=== PATIENT | female | born 1980 | race Caucasian/White ===

== ENCOUNTER 2019-03-19 14:37 | Inpatient (IN) | payer MEDICAID ==
[~2019-03-19] VITALS: Ht 157.5 cm; Wt 40.8 kg
--- NOTE | 2019-03-19 12:42 | NUR ---
NURSE NOTES: Dr. Quintero made aware regarding Pt.'s pupil size difference, left 4 right 2. Addendum: 03/20/19 at 0754 by Jackeline Card RN WRONG PATIENT!!
[2019-03-19 14:40] VITALS: BP 127/82
[2019-03-19] MEDS ORDERED: Dicyclomine HCl 10mg/5ml oral soln ORAL ONE (14:45)
[2019-03-19] MEDS ORDERED: Mylanta II UD 30ml ORAL ONE (14:45)
[2019-03-19] MEDS ORDERED: Lidocaine 2% Visc 15ml soln ORAL ONE (14:45)
--- NOTE | 2019-03-19 14:48 | Emergency Room Report ---
History of Present Illness General Chief Complaint: Alcohol Intoxication Present Illness HPI Disclaimer: Please note that this report is being documented using [employer] technology. This can lead to erroneous entry secondary to incorrect interpretation by the dictating instrument. HPI: 38-year-old female with history of alcohol abuse presents requesting detox services and complaining of abdominal pain. She states that she has a long history of alcohol abuse and has been drinking approximately 10 mini-bottles of liquor daily for approximately 1 year. Has completed outpatient detox programs in the past however repeat last this past October after 1 month of sobriety. She notes intermittent left upper quadrant and lower pelvic pain. She denies dysuria, hematuria, flank pain, vaginal discharge, vaginal bleeding. Cannot recall last menstrual period. Denies vomiting but does report nausea. Denies chest pain, shortness of breath. She has had an alcohol withdrawal seizure in the past but does not take anti-elliptic medication otherwise. Otherwise denies any recent fevers, chills, sore throat, nasal congestion. Denies other drug abuse. Does smoke cigarettes. PMH: Alcohol abuse with withdrawal seizure PSH: Denies Allergies: Denies Social Hx: Alcohol abuse, denies drug abuse. Active smoker Allergies: Coded Allergies: No Known Allergies (Unverified , 03/19/19) Patient History Now: No Review of Systems All Other Systems: negative except mentioned in HPI Physical Exam Vital Signs Date Time Temp Pulse Resp B/P (MAP) Pulse Ox O2 Delivery O2 Flow Rate FiO2 03/19/19 14:32 98.2 90 18 127/82 (97) 98 Room Air General: Awake and alert, no acute distress, tearful and emotional HEENT: NC/AT. EOMI. Cardiovascular: RRR. S1 and S2 normal. No murmur appreciated Resp: Normal work of breathing. No cough, wheezing or crackles appreciated Abdomen: Abdomen is soft, nondistended. Nontender, no masses, no guarding Skin: Intact. No abrasions, laceration or rash over the exposed skin MSK: Normal tone and bulk. Moving all extremities. No obvious deformity. Neuro: Awake and alert. Mentating appropriately. Procedures Critical Care Time Critical Care Time Total critical care time: Approximately 31 minutes Due to a high probability of clinically significant, life threatening deterioration, the patient required the highest level of preparedness to intervene emergently and I personally spent this critical care time directly and personally managing the patient. This critical care time included obtaining a history, examining the patient, pulse oximetry, ordering and reviewing studies , ordering treatments, evaluating response to treatment and updating management plan as needed, frequent reassessment and discussion with other providers as well as arranging for ultimate disposition. This critical to care time was performed to assess and manage the high probability of life-threatening deterioration that could result in multiorgan failure. This critical care time is separate from the separately billable procedures and treating other patients. Medical Decision Making Diagnostic Impression: Primary Impression: Acute alcoholic intoxication Qualified Codes: F10.929 - Alcohol use, unspecified with intoxication, unspecified Additional Impressions: Hypokalemia Pancreatitis UTI (urinary tract infection) ER Course This a 38-year-old female presenting for evaluation of abdominal pain and requesting detox services from alcohol. Differential includes but is not limited to gastritis, pancreatitis, cholecystitis, biliary colic, ovarian cyst, , ectopic , fibroid, gastroenteritis. We will start a broad metabolic and infectious work-up, give IV fluids, antiemetics and GI cocktail. Patient will be allowed to metabolize in the emergency department. Can discuss with discharge planning regarding outpatient services. No evidence of acute withdrawal. Last drink was earlier this morning. Laboratory Tests Test 03/19/19 15:10 White Blood Count 4.7 K/UL (4.8-10.8) L Red Blood Count 3.45 M/UL (4.20-5.40) L Hemoglobin 13.4 G/DL (12.0-16.0) Hematocrit 34.3 % (37.0-47.0) L Mean Corpuscular Volume 100 FL (80-99) H Mean Corpuscular Hemoglobin 38.8 PG (27.0-31.0) H Mean Corpuscular Hemoglobin Concent 38.9 G/DL (32.0-36.0) H Red Cell Distribution Width 12.9 % (11.6-14.8) Platelet Count 84 K/UL (150-450) L Mean Platelet Volume 7.2 FL (6.5-10.1) Neutrophils (%) (Auto) % (45.0-75.0) Lymphocytes (%) (Auto) % (20.0-45.0) Monocytes (%) (Auto) % (1.0-10.0) Eosinophils (%) (Auto) % (0.0-3.0) Basophils (%) (Auto) % (0.0-2.0) Differential Total Cells Counted 100 Neutrophils % (Manual) 52 % (45-75) Lymphocytes % (Manual) 40 % (20-45) Monocytes % (Manual) 7 % (1-10) Eosinophils % (Manual) 0 % (0-3) Basophils % (Manual) 0 % (0-2) Band Neutrophils 1 % (0-8) Nucleated Red Blood Cells 1 /100 WBC Platelet Estimate Decreased L Platelet Morphology Normal Polychromasia 1+ Macrocytosis 2+ Urine Color Yellow Urine Appearance Very cloudy Urine pH 7 (4.5-8.0) Urine Specific [place] 1.005 (1.005-1.035) Urine Protein 2+ (NEGATIVE) H Urine Glucose (UA) Negative (NEGATIVE) Urine Ketones 3+ (NEGATIVE) H Urine Blood 2+ (NEGATIVE) H Urine Nitrite Negative (NEGATIVE) Urine Bilirubin 2+ (NEGATIVE) H Urine Ictotest Positive (NEGATIVE) Urine Urobilinogen 8 MG/DL (0.0-1.0) H Urine Leukocyte Esterase 2+ (NEGATIVE) H Urine RBC 0-2 /HPF (0 - 2) Urine WBC 5-10 /HPF (0 - 2) H Urine Squamous Epithelial Cells Many /LPF (NONE/OCC) H Urine Bacteria Moderate /HPF (NONE) H Urine HCG, Qualitative Negative (NEGATIVE) Sodium Level 146 MMOL/L (136-145) H Potassium Level 2.4 MMOL/L (3.5-5.1) *L Chloride Level 100 MMOL/L (98-107) Carbon Dioxide Level 27 MMOL/L (21-32) Anion Gap 20 mmol/L (5-15) H Blood Urea Nitrogen 4 mg/dL (7-18) L Creatinine 0.6 MG/DL (0.55-1.30) Estimate Glomerular Filtration Rate > 60 mL/min (>60) Glucose Level 92 MG/DL (74-106) Calcium Level 9.5 MG/DL (8.5-10.1) Phosphorus Level 2.2 MG/DL (2.5-4.9) L Magnesium Level 1.7 MG/DL (1.8-2.4) L Total Bilirubin 2.0 MG/DL (0.2-1.0) H Direct Bilirubin 1.0 MG/DL (0.0-0.3) H Aspartate Amino Transferase (AST) 332 U/L (15-37) H Alanine Aminotransferase (ALT) 54 U/L (12-78) Alkaline Phosphatase 185 U/L (46-116) H Total Protein 7.5 G/DL (6.4-8.2) Albumin 3.7 G/DL (3.4-5.0) Globulin 3.8 g/dL Albumin/Globulin Ratio 1.0 (1.0-2.7) Lipase 1468 U/L (73-393) H Urine Opiates Screen Negative (NEGATIVE) Urine Barbiturates Screen Negative (NEGATIVE) Phencyclidine (PCP) Screen Negative (NEGATIVE) Urine Amphetamines Screen Negative (NEGATIVE) Urine Benzodiazepines Screen Negative (NEGATIVE) Urine Cocaine Screen Negative (NEGATIVE) Urine Marijuana (THC) Screen Negative (NEGATIVE) EKG Diagnostic Results EKG Time: 18:57 Rate: normal Rhythm: NSR ST Segments: no acute changes Other Impression Sinus rhythm, normal axis. First-degree AV block with [place] interval 376 ms. Narrow complex. Flattened T waves. Slight U wave present. No acute ST segment changes. Rhythm Strip Diag. Results Rhythm Strip Time: 18:57 EP Interpretation: yes Rate: 80s Rhythm: NSR, no PVC's, no ectopy Reevaluation Time: 18:00 Last Vital Signs Date Time Temp Pulse Resp B/P (MAP) Pulse Ox O2 Delivery O2 Flow Rate FiO2 03/19/19 14:32 98.2 90 18 127/82 (97) 98 Room Air Status: improved Reevaluation Impression Labs show a critically low potassium at 2.9 and patient is receiving IV and oral repletion. Magnesium also found low and will be repleted orally. Labs show urinary tract infection for which the patient is receiving ceftriaxone in addition to an elevated lipase level consistent with alcoholic pancreatitis. EKG did show flattened T waves and U waves in certain leads consistent with the patient's hypomagnesemia and hypokalemia. She will be admitted to telemetry for careful monitoring and further correction of her electro light abnormalities as well as treatment of her pancreatitis and urinary tract infection. Disposition: ADMITTED INPATIENT Condition: Serious Scripts No Active Prescriptions or Reported Meds Rohith Mccloud MD Mar 19, 2019 14:48
--- NOTE | 2019-03-19 14:55 | NUR ---
ED Nurse Note: Patient kian RA from home c/o ETOH intoxication, patient admits to drining about 5 shots of vodka prior to arrival, states that shes had 3 episodes of vomit prior to arrival, complains of 3/10 upper abdominal pain. patient is alert and oriented x4
[2019-03-19 15:27] LABS: HEMATOCRIT 34.3 % (37.0-47.0); HEMOGLOBIN 13.4 G/DL (12.0-16.0); MEAN CORPUSCULAR VOLUME 100 FL (80-99); PLATELET COUNT 84 K/UL (150-450); RED BLOOD COUNT 3.45 M/UL (4.20-5.40); RED CELL DISTRIBUTION WIDTH 12.9 % (11.6-14.8); WHITE BLOOD COUNT 4.7 K/UL (4.8-10.8)
[2019-03-19 15:30] LABS: APPEARANCE,URINE VERY CLOUDY; BILIRUBIN, URINE 2+ (NEGATIVE); GLUCOSE, URINE (UA) NEGATIVE (NEGATIVE); KETONES,URINE 3+ (NEGATIVE); LEUKOCYTE ESTERASE ,URINE 2+ (NEGATIVE); NITRITE,URINE NEGATIVE (NEGATIVE); PH,URINE 7 (4.5-8.0); PROTEIN,URINE 2+ (NEGATIVE); UROBILINOGEN,URINE 8 MG/DL (0.0-1.0)
[2019-03-19 15:34] LABS: COLOR,URINE YELLOW
--- NOTE | 2019-03-19 15:43 | NUR ---
ED Nurse Note: Patient sleeping in bed in no distress
[2019-03-19 15:50] LABS: ALANINE AMINOTRANSFERASE 54 U/L (12-78); ALBUMIN 3.7 G/DL (3.4-5.0); ALKALINE PHOSPHATASE 185 U/L (46-116); ANION GAP 20 mmol/L (5-15); ASPARTATE AMINO TRANSFERASE 332 U/L (15-37); BLOOD UREA NITROGEN 4 mg/dL (7-18); CALCIUM 9.5 MG/DL (8.5-10.1); CARBON DIOXIDE 27 MMOL/L (21-32); CHLORIDE 100 MMOL/L (98-107); CREATININE 0.6 MG/DL (0.55-1.30); PHOSPHORUS 2.2 MG/DL (2.5-4.9); SODIUM 146 MMOL/L (136-145)
[2019-03-19 15:51] LABS: POTASSIUM 2.4 MMOL/L (3.5-5.1)
[2019-03-19] MEDS ORDERED: cefTRIAXone 1 GM in NS 55 ML IVPB ONE (17:15)
--- NOTE | 2019-03-19 17:45 | NUR ---
ED Nurse Note: Patient sleeping calmly in bed, patient was given a sandwich
[2019-03-19 17:48] VITALS: BP 118/79
--- NOTE | 2019-03-19 18:30 | NUR ---
Behzad cortés in ED - 03/19/19 at 1919 by KATHYA TRANSFER TO FLOOR: Patient transferred to Telemetry as ordered, per . Report given to KD Huffman
--- NOTE | 2019-03-19 18:30 | NUR ---
TRANSFER TO FLOOR: Patient transferred to Telemetry as ordered, per . Report given to KD Huffman
--- NOTE | 2019-03-19 18:36 | NUR ---
NURSE NOTES: Report received from KD Sterling. Pt. came on the floor from ER. via gurney. AOx4. bullet slugs inspector applied. Pt. refused floor gown, in bed with street clothing. Belongings checked with Pt. signed and filed. Floor ID band applied. VS stable. Walked to the restroom, stable. Denies any pain or SOB. In RA. L and R FA 20g IV patent, flushed, running Mg and NS in different sites. Bed on lowest position, side rails upx2, brakes engaged. Call light within easy reach.
[2019-03-19 18:45] VITALS: BP 111/78
--- NOTE | 2019-03-19 19:13 | NUR ---
NURSE NOTES: Left a message to Dr. Gill, Pt. on the floor, need admission orders. Informed to call the floor.
--- NOTE | 2019-03-19 19:20 | NUR ---
HAND-OFF: Report given to KD Smith. Pt. AOx4. No complaint of pain.
--- NOTE | 2019-03-19 19:58 | NUR ---
NURSE NOTES: Received pt from KD Viveros. Pt awakened to voice but lethargic. Bed in lowest position. Call light within reach. Dr. Gill called with the following orders: - D/C home meds - NPO - SCD - Banana bag @75 ml/hr X1 - Dominique consult for ativan orders - Erin consult for GI problems Will input orders and will continue to monitor. Will continue to monitor.
[2019-03-19 20:00] VITALS: BP 114/79
[2019-03-19] MEDS ORDERED: Folic Acid 1 MG, Magnesium Sulfate 2,000 MG, Multivitamin - 12 Injection 10 ML in Sodiu... IV ONE (21:30)
[2019-03-19] MEDS: LORazepam 1mg tab ORAL PRN (21:30)
[2019-03-19] MEDS ORDERED: Thiamine 100mg in D5W 55ml IVPB ONE (21:30)
[2019-03-20] VITALS: BP 129/91
[2019-03-20 04:00] VITALS: BP 137/99
--- NOTE | 2019-03-20 07:21 | NUR ---
HAND-OFF: Report given to KD Viveros. Pt stable.
--- NOTE | 2019-03-20 07:21 | NUR ---
NURSE NOTES: Report received from KD Smith. Pt. sleeping comfortably, no distress noted. White board updated. Room cleared from clatter. Banana bag running at 75mL/hr. site intact. Bed on lowest position, side rails upx2, brakes engaged. Call light placed within reach.
[2019-03-20 08:00] VITALS: BP 130/91
[2019-03-20 08:55] LABS: HEMOGLOBIN 10.6 G/DL (12.0-16.0); MEAN CORPUSCULAR VOLUME 108 FL (80-99); PLATELET COUNT 60 K/UL (150-450); RED BLOOD COUNT 2.77 M/UL (4.20-5.40); RED CELL DISTRIBUTION WIDTH 13.9 % (11.6-14.8); WHITE BLOOD COUNT 4.9 K/UL (4.8-10.8)
[2019-03-20 09:30] LABS: ALANINE AMINOTRANSFERASE 47 U/L (12-78); ALBUMIN 2.8 G/DL (3.4-5.0); ALBUMIN/GLOBULIN RATIO 0.9 (1.0-2.7); ALKALINE PHOSPHATASE 160 U/L (46-116); ASPARTATE AMINO TRANSFERASE 302 U/L (15-37); BILIRUBIN,TOTAL 2.3 MG/DL (0.2-1.0); BLOOD UREA NITROGEN 3 mg/dL (7-18); CALCIUM 8.1 MG/DL (8.5-10.1); CARBON DIOXIDE 29 MMOL/L (21-32); CHOLESTEROL 229 MG/DL (< 200); CREATININE 0.7 MG/DL (0.55-1.30); HDL CHOLESTEROL 102 MG/DL (40-60); PHOSPHORUS 2.9 MG/DL (2.5-4.9); TRIGLYCERIDES 38 MG/DL (30-150)
[2019-03-20 09:31] LABS: BILIRUBIN,DIRECT 1.2 MG/DL (0.0-0.3)
[2019-03-20 09:36] LABS: CHLORIDE 102 MMOL/L (98-107); POTASSIUM 2.2 MMOL/L (3.5-5.1); SODIUM 144 MMOL/L (136-145)
--- NOTE | 2019-03-20 10:18 | GI Initial Consult Note ---
History of Present Illness General Date patient seen: Mar 20, 2019 Time patient seen: 10:14 Reason for Hospitalization: Alcohol Intoxication Referring physician: DANIELLA SIMON Reason for Consultation: Alcoholic pancreatitis Present Illness HPI 38-year-old female with history of alcohol abuse presents requesting detox services and complaining of abdominal pain. She states that she has a long history of alcohol abuse and has been drinking approximately 10 mini-bottles of liquor daily for approximately 1 year. Has completed outpatient detox programs in the past however repeat last this past October after 1 month of sobriety. She notes intermittent left upper quadrant and lower pelvic pain. She denies dysuria, hematuria, flank pain, vaginal discharge, vaginal bleeding. Cannot recall last menstrual period. Denies vomiting but does report nausea. Denies chest pain, shortness of breath. She has had an alcohol withdrawal seizure in the past but does not take anti-elliptic medication otherwise. Otherwise denies any recent fevers, chills, sore throat, nasal congestion. Denies other drug abuse. Does smoke cigarettes. GI consulted for alcoholic pancreatitis. Patient seen, awake alert oriented x4 no apparent distress with no active signs or symptoms of nausea vomiting. At this time the patient's still states her abdominal pain is present, but however has improved. The patient admits to EtOH abuse as noted above. Patient has no history of endoscopic or colonoscopy. The patient denies any diarrhea or constipation. Pertinent labs hemoglobin 10.6, lipase 1418, total bilirubin 2.0 , AST of 332. Home Meds No Active Prescriptions or Reported Meds Allergies: Coded Allergies: No Known Allergies (Unverified , 03/19/19) Patient History History Provided By: Patient, Medical Record PMH Narrative PMH: Alcohol abuse with withdrawal seizure PSH: Denies Allergies: Denies Social Hx: Alcohol abuse, denies drug abuse. Active smoker Patient History Now: No Social History: Reports: alcohol use Review of Systems All Other Systems: negative except mentioned in HPI Physical Exam Vital Signs Date Time Temp Pulse Resp B/P (MAP) Pulse Ox O2 Delivery O2 Flow Rate FiO2 03/19/19 14:32 98.2 90 18 127/82 (97) 98 Room Air Sp02 EP Interpretation: reviewed, normal Labs Laboratory Tests Test 03/19/19 15:10 03/20/19 08:15 White Blood Count 4.7 K/UL (4.8-10.8) L 4.9 K/UL (4.8-10.8) Red Blood Count 3.45 M/UL (4.20-5.40) L 2.77 M/UL (4.20-5.40) L Hemoglobin 13.4 G/DL (12.0-16.0) 10.6 G/DL (12.0-16.0) L Hematocrit 34.3 % (37.0-47.0) L 30.0 % (37.0-47.0) L Mean Corpuscular Volume 100 FL (80-99) H 108 FL (80-99) H Mean Corpuscular Hemoglobin 38.8 PG (27.0-31.0) H 38.5 PG (27.0-31.0) H Mean Corpuscular Hemoglobin Concent 38.9 G/DL (32.0-36.0) H 35.5 G/DL (32.0-36.0) Red Cell Distribution Width 12.9 % (11.6-14.8) 13.9 % (11.6-14.8) Platelet Count 84 K/UL (150-450) L 60 K/UL (150-450) L Mean Platelet Volume 7.2 FL (6.5-10.1) 9.0 FL (6.5-10.1) Neutrophils (%) (Auto) % (45.0-75.0) % (45.0-75.0) Lymphocytes (%) (Auto) % (20.0-45.0) % (20.0-45.0) Monocytes (%) (Auto) % (1.0-10.0) % (1.0-10.0) Eosinophils (%) (Auto) % (0.0-3.0) % (0.0-3.0) Basophils (%) (Auto) % (0.0-2.0) % (0.0-2.0) Differential Total Cells Counted 100 Neutrophils % (Manual) 52 % (45-75) Pending Lymphocytes % (Manual) 40 % (20-45) Pending Monocytes % (Manual) 7 % (1-10) Eosinophils % (Manual) 0 % (0-3) Basophils % (Manual) 0 % (0-2) Band Neutrophils 1 % (0-8) Nucleated Red Blood Cells 1 /100 WBC Platelet Estimate Decreased L Pending Platelet Morphology Normal Pending Polychromasia 1+ Macrocytosis 2+ Urine Color Yellow Urine Appearance Very cloudy Urine pH 7 (4.5-8.0) Urine Specific [place] 1.005 (1.005-1.035) Urine Protein 2+ (NEGATIVE) H Urine Glucose (UA) Negative (NEGATIVE) Urine Ketones 3+ (NEGATIVE) H Urine Blood 2+ (NEGATIVE) H Urine Nitrite Negative (NEGATIVE) Urine Bilirubin 2+ (NEGATIVE) H Urine Ictotest Positive (NEGATIVE) Urine Urobilinogen 8 MG/DL (0.0-1.0) H Urine Leukocyte Esterase 2+ (NEGATIVE) H Urine RBC 0-2 /HPF (0 - 2) Urine WBC 5-10 /HPF (0 - 2) H Urine Squamous Epithelial Cells Many /LPF (NONE/OCC) H Urine Bacteria Moderate /HPF (NONE) H Urine HCG, Qualitative Negative (NEGATIVE) Sodium Level 146 MMOL/L (136-145) H 144 MMOL/L (136-145) Potassium Level 2.4 MMOL/L (3.5-5.1) *L 2.2 MMOL/L (3.5-5.1) *L Chloride Level 100 MMOL/L (98-107) 102 MMOL/L (98-107) Carbon Dioxide Level 27 MMOL/L (21-32) 29 MMOL/L (21-32) Anion Gap 20 mmol/L (5-15) H Blood Urea Nitrogen 4 mg/dL (7-18) L 3 mg/dL (7-18) L Creatinine 0.6 MG/DL (0.55-1.30) 0.7 MG/DL (0.55-1.30) Estimat Glomerular Filtration Rate > 60 mL/min (>60) > 60 mL/min (>60) Glucose Level 92 MG/DL (74-106) 70 MG/DL (74-106) L Calcium Level 9.5 MG/DL (8.5-10.1) 8.1 MG/DL (8.5-10.1) L Phosphorus Level 2.2 MG/DL (2.5-4.9) L 2.9 MG/DL (2.5-4.9) Magnesium Level 1.7 MG/DL (1.8-2.4) L 2.1 MG/DL (1.8-2.4) Total Bilirubin 2.0 MG/DL (0.2-1.0) H 2.3 MG/DL (0.2-1.0) H Direct Bilirubin 1.0 MG/DL (0.0-0.3) H 1.2 MG/DL (0.0-0.3) H Aspartate Amino Transf (AST/SGOT) 332 U/L (15-37) H 302 U/L (15-37) H Alanine Aminotransferase (ALT/SGPT) 54 U/L (12-78) 47 U/L (12-78) Alkaline Phosphatase 185 U/L (46-116) H 160 U/L (46-116) H Total Protein 7.5 G/DL (6.4-8.2) 5.8 G/DL (6.4-8.2) L Albumin 3.7 G/DL (3.4-5.0) 2.8 G/DL (3.4-5.0) L Globulin 3.8 g/dL 3.0 g/dL Albumin/Globulin Ratio 1.0 (1.0-2.7) 0.9 (1.0-2.7) L Lipase 1468 U/L (73-393) H 1244 U/L (73-393) H Urine Opiates Screen Negative (NEGATIVE) Urine Barbiturates Screen Negative (NEGATIVE) Phencyclidine (PCP) Screen Negative (NEGATIVE) Urine Amphetamines Screen Negative (NEGATIVE) Urine Benzodiazepines Screen Negative (NEGATIVE) Urine Cocaine Screen Negative (NEGATIVE) Urine Marijuana (THC) Screen Negative (NEGATIVE) Uric Acid 2.8 MG/DL (2.6-7.2) C-Reactive Protein, Quantitative < 0.4 mg/dL (0.00-0.90) Triglycerides Level 38 MG/DL (30-150) Cholesterol Level 229 MG/DL (< 200) H LDL Cholesterol 85 mg/dL (<100) HDL Cholesterol 102 MG/DL (40-60) H Cholesterol/HDL Ratio 2.2 (3.3-4.4) L General Appearance: well appearing, no apparent distress, alert Head: normocephalic EENT: PERRL/EOMI, normal ENT inspection Neck: supple Respiratory: normal breath sounds, no respiratory distress Cardiovascular: normal rate Gastrointestinal: normal inspection, non tender, soft, normal bowel sounds, non -distended Rectal: deferred Genitourinary: no CVA tenderness Musculoskeletal: normal inspection, back normal Neurologic: normal inspection, alert, oriented x3, responsive Psychiatric: normal inspection, judgement/insight normal, memory normal Skin: normal inspection, normal color, no rash, warm/dry, palpation normal, well hydrated Lymphatic: normal inspection, no adenopathy Current Medications Current Medications Medications (Trade) Dose Ordered Sig/Ismael Route PRN Reason Start Time Stop Time Status Last Admin Dose Admin Ceftriaxone Sodium 1 gm/ Dextrose 55 ml @ 110 mls/hr Q24H IVPB 03/20/19 15:00 03/27/19 14:59 Folic Acid 1 mg/ Magnesium Sulfate 2000 mg/ Multivitamins 10 ml/Sodium Chloride 1,014.2 ml @ 75 mls/hr Q24H ONCE IV 03/19/19 21:30 03/20/19 11:01 03/19/19 21:31 Lorazepam (Ativan) 2 mg Q2H PRN ORAL anxiety 03/19/19 20:30 03/26/19 20:29 03/19/19 21:30 Ondansetron HCl (Zofran) 4 mg Q6H PRN IVP Nausea & Vomiting 03/19/19 20:15 04/18/19 20:14 03/19/19 21:30 Potassium Chloride 100 ml @ 100 mls/hr Q1H IVPB 03/20/19 10:00 03/20/19 19:59 GI: Plan Problems: (1) Acute alcoholic pancreatitis (2) Anemia (3) ETOH abuse Plan Maintain the patient n.p.o. plus IV fluids We will obtain abdominal ultrasound to evaluate liver Banana bag pain mgmt zofran prn PPI anemia work up OB stool r/o GI bleed monitor H&H, prn transfusions bowel regimen ppi fu labs, lipase trend LFTs Discussed with Dr. Khan. Thank you for this patient referral, we will follow. The patient was seen and examined at bedside and all new and available data was reviewed in the patients chart. I agree with the above findings, impression and plan. (Patient seen earlier today. Signature stamp does not reflect patient encounter time.). - MD Haley Almazan,[facility] [employer] Mar 20, 2019 10:18
[2019-03-20 12:00] VITALS: BP 128/86
[2019-03-20] MEDS: LORazepam 1mg tab ORAL PRN ×2 (12:00→21:32)
--- NOTE | 2019-03-20 12:29 | Diagnostic Imaging Report ---
Indication: Abnormal liver function tests and abdominal pain Technique: Mathis-scale and duplex images of the upper abdomen were obtained Comparison: none Findings: Gallbladder demonstrates sludge. No stones. No pericholecystic fluid or wall thickening. Sonographic Jiang's sign is negative. Common bile duct measures 6 mm in diameter. No intrahepatic biliary ductal dilatation. Liver demonstrates diffusely increased echogenicity, consistent with diffuse hepatocellular disease, most likely fatty change. Is enlarged. Portal vein and hepatic veins are patent. Pancreas is unremarkable. Spleen is unremarkable. Left kidney measures 10.1 cm in length. Right kidney measures 11.4 cm length. Both kidneys demonstrate normal echogenicity. There is no hydronephrosis. No focal abnormality . Non-aneurysmal abdominal aorta . Impression: Gallbladder sludge. Negative for gallstones or dilated bile ducts Hepatomegaly Liver demonstrates diffusely increased echogenicity, consistent with diffuse hepatocellular disease, most likely fatty change.
[2019-03-20] MEDS ORDERED: cefTRIAXone 1 GM in D5W 55 ML IVPB SCH (15:00)
[2019-03-20 16:00] VITALS: BP 130/79
--- NOTE | 2019-03-20 16:02 | NUR ---
Social Service Note MORA met with patient to address ETOH abuse. Patient states she has been drinking for as long as she can remember. Patient is non-funded with limited income. Patient recently received detox services for 4 days at [facility]. [facility] will screen patient. MORA provided community resources for [facility] substance abuse services. Patient with poor coping skills and noted depression. Mental Health resources also provided. Patient states the longest period of sobriety is when she returned home to [place] with her mother and received rehab there. Patient doesn't want to return home but understands resources a limited due to no insurance and ability to pay privately. MORA provided support. Patient will return home upon discharge.
--- NOTE | 2019-03-20 16:09 | NUR ---
CASE MANAGEMENT:REVIEW 38 YR OLD FEMALE BIBA FROM HOME CC: ABDOMINAL PAIN D/T ALCOHOL INTAKE. VOMITI NG SI: HYPOKALEMIA. UTI. PANCREATITIS ACUTE ETOH INTOXICATION 98.2 90 18 127/82 98% ON RA K-2.4 LIPASE+1468 IS: IV KCL X3 PO KCL 1L NS BOLUS IV ZOFRAN GI COCKTAIL : TO TELEMETRY INTERQUAL CRITERIA MET
--- NOTE | 2019-03-20 18:00 | History and Physical Report ---
DATE OF ADMISSION: 03/19/2019 HISTORY OF PRESENT ILLNESS: The patient comes in alcohol abuse, alcohol intoxication, rule out DT, found to be hypokalemic, potassium 2.4, also for pancreatitis with elevated lipase as well as UTI, admitted for those reasons. The patient's only complaint right now is mild epigastric tenderness as well as weakness. Otherwise, denies nausea, vomiting, or diarrhea. Denies shortness of breath . Denies cough. Denies chills. PAST MEDICAL HISTORY: Alcohol abuse, history of breast abscess. PAST SURGICAL HISTORY: Removal of the abscess of the breast. SOCIAL HISTORY: History of smoking. History of alcohol abuse. No history of drug abuse. MEDICATIONS: The patient does not take anything routine. ALLERGIES: No known allergies. FAMILY HISTORY: Noncontributory. REVIEW OF SYSTEMS: HEENT: Denies headaches. RESPIRATORY: Denies shortness of breath. Denies cough. CARDIOVASCULAR: Denies chest pain. GASTROINTESTINAL: Denies nausea, vomiting, diarrhea. EXTREMITIES: Weakness and pain. Does have mild epigastric tenderness. Has generalized weakness. CENTRAL NERVOUS SYSTEM: Denies change in vision or speech pattern. Has generalized weakness. PHYSICAL EXAMINATION: VITAL SIGNS: Temperature 98.5, pulse is 87, blood pressure 139/91. HEENT: PERRLA. NECK: Supple. No lymphadenopathy. CHEST: Clear to auscultation. CARDIOVASCULAR: Regular rate and rhythm. No murmur or extra sounds. GASTROINTESTINAL: Mild epigastric tenderness. Abdomen is soft. No rebound. No organomegaly. EXTREMITIES: No edema. Reflexes equal on both sides. Move all four extremities. LABORATORY STUDIES: WBC is 4.7, hemoglobin 13.4, platelets 84. Sodium 46, potassium 2.4, BUN of 4, creatinine 0.6, glucose of 92. AST , ALT of 54. Total bilirubin of 2. ASSESSMENT AND PLAN: Alcohol abuse, hypokalemia, pancreatitis, elevated lipase, UTI. I have asked Dr. Beckman, Dr. Dang, Dr. Fox, Dr. Khan, and Dr. Caleb Dallas to see the patient and help with the management of the above-mentioned diagnoses. Most of her problems are most likely due to current alcohol consumption. We will monitor the patient closely. Ti Gill M.D. DR: JACOBO JOB#: [id number] CC:
--- NOTE | 2019-03-20 18:54 | Consultation ---
Consult Note Consult Note Late keysha Patient seen , interviewed examined 9 am today- Lab reviewed preliminary orders given ER HPI: 38-year-old female with history of alcohol abuse presents requesting detox services and complaining of abdominal pain. She states that she has a long history of alcohol abuse and has been drinking approximately 10 mini-bottles of liquor daily for approximately 1 year. Has completed outpatient detox programs in the past however repeat last this past October after 1 month of sobriety. She notes intermittent left upper quadrant and lower pelvic pain. She denies dysuria, hematuria, flank pain, vaginal discharge, vaginal bleeding. Cannot recall last menstrual period. Denies vomiting but does report nausea. Denies chest pain, shortness of breath. She has had an alcohol withdrawal seizure in the past but does not take anti-elliptic medication otherwise. Otherwise denies any recent fevers, chills, sore throat, nasal congestion. Denies other drug abuse. Does smoke cigarettes. PMH: Alcohol abuse with withdrawal seizure Allergies: Denies Social Hx: Alcohol abuse, denies drug abuse. Active smoker No Known Allergies (Unverified , 03/19/19) . Assessment/Plan Severe HypoKalemia Pancreatitis , high Lipase Acute alcoholic intoxication Anemia sugg: K IV IV Fluid Monitor electrolytes anemia valenzuela Thiamin Gastric support per orders Mehdi Beckman MD Mar 20, 2019 18:54
--- NOTE | 2019-03-20 19:30 | NUR ---
HAND-OFF: Report given to KD Najera. Patient in stable condition. Family at bedside.
--- NOTE | 2019-03-20 19:30 | NUR ---
NURSE NOTES: Received report from KD Viveros. Pt is awake and resting in bed. In no acute distress. IV line intact and patent. Bed in lowest position, call light within reach. Will continue plan of care.
[2019-03-20 20:00] VITALS: BP 108/85
--- NOTE | 2019-03-20 20:00 | Consultation ---
DATE OF CONSULTATION: 03/20/2019 HISTORY OF PRESENT ILLNESS: The patient is a 38-year-old female with a history of alcohol dependence, alcohol withdrawal, seizure who has been admitted to the hospital for agitation and alcohol intoxication. The patient has been having anxiety, agitation. Her vital signs have been slightly high however manageable. She has some tachycardic; however, is manageable. PAST PSYCHIATRIC HISTORY: Significant for depression and anxiety. PAST MEDICAL HISTORY: As above. ALLERGIES: No known drug allergies. SUBSTANCE ABUSE HISTORY: Significant for alcohol. Urine toxicology was negative. MENTAL STATUS EXAMINATION: The patient is alert and oriented to self, has waxing and waning of consciousness. She has been slightly lethargic. She knows she is in the hospital and she knows the year. Her mood is anxious. Affect is constricted. Congruent with mood. Thought process is concrete. Thought content, no suicidal or homicidal ideations. Cognition is slightly impaired. ASSESSMENT: [place] I Alcohol intoxication. Alcohol withdrawal. [place] II Deferred. [place] III As above. [place] IV Low [place] V 20 PLAN: 1. The patient will be continued on Ativan as needed. 2. Thiamine. 3. Folate. 4. We will continue to follow and readjust the medications. Ted Fox M.D. DR: Nicol JOB#: [id number] CC:
--- NOTE | 2019-03-20 21:15 | Consultation ---
DATE OF CONSULTATION: 03/20/2019 INFECTIOUS DISEASE CONSULTATION CONSULTING PHYSICIAN: Caleb Dallas M.D. PRIMARY ATTENDING PHYSICIAN: Ti Gill M.D. REASON FOR CONSULT: UTI, pancreatitis. HISTORY OF PRESENT ILLNESS: The patient is a 38-year-old white female admitted yesterday from home complaining of lower abdominal pain, has diarrhea. She is alcoholic and wanted also to go to alcohol detox program. Pain was more in the lower abdomen. The patient was found to have hypokalemia, has had pyuria. PAST MEDICAL HISTORY: Significant for alcohol dependence, alcohol withdrawal seizure, and nicotine dependence. ALLERGIES: No known drug allergies. MEDICATIONS: Getting ceftriaxone, potassium chloride, banana bag, lorazepam, and Zofran. Got a dose of ceftriaxone in the ER. SOCIAL HISTORY: Single. Originally is from [place]. She has no children. Lives with boyfriend. Drinks 10 mini bottles of liquor daily for one year. Smokes one pack of cigarettes daily since age of 16. REVIEW OF SYSTEMS: No fever. No chills. No nausea. No vomiting. No abdominal pain now. No coughing. No problem passing urine. PHYSICAL EXAMINATION: VITAL SIGNS: Temperature 98.4, pulse 80, and blood pressure 137/99. HEAD AND NECK: [place] conjunctivae. No oral lesion. HEART: Normal rate. LUNGS: Clear. ABDOMEN: Soft and nontender. EXTREMITIES: No edema. LABORATORY AND DIAGNOSTIC DATA: WBC 4.9, hemoglobin 10.6, hematocrit 30, and platelets 60,000. Sodium 144, potassium 2.2, chloride 102, bicarbonate 29, BUN 3, and creatinine 0.7. Glucose 70. Bilirubin 2.0, AST 202, ALT 47. Albumin is 2.8. Urine toxicology was negative. UA showed wbc's of 5 to 10, leukocyte esterase 2+, nitrite negative. Urine culture so far is negative. Lipase is 1468. IMPRESSION: 1. Pancreatitis, likely alcoholic. 2. Pyuria, so far urine culture is negative. Doubt urinary tract infection. 3. Alcohol abuse and intoxication. 4. Nicotine dependence. 5. Anemia and thrombocytopenia. RECOMMENDATIONS: Continue ceftriaxone. We will follow up the abdominal ultrasound ordered by platform loader. We will follow up the cultures. If the patient remained stable, we will stop antibiotics. At the end of my exam, I thank Dr. Gill for involving me in the care of this patient. Caleb Dallas M.D. DR: CASSIE JOB#: [id number] CC:
[2019-03-21] VITALS (84 sets, daily range): BP systolic 72–142; BP diastolic 40–106
--- NOTE | 2019-03-21 01:29 | NUR ---
NURSE NOTES: Pt was noted "V-Fib" on the manager cardiac cath. Checked on pt, found pt unresponsive, no pulse, not breathing and cyanotic. Called Code Blue.
--- NOTE | 2019-03-21 01:30 | NUR ---
CODE BLUE: See Code sheet which remains on paper.
[2019-03-21] MEDS ORDERED: Amiodarone 150mg/3ml Amp ONE ×2 (01:35→01:39)
--- NOTE | 2019-03-21 01:43 | NUR ---
NURSE NOTES: RN instated pyxis override to pull Magnesium 2gm for pt during Code Blue, per Dr. De Leon's orders.
--- NOTE | 2019-03-21 02:00 | NUR ---
RESPIRATORY NOTE: code blue called and pt intubated at bed side per DR De Leon, ETT tube 7.0 21@lip line, placed on AC 15 Vt 500 100% +5, transfered to ICU bed D, will continue to monitor the pt.
--- NOTE | 2019-03-21 02:00 | NUR ---
TRANSFER TO FLOOR: Patient transferred to ICU 246-D after Code Blue. Report given to KD Araujo. Belongings and medications given to RN. Tried calling siginificant other but no answer.
--- NOTE | 2019-03-21 02:01 | NUR ---
NURSE NOTES: Patient transferred from Telemetry S/P code blue. Patient currently is ventilated with ETT size 7.0m, 23cm at the bottom lip line. Patient was transferred with R femoral TLC with 1 G magnesium being unfused. Patient is cardiac on the monitor at [address] ST and with blood pressure at 109/88, SpO2 at 100% with FiO2 at 100%. Amiodarone gtt currently being running ordered by ER MD. Patient has had bolus dose Amiodarone in telemetry during code. Patient also has R and L FA 20G. Patient skin is dusky and mottled throughout the extremities but patient is awake and agitated and restless.
[2019-03-21] MEDS ORDERED: Amiodarone 900 MG in D5W 500ml 482 ML IV SCH ×2 (02:15→07:04)
--- NOTE | 2019-03-21 02:18 | NUR ---
NURSE NOTES: Called Dr. Gill and left him update about patients condition. Waiting for MD to call me back.
--- NOTE | 2019-03-21 02:30 | NUR ---
NURSE NOTES: Radiology here to do CXR for placement conformation
--- NOTE | 2019-03-21 03:00 | NUR ---
NURSE NOTES: Second bag of Magnesium 1 G hung. Patient remains agitated and restless.
--- NOTE | 2019-03-21 03:06 | NUR ---
NURSE NOTES: Called Dr. Gill again and left message regarding patients status. Left message to call me back as soon as possible for any further possible orders. Patient remains agitated and restless at this time. She is waking up and seems to be more aware restless.
--- NOTE | 2019-03-21 03:11 | NUR ---
NURSE NOTES: Dr. Haley JAUREGUI MD called to advance the ETT by 2 cm. Also gave me verbal orderers to give Zosyn 3.35G one time order dose and Levaquin 500mg one time order dose. Also gave me verbal order to give 2mg Versed IV one time order and start Diprivan gtt.
[2019-03-21] MEDS ORDERED: Midazolam 2mg/2ml Inj IVP SCH (03:15)
--- NOTE | 2019-03-21 03:15 | NUR ---
NURSE NOTES: Advanced ETT by 2cm and ordered for CXR
--- NOTE | 2019-03-21 03:20 | NUR ---
NURSE NOTES: Lab here to draw blood, CBC, BMP, Mg, Lipid panel.
--- NOTE | 2019-03-21 03:22 | Emergency Room Report ---
History of Present Illness General Chief Complaint: Alcohol Intoxication Source: Medical Record Present Illness HPI This is a 38-year-old female admitted to the hospital for hypokalemia and alcohol abuse and withdrawal. She was walking the hallway fine tonight without any issue. When she went back to her room and was hooked up on the monitor. She went to sleep. On the monitor office and it showed ventricular tachycardia and ventricular fibrillation. Nursing staff checked on her. She was unresponsive and a CODE BLUE was called. When I responded to code, CPR was in progress. On the monitor she was in V. fib so I elected to defibrillate her. This put her on to a sinus bradycardic rate but patient has no pulse. CPR continued when I gave her 1 dose of epinephrine. She did retain a spontaneous pulse. I elected to intubate the patient. The process of intubation, she went into V. fib again and I shocked her one more time. She went to a sinus tachycardic rhythm. Patient was intubated. I put her on amiodarone drip. I also ordered 2 g of magnesium sulfate. Assist to cover for torsade from hypomagnesium she was not responding to potassium. I also placed a central line in this patient. Chest x-ray show pneumonia in the left upper lobe. This may be from aspiration. Antibiotics also ordered. Patient is on the ventilator. Allergies: Coded Allergies: No Known Allergies (Unverified , 03/19/19) Patient History Now: No Nursing Documentation-[facility] Past Medical History: No Stated History Hx Epilepsy: Yes - pt stated had one episode in october Review of Systems Respiratory: Reports: shortness of breath All Other Systems: limited - secondary to condition Physical Exam Vital Signs Date Time Temp Pulse Resp B/P (MAP) Pulse Ox O2 Delivery O2 Flow Rate FiO2 03/19/19 14:32 98.2 90 18 127/82 (97) 98 Room Air 03/21/19 02:17 100 Sp02 EP Interpretation: reviewed, normal General Appearance: well appearing, severe distress, other - Unresponsive Head: normocephalic, atraumatic Eyes: bilateral eye PERRL, bilateral eye EOMI ENT: normal pharynx Neck: full range of motion, supple, no meningismus Respiratory: rhonchi - Agonal respiration Cardiovascular #1: regular rate, rhythm, no murmur, tachycardia Gastrointestinal: normal bowel sounds, non tender, no mass, no organomegaly, no bruit, non-distended Musculoskeletal: back normal, normal range of motion Procedures Critical Care Time Critical Care Time Critical care is mandated in this patient who presented with cold blue from ventricular fibrillation.. Patient require my urgent intervention to attenuate the risks of metabolic collapse which may lead to cardiovascular collapse and . Critical care time is 35 minutes excluding any reportable procedure. Critical care time included evaluation, multiple reevaluation, looking at old charts, interpreting laboratory and diagnostic data, discussing case with patient and family and consultants, and charting. Central Line Central Line : Consent: Emergent Central Line Lumen: triple Maximal Sterile Barrier Tech: yes cap, yes mask, yes sterile gown, yes sterile gloves, yes large sterile sheet, yes hand hygiene, yes chlorhexidine prep Central Line Postion: femoral (L) Complications: none Central Line Post Position: sutured, good blood return Attempts: One Patient Tolerated: Well Complications: None CPR/Code Blue CPR/Code Blue Narrative Please see nursing note for full list of medication. Had CPR done. 1 mg of epinephrine given. Patient was defibrillated twice at 200 J. Had good spontaneous pulse. Intubation Intubation : Consent: Emergent Intubation Method: orotracheal Tube Size (cm): 7.0 Medications: Etomidate, Succinylcholine Breath Sounds after Intubation: equal Intubation Complications: no complications Post Intubation Xray: Yes Progress/Xray Impression: Left upper lobe infiltrate. Endotracheal tube in good position. No pneumo Attempts: One Patient Tolerated: Well Complications: None Medical Decision Making Diagnostic Impression: Primary Impression: Ventricular fibrillation Additional Impressions: Cardiac arrest Aspiration pneumonia Qualified Codes: J69.0 - Pneumonitis due to inhalation of food and vomit Respiratory failure requiring intubation ER Course Patient status post cardiac arrest probably secondary to the A. fib. Patient now intubated, on amiodarone drip, status post magnesium infusion. Patient is in ICU. I contacted Dr. Driver. Chest X-Ray Diagnostic Results Chest X-Ray Diagnostic Results : Chest X-Ray Ordered: Yes # of Views/Limited/Complete: 1 View Indication: Shortness of Breath EP Interpretation: Yes Interpretation: no effusion, no pneumothorax, other - 3. Endotracheal tube at sternal notch. No pneumothorax. Impression: Other - s/p intubation. BRANDYN infiltrate. Electronically Signed by: Tarun DeL eon MD Last Vital Signs Date Time Temp Pulse Resp B/P (MAP) Pulse Ox O2 Delivery O2 Flow Rate FiO2 03/21/19 02:17 108 21 100 03/21/19 00:00 98.3 121/91 (101) 96 03/20/19 21:00 Room Air Status: improved Disposition: ADMITTED INPATIENT Condition: Critical Scripts No Active Prescriptions or Reported Meds Referrals: NOT CHOSEN IPA/,REFERRING (PCP) Tarun De Leon MD Mar 21, 2019 03:22
--- NOTE | 2019-03-21 03:26 | NUR ---
NURSE NOTES: 2mg Versed Given IVP
--- NOTE | 2019-03-21 03:30 | NUR ---
NURSE NOTES: calm at this time after the versed 2 mg iv given
[2019-03-21 03:32] LABS: HEMATOCRIT 34.9 % (37.0-47.0); HEMOGLOBIN 12.1 G/DL (12.0-16.0); MEAN CORPUSCULAR VOLUME 112 FL (80-99); PLATELET COUNT 57 K/UL (150-450); RED BLOOD COUNT 3.13 M/UL (4.20-5.40); RED CELL DISTRIBUTION WIDTH 14.1 % (11.6-14.8); WHITE BLOOD COUNT 10.2 K/UL (4.8-10.8)
--- NOTE | 2019-03-21 03:33 | Diagnostic Imaging Report ---
Indication: Post intubation Technique: One view of the chest Comparison: none Findings: There is an endotracheal tube in place, tip projected in good position approximately 5 cm above the rosalba. Hazy infiltrate is seen throughout the left mid and upper lung. The right lung and bilateral pleural spaces are clear. Impression: Satisfactory endotracheal intubation Before meals left lung airspace opacity could represent pneumonia or pulmonary edema, favor the former This agrees with the preliminary interpretation provided overnight by [facility] service.
--- NOTE | 2019-03-21 03:42 | NUR ---
NURSE NOTES: awake and alert at this time, follows simple commands with intermittent agitation,diprivan drip started by shea yee rn at 5mcg/kg/min
--- NOTE | 2019-03-21 03:43 | NUR ---
NURSE NOTES: Diprivan started at 5mcg/kg/min. Patient weight is 43kg.
[2019-03-21 03:49] LABS: INR 1.1 (0.9-1.1)
[2019-03-21 03:50] LABS: PHOSPHORUS 3.8 MG/DL (2.5-4.9)
--- NOTE | 2019-03-21 03:56 | NUR ---
NURSE NOTES: CXR tech to do repeat view for ETT placement. Patient cleaned and new Central line dressing changed.
--- NOTE | 2019-03-21 04:00 | NUR ---
NURSE NOTES: significant other listed(xander sykes) called but no answer,phone just keep on ringing
[2019-03-21 04:12] LABS: ALANINE AMINOTRANSFERASE 51 U/L (12-78); ALBUMIN 2.9 G/DL (3.4-5.0); ALBUMIN/GLOBULIN RATIO 0.9 (1.0-2.7); ALKALINE PHOSPHATASE 163 U/L (46-116); ANION GAP 18 mmol/L (5-15); ASPARTATE AMINO TRANSFERASE 367 U/L (15-37); BILIRUBIN,TOTAL 3.4 MG/DL (0.2-1.0); BLOOD UREA NITROGEN 2 mg/dL (7-18); CALCIUM 8.7 MG/DL (8.5-10.1); CARBON DIOXIDE 19 MMOL/L (21-32); CHLORIDE 101 MMOL/L (98-107); CREATININE 0.7 MG/DL (0.55-1.30); FERRITIN 1471 NG/ML (8-388); POTASSIUM 3.5 MMOL/L (3.5-5.1); SODIUM 138 MMOL/L (136-145)
[2019-03-21 04:23] LABS: % IRON SATURATION 102 % (15-50); BILIRUBIN,DIRECT 1.2 MG/DL (0.0-0.3); IRON 122 ug/dL (50-175); TOTAL IRON BINDING CAPACITY 120 ug/dL (250-450)
--- NOTE | 2019-03-21 04:34 | NUR ---
NURSE NOTES: 2nd cxr post intubation confirmation shows ETT 5 cm above rosalba. Patient getting full volumes. Remains on the Diprivan gtt. RASS score of -2 obtained. Remains at 100% FiO2. HR continues to be Sinus tachycardia ranging from 135-150. BP however has remained stable.
[2019-03-21] MEDS ORDERED: Piperacillin/Tazobactam 3.375 GM in NS 110 ML IVPB ONE (05:00)
--- NOTE | 2019-03-21 05:00 | NUR ---
NURSE NOTES: I called the significant other listed on the facesheet (xander sykes) I called but no answer,phone just keep on ringing. Will try again later.
--- NOTE | 2019-03-21 05:15 | NUR ---
NURSE NOTES: Trina kuhn. Patient remains tachy in the 140s.m Amio gtt remains ongoing. BP has been stable.
--- NOTE | 2019-03-21 05:18 | Diagnostic Imaging Report ---
Indication: Post intubation Technique: One view of the chest Comparison: 1 1/2 hours earlier Findings: Endotracheal tube tip may be slightly more proximal, currently projecting across the 6 cm above the rosalba. Hazy left upper lung infiltrate appears slightly less extensive. However, hazy opacities are now seen in the right perihilar and infrahilar region. The pleural spaces remain clear. The heart size is normal Impression: Equivocally slightly more proximal position of endotracheal tube, since earlier study Less extensive left lung infiltrates. New/increased right lung infiltrates. This agrees with the preliminary interpretation provided overnight by [facility].
--- NOTE | 2019-03-21 06:00 | NUR ---
NURSE NOTES: I called the significant other again that is listed on the facesheet (xander Miller) I called but no answer,phone just keep on ringing. Will try again later.
[2019-03-21] MEDS ORDERED: LORazepam 1mg tab ORAL PRN (07:05)
--- NOTE | 2019-03-21 07:20 | NUR ---
RESPIRATORY NOTE: Received pt on current vent setting: AC 57-000af-190%FiO2- peep 5. Pt newly oral intubated with ETT size 7.0 @ 23cm lip lines, secured by anchor fast. Tachycardia HR 131bpm, tachypneic RR 25-28bpm, saturates at 100% on 100% FiO2. Pt is resting comfortably in bed, no SOB or resp distress noted. Titrated FiO2 down to 80%, still saturates at 100%. RN Leandro made aware. Steve. clear breath sounds heard upon auscultation, suctioned minimal amounts of thick/thin clear august secretions without incidents. Alarms are set and audible, vent is plugged into the red outlet, ambu bag is at bedside. The vent circuits and sxn tube are secured and out of the way. Will continue to monitor pt and suction q2h and as needed.
[2019-03-21] MEDS ORDERED: LORazepam Inj 2mg/ml 1ml IM PRN (07:45)
--- NOTE | 2019-03-21 08:41 | Pulmonolgy Critical Care Note ---
Critical Care - Asmt/Plan Assessment/Plan: Pulmonary Critical Care Consultation HPI Patient is a 38-year-old woman initially admitted to the hospital for Hypokalemia and Alcohol abuse/withdrawal, Pancreatitis. S/p VT VF arrest earlier this morning, succesfully shocked and given CPR for subsequest PEA, currently intubated and sedated on the Ventilator, on Amiodarone gtt. Patient is awake and interactive post code, although sedated. Received IV Magnesium during the CPR. Prior to the code was walking around. Noted to have evidence of pneumonia with bilateral infiltrates, L>R, post intubation, possibly from aspiration. Antibiotics started. Patient sedated on Propofol gtt. Allergies: No Known Allergies Past Medical History: Alcohol abuse, fatty liver, previous seizure, previous drainage of breast abscess. All Other Systems: limited - secondary to condition Physical Exam Vital Signs Noted, not currently on pressors General Appearance: Sedated although interactive, jaundice Head: normocephalic, atraumatic Eyes: bilateral eye PERRL, bilateral eye EOMI ENT: moist mm, ETT Neck: no masses, no LN Respiratory: Bilateral occasional rhonchi Cardiovascular: regular rate, rhythm, normal HS1, HS2, no murmur Gastrointestinal: normal bowel sounds, non tender, no mass, no organomegaly, no bruit, non-distended Musculoskeletal: no rashes, no edema SEGMENT PRODUCER: Interactive, no seizures, no focal signs Impression: S/p Ventricular fibrillation arrest and subsequest PEA, currently stable on Amiodarone gtt Aspiration pneumonia Respiratory failure requiring intubation Alcohol abuse, withdrawal Pancreatitis Fatty Liver Previous Seizures Previous breast abscess requirng drainage Plan Continue current AC settings, wean as tolerated Wean FIO2 - sats 90-96% NGT/KUB Fields catheter IVF Transition of Propofol Supplement K Fentanyl gtt, PRN Ativan Monitor labs PPX LE Dupplex IV Antibiotics Thiamine Chest X-Ray: no effusion, no pneumothorax. Endotracheal tube 5cm. No pneumothorax, BRANDYN infiltrate Labs/ABG noted Critical Care - Objective Last 24 Hour Vital Signs Date Time Temp Pulse Resp B/P (MAP) Pulse Ox O2 Delivery O2 Flow Rate FiO2 03/21/19 07:38 24 85/64 Mechanical Ventilator 80 03/21/19 07:20 131 25 80 03/21/19 07:00 143 28 101/71 (81) 100 03/21/19 07:00 25 101/71 Mechanical Ventilator 100 03/21/19 07:00 25 101/71 Mechanical Ventilator 100 03/21/19 07:00 25 101/71 Mechanical Ventilator 100 03/21/19 06:45 145 29 93/79 (84) 100 03/21/19 06:30 143 31 90/66 (74) 100 03/21/19 06:15 141 20 92/69 (77) 100 03/21/19 06:00 144 26 90/71 (77) 100 03/21/19 06:00 26 92/74 Mechanical Ventilator 100 03/21/19 05:45 146 25 92/74 (80) 100 03/21/19 05:30 129 25 72/52 (59) 100 03/21/19 05:15 144 30 98/73 (81) 100 03/21/19 05:00 32 94/74 Mechanical Ventilator 100 03/21/19 05:00 140 30 94/74 (81) 100 03/21/19 04:47 109 21 100 03/21/19 04:45 130 23 87/68 (74) 100 03/21/19 04:30 145 03/21/19 04:30 118 23 78/56 (63) 100 03/21/19 04:15 130 18 104/82 (89) 100 03/21/19 04:07 134 22 104/81 (89) 100 03/21/19 04:00 Mechanical Ventilator 03/21/19 04:00 20 100/69 Mechanical Ventilator 100 03/21/19 04:00 100 03/21/19 04:00 97.6 132 24 100/69 (79) 100 03/21/19 03:45 131 25 105/85 (92) 100 03/21/19 03:42 24 108/83 Mechanical Ventilator 03/21/19 03:30 131 25 108/83 (91) 100 03/21/19 03:15 118 24 100 03/21/19 03:15 139 26 117/95 (102) 100 03/21/19 03:00 144 34 120/99 (106) 100 03/21/19 02:45 149 25 119/103 (108) 100 03/21/19 02:30 143 26 109/88 (95) 100 03/21/19 02:23 142 27 111/81 (91) 100 03/21/19 02:17 108 21 100 03/21/19 02:15 114 17 109/75 (86) 99 03/21/19 02:00 97.2 125 25 115/89 (98) 03/21/19 02:00 Mechanical Ventilator 03/21/19 02:00 100 03/21/19 00:00 101 03/21/19 00:00 98.3 101 18 121/91 (101) 96 03/20/19 21:00 Room Air 03/20/19 20:00 97.3 115 18 108/85 (93) 97 03/20/19 20:00 115 03/20/19 16:00 97 03/20/19 16:00 98.9 71 18 130/79 (96) 100 03/20/19 12:00 99.1 90 20 128/86 (100) 100 03/20/19 12:00 86 03/20/19 09:00 Room Air Micro: Microbiology Date/Time Source Procedure Growth Status 03/19/19 15:10 Urine,Clean Catch Urine Culture - Preliminary NO GROWTH Resulted Critical Care - Subjective ROS Limited/Unobtainable: No Condition: improving IV Access: central EKG Rhythm: Sinus Rhythm FI02: 80 Vent Support Breath Rate: 15 Vent Support Mode: AC Vent Tidal Volume: 500 Sputum Amount: Scant PEEP: 5.0 PIP: 26 I&O: Intake and Output 03/20/19 03/21/19 18:59 06:59 Intake Total 276.30 ml Balance 276.30 ml Intake IV Total 276.30 ml # Voids 4 # Bowel Movements 1 ET-Tube: 7.0 ET Position: 23 Leandro Montesinos MD Mar 21, 2019 08:41
--- NOTE | 2019-03-21 08:45 | NUR ---
NURSE NOTES: Dr. Maher called to place orders for antibiotics, fluids, urine and sputum sample, daily labs, placement of bhardwaj and NG-tube, will place orders, patient is on restraints with bilateral wrist restrained for attempting to pull at anchor holding Et-tube, patient remains on propofol drip,
--- NOTE | 2019-03-21 08:57 | NUR ---
RESPIRATORY NOTE: Titrated FiP2 down to 60%, saturates at 100%. KD Reeves made aware.
[2019-03-21] MEDS ORDERED: Docusate 100mg tablet ORAL SCH (09:00)
[2019-03-21] MEDS: Docusate 100mg tablet ORAL SCH ×3 (09:00→17:14)
--- NOTE | 2019-03-21 09:21 | Nephrology Progress Note ---
Assessment/Plan Problem List: (1) Pancreatitis (2) Hypokalemia (3) Cardiac arrest (4) Anemia Assessment had malignant arrythmia early am- now in ICU Severe HypoKalemia on admit Pancreatitis , high Lipase Acute alcoholic intoxication Anemia Plan stat Labs- discussed with KD Reeves Pulcaitlyn support / Cardiac support K IV as needed IV Fluid Monitor electrolytes anemia valenzuela Thiamin Gastric support per orders Subjective ROS Limited/Unobtainable: Yes Interval Events/Complaints seen in ICU Objective Objective Last 24 Hour Vital Signs Date Time Temp Pulse Resp B/P (MAP) Pulse Ox O2 Delivery O2 Flow Rate FiO2 03/21/19 08:57 125 22 60 03/21/19 07:38 24 85/64 Mechanical Ventilator 80 03/21/19 07:20 131 25 80 03/21/19 07:00 143 28 101/71 (81) 100 03/21/19 07:00 25 101/71 Mechanical Ventilator 100 03/21/19 07:00 25 101/71 Mechanical Ventilator 100 03/21/19 07:00 25 101/71 Mechanical Ventilator 100 03/21/19 06:45 145 29 93/79 (84) 100 03/21/19 06:30 143 31 90/66 (74) 100 03/21/19 06:15 141 20 92/69 (77) 100 03/21/19 06:00 144 26 90/71 (77) 100 03/21/19 06:00 26 92/74 Mechanical Ventilator 100 03/21/19 05:45 146 25 92/74 (80) 100 03/21/19 05:30 129 25 72/52 (59) 100 03/21/19 05:15 144 30 98/73 (81) 100 03/21/19 05:00 32 94/74 Mechanical Ventilator 100 03/21/19 05:00 140 30 94/74 (81) 100 03/21/19 04:47 109 21 100 03/21/19 04:45 130 23 87/68 (74) 100 03/21/19 04:30 145 03/21/19 04:30 118 23 78/56 (63) 100 03/21/19 04:15 130 18 104/82 (89) 100 03/21/19 04:07 134 22 104/81 (89) 100 03/21/19 04:00 Mechanical Ventilator 03/21/19 04:00 20 100/69 Mechanical Ventilator 100 03/21/19 04:00 100 03/21/19 04:00 97.6 132 24 100/69 (79) 100 03/21/19 03:45 131 25 105/85 (92) 100 03/21/19 03:42 24 108/83 Mechanical Ventilator 100 03/21/19 03:30 131 25 108/83 (91) 100 03/21/19 03:15 118 24 100 03/21/19 03:15 139 26 117/95 (102) 100 03/21/19 03:00 144 34 120/99 (106) 100 03/21/19 02:45 149 25 119/103 (108) 100 03/21/19 02:30 143 26 109/88 (95) 100 03/21/19 02:23 142 27 111/81 (91) 100 03/21/19 02:17 108 21 100 03/21/19 02:15 114 17 109/75 (86) 99 03/21/19 02:00 97.2 125 25 115/89 (98) 03/21/19 02:00 Mechanical Ventilator 03/21/19 02:00 100 03/21/19 00:00 101 03/21/19 00:00 98.3 101 18 121/91 (101) 96 03/20/19 21:00 Room Air 03/20/19 20:00 97.3 115 18 108/85 (93) 97 03/20/19 20:00 115 03/20/19 16:00 97 03/20/19 16:00 98.9 71 18 130/79 (96) 100 03/20/19 12:00 99.1 90 20 128/86 (100) 100 03/20/19 12:00 86 Intake and Output 03/20/19 03/21/19 18:59 06:59 Intake Total 276.30 ml Balance 276.30 ml Intake IV Total 276.30 ml # Voids 4 # Bowel Movements 1 Laboratory Tests 03/20/19 19:10: Stool Occult Blood [Pending] 03/21/19 02:55: White Blood Count 10.2#, Red Blood Count 3.13L, Hemoglobin 12.1, Hematocrit 34.9L, Mean Corpuscular Volume 112H, Mean Corpuscular Hemoglobin 38.5H, Mean Corpuscular Hemoglobin Concent 34.5, Red Cell Distribution Width 14.1, Platelet Count 57L, Mean Platelet Volume 9.1, Neutrophils (%) (Auto) , Lymphocytes (%) ( Auto) , Monocytes (%) (Auto) , Eosinophils (%) (Auto) , Basophils (%) (Auto) , Reticulocyte Count 1.7, Prothrombin Time 12.0H, Prothromb Time International Ratio 1.1, Activated Partial Thromboplast Time 27, Sodium Level 138, Potassium Level 3.5#, Chloride Level 101, Carbon Dioxide Level 19L, Anion Gap 18H, Blood Urea Nitrogen 2L, Creatinine 0.7, Estimat Glomerular Filtration Rate > 60, Glucose Level 308#H, Uric Acid 2.4L, Calcium Level 8.7, Phosphorus Level 3.8, Magnesium Level 2.4, Iron Level 122, Total Iron Binding Capacity 120L, Percent Iron Saturation 102H, Unsaturated Iron Binding -2L, Ferritin 1471H, Total Bilirubin 3.4H, Direct Bilirubin 1.2H, Aspartate Amino Transf (AST/SGOT) 367H, Alanine Aminotransferase (ALT/SGPT) 51, Alkaline Phosphatase 163H, Total Protein 6.1L, Albumin 2.9L, Globulin 3.2, Albumin/Globulin Ratio 0.9L, Triglycerides Level 99, Lipase 579H, Vitamin B12 Level 548, Folate 5.9L, Thyroid Stimulating Hormone (TSH) 3.270, Free Thyroxine 1.33 03/21/19 03:16: Arterial Blood pH 7.340L, Arterial Blood Partial Pressure CO2 36.1, Arterial Blood Partial Pressure O2 79.3, Arterial Blood HCO3 19.0L, Arterial Blood Oxygen Saturation 93.6L, Arterial Blood Base Excess -6.0L, Reagan Test Positive Height (Feet): 5 Height (Inches): 2.00 Weight (Pounds): 85 General Appearance: alert, other - eyes open awake EENT: other - vented Cardiovascular: tachycardia Respiratory/Chest: decreased breath sounds Abdomen: soft, distended Mehdi Beckman MD Mar 21, 2019 09:21
--- NOTE | 2019-03-21 09:45 | Hematology/Onc Progress Note ---
Assessment/Plan Assessment/Plan Assessment and Recs: # Pancytopenia - potential causes multifactorial, evaluate liver and viral etiologies to begin, in this case very likely due to myelosuppresion from chronic alcohol abuse --> Hep panel and HIV ordered --> US abd to evaluate for cirrhosis and hsm ordered --> Peripheral smear ordered to evaluate for blasts /schistocytes --> abx and other meds have been reviewed --> ok for ppx if plt >50k w/ either heparin or lovenox --> Transfuse if Plt < 20k and fever, or if Plt < 10k without fever --> Anemia workup has been ordered, rule out gi bleed --> No evidence of hemolysis is noted, peripheral smear has been reviewed. --> Hgb goal >7. Transfuse prn basis --> Epogen or iron at this time is not particularly indicated --> Medications have been reviewed --> low threshold for gi evaluation in case has occult + --> bone marrow biopsy is not indicated given the other more likely causes # Coagulation defect, multifactorial usually related to poor PO intake versus medications, versus hepatitis v cirrhosis (from chronic etoh use) --> administer Vitamin K if patient is bleeding or FFP if the INR is >10 --> hold off on ffp unless active procedure/bleeding, first begin with vit K 10 # S/p Ventricular fibrillation arrest and subsequest PEA, currently stable on Amiodarone gtt --> per cards recs --> meds reviewed # Aspiration pneumonia --> abx per pulm/id # Respiratory failure requiring intubation --> on vent # Alcohol abuse, withdrawal --> monitor for withdrawal # Pancreatitis --> per gi recs, adat # Fatty Liver # Previous Seizures # Previous breast abscess requiring drainage # Dvt ppx once plt is >75k The timing of this note does not necessarily reflect the time of the patient was seen. Greatly appreciate consultation. Subjective Constitutional: Denies: no symptoms, chills, fever, malaise, weakness, other HEENT: Denies: no symptoms, eye pain, blurred vision, tearing, double vision, ear pain, ear discharge, nose pain, nose congestion, throat pain, throat swelling, mouth pain, mouth swelling, other Cardiovascular: Denies: no symptoms, chest pain, edema, irregular heart rate, lightheadedness, palpitations, syncope, other Genitourinary: Denies: no symptoms, burning, discharge, frequency, flank pain, hematuria, incontinence, pain, urgency, other Neurologic/Psychiatric: Denies: no symptoms, anxiety, depressed, emotional problems, headache, numbness, paresthesia, pre-existing deficit, seizure, tingling, tremors, weakness, other Endocrine: Denies: no symptoms, excessive sweating, flushing, intolerance to cold, intolerance to heat, increased hunger, increased thirst, increased urine, unexplained weight gain, unexplained weight loss, other Allergies: Coded Allergies: No Known Allergies (Unverified , 03/19/19) Subjective 03/21: is responsive in the icu, james rn, labs reviewed, plt remains low, us abd reviewed Objective Objective Current Medications Medications (Trade) Dose Ordered Sig/Ismael Route PRN Reason Start Time Stop Time Status Last Admin Dose Admin Amiodarone HCl 900 mg/Dextrose 500 ml @ 0 mls/hr Q24H IV 03/21/19 07:04 03/22/19 02:15 Docusate Sodium (Colace) 100 mg TID ORAL 03/21/19 09:00 04/20/19 08:59 Famotidine (Pepcid I.v.) 20 mg Q12HR IVP 03/21/19 21:00 04/20/19 20:59 Fentanyl Citrate 2500 mcg/Sodium Chloride 250 ml @ 0 mls/hr Q24H IV 03/21/19 08:30 03/28/19 08:29 Lorazepam (Ativan 2mg/ml 1ml) 2 mg Q4H PRN IM For Anxiety 03/21/19 07:45 03/28/19 07:44 Ondansetron HCl (Zofran) 4 mg Q6H PRN IVP Nausea & Vomiting 03/21/19 07:05 04/20/19 07:04 Piperacillin Sod/ Tazobactam Sod 3.375 gm/Sodium Chloride 110 ml @ 27.5 mls/hr Q8HR IVPB 03/21/19 14:00 03/28/19 13:59 Potassium Chloride 100 ml @ 50 mls/hr ONCE ONCE IVPB 03/21/19 08:45 03/21/19 10:44 03/21/19 09:03 Propofol 100 ml @ 0 mls/hr Q24H IV 03/21/19 07:05 03/23/19 07:04 03/21/19 07:38 Sodium Chloride 1,000 ml @ 75 mls/hr [id number] IV 03/21/19 08:45 04/20/19 08:44 03/21/19 09:07 Thiamine HCl 100 mg/Dextrose 56 ml @ 112 mls/hr Q24H IVPB 03/21/19 12:00 04/20/19 11:59 Last 24 Hour Vital Signs Date Time Temp Pulse Resp B/P (MAP) Pulse Ox O2 Delivery O2 Flow Rate FiO2 03/21/19 08:57 125 22 60 03/21/19 07:38 24 85/64 Mechanical Ventilator 80 03/21/19 07:20 131 25 80 03/21/19 07:00 143 28 101/71 (81) 100 03/21/19 07:00 25 101/71 Mechanical Ventilator 100 03/21/19 07:00 25 101/71 Mechanical Ventilator 100 03/21/19 07:00 25 101/71 Mechanical Ventilator 100 03/21/19 06:45 145 29 93/79 (84) 100 03/21/19 06:30 143 31 90/66 (74) 100 03/21/19 06:15 141 20 92/69 (77) 100 03/21/19 06:00 144 26 90/71 (77) 100 03/21/19 06:00 26 92/74 Mechanical Ventilator 100 03/21/19 05:45 146 25 92/74 (80) 100 03/21/19 05:30 129 25 72/52 (59) 100 03/21/19 05:15 144 30 98/73 (81) 100 03/21/19 05:00 32 94/74 Mechanical Ventilator 100 03/21/19 05:00 140 30 94/74 (81) 100 03/21/19 04:47 109 21 100 03/21/19 04:45 130 23 87/68 (74) 100 03/21/19 04:30 145 03/21/19 04:30 118 23 78/56 (63) 100 03/21/19 04:15 130 18 104/82 (89) 100 03/21/19 04:07 134 22 104/81 (89) 100 03/21/19 04:00 Mechanical Ventilator 03/21/19 04:00 20 100/69 Mechanical Ventilator 100 03/21/19 04:00 100 03/21/19 04:00 97.6 132 24 100/69 (79) 100 03/21/19 03:45 131 25 105/85 (92) 100 03/21/19 03:42 24 108/83 Mechanical Ventilator 100 03/21/19 03:30 131 25 108/83 (91) 100 03/21/19 03:15 118 24 100 03/21/19 03:15 139 26 117/95 (102) 100 03/21/19 03:00 144 34 120/99 (106) 100 03/21/19 02:45 149 25 119/103 (108) 100 03/21/19 02:30 143 26 109/88 (95) 100 03/21/19 02:23 142 27 111/81 (91) 100 03/21/19 02:17 108 21 100 03/21/19 02:15 114 17 109/75 (86) 99 03/21/19 02:00 97.2 125 25 115/89 (98) 03/21/19 02:00 Mechanical Ventilator 03/21/19 02:00 100 03/21/19 00:00 101 03/21/19 00:00 98.3 101 18 121/91 (101) 96 03/20/19 21:00 Room Air 03/20/19 20:00 97.3 115 18 108/85 (93) 97 03/20/19 20:00 115 03/20/19 16:00 97 03/20/19 16:00 98.9 71 18 130/79 (96) 100 03/20/19 12:00 99.1 90 20 128/86 (100) 100 03/20/19 12:00 86 03/20/19 09:00 Room Air 03/20/19 08:00 97.7 84 20 130/91 (104) 98 03/20/19 08:00 73 03/20/19 04:00 78 03/20/19 04:00 98.4 80 18 137/99 (112) 98 03/20/19 00:00 82 03/20/19 00:00 98.5 87 18 129/91 (104) 97 03/19/19 22:47 Room Air 03/19/19 21:00 Room Air 03/19/19 20:00 97.9 76 18 114/79 (91) 100 03/19/19 20:00 86 03/19/19 18:45 98.2 83 19 109/76 100 Room Air 03/19/19 18:45 98.2 86 18 111/78 (89) 98 03/19/19 17:48 98.2 83 18 118/79 98 Room Air 03/19/19 14:40 98.2 83 18 127/82 98 Room Air 03/19/19 14:40 90 18 Room Air 03/19/19 14:32 98.2 90 18 127/82 (97) 98 Room Air Intake and Output 03/20/19 03/21/19 18:59 06:59 Intake Total 276.30 ml Balance 276.30 ml Intake IV Total 276.30 ml # Voids 4 # Bowel Movements 1 Labs Test 03/19/19 15:10 03/20/19 08:15 03/20/19 19:10 03/21/19 02:55 White Blood Count 4.7 K/UL (4.8-10.8) 4.9 K/UL (4.8-10.8) 10.2 K/UL (4.8-10.8) Red Blood Count 3.45 M/UL (4.20-5.40) 2.77 M/UL (4.20-5.40) 3.13 M/UL (4.20-5.40) Hemoglobin 13.4 G/DL (12.0-16.0) 10.6 G/DL (12.0-16.0) 12.1 G/DL (12.0-16.0) Hematocrit 34.3 % (37.0-47.0) 30.0 % (37.0-47.0) 34.9 % (37.0-47.0) Mean Corpuscular Volume 100 FL (80-99) 108 FL (80-99) 112 FL (80-99) Mean Corpuscular Hemoglobin 38.8 PG (27.0-31.0) 38.5 PG (27.0-31.0) 38.5 PG (27.0-31.0) Mean Corpuscular Hemoglobin Concent 38.9 G/DL (32.0-36.0) 35.5 G/DL (32.0-36.0) 34.5 G/DL (32.0-36.0) Red Cell Distribution Width 12.9 % (11.6-14.8) 13.9 % (11.6-14.8) 14.1 % (11.6-14.8) Platelet Count 84 K/UL (150-450) 60 K/UL (150-450) 57 K/UL (150-450) Mean Platelet Volume 7.2 FL (6.5-10.1) 9.0 FL (6.5-10.1) 9.1 FL (6.5-10.1) Neutrophils (%) (Auto) % (45.0-75.0) % (45.0-75.0) % (45.0-75.0) Lymphocytes (%) (Auto) % (20.0-45.0) % (20.0-45.0) % (20.0-45.0) Monocytes (%) (Auto) % (1.0-10.0) % (1.0-10.0) % (1.0-10.0) Eosinophils (%) (Auto) % (0.0-3.0) % (0.0-3.0) % (0.0-3.0) Basophils (%) (Auto) % (0.0-2.0) % (0.0-2.0) % (0.0-2.0) Differential Total Cells Counted 100 100 Neutrophils % (Manual) 52 % (45-75) 75 % (45-75) Lymphocytes % (Manual) 40 % (20-45) 18 % (20-45) Monocytes % (Manual) 7 % (1-10) 5 % (1-10) Eosinophils % (Manual) 0 % (0-3) 1 % (0-3) Basophils % (Manual) 0 % (0-2) 1 % (0-2) Band Neutrophils 1 % (0-8) 0 % (0-8) Nucleated Red Blood Cells 1 /100 WBC Platelet Estimate Decreased Decreased Platelet Morphology Normal Normal Polychromasia 1+ Macrocytosis 2+ 1+ Urine Color Yellow Urine Appearance Very cloudy Urine pH 7 (4.5-8.0) Urine Specific [place] 1.005 (1.005-1.035) Urine Protein 2+ (NEGATIVE) Urine Glucose (UA) Negative (NEGATIVE) Urine Ketones 3+ (NEGATIVE) Urine Blood 2+ (NEGATIVE) Urine Nitrite Negative (NEGATIVE) Urine Bilirubin 2+ (NEGATIVE) Urine Ictotest Positive (NEGATIVE) Urine Urobilinogen 8 MG/DL (0.0-1.0) Urine Leukocyte Esterase 2+ (NEGATIVE) Urine RBC 0-2 /HPF (0 - 2) Urine WBC 5-10 /HPF (0 - 2) Urine Squamous Epithelial Cells Many /LPF (NONE/OCC) Urine Bacteria Moderate /HPF (NONE) Urine HCG, Qualitative Negative (NEGATIVE) Sodium Level 146 MMOL/L (136-145) 144 MMOL/L (136-145) 138 MMOL/L (136-145) Potassium Level 2.4 MMOL/L (3.5-5.1) 2.2 MMOL/L (3.5-5.1) 3.5 MMOL/L (3.5-5.1) Chloride Level 100 MMOL/L (98-107) 102 MMOL/L (98-107) 101 MMOL/L (98-107) Carbon Dioxide Level 27 MMOL/L (21-32) 29 MMOL/L (21-32) 19 MMOL/L (21-32) Anion Gap 20 mmol/L (5-15) 18 mmol/L (5-15) Blood Urea Nitrogen 4 mg/dL (7-18) 3 mg/dL (7-18) 2 mg/dL (7-18) Creatinine 0.6 MG/DL (0.55-1.30) 0.7 MG/DL (0.55-1.30) 0.7 MG/DL (0.55-1.30) Estimat Glomerular Filtration Rate > 60 mL/min (>60) > 60 mL/min (>60) > 60 mL/min (>60) Glucose Level 92 MG/DL (74-106) 70 MG/DL (74-106) 308 MG/DL (74-106) Calcium Level 9.5 MG/DL (8.5-10.1) 8.1 MG/DL (8.5-10.1) 8.7 MG/DL (8.5-10.1) Phosphorus Level 2.2 MG/DL (2.5-4.9) 2.9 MG/DL (2.5-4.9) 3.8 MG/DL (2.5-4.9) Magnesium Level 1.7 MG/DL (1.8-2.4) 2.1 MG/DL (1.8-2.4) 2.4 MG/DL (1.8-2.4) Total Bilirubin 2.0 MG/DL (0.2-1.0) 2.3 MG/DL (0.2-1.0) 3.4 MG/DL (0.2-1.0) Direct Bilirubin 1.0 MG/DL (0.0-0.3) 1.2 MG/DL (0.0-0.3) 1.2 MG/DL (0.0-0.3) Aspartate Amino Transf (AST/SGOT) 332 U/L (15-37) 302 U/L (15-37) 367 U/L (15-37) Alanine Aminotransferase (ALT/SGPT) 54 U/L (12-78) 47 U/L (12-78) 51 U/L (12-78) Alkaline Phosphatase 185 U/L (46-116) 160 U/L (46-116) 163 U/L (46-116) Total Protein 7.5 G/DL (6.4-8.2) 5.8 G/DL (6.4-8.2) 6.1 G/DL (6.4-8.2) Albumin 3.7 G/DL (3.4-5.0) 2.8 G/DL (3.4-5.0) 2.9 G/DL (3.4-5.0) Globulin 3.8 g/dL 3.0 g/dL 3.2 g/dL Albumin/Globulin Ratio 1.0 (1.0-2.7) 0.9 (1.0-2.7) 0.9 (1.0-2.7) Lipase 1468 U/L (73-393) 1244 U/L (73-393) 579 U/L (73-393) Urine Opiates Screen Negative (NEGATIVE) Urine Barbiturates Screen Negative (NEGATIVE) Phencyclidine (PCP) Screen Negative (NEGATIVE) Urine Amphetamines Screen Negative (NEGATIVE) Urine Benzodiazepines Screen Negative (NEGATIVE) Urine Cocaine Screen Negative (NEGATIVE) Urine Marijuana (THC) Screen Negative (NEGATIVE) Hypochromasia 1+ Uric Acid 2.8 MG/DL (2.6-7.2) 2.4 MG/DL (2.6-7.2) C-Reactive Protein, Quantitative < 0.4 mg/dL (0.00-0.90) Triglycerides Level 38 MG/DL (30-150) 99 MG/DL (30-150) Cholesterol Level 229 MG/DL (< 200) LDL Cholesterol 85 mg/dL (<100) HDL Cholesterol 102 MG/DL (40-60) Cholesterol/HDL Ratio 2.2 (3.3-4.4) Reticulocyte Count 1.7 % (0.5-2.0) Prothrombin Time 12.0 SEC (9.30-11.50) Prothromb Time International Ratio 1.1 (0.9-1.1) Activated Partial Thromboplast Time 27 SEC (23-33) Iron Level 122 ug/dL (50-175) Total Iron Binding Capacity 120 ug/dL (250-450) Percent Iron Saturation 102 % (15-50) Unsaturated Iron Binding -2 ug/dL (112-346) Ferritin 1471 NG/ML (8-388) Vitamin B12 Level 548 PG/ML (193-986) Folate 5.9 NG/ML (8.6-58.9) Thyroid Stimulating Hormone (TSH) 3.270 uiU/mL (0.358-3.740) Free Thyroxine 1.33 NG/DL (0.76-1.46) Test 03/21/19 03:16 Arterial Blood pH 7.340 (7.350-7.450) Arterial Blood Partial Pressure CO2 36.1 mmHg (35.0-45.0) Arterial Blood Partial Pressure O2 79.3 mmHg (75.0-100.0) Arterial Blood HCO3 19.0 mmol/L (22.0-26.0) Arterial Blood Oxygen Saturation 93.6 % (95-100) Arterial Blood Base Excess -6.0 (-2-2) Reagan Test Positive Height (Feet): 5 Height (Inches): 2.00 Weight (Pounds): 85 Objective Gen: Sedated although interactive, jaundice Head: normocephalic, atraumatic Eyes: bilateral eye PERRL, bilateral eye EOMI ENT: moist mm, ETT Neck: no masses, no LN Respiratory: Bilateral occasional rhonchi Cardiovascular: regular rate, rhythm, normal HS1, HS2, no murmur Gastrointestinal: normal bowel sounds, nt, nd Musculoskeletal: no rashes, no edema [employer]: Interactive, no seizures, no focal signs Tanner Mckeon MD Mar 21, 2019 09:45
[2019-03-21 09:59] LABS: HEMATOCRIT 30.2 % (37.0-47.0); HEMOGLOBIN 10.7 G/DL (12.0-16.0); MEAN CORPUSCULAR VOLUME 109 FL (80-99); PLATELET COUNT 47 K/UL (150-450); RED BLOOD COUNT 2.76 M/UL (4.20-5.40); RED CELL DISTRIBUTION WIDTH 13.9 % (11.6-14.8); WHITE BLOOD COUNT 12.5 K/UL (4.8-10.8)
--- NOTE | 2019-03-21 10:03 | Cardiac Electrophysiology PN ---
Subjective Subjective [id number] Objective Last 24 Hour Vital Signs Date Time Temp Pulse Resp B/P (MAP) Pulse Ox O2 Delivery O2 Flow Rate FiO2 03/21/19 08:57 125 22 60 03/21/19 07:38 24 85/64 Mechanical Ventilator 80 03/21/19 07:20 131 25 80 03/21/19 07:00 143 28 101/71 (81) 100 03/21/19 07:00 25 101/71 Mechanical Ventilator 100 03/21/19 07:00 25 101/71 Mechanical Ventilator 100 03/21/19 07:00 25 101/71 Mechanical Ventilator 100 03/21/19 06:45 145 29 93/79 (84) 100 03/21/19 06:30 143 31 90/66 (74) 100 03/21/19 06:15 141 20 92/69 (77) 100 03/21/19 06:00 144 26 90/71 (77) 100 03/21/19 06:00 26 92/74 Mechanical Ventilator 100 03/21/19 05:45 146 25 92/74 (80) 100 03/21/19 05:30 129 25 72/52 (59) 100 03/21/19 05:15 144 30 98/73 (81) 100 03/21/19 05:00 32 94/74 Mechanical Ventilator 100 03/21/19 05:00 140 30 94/74 (81) 100 03/21/19 04:47 109 21 100 03/21/19 04:45 130 23 87/68 (74) 100 03/21/19 04:30 145 03/21/19 04:30 118 23 78/56 (63) 100 03/21/19 04:15 130 18 104/82 (89) 100 03/21/19 04:07 134 22 104/81 (89) 100 03/21/19 04:00 Mechanical Ventilator 03/21/19 04:00 20 100/69 Mechanical Ventilator 100 03/21/19 04:00 100 03/21/19 04:00 97.6 132 24 100/69 (79) 100 03/21/19 03:45 131 25 105/85 (92) 100 03/21/19 03:42 24 108/83 Mechanical Ventilator 100 03/21/19 03:30 131 25 108/83 (91) 100 03/21/19 03:15 118 24 100 03/21/19 03:15 139 26 117/95 (102) 100 03/21/19 03:00 144 34 120/99 (106) 100 03/21/19 02:45 149 25 119/103 (108) 100 03/21/19 02:30 143 26 109/88 (95) 100 03/21/19 02:23 142 27 111/81 (91) 100 03/21/19 02:17 108 21 100 03/21/19 02:15 114 17 109/75 (86) 99 03/21/19 02:00 97.2 125 25 115/89 (98) 03/21/19 02:00 Mechanical Ventilator 03/21/19 02:00 100 03/21/19 00:00 101 03/21/19 00:00 98.3 101 18 121/91 (101) 96 03/20/19 21:00 Room Air 03/20/19 20:00 97.3 115 18 108/85 (93) 97 03/20/19 20:00 115 03/20/19 16:00 97 03/20/19 16:00 98.9 71 18 130/79 (96) 100 03/20/19 12:00 99.1 90 20 128/86 (100) 100 03/20/19 12:00 86 Intake and Output 03/20/19 03/21/19 18:59 06:59 Intake Total 276.30 ml Balance 276.30 ml Intake IV Total 276.30 ml # Voids 4 # Bowel Movements 1 Laboratory Tests Test 03/20/19 19:10 03/21/19 02:55 03/21/19 03:16 03/21/19 09:40 Stool Occult Blood Pending White Blood Count 10.2 K/UL (4.8-10.8) # 12.5 K/UL (4.8-10.8) H Red Blood Count 3.13 M/UL (4.20-5.40) L 2.76 M/UL (4.20-5.40) L Hemoglobin 12.1 G/DL (12.0-16.0) 10.7 G/DL (12.0-16.0) L Hematocrit 34.9 % (37.0-47.0) L 30.2 % (37.0-47.0) L Mean Corpuscular Volume 112 FL (80-99) H 109 FL (80-99) H Mean Corpuscular Hemoglobin 38.5 PG (27.0-31.0) H 38.7 PG (27.0-31.0) H Mean Corpuscular Hemoglobin Concent 34.5 G/DL (32.0-36.0) 35.4 G/DL (32.0-36.0) Red Cell Distribution Width 14.1 % (11.6-14.8) 13.9 % (11.6-14.8) Platelet Count 57 K/UL (150-450) L 47 K/UL (150-450) L Mean Platelet Volume 9.1 FL (6.5-10.1) 13.6 FL (6.5-10.1) H Neutrophils (%) (Auto) % (45.0-75.0) % (45.0-75.0) Lymphocytes (%) (Auto) % (20.0-45.0) % (20.0-45.0) Monocytes (%) (Auto) % (1.0-10.0) % (1.0-10.0) Eosinophils (%) (Auto) % (0.0-3.0) % (0.0-3.0) Basophils (%) (Auto) % (0.0-2.0) % (0.0-2.0) Reticulocyte Count 1.7 % (0.5-2.0) Prothrombin Time 12.0 SEC (9.30-11.50) H Prothromb Time International Ratio 1.1 (0.9-1.1) Activated Partial Thromboplast Time 27 SEC (23-33) Sodium Level 138 MMOL/L (136-145) Pending Potassium Level 3.5 MMOL/L (3.5-5.1) # Pending Chloride Level 101 MMOL/L (98-107) Pending Carbon Dioxide Level 19 MMOL/L (21-32) L Pending Anion Gap 18 mmol/L (5-15) H Blood Urea Nitrogen 2 mg/dL (7-18) L Pending Creatinine 0.7 MG/DL (0.55-1.30) Pending Estimat Glomerular Filtration Rate > 60 mL/min (>60) Pending Glucose Level 308 MG/DL (74-106) #H Pending Uric Acid 2.4 MG/DL (2.6-7.2) L Calcium Level 8.7 MG/DL (8.5-10.1) Pending Phosphorus Level 3.8 MG/DL (2.5-4.9) Pending Magnesium Level 2.4 MG/DL (1.8-2.4) Pending Iron Level 122 ug/dL (50-175) Total Iron Binding Capacity 120 ug/dL (250-450) L Percent Iron Saturation 102 % (15-50) H Unsaturated Iron Binding -2 ug/dL (112-346) L Ferritin 1471 NG/ML (8-388) H Total Bilirubin 3.4 MG/DL (0.2-1.0) H Pending Direct Bilirubin 1.2 MG/DL (0.0-0.3) H Aspartate Amino Transf (AST/SGOT) 367 U/L (15-37) H Pending Alanine Aminotransferase (ALT/SGPT) 51 U/L (12-78) Pending Alkaline Phosphatase 163 U/L (46-116) H Pending Total Protein 6.1 G/DL (6.4-8.2) L Pending Albumin 2.9 G/DL (3.4-5.0) L Pending Globulin 3.2 g/dL Pending Albumin/Globulin Ratio 0.9 (1.0-2.7) L Triglycerides Level 99 MG/DL (30-150) Lipase 579 U/L (73-393) H Pending Vitamin B12 Level 548 PG/ML (193-986) Folate 5.9 NG/ML (8.6-58.9) L Thyroid Stimulating Hormone (TSH) 3.270 uiU/mL (0.358-3.740) Free Thyroxine 1.33 NG/DL (0.76-1.46) Arterial Blood pH 7.340 (7.350-7.450) Arterial Blood Partial Pressure CO2 36.1 mmHg (35.0-45.0) Arterial Blood Partial Pressure O2 79.3 mmHg (75.0-100.0) Arterial Blood HCO3 19.0 mmol/L (22.0-26.0) L Arterial Blood Oxygen Saturation 93.6 % (95-100) L Arterial Blood Base Excess -6.0 (-2-2) L Reagan Test Positive Neutrophils % (Manual) Pending Lymphocytes % (Manual) Pending Platelet Estimate Pending Platelet Morphology Pending Troponin I Pending C-Reactive Protein, Quantitative Pending HIV (1&2) Antibody Rapid Pending Microbiology Date/Time Source Procedure Growth Status 03/19/19 15:10 Urine,Clean Catch Urine Culture - Preliminary Gram Negative Bacillus 1 Resulted Efrem Harrison MD Mar 21, 2019 10:03
--- NOTE | 2019-03-21 10:05 | NUR ---
NURSE NOTES: Dr. Harrison at the bedside assessing patient, will review orders and develop treatment plan, ordered bolus 500ml for bp in the 80's systolic, ordered a 2d-echo stat to assess ejection fraction.
--- NOTE | 2019-03-21 10:07 | NUR ---
RADIOLOGY DEPT., ABDOMEN X-RAY DONE. Candace CHANG
--- NOTE | 2019-03-21 10:20 | General Progress Note ---
Assessment/Plan Problem List: (1) Pancreatitis ICD Codes: K85.90 - Acute pancreatitis without necrosis or infection, unspecified SNOMED: 68974679 Qualifiers: (2) Hypokalemia ICD Codes: E87.6 - Hypokalemia SNOMED: 31380552 (3) Respiratory failure requiring intubation ICD Codes: J96.90 - Respiratory failure, unspecified, unspecified whether with hypoxia or hypercapnia SNOMED: 949178385 (4) Ventricular fibrillation ICD Codes: I49.01 - Ventricular fibrillation SNOMED: 41291684 (5) Cardiac arrest ICD Codes: I46.9 - Cardiac arrest, cause unspecified SNOMED: 325926377 (6) Anemia ICD Codes: D64.9 - Anemia, unspecified SNOMED: 662352407 Assessment/Plan: intubated in the icu npo fu cardiology recs fu labs supportive care Subjective ROS Limited/Unobtainable: No Allergies: Coded Allergies: No Known Allergies (Unverified , 03/19/19) Objective Last 24 Hour Vital Signs Date Time Temp Pulse Resp B/P (MAP) Pulse Ox O2 Delivery O2 Flow Rate FiO2 03/21/19 08:57 125 22 60 03/21/19 07:38 24 85/64 Mechanical Ventilator 80 03/21/19 07:20 131 25 80 03/21/19 07:00 143 28 101/71 (81) 100 03/21/19 07:00 25 101/71 Mechanical Ventilator 100 03/21/19 07:00 25 101/71 Mechanical Ventilator 100 03/21/19 07:00 25 101/71 Mechanical Ventilator 100 03/21/19 06:45 145 29 93/79 (84) 100 03/21/19 06:30 143 31 90/66 (74) 100 03/21/19 06:15 141 20 92/69 (77) 100 03/21/19 06:00 144 26 90/71 (77) 100 03/21/19 06:00 26 92/74 Mechanical Ventilator 100 03/21/19 05:45 146 25 92/74 (80) 100 03/21/19 05:30 129 25 72/52 (59) 100 03/21/19 05:15 144 30 98/73 (81) 100 03/21/19 05:00 32 94/74 Mechanical Ventilator 100 03/21/19 05:00 140 30 94/74 (81) 100 03/21/19 04:47 109 21 100 03/21/19 04:45 130 23 87/68 (74) 100 03/21/19 04:30 145 03/21/19 04:30 118 23 78/56 (63) 100 03/21/19 04:15 130 18 104/82 (89) 100 03/21/19 04:07 134 22 104/81 (89) 100 03/21/19 04:00 Mechanical Ventilator 03/21/19 04:00 20 100/69 Mechanical Ventilator 100 03/21/19 04:00 100 03/21/19 04:00 97.6 132 24 100/69 (79) 100 03/21/19 03:45 131 25 105/85 (92) 100 03/21/19 03:42 24 108/83 Mechanical Ventilator 100 03/21/19 03:30 131 25 108/83 (91) 100 03/21/19 03:15 118 24 100 03/21/19 03:15 139 26 117/95 (102) 100 03/21/19 03:00 144 34 120/99 (106) 100 03/21/19 02:45 149 25 119/103 (108) 100 03/21/19 02:30 143 26 109/88 (95) 100 03/21/19 02:23 142 27 111/81 (91) 100 03/21/19 02:17 108 21 100 03/21/19 02:15 114 17 109/75 (86) 99 03/21/19 02:00 97.2 125 25 115/89 (98) 03/21/19 02:00 Mechanical Ventilator 03/21/19 02:00 100 03/21/19 00:00 101 03/21/19 00:00 98.3 101 18 121/91 (101) 96 03/20/19 21:00 Room Air 03/20/19 20:00 97.3 115 18 108/85 (93) 97 03/20/19 20:00 115 03/20/19 16:00 97 03/20/19 16:00 98.9 71 18 130/79 (96) 100 03/20/19 12:00 99.1 90 20 128/86 (100) 100 03/20/19 12:00 86 Intake and Output 03/20/19 03/21/19 18:59 06:59 Intake Total 276.30 ml Balance 276.30 ml Intake IV Total 276.30 ml # Voids 4 # Bowel Movements 1 Laboratory Tests 03/20/19 19:10: Stool Occult Blood [Pending] 03/21/19 02:55: White Blood Count 10.2#, Red Blood Count 3.13L, Hemoglobin 12.1, Hematocrit 34.9L, Mean Corpuscular Volume 112H, Mean Corpuscular Hemoglobin 38.5H, Mean Corpuscular Hemoglobin Concent 34.5, Red Cell Distribution Width 14.1, Platelet Count 57L, Mean Platelet Volume 9.1, Neutrophils (%) (Auto) , Lymphocytes (%) ( Auto) , Monocytes (%) (Auto) , Eosinophils (%) (Auto) , Basophils (%) (Auto) , Reticulocyte Count 1.7, Prothrombin Time 12.0H, Prothromb Time International Ratio 1.1, Activated Partial Thromboplast Time 27, Sodium Level 138, Potassium Level 3.5#, Chloride Level 101, Carbon Dioxide Level 19L, Anion Gap 18H, Blood Urea Nitrogen 2L, Creatinine 0.7, Estimat Glomerular Filtration Rate > 60, Glucose Level 308#H, Uric Acid 2.4L, Calcium Level 8.7, Phosphorus Level 3.8, Magnesium Level 2.4, Iron Level 122, Total Iron Binding Capacity 120L, Percent Iron Saturation 102H, Unsaturated Iron Binding -2L, Ferritin 1471H, Total Bilirubin 3.4H, Direct Bilirubin 1.2H, Aspartate Amino Transf (AST/SGOT) 367H, Alanine Aminotransferase (ALT/SGPT) 51, Alkaline Phosphatase 163H, Total Protein 6.1L, Albumin 2.9L, Globulin 3.2, Albumin/Globulin Ratio 0.9L, Triglycerides Level 99, Lipase 579H, Vitamin B12 Level 548, Folate 5.9L, Thyroid Stimulating Hormone (TSH) 3.270, Free Thyroxine 1.33 03/21/19 03:16: Arterial Blood pH 7.340L, Arterial Blood Partial Pressure CO2 36.1, Arterial Blood Partial Pressure O2 79.3, Arterial Blood HCO3 19.0L, Arterial Blood Oxygen Saturation 93.6L, Arterial Blood Base Excess -6.0L, Reagan Test Positive 03/21/19 09:40: White Blood Count 12.5H, Red Blood Count 2.76L, Hemoglobin 10.7L, Hematocrit 30.2L, Mean Corpuscular Volume 109H, Mean Corpuscular Hemoglobin 38.7H, Mean Corpuscular Hemoglobin Concent 35.4, Red Cell Distribution Width 13.9, Platelet Count 47L, Mean Platelet Volume 13.6H, Neutrophils (%) (Auto) , Lymphocytes (%) (Auto) , Monocytes (%) (Auto) , Eosinophils (%) (Auto) , Basophils (%) (Auto) , Sodium Level [Pending], Potassium Level [Pending], Chloride Level [Pending], Carbon Dioxide Level [Pending], Blood Urea Nitrogen [Pending], Creatinine [ Pending], Estimat Glomerular Filtration Rate [Pending], Glucose Level [Pending] , Calcium Level [Pending], Phosphorus Level [Pending], Magnesium Level [Pending] , Total Bilirubin [Pending], Aspartate Amino Transf (AST/SGOT) [Pending], Alanine Aminotransferase (ALT/SGPT) [Pending], Alkaline Phosphatase [Pending], Total Protein [Pending], Albumin [Pending], Globulin [Pending], Lipase [Pending] , Neutrophils % (Manual) [Pending], Lymphocytes % (Manual) [Pending], Platelet Estimate [Pending], Platelet Morphology [Pending], Troponin I [Pending], C- Reactive Protein, Quantitative [Pending], Alpha Fetoprotein [Pending], Hepatitis A IgM Antibody [Pending], Hepatitis B Surface Antigen [Pending], Hepatitis B Core IgM Antibody [Pending], Hepatitis C Antibody [Pending], HIV (1& 2) Antibody Rapid [Pending] Height (Feet): 5 Height (Inches): 2.00 Weight (Pounds): 85 General Appearance: lethargic EENT: normal ENT inspection Neck: supple Cardiovascular: normal rate Respiratory/Chest: decreased breath sounds Abdomen: normal bowel sounds, non tender, soft Extremities: non-tender Neel Khan MD Mar 21, 2019 10:20
[2019-03-21 10:26] LABS: ALANINE AMINOTRANSFERASE 47 U/L (12-78); ALBUMIN 2.4 G/DL (3.4-5.0); ALBUMIN/GLOBULIN RATIO 0.9 (1.0-2.7); ALKALINE PHOSPHATASE 133 U/L (46-116); ANION GAP 9 mmol/L (5-15); ASPARTATE AMINO TRANSFERASE 269 U/L (15-37); BILIRUBIN,TOTAL 3.2 MG/DL (0.2-1.0); BLOOD UREA NITROGEN 1 mg/dL (7-18); CALCIUM 8.1 MG/DL (8.5-10.1); CARBON DIOXIDE 28 MMOL/L (21-32); CHLORIDE 101 MMOL/L (98-107); CREATININE 0.7 MG/DL (0.55-1.30); PHOSPHORUS 1.8 MG/DL (2.5-4.9); SODIUM 138 MMOL/L (136-145)
--- NOTE | 2019-03-21 10:30 | NUR ---
NURSE NOTES: Dr. Khan updated on patient status and transfer to the icu, will review chart for orders. ordered to maintain patient NPO, no ordered at this time.
[2019-03-21 10:31] LABS: POTASSIUM 2.6 MMOL/L (3.5-5.1)
[2019-03-21 10:34] LABS: BILIRUBIN,DIRECT 2.1 MG/DL (0.0-0.3)
[2019-03-21 10:45] LABS: APPEARANCE,URINE CLEAR; BILIRUBIN, URINE NEGATIVE (NEGATIVE); GLUCOSE, URINE (UA) 3+ (NEGATIVE); KETONES,URINE 2+ (NEGATIVE); LEUKOCYTE ESTERASE ,URINE 1+ (NEGATIVE); NITRITE,URINE NEGATIVE (NEGATIVE); PH,URINE 7 (4.5-8.0); PROTEIN,URINE 3+ (NEGATIVE); UROBILINOGEN,URINE 4 MG/DL (0.0-1.0)
[2019-03-21 10:55] LABS: COLOR,URINE YELLOW
--- NOTE | 2019-03-21 11:05 | NUR ---
RESPIRATORY NOTE: Titrated FiP2 down to 50%, saturates at 100%. KD Reeves made aware.
--- NOTE | 2019-03-21 11:28 | NUR ---
RD ASSESSMENT & RECOMMENDATIONS SEE CARE ACTIVITY FOR COMPLETE ASSESSMENT DAILY ESTIMATED NEEDS: Needs based on Critical Care, Liver dysfunction, Pancreatitis/ 50.7kg 22-28 kcals/kg 3112-1033 total kcals 1.2-2 g protein/kg 60-101 g total protein 25-30 mL/kg 2055-2129 total fluid mLs NUTRITION DIAGNOSIS: * Altered GI function R/T h/o ETOH abuse, dx of alcoholic pancreatitis as evidenced by pt admitted w/ c/o N/V, abdominal pain, currently orally intubated, s/p code blue, NPO. * Altered nutrition related lab values R/T liver dysfunction, clinical condition, h/o ETOH abuse as evidenced by critically low K (2.6*), low phos (1.8), low folate (5.9), elev AST, elev T bili (3.2), elev BGs (159 308), elev lipase upon adm (1468-> now wnl). CURRENT DIET:NPO PO DIET RECOMMENDATIONS: post extubation -> initiate and advance diet per MD (Low Na, Low Fat) ADDITIONAL RECOMMENDATIONS: * Calibrated bedscale wt for accurate CBW * Monitor for extubation, NPO status -> consult RD for TF if unable to extubate + TF indicated * Add folic acid supplement: ETOH abuse, folate low (5.9) * Monitor lytes, replete as needed (low K+phos) * Monitor BGs, need for hypoglycemics
[2019-03-21] MEDS ORDERED: Potassium Phosphate 30 MM in NS 275 ML IV ONE (12:30)
[2019-03-21] MEDS: LORazepam Inj 2mg/ml 1ml IM PRN (12:36)
--- NOTE | 2019-03-21 12:55 | NUR ---
RESPIRATORY NOTE: Titrated FiP2 down to 40%, saturates at 100%. KD Reeves made aware.
--- NOTE | 2019-03-21 13:00 | NUR ---
NURSE NOTES: Dr. Fox at the bedside with patient assessing history, ordered to have patient plced on CIWA protocol.
--- NOTE | 2019-03-21 13:10 | NUR ---
NURSE NOTES: Sputum sample taken to Laboratory for analysis along with troponin blood draw, awaiting for results,
[2019-03-21] MEDS: fentaNYL Citrate 2,500 MCG in NS 200 ML IV SCH (13:14)
[2019-03-21] MEDS: Thiamine HCl 100 MG in D5W 55 ML IVPB SCH (13:15)
[2019-03-21] MEDS ORDERED: Etomidate 40mg/20ml Inj IV ONE (13:17)
[2019-03-21] MEDS ORDERED: Succinylcholine 20mg/ml 10ml vial ONE (13:17)
--- NOTE | 2019-03-21 13:39 | Infectious Diseases Prog Note ---
Assessment/Plan Assessment/Plan IMPRESSION: 1. Pancreatitis, likely alcoholic. 2. Pyuria, so far urine culture GNR in low nubers 3. Alcohol abuse and intoxication. 4. Nicotine dependence. 5. Anemia and thrombocytopenia. 6. Cardiac arrest 7. Ventricular tachycardia 8. Respiratory failure 9. Lungs infiltrates pneumonia or edema RECOMMENDATIONS: Continue ceftriaxone. Subjective ROS Limited/Unobtainable: Yes Respiratory: Reports: other - intubated Cardiovascular: Reports: other - developed V tach, coded Neurologic: Reports: other - on restraint Allergies: Coded Allergies: No Known Allergies (Unverified , 03/19/19) Objective Vital Signs Last 24 Hour Vital Signs Date Time Temp Pulse Resp B/P (MAP) Pulse Ox O2 Delivery O2 Flow Rate FiO2 03/21/19 13:15 126 22 109/71 (84) 98 03/21/19 13:14 21 Mechanical Ventilator 40 03/21/19 13:00 133 22 98/53 (68) 98 03/21/19 12:55 130 26 40 03/21/19 12:45 130 21 121/75 (90) 100 03/21/19 12:30 141 35 141/106 (118) 100 03/21/19 12:30 137 22 142/87 (105) 100 03/21/19 12:00 98.1 115 18 77/45 (56) 100 03/21/19 12:00 Mechanical Ventilator 03/21/19 11:45 118 24 81/44 (56) 100 03/21/19 11:30 121 24 86/66 (73) 100 03/21/19 11:15 119 22 93/59 (70) 100 03/21/19 11:05 123 26 50 03/21/19 11:00 124 22 100/58 (72) 100 03/21/19 11:00 50 03/21/19 10:45 124 22 96/59 (71) 100 03/21/19 10:30 124 21 86/56 (66) 100 03/21/19 10:15 120 21 82/55 (64) 100 03/21/19 10:00 123 21 83/56 (65) 100 03/21/19 09:45 122 23 96/54 (68) 100 03/21/19 09:30 122 23 101/71 (81) 100 03/21/19 09:15 122 23 81/54 (63) 100 03/21/19 09:00 60 03/21/19 09:00 119 20 75/45 (55) 100 03/21/19 08:57 125 22 60 03/21/19 08:45 121 21 82/48 (59) 100 03/21/19 08:30 129 23 87/60 (69) 100 03/21/19 08:00 80 03/21/19 08:00 Mechanical Ventilator 03/21/19 08:00 98.5 143 26 110/78 (89) 100 03/21/19 08:00 128 03/21/19 07:45 128 23 100 03/21/19 07:38 24 85/64 Mechanical Ventilator 80 03/21/19 07:30 133 23 85/64 (71) 100 03/21/19 07:20 131 25 80 03/21/19 07:15 135 24 84/68 (73) 100 03/21/19 07:00 143 28 101/71 (81) 100 03/21/19 07:00 25 101/71 Mechanical Ventilator 100 03/21/19 07:00 25 101/71 Mechanical Ventilator 100 03/21/19 07:00 25 101/71 Mechanical Ventilator 100 03/21/19 06:45 145 29 93/79 (84) 100 03/21/19 06:30 143 31 90/66 (74) 100 03/21/19 06:15 141 20 92/69 (77) 100 03/21/19 06:00 144 26 90/71 (77) 100 03/21/19 06:00 26 92/74 Mechanical Ventilator 100 03/21/19 05:45 146 25 92/74 (80) 100 03/21/19 05:30 129 25 72/52 (59) 100 03/21/19 05:15 144 30 98/73 (81) 100 03/21/19 05:00 32 94/74 Mechanical Ventilator 100 03/21/19 05:00 140 30 94/74 (81) 100 03/21/19 04:47 109 21 100 03/21/19 04:45 130 23 87/68 (74) 100 03/21/19 04:30 145 03/21/19 04:30 118 23 78/56 (63) 100 03/21/19 04:15 130 18 104/82 (89) 100 03/21/19 04:07 134 22 104/81 (89) 100 03/21/19 04:00 Mechanical Ventilator 03/21/19 04:00 20 100/69 Mechanical Ventilator 100 03/21/19 04:00 100 03/21/19 04:00 97.6 132 24 100/69 (79) 100 03/21/19 03:45 131 25 105/85 (92) 100 03/21/19 03:42 24 108/83 Mechanical Ventilator 100 03/21/19 03:30 131 25 108/83 (91) 100 03/21/19 03:15 118 24 100 03/21/19 03:15 139 26 117/95 (102) 100 03/21/19 03:00 144 34 120/99 (106) 100 03/21/19 02:45 149 25 119/103 (108) 100 03/21/19 02:30 143 26 109/88 (95) 100 03/21/19 02:23 142 27 111/81 (91) 100 03/21/19 02:17 108 21 100 03/21/19 02:15 114 17 109/75 (86) 99 03/21/19 02:00 97.2 125 25 115/89 (98) 03/21/19 02:00 Mechanical Ventilator 03/21/19 02:00 100 03/21/19 00:00 101 03/21/19 00:00 98.3 101 18 121/91 (101) 96 03/20/19 21:00 Room Air 03/20/19 20:00 97.3 115 18 108/85 (93) 97 03/20/19 20:00 115 03/20/19 16:00 97 03/20/19 16:00 98.9 71 18 130/79 (96) 100 Height (Feet): 5 Height (Inches): 2.00 Weight (Pounds): 85 General Appearance: no acute distress HEENT: mucous membranes moist, other - orally intubated Respiratory/Chest: lungs clear, other - on ventilator Cardiovascular: tachycardia Abdomen: soft, non tender Extremities: no edema Neurologic/Psychiatric: alert, responsive Microbiology Date/Time Source Procedure Growth Status 03/19/19 15:10 Urine,Clean Catch Urine Culture - Preliminary Gram Negative Bacillus 1 Resulted Laboratory Tests Test 03/20/19 19:10 03/21/19 02:55 03/21/19 03:16 03/21/19 09:39 Stool Occult Blood Positive (NEGATIVE) White Blood Count 10.2 K/UL (4.8-10.8) # Red Blood Count 3.13 M/UL (4.20-5.40) L Hemoglobin 12.1 G/DL (12.0-16.0) Hematocrit 34.9 % (37.0-47.0) L Mean Corpuscular Volume 112 FL (80-99) H Mean Corpuscular Hemoglobin 38.5 PG (27.0-31.0) H Mean Corpuscular Hemoglobin Concent 34.5 G/DL (32.0-36.0) Red Cell Distribution Width 14.1 % (11.6-14.8) Platelet Count 57 K/UL (150-450) L Mean Platelet Volume 9.1 FL (6.5-10.1) Neutrophils (%) (Auto) % (45.0-75.0) Lymphocytes (%) (Auto) % (20.0-45.0) Monocytes (%) (Auto) % (1.0-10.0) Eosinophils (%) (Auto) % (0.0-3.0) Basophils (%) (Auto) % (0.0-2.0) Reticulocyte Count 1.7 % (0.5-2.0) Prothrombin Time 12.0 SEC (9.30-11.50) H Prothromb Time International Ratio 1.1 (0.9-1.1) Activated Partial Thromboplast Time 27 SEC (23-33) Sodium Level 138 MMOL/L (136-145) Potassium Level 3.5 MMOL/L (3.5-5.1) # Chloride Level 101 MMOL/L (98-107) Carbon Dioxide Level 19 MMOL/L (21-32) L Anion Gap 18 mmol/L (5-15) H Blood Urea Nitrogen 2 mg/dL (7-18) L Creatinine 0.7 MG/DL (0.55-1.30) Estimat Glomerular Filtration Rate > 60 mL/min (>60) Glucose Level 308 MG/DL (74-106) #H Uric Acid 2.4 MG/DL (2.6-7.2) L Calcium Level 8.7 MG/DL (8.5-10.1) Phosphorus Level 3.8 MG/DL (2.5-4.9) Magnesium Level 2.4 MG/DL (1.8-2.4) Iron Level 122 ug/dL (50-175) Total Iron Binding Capacity 120 ug/dL (250-450) L Percent Iron Saturation 102 % (15-50) H Unsaturated Iron Binding -2 ug/dL (112-346) L Ferritin 1471 NG/ML (8-388) H Total Bilirubin 3.4 MG/DL (0.2-1.0) H Direct Bilirubin 1.2 MG/DL (0.0-0.3) H Aspartate Amino Transf (AST/SGOT) 367 U/L (15-37) H Alanine Aminotransferase (ALT/SGPT) 51 U/L (12-78) Alkaline Phosphatase 163 U/L (46-116) H Total Protein 6.1 G/DL (6.4-8.2) L Albumin 2.9 G/DL (3.4-5.0) L Globulin 3.2 g/dL Albumin/Globulin Ratio 0.9 (1.0-2.7) L Triglycerides Level 99 MG/DL (30-150) Lipase 579 U/L (73-393) H Vitamin B12 Level 548 PG/ML (193-986) Folate 5.9 NG/ML (8.6-58.9) L Thyroid Stimulating Hormone (TSH) 3.270 uiU/mL (0.358-3.740) Free Thyroxine 1.33 NG/DL (0.76-1.46) Arterial Blood pH 7.340 (7.350-7.450) Arterial Blood Partial Pressure CO2 36.1 mmHg (35.0-45.0) Arterial Blood Partial Pressure O2 79.3 mmHg (75.0-100.0) Arterial Blood HCO3 19.0 mmol/L (22.0-26.0) L Arterial Blood Oxygen Saturation 93.6 % (95-100) L Arterial Blood Base Excess -6.0 (-2-2) L Reagan Test Positive Urine Color Yellow Urine Appearance Clear Urine pH 7 (4.5-8.0) Urine Specific [place] 1.010 (1.005-1.035) Urine Protein 3+ (NEGATIVE) H Urine Glucose (UA) 3+ (NEGATIVE) H Urine Ketones 2+ (NEGATIVE) H Urine Blood 5+ (NEGATIVE) H Urine Nitrite Negative (NEGATIVE) Urine Bilirubin Negative (NEGATIVE) Urine Urobilinogen 4 MG/DL (0.0-1.0) H Urine Leukocyte Esterase 1+ (NEGATIVE) H Urine RBC 2-4 /HPF (0 - 2) H Urine WBC 2-4 /HPF (0 - 2) Urine Squamous Epithelial Cells Few /LPF (NONE/OCC) Urine Bacteria Few /HPF (NONE) Urine Mucus Few /LPF (NONE/OCC) H Test 03/21/19 09:40 03/21/19 11:35 White Blood Count 12.5 K/UL (4.8-10.8) H Red Blood Count 2.76 M/UL (4.20-5.40) L Hemoglobin 10.7 G/DL (12.0-16.0) L Hematocrit 30.2 % (37.0-47.0) L Mean Corpuscular Volume 109 FL (80-99) H Mean Corpuscular Hemoglobin 38.7 PG (27.0-31.0) H Mean Corpuscular Hemoglobin Concent 35.4 G/DL (32.0-36.0) Red Cell Distribution Width 13.9 % (11.6-14.8) Platelet Count 47 K/UL (150-450) L Mean Platelet Volume 13.6 FL (6.5-10.1) H Neutrophils (%) (Auto) % (45.0-75.0) Lymphocytes (%) (Auto) % (20.0-45.0) Monocytes (%) (Auto) % (1.0-10.0) Eosinophils (%) (Auto) % (0.0-3.0) Basophils (%) (Auto) % (0.0-2.0) Differential Total Cells Counted 100 Neutrophils % (Manual) 90 % (45-75) H Lymphocytes % (Manual) 5 % (20-45) L Monocytes % (Manual) 1 % (1-10) Eosinophils % (Manual) 1 % (0-3) Basophils % (Manual) 0 % (0-2) Band Neutrophils 3 % (0-8) Platelet Estimate Decreased L Platelet Morphology Normal Hypochromasia 1+ Macrocytosis 1+ Sodium Level 138 MMOL/L (136-145) Potassium Level 2.6 MMOL/L (3.5-5.1) *L Chloride Level 101 MMOL/L (98-107) Carbon Dioxide Level 28 MMOL/L (21-32) Anion Gap 9 mmol/L (5-15) Blood Urea Nitrogen 1 mg/dL (7-18) L Creatinine 0.7 MG/DL (0.55-1.30) Estimat Glomerular Filtration Rate > 60 mL/min (>60) Glucose Level 159 MG/DL (74-106) #H Calcium Level 8.1 MG/DL (8.5-10.1) L Phosphorus Level 1.8 MG/DL (2.5-4.9) L Magnesium Level 1.9 MG/DL (1.8-2.4) Total Bilirubin 3.2 MG/DL (0.2-1.0) H Direct Bilirubin 2.1 MG/DL (0.0-0.3) H Aspartate Amino Transf (AST/SGOT) 269 U/L (15-37) H Alanine Aminotransferase (ALT/SGPT) 47 U/L (12-78) Alkaline Phosphatase 133 U/L (46-116) H Troponin I 0.372 ng/mL (0.000-0.056) 0.304 ng/mL (0.000-0.056) C-Reactive Protein, Quantitative < 0.4 mg/dL (0.00-0.90) Total Protein 5.1 G/DL (6.4-8.2) L Albumin 2.4 G/DL (3.4-5.0) L Globulin 2.7 g/dL Albumin/Globulin Ratio 0.9 (1.0-2.7) L Lipase 329 U/L (73-393) Alpha Fetoprotein Pending Hepatitis A IgM Antibody Pending Hepatitis B Surface Antigen Pending Hepatitis B Core IgM Antibody Pending Hepatitis C Antibody Pending HIV (1&2) Antibody Rapid Negative (NEGATIVE) Current Medications Medications (Trade) Dose Ordered Sig/Ismael Route PRN Reason Start Time Stop Time Status Last Admin Dose Admin Amiodarone HCl 900 mg/Dextrose 500 ml @ 0 mls/hr Q24H IV 03/21/19 07:04 03/22/19 02:15 03/21/19 09:51 Docusate Sodium (Colace) 100 mg TID ORAL 03/21/19 09:00 04/20/19 08:59 Famotidine (Pepcid I.v.) 20 mg Q12HR IVP 03/21/19 21:00 04/20/19 20:59 Fentanyl Citrate 2500 mcg/Sodium Chloride 250 ml @ 0 mls/hr Q24H IV 03/21/19 08:30 03/28/19 08:29 03/21/19 13:14 Lorazepam (Ativan 2mg/ml 1ml) 2 mg Q4H PRN IM For Anxiety 03/21/19 07:45 03/28/19 07:44 03/21/19 12:36 Ondansetron HCl (Zofran) 4 mg Q6H PRN IVP Nausea & Vomiting 03/21/19 07:05 04/20/19 07:04 Phenylephrine HCl 50 mg/Dextrose 250 ml @ 0 mls/hr Q24H IV 03/21/19 12:15 04/20/19 12:14 Piperacillin Sod/ Tazobactam Sod 3.375 gm/Sodium Chloride 110 ml @ 27.5 mls/hr Q8HR IVPB 03/21/19 14:00 03/28/19 13:59 Potassium Phosphate 30 mm/ Sodium Chloride 285 ml @ 47.5 mls/hr ONCE ONCE IV 03/21/19 12:30 03/21/19 18:29 Potassium Chloride 100 ml @ 50 mls/hr ONCE ONCE IVPB 03/21/19 12:00 03/21/19 13:59 03/21/19 12:30 Propofol 100 ml @ 0 mls/hr Q24H IV 03/21/19 07:05 03/23/19 07:04 03/21/19 07:38 Sodium Chloride 1,000 ml @ 75 mls/hr [id number] IV 03/21/19 08:45 04/20/19 08:44 03/21/19 09:07 Thiamine HCl 100 mg/Dextrose 56 ml @ 112 mls/hr Q24H IVPB 03/21/19 12:00 04/20/19 11:59 03/21/19 13:15 Caleb Dallas MD Mar 21, 2019 13:39
[2019-03-21] MEDS: Piperacillin/Tazobactam 3.375 GM in NS 110 ML IVPB SCH ×2 (14:36→21:39)
[2019-03-21] MEDS ORDERED: cefTRIAXone 1 GM in D5W 55 ML IVPB SCH (15:00)
--- NOTE | 2019-03-21 15:14 | Cardiology Report ---
APPROVED REPORT EKG Measurement Heart [id number] Sinus rhythm with 1st degree AV block Septal infarct, age undetermined Prolonged QT Abnormal ECG
--- NOTE | 2019-03-21 15:17 | Diagnostic Imaging Report ---
Indication: Status post orogastric tube placement Technique: Supine view of the abdomen Comparison: none Findings: There is an orogastric tube in place, tip projected at the level of the gastric body. There is a left groin central venous catheter in place. Bowel gas pattern is unremarkable. There is a Fields catheter in place. No unusual calcifications. Impression: Satisfactory position of orogastric tube, suitable for use Satisfactory position of left femoral central venous catheter
--- NOTE | 2019-03-21 15:19 | NUR ---
CASE MANAGEMENT:REVIEW 03/21/19 SI: PANCREATITIS S/P CODE BLUE...INTUBATED 98.1 115 18 77/45 100% ON VENT SUPPORT WBC+12.5 H/H-12.5 PLT-47 K-2.6 TROPONIN(+) 0.304 IS: IV PEPCID Q12 IV KCL Q2 HRS X2 IV ZOSYN Q8HRS IV K-PHOS X1 IV THIAMINE Q24 IVF@75/HR FENTANYL GTT PROPOFOL GTT IV AMIODARONE GTT : ICU STATUS
--- NOTE | 2019-03-21 15:54 | NUR ---
NURSE NOTES: Dr. Harrison informed of patient Troponin level trending down to 0.304, no orders given at this time, will continue to monitor. at this time no arrhythmias noted with HR at 105-115 in sinus tachycardia, patient remains on FIO2 of 40% with no respiratory distress noted, fentanyl drip remains at 100mcg/hr at rate of 10ml/hr,
--- NOTE | 2019-03-21 16:15 | Consultation ---
DATE OF CONSULTATION: 03/21/2019 CARDIOLOGY CONSULTATION CONSULTING PHYSICIAN: Efrem Harrison M.D. REFERRING PHYSICIAN: Ti Gill M.D. REASON FOR CONSULTATION: Status post ventricular fibrillation arrest. HISTORY OF PRESENT ILLNESS: The patient is a 38-year-old lady with history of heavy alcohol use, who was admitted to the hospital for alcohol abuse withdrawal as well as severe hypokalemia with potassium in the 2 range. The patient was walking in the hallway without any issue on telemetry. Then she went back to her room and was hooked up on the monitor. On the monitor, the patient developed ventricular tachycardia and ventricular fibrillation. The patient was found unresponsive and a Code Blue was called. CPR was already in progress. The patient was found to be in ventricular fibrillation, so she was defibrillated and then the patient developed sinus bradycardia, but still was pulseless. The CPR was continued. The patient received epinephrine and retained a pulse. The patient was intubated and in the process of intubation again had another ventricular fibrillation. The patient was shocked 1 more time. The patient was started on amiodarone drip and received 2 g of magnesium sulfate for possible torsade from severe hypomagnesemia and she was responding to potassium. Central line was also placed. The chest x-ray also showed left upper lobe pneumonia that could be secondary to aspiration. At the time of my evaluation, the patient is in intensive care unit on amiodarone drip and is on the ventilator. REVIEW OF SYSTEMS: Cannot be obtained. PAST MEDICAL HISTORY: As mentioned above. FAMILY HISTORY: Noncontributory. SOCIAL HISTORY: The patient has a heavy drinking history. Her urine toxicology screen is negative for any drugs. PHYSICAL EXAMINATION: VITAL SIGNS: Show blood pressure of 85/64, pulse is 125, respirations 24. HEAD AND NECK: Showed no JVD. LUNGS: Clear. She is orally intubated. CARDIOVASCULAR: Tachycardic. S1 and S2 with no gallop or murmur. ABDOMEN: Soft. EXTREMITIES: No pitting edema. LABORATORY DATA: Labs show white count of 10.2, hemoglobin 12.1, hematocrit 34.9, and platelet count is only 57. Sodium is 138, potassium currently is 3.5, but was as low as 2.2 at 8:15 yesterday, BUN 2, creatinine 0.7, and glucose of 308. Total bilirubin is 3.4, AST and ALT elevated as well as alkaline phosphatase. Troponins are pending. Lipase is 1468. ASSESSMENT AND PLAN: 1. Status post 2 ventricular fibrillation arrests. The EKG does not show any active ischemic changes. However, her initial EKG on 03/19/[address]-T wave abnormalities. We will repeat the EKG and we will get an echocardiogram for further evaluation. We will completely rule out [place] protocol. The VFib arrest could be due to the patient's profound hypokalemia with a potassium of only 2.2. Her magnesium was also critically low and was also 1.7. At this time, I will decrease amiodarone to 0.5. If the blood pressure allows, I will put on some beta-shayne at this time and decrease dose of amiodarone. 2. Profound hypokalemia. Potassium and magnesium were replaced. 3. Pancytopenia. Etiology is not clear. Hep panel and HIV ordered. Abdominal ultrasound for cirrhosis has been ordered. 4. Aspiration pneumonia, on antibiotic. 5. Alcohol abuse and withdrawal. 6. Acute pancreatitis. Further evaluation by GI. Thank you very much Dr. Gill for allowing me to participate in the care of this critically ill lady. Please do not hesitate to contact me for any questions regarding my evaluation. Efrem Harrison M.D. DR: LUIS JOB#: [id number] CC:
--- NOTE | 2019-03-21 16:15 | Progress Note ---
DATE: 03/21/2019 SUBJECTIVE: The patient is in ICU today. She had V-tach and coded. The patient was resuscitated by Dr. De Leon and was transferred to ICU. During the evaluation, the patient was alert, was able to answer the questions. The patient is anxious and currently is intubated. MENTAL STATUS EXAMINATION: The patient is alert and oriented x3. Mood is anxious. Affect is blunted. Congruent with mood. Thought process is concrete. Thought content, no suicidal or homicidal ideations. ASSESSMENT: 1. Alcohol dependence. 2. Alcohol withdrawal. PLAN: 1. We will continue Ativan IM. 2. Follow CIWA protocol. 3. Discussed with the charge nurse in ICU. 4. Notified CNO. Ted Fox M.D. DR: Nicol JOB#: [id number] CC: [email or web address]
--- NOTE | 2019-03-21 16:44 | NUR ---
RESPIRATORY NOTE: Titrated FiP2 down to 35%, saturates at 98%. KD Reeves made aware.
--- NOTE | 2019-03-21 18:57 | NUR ---
RESPIRATORY NOTE: Received pt on C/VC RR 15, VT 500, FIO2 35%, and peep +5. Orally intubated with size 7 ett at 23 at the lip secured by anchor fast. Minimal amount of secretions and will sxn as needed. Bilateral clear breath sounds heard on both lungs. Vent is plugged into red outlet. Will continue to monitor pt's progress.
[2019-03-21] MEDS: Phenylephrine 50 MG in D5W 245 ML IV SCH (19:00)
--- NOTE | 2019-03-21 19:16 | NUR ---
HAND-OFF: Report given to KD Roberson. Patient remains on ventilator with AC 15, TV: 500, FIo2 35% with peep of 5 saturating at 96%, she is on fentanyl drip at 100mcg/hr at rate of 10ml/hr, amiodarone at 16.66ml/hr at dose of 0.5mg/hr and ns at 75ml/hr. .
--- NOTE | 2019-03-21 19:17 | NUR ---
NURSE NOTES: Endorsement received from KD Reeves. Patient sedated, on Fentanyl 100mcg/hr with goal of RASS -1. Orally intubated with ET 7.0, 23 lipline. AC 15, 500, PEEP%, 35%. OGT present, on NPO. Left femoral TLC present. Receiving NS 75 ml/hr, Amiodarone 0.5 mg/min, Fentanyl 100mcg/hr. Fields catheter present, connected to urimeter. Noted with dark tonny urine. Bilateral soft wrists restraints present for attempting to pull out tubes. Seizure precautions implemented. Head of bed elevated. Call light within reach. Bed locked and in low position.
--- NOTE | 2019-03-21 20:00 | NUR ---
NURSE NOTES: Received call from the lab, troponin 0.154, MD not called due to result trending down.
--- NOTE | 2019-03-21 20:30 | NUR ---
NURSE NOTES: Patient's significant other (Trent Miller) at the bedside. Updated him of patient's current status. Confirmed his contact details: [phone], face sheet updated.
--- NOTE | 2019-03-21 21:00 | NUR ---
NURSE NOTES: Patient periodically wakes up. Fentanyl increased to 120mcg/hr to achieve RASS goal of -1 per order. Will continue to monitor. Venous duplex negative, SCDs applied at bilateral lower extremities
--- NOTE | 2019-03-21 21:37 | General Progress Note ---
Assessment/Plan Problem List: (1) Cardiac arrest ICD Codes: I46.9 - Cardiac arrest, cause unspecified SNOMED: 389631226 (2) Ventricular fibrillation ICD Codes: I49.01 - Ventricular fibrillation SNOMED: 51645203 (3) Aspiration pneumonia ICD Codes: J69.0 - Pneumonitis due to inhalation of food and vomit SNOMED: 940749212 Qualifiers: Qualified Codes: J69.0 - Pneumonitis due to inhalation of food and vomit (4) Respiratory failure requiring intubation ICD Codes: J96.90 - Respiratory failure, unspecified, unspecified whether with hypoxia or hypercapnia SNOMED: 452414604 (5) Hypokalemia ICD Codes: E87.6 - Hypokalemia SNOMED: 05255056 (6) Pancreatitis ICD Codes: K85.90 - Acute pancreatitis without necrosis or infection, unspecified SNOMED: 01582770 Qualifiers: (7) Acute alcoholic intoxication ICD Codes: F10.929 - Alcohol use, unspecified with intoxication, unspecified SNOMED: 05068654, 8691575 Qualifiers: Qualified Codes: F10.929 - Alcohol use, unspecified with intoxication, unspecified (8) UTI (urinary tract infection) ICD Codes: N39.0 - Urinary tract infection, site not specified SNOMED: 28466828 Qualifiers: (9) Acute alcoholic pancreatitis ICD Codes: K85.20 - Alcohol induced acute pancreatitis without necrosis or infection SNOMED: 201429766 (10) Anemia ICD Codes: D64.9 - Anemia, unspecified SNOMED: 966832182 Status: deteriorating Assessment/Plan: s/p cardiopulmonary arrest intubated svt etoh abuse pancreatits r/o pna r/o sepsis getting worse uti abx per id Subjective ROS Limited/Unobtainable: Yes Allergies: Coded Allergies: No Known Allergies (Unverified , 03/19/19) Objective Last 24 Hour Vital Signs Date Time Temp Pulse Resp B/P (MAP) Pulse Ox O2 Delivery O2 Flow Rate FiO2 03/21/19 21:00 114 18 103/68 (80) 97 03/21/19 20:45 109 17 94/47 (63) 96 03/21/19 20:35 108 15 35 03/21/19 20:30 106 16 109/73 (85) 95 03/21/19 20:15 109 16 105/68 (80) 96 03/21/19 20:00 115 18 92/74 (80) 98 03/21/19 20:00 35 03/21/19 20:00 Mechanical Ventilator 03/21/19 19:45 105 15 87/63 (71) 96 03/21/19 19:30 105 17 100/60 (73) 97 03/21/19 19:15 105 16 99/70 (80) 96 03/21/19 19:00 97.9 105 15 103/63 (76) 96 03/21/19 19:00 109 105/68 03/21/19 18:46 105 17 35 03/21/19 18:45 105 16 109/40 (63) 96 03/21/19 18:30 104 15 102/64 (77) 97 03/21/19 18:15 104 15 114/65 (81) 96 03/21/19 18:00 119 23 110/70 (83) 96 03/21/19 18:00 23 Mechanical Ventilator 35 03/21/19 17:45 106 15 93/58 (70) 95 03/21/19 17:30 105 15 105/53 (70) 95 03/21/19 17:15 106 16 100/60 (73) 97 03/21/19 17:00 109 16 111/68 (82) 96 03/21/19 17:00 15 Mechanical Ventilator 35 03/21/19 16:45 106 16 117/62 (80) 97 03/21/19 16:44 107 15 35 03/21/19 16:30 109 16 98/59 (72) 97 03/21/19 16:15 113 16 89/71 (77) 97 03/21/19 16:00 112 03/21/19 16:00 16 Mechanical Ventilator 40 03/21/19 16:00 40 03/21/19 16:00 98.3 109 16 105/55 (72) 96 03/21/19 16:00 Mechanical Ventilator 03/21/19 15:45 107 16 93/63 (73) 97 03/21/19 15:30 108 15 87/59 (68) 97 03/21/19 15:20 112 18 40 03/21/19 15:15 108 15 87/55 (66) 97 03/21/19 15:00 16 Mechanical Ventilator 40 03/21/19 15:00 111 15 115/64 (81) 96 03/21/19 14:45 111 17 100/67 (78) 96 03/21/19 14:30 116 18 98/67 (77) 97 03/21/19 14:15 115 19 105/61 (76) 97 03/21/19 14:00 121 17 105/76 (86) 97 03/21/19 13:59 16 Mechanical Ventilator 40 03/21/19 13:54 16 Mechanical Ventilator 40 03/21/19 13:49 17 Mechanical Ventilator 40 03/21/19 13:45 130 22 121/72 (88) 99 03/21/19 13:44 17 Mechanical Ventilator 40 03/21/19 13:39 18 Mechanical Ventilator 40 03/21/19 13:34 20 Mechanical Ventilator 40 03/21/19 13:30 134 21 106/61 (76) 98 03/21/19 13:29 22 Mechanical Ventilator 40 03/21/19 13:24 22 Mechanical Ventilator 40 03/21/19 13:19 24 Mechanical Ventilator 40 03/21/19 13:15 126 22 109/71 (84) 98 03/21/19 13:14 21 Mechanical Ventilator 40 03/21/19 13:00 133 22 98/53 (68) 98 03/21/19 12:55 130 26 40 03/21/19 12:45 130 21 121/75 (90) 100 03/21/19 12:30 141 35 141/106 (118) 100 03/21/19 12:30 137 22 142/87 (105) 100 03/21/19 12:00 98.1 115 18 77/45 (56) 100 03/21/19 12:00 115 03/21/19 12:00 Mechanical Ventilator 03/21/19 11:45 118 24 81/44 (56) 100 03/21/19 11:30 121 24 86/66 (73) 100 03/21/19 11:15 119 22 93/59 (70) 100 03/21/19 11:05 123 26 50 03/21/19 11:00 124 22 100/58 (72) 100 03/21/19 11:00 50 03/21/19 10:45 124 22 96/59 (71) 100 03/21/19 10:30 124 21 86/56 (66) 100 03/21/19 10:15 120 21 82/55 (64) 100 03/21/19 10:00 123 21 83/56 (65) 100 03/21/19 09:45 122 23 96/54 (68) 100 03/21/19 09:30 122 23 101/71 (81) 100 03/21/19 09:15 122 23 81/54 (63) 100 03/21/19 09:00 60 03/21/19 09:00 119 20 75/45 (55) 100 03/21/19 08:57 125 22 60 03/21/19 08:45 121 21 82/48 (59) 100 03/21/19 08:30 129 23 87/60 (69) 100 03/21/19 08:00 80 03/21/19 08:00 Mechanical Ventilator 03/21/19 08:00 98.5 143 26 110/78 (89) 100 03/21/19 08:00 128 03/21/19 07:45 128 23 100 03/21/19 07:38 24 85/64 Mechanical Ventilator 80 03/21/19 07:30 133 23 85/64 (71) 100 03/21/19 07:20 131 25 80 03/21/19 07:15 135 24 84/68 (73) 100 03/21/19 07:00 143 28 101/71 (81) 100 03/21/19 07:00 25 101/71 Mechanical Ventilator 100 03/21/19 07:00 25 101/71 Mechanical Ventilator 100 03/21/19 07:00 25 101/71 Mechanical Ventilator 100 03/21/19 06:45 145 29 93/79 (84) 100 03/21/19 06:30 143 31 90/66 (74) 100 03/21/19 06:15 141 20 92/69 (77) 100 03/21/19 06:00 144 26 90/71 (77) 100 03/21/19 06:00 26 92/74 Mechanical Ventilator 100 03/21/19 05:45 146 25 92/74 (80) 100 03/21/19 05:30 129 25 72/52 (59) 100 03/21/19 05:15 144 30 98/73 (81) 100 03/21/19 05:00 32 94/74 Mechanical Ventilator 100 03/21/19 05:00 140 30 94/74 (81) 100 03/21/19 04:47 109 21 100 03/21/19 04:45 130 23 87/68 (74) 100 03/21/19 04:30 145 03/21/19 04:30 118 23 78/56 (63) 100 03/21/19 04:15 130 18 104/82 (89) 100 03/21/19 04:07 134 22 104/81 (89) 100 03/21/19 04:00 Mechanical Ventilator 03/21/19 04:00 20 100/69 Mechanical Ventilator 100 03/21/19 04:00 100 03/21/19 04:00 97.6 132 24 100/69 (79) 100 03/21/19 03:45 131 25 105/85 (92) 100 03/21/19 03:42 24 108/83 Mechanical Ventilator 100 03/21/19 03:30 131 25 108/83 (91) 100 03/21/19 03:15 118 24 100 03/21/19 03:15 139 26 117/95 (102) 100 03/21/19 03:00 144 34 120/99 (106) 100 03/21/19 02:45 149 25 119/103 (108) 100 03/21/19 02:30 143 26 109/88 (95) 100 03/21/19 02:23 142 27 111/81 (91) 100 03/21/19 02:17 108 21 100 03/21/19 02:15 114 17 109/75 (86) 99 03/21/19 02:00 97.2 125 25 115/89 (98) 03/21/19 02:00 Mechanical Ventilator 03/21/19 02:00 100 03/21/19 00:00 101 03/21/19 00:00 98.3 101 18 121/91 (101) 96 Intake and Output 03/20/19 03/21/19 19:00 07:00 Intake Total 276.30 ml Balance 276.30 ml IV Total 276.30 ml # Voids 4 # Bowel Movements 1 Laboratory Tests 03/21/19 02:55: White Blood Count 10.2#, Red Blood Count 3.13L, Hemoglobin 12.1, Hematocrit 34.9L, Mean Corpuscular Volume 112H, Mean Corpuscular Hemoglobin 38.5H, Mean Corpuscular Hemoglobin Concent 34.5, Red Cell Distribution Width 14.1, Platelet Count 57L, Mean Platelet Volume 9.1, Neutrophils (%) (Auto) , Lymphocytes (%) ( Auto) , Monocytes (%) (Auto) , Eosinophils (%) (Auto) , Basophils (%) (Auto) , Reticulocyte Count 1.7, Prothrombin Time 12.0H, Prothromb Time International Ratio 1.1, Activated Partial Thromboplast Time 27, Sodium Level 138, Potassium Level 3.5#, Chloride Level 101, Carbon Dioxide Level 19L, Anion Gap 18H, Blood Urea Nitrogen 2L, Creatinine 0.7, Estimat Glomerular Filtration Rate > 60, Glucose Level 308#H, Uric Acid 2.4L, Calcium Level 8.7, Phosphorus Level 3.8, Magnesium Level 2.4, Iron Level 122, Total Iron Binding Capacity 120L, Percent Iron Saturation 102H, Unsaturated Iron Binding -2L, Ferritin 1471H, Total Bilirubin 3.4H, Direct Bilirubin 1.2H, Aspartate Amino Transf (AST/SGOT) 367H, Alanine Aminotransferase (ALT/SGPT) 51, Alkaline Phosphatase 163H, Total Protein 6.1L, Albumin 2.9L, Globulin 3.2, Albumin/Globulin Ratio 0.9L, Triglycerides Level 99, Lipase 579H, Vitamin B12 Level 548, Folate 5.9L, Thyroid Stimulating Hormone (TSH) 3.270, Free Thyroxine 1.33 03/21/19 03:16: Arterial Blood pH 7.340L, Arterial Blood Partial Pressure CO2 36.1, Arterial Blood Partial Pressure O2 79.3, Arterial Blood HCO3 19.0L, Arterial Blood Oxygen Saturation 93.6L, Arterial Blood Base Excess -6.0L, Reagan Test Positive 03/21/19 09:39: Urine Color Yellow, Urine Appearance Clear, Urine pH 7, Urine Specific [place] 1.010, Urine Protein 3+H, Urine Glucose (UA) 3+H, Urine Ketones 2+H, Urine Blood 5+H, Urine Nitrite Negative, Urine Bilirubin Negative, Urine Urobilinogen 4H, Urine Leukocyte Esterase 1+H, Urine RBC 2-4H, Urine WBC 2-4, Urine Squamous Epithelial Cells Few, Urine Bacteria Few, Urine Mucus FewH 03/21/19 09:40: White Blood Count 12.5H, Red Blood Count 2.76L, Hemoglobin 10.7L, Hematocrit 30.2L, Mean Corpuscular Volume 109H, Mean Corpuscular Hemoglobin 38.7H, Mean Corpuscular Hemoglobin Concent 35.4, Red Cell Distribution Width 13.9, Platelet Count 47L, Mean Platelet Volume 13.6H, Neutrophils (%) (Auto) , Lymphocytes (%) (Auto) , Monocytes (%) (Auto) , Eosinophils (%) (Auto) , Basophils (%) (Auto) , Sodium Level 138, Potassium Level 2.6*L, Chloride Level 101, Carbon Dioxide Level 28, Anion Gap 9, Blood Urea Nitrogen 1L, Creatinine 0.7, Estimat Glomerular Filtration Rate > 60, Glucose Level 159#H, Calcium Level 8.1L, Phosphorus Level 1.8L, Magnesium Level 1.9, Total Bilirubin 3.2H, Direct Bilirubin 2.1H, Aspartate Amino Transf (AST/SGOT) 269H, Alanine Aminotransferase (ALT/SGPT) 47, Alkaline Phosphatase 133H, Total Protein 5.1L, Albumin 2.4L, Globulin 2.7, Albumin/Globulin Ratio 0.9L, Lipase 329, Differential Total Cells Counted 100, Neutrophils % (Manual) 90H, Lymphocytes % (Manual) 5L, Monocytes % (Manual) 1, Eosinophils % (Manual) 1, Basophils % ( Manual) 0, Band Neutrophils 3, Platelet Estimate DecreasedL, Platelet Morphology Normal, Hypochromasia 1+, Macrocytosis 1+, Troponin I 0.372H, C- Reactive Protein, Quantitative < 0.4, Alpha Fetoprotein [Pending], Hepatitis A IgM Antibody [Pending], Hepatitis B Surface Antigen [Pending], Hepatitis B Core IgM Antibody [Pending], Hepatitis C Antibody [Pending], HIV (1&2) Antibody Rapid Negative 03/21/19 11:35: Troponin I 0.304H 03/21/19 18:55: Troponin I 0.154H Height (Feet): 5 Height (Inches): 2.00 Weight (Pounds): 85 General Appearance: lethargic, confused Ti Gill MD Mar 21, 2019 21:37
[2019-03-21] MEDS: Dyna-Hex 2% Top Sol 2oz TOPIC SCH (21:39)
--- NOTE | 2019-03-21 23:00 | NUR ---
NURSE NOTES: Patient currently maintaining RASS goal of -1 at this time with Fentanyl 120mcg/hr. Patient repositioned.
[2019-03-22] VITALS (41 sets, daily range): BP systolic 93–133; BP diastolic 47–90
--- NOTE | 2019-03-22 | NUR ---
NURSE NOTES: Patient asleep. CIWA score of 2, RASS -1. No seizure activity. Sinus tachy on the monitor. Continues on Amiodarone drip 0.5mg/min, Fentanyl 120mcg/Hr, NS 75 ml/hr
--- NOTE | 2019-03-22 02:00 | NUR ---
NURSE NOTES: Patient's condition remains the same. Urine noted at 20-25ml/hr
--- NOTE | 2019-03-22 04:00 | NUR ---
NURSE NOTES: Bed bath, oral care, change of linens done.
[2019-03-22 04:34] LABS: HEMATOCRIT 30.3 % (37.0-47.0); HEMOGLOBIN 10.4 G/DL (12.0-16.0); MEAN CORPUSCULAR VOLUME 112 FL (80-99); PLATELET COUNT 62 K/UL (150-450); RED BLOOD COUNT 2.71 M/UL (4.20-5.40); RED CELL DISTRIBUTION WIDTH 14.1 % (11.6-14.8); WHITE BLOOD COUNT 11.8 K/UL (4.8-10.8)
[2019-03-22 04:45] LABS: INR 1.1 (0.9-1.1)
[2019-03-22 05:13] LABS: AMYLASE 21 U/L (25-115)
[2019-03-22 05:24] LABS: ALANINE AMINOTRANSFERASE 41 U/L (12-78); ALBUMIN 2.5 G/DL (3.4-5.0); ALBUMIN/GLOBULIN RATIO 0.9 (1.0-2.7); ALKALINE PHOSPHATASE 119 U/L (46-116); ANION GAP 14 mmol/L (5-15); ASPARTATE AMINO TRANSFERASE 117 U/L (15-37); BILIRUBIN,TOTAL 2.2 MG/DL (0.2-1.0); BLOOD UREA NITROGEN 4 mg/dL (7-18); CALCIUM 8.1 MG/DL (8.5-10.1); CARBON DIOXIDE 22 MMOL/L (21-32); CHLORIDE 111 MMOL/L (98-107); CHOLESTEROL 181 MG/DL (< 200); CREATININE 0.5 MG/DL (0.55-1.30); HDL CHOLESTEROL 75 MG/DL (40-60); POTASSIUM 3.7 MMOL/L (3.5-5.1); SODIUM 147 MMOL/L (136-145); TRIGLYCERIDES 97 MG/DL (30-150)
[2019-03-22 05:29] LABS: BILIRUBIN,DIRECT 1.5 MG/DL (0.0-0.3)
[2019-03-22] MEDS: Piperacillin/Tazobactam 3.375 GM in NS 110 ML IVPB SCH ×3 (05:44→21:44)
--- NOTE | 2019-03-22 06:00 | NUR ---
NURSE NOTES: Patient maintaining goal RASS -1. Repositioned patient. Will continue to monitor.
--- NOTE | 2019-03-22 07:00 | NUR ---
NURSE NOTES: Patient was seen and examined by Dr. Beckman with new orders.
--- NOTE | 2019-03-22 07:20 | NUR ---
RESPIRATORY NOTE: Received pt on current vent setting: AC 15-500ml-35%FiO2- peep 5. Pt newly oral intubated with ETT size 7.0 @ 23cm lip lines, secured by anchor fast. Pt is resting comfortably in bed, on Fentanyl 80mcg/h no SOB or resp distress noted, pt is awake, alert, able to follow simple commands, understand weaning plan. Titrated FiO2 down to 30%,saturates at 96%. Placed pt on CPAP PS 8- peep 5- 30%FiO2, pt is tolerating well, RSBI 21, NIF 21, HR 119bpm, RR 15bpm, saturates 94-96%. ABG in 1 hour. RN Leandro made aware. Steve. clear breath sounds heard upon auscultation, suctioned minimal amounts of thin clear august secretions without incidents. Alarms are set and audible, vent is plugged into the red outlet, ambu bag is at bedside. The vent circuits and sxn tube are secured and out of the way. Will continue to monitor pt and suction as needed.
--- NOTE | 2019-03-22 07:28 | NUR ---
HAND-OFF: Patient is currently on Fentanyl 80mcg/hr. Ongoing weaning. Report given to Leandro YI. UOP also endorsed.
--- NOTE | 2019-03-22 08:03 | Nephrology Progress Note ---
Assessment/Plan Problem List: (1) Pancreatitis (2) Hypokalemia Assessment: improved (3) Cardiac arrest (4) Anemia Assessment had malignant arrythmia early am- now in ICU Severe HypoKalemia on admit Pancreatitis , high Lipase Acute alcoholic intoxication Anemia Plan stat Labs- discussed with KD Reeves Pulcaitlyn support / Cardiac support K IV as needed IV Fluid Monitor electrolytes anemia valenzuela Thiamin Gastric support per orders Subjective ROS Limited/Unobtainable: Yes Objective Objective Last 24 Hour Vital Signs Date Time Temp Pulse Resp B/P (MAP) Pulse Ox O2 Delivery O2 Flow Rate FiO2 03/22/19 07:20 119 15 30 30 03/22/19 07:20 96 03/22/19 07:15 118 14 127/86 (100) 97 03/22/19 07:00 110 15 110/87 (95) 95 03/22/19 07:00 15 Mechanical Ventilator 30 03/22/19 06:45 108 16 105/70 (82) 97 03/22/19 06:30 109 15 116/67 (83) 96 03/22/19 06:15 118 17 133/81 (98) 96 03/22/19 06:00 116 17 127/80 (96) 95 03/22/19 06:00 15 Mechanical Ventilator 35 03/22/19 05:30 110 15 126/83 (97) 96 03/22/19 05:00 15 Mechanical Ventilator 35 03/22/19 05:00 106 15 108/73 (85) 97 03/22/19 04:46 105 15 35 03/22/19 04:30 110 17 115/78 (90) 97 03/22/19 04:00 108 03/22/19 04:00 Mechanical Ventilator 03/22/19 04:00 98.3 108 17 110/72 (85) 96 03/22/19 04:00 35 03/22/19 04:00 15 Mechanical Ventilator 35 03/22/19 03:30 104 15 103/65 (78) 98 03/22/19 03:00 113 17 115/65 (82) 98 03/22/19 03:00 15 Mechanical Ventilator 35 03/22/19 02:41 102 15 35 03/22/19 02:30 104 15 97/62 (74) 98 03/22/19 02:00 104 15 93/63 (73) 97 9/6/19 02:00 15 Mechanical Ventilator 35 03/22/19 01:30 104 16 101/55 (70) 98 03/22/19 01:10 104 15 35 03/22/19 01:00 105 15 100/63 (75) 97 03/22/19 01:00 15 Mechanical Ventilator 35 03/22/19 00:30 104 15 105/47 (66) 98 03/22/19 00:00 98.0 105 15 108/64 (79) 98 03/22/19 00:00 Mechanical Ventilator 03/22/19 00:00 15 Mechanical Ventilator 35 03/22/19 00:00 35 03/22/19 00:00 106 03/21/19 23:30 112 17 112/69 (83) 98 03/21/19 23:00 107 18 116/72 (87) 96 03/21/19 23:00 15 Mechanical Ventilator 35 03/21/19 22:33 112 18 35 03/21/19 22:30 102 15 93/73 (80) 96 03/21/19 22:00 15 Mechanical Ventilator 35 03/21/19 22:00 106 15 116/104 (108) 97 03/21/19 21:45 106 15 101/63 (76) 97 03/21/19 21:30 106 15 100/63 (75) 96 03/21/19 21:15 106 16 107/91 (96) 96 03/21/19 21:00 114 18 103/68 (80) 97 03/21/19 21:00 15 Mechanical Ventilator 35 03/21/19 20:45 109 17 94/47 (63) 96 03/21/19 20:35 108 15 35 03/21/19 20:30 106 16 109/73 (85) 95 03/21/19 20:15 109 16 105/68 (80) 96 03/21/19 20:00 115 18 92/74 (80) 98 03/21/19 20:00 15 Mechanical Ventilator 35 03/21/19 20:00 102 03/21/19 20:00 35 03/21/19 20:00 Mechanical Ventilator 03/21/19 19:45 105 15 87/63 (71) 96 03/21/19 19:30 105 17 100/60 (73) 97 03/21/19 19:15 105 16 99/70 (80) 96 03/21/19 19:00 97.9 105 15 103/63 (76) 96 03/21/19 19:00 109 105/68 03/21/19 19:00 15 Mechanical Ventilator 35 03/21/19 18:46 105 17 35 03/21/19 18:45 105 16 109/40 (63) 96 03/21/19 18:30 104 15 102/64 (77) 97 03/21/19 18:15 104 15 114/65 (81) 96 03/21/19 18:00 119 23 110/70 (83) 96 03/21/19 18:00 23 Mechanical Ventilator 35 03/21/19 17:45 106 15 93/58 (70) 95 03/21/19 17:30 105 15 105/53 (70) 95 03/21/19 17:15 106 16 100/60 (73) 97 03/21/19 17:00 109 16 111/68 (82) 96 03/21/19 17:00 15 Mechanical Ventilator 35 03/21/19 16:45 106 16 117/62 (80) 97 03/21/19 16:44 107 15 35 03/21/19 16:30 109 16 98/59 (72) 97 03/21/19 16:15 113 16 89/71 (77) 97 03/21/19 16:00 112 03/21/19 16:00 16 Mechanical Ventilator 40 03/21/19 16:00 40 03/21/19 16:00 98.3 109 16 105/55 (72) 96 03/21/19 16:00 Mechanical Ventilator 03/21/19 15:45 107 16 93/63 (73) 97 03/21/19 15:30 108 15 87/59 (68) 97 03/21/19 15:20 112 18 40 03/21/19 15:15 108 15 87/55 (66) 97 03/21/19 15:00 16 Mechanical Ventilator 40 03/21/19 15:00 111 15 115/64 (81) 96 03/21/19 14:45 111 17 100/67 (78) 96 03/21/19 14:30 116 18 98/67 (77) 97 03/21/19 14:15 115 19 105/61 (76) 97 03/21/19 14:00 121 17 105/76 (86) 97 03/21/19 13:59 16 Mechanical Ventilator 40 03/21/19 13:54 16 Mechanical Ventilator 40 03/21/19 13:49 17 Mechanical Ventilator 40 03/21/19 13:45 130 22 121/72 (88) 99 03/21/19 13:44 17 Mechanical Ventilator 40 03/21/19 13:39 18 Mechanical Ventilator 40 03/21/19 13:34 20 Mechanical Ventilator 40 03/21/19 13:30 134 21 106/61 (76) 98 03/21/19 13:29 22 Mechanical Ventilator 40 03/21/19 13:24 22 Mechanical Ventilator 40 03/21/19 13:19 24 Mechanical Ventilator 40 03/21/19 13:15 126 22 109/71 (84) 98 03/21/19 13:14 21 Mechanical Ventilator 40 03/21/19 13:00 133 22 98/53 (68) 98 03/21/19 12:55 130 26 40 03/21/19 12:45 130 21 121/75 (90) 100 03/21/19 12:30 141 35 141/106 (118) 100 03/21/19 12:30 137 22 142/87 (105) 100 03/21/19 12:00 98.1 115 18 77/45 (56) 100 03/21/19 12:00 115 03/21/19 12:00 Mechanical Ventilator 03/21/19 11:45 118 24 81/44 (56) 100 03/21/19 11:30 121 24 86/66 (73) 100 03/21/19 11:15 119 22 93/59 (70) 100 03/21/19 11:05 123 26 50 03/21/19 11:00 124 22 100/58 (72) 100 03/21/19 11:00 50 03/21/19 10:45 124 22 96/59 (71) 100 03/21/19 10:30 124 21 86/56 (66) 100 03/21/19 10:15 120 21 82/55 (64) 100 03/21/19 10:00 123 21 83/56 (65) 100 03/21/19 09:45 122 23 96/54 (68) 100 03/21/19 09:30 122 23 101/71 (81) 100 03/21/19 09:15 122 23 81/54 (63) 100 03/21/19 09:00 60 03/21/19 09:00 119 20 75/45 (55) 100 03/21/19 08:57 125 22 60 03/21/19 08:45 121 21 82/48 (59) 100 03/21/19 08:30 129 23 87/60 (69) 100 Intake and Output 03/21/19 03/22/19 19:00 07:00 Intake Total 1589.05784 ml 1172.96 ml Output Total 830 ml 240 ml Balance 759.42711 ml 932.96 ml Intake Free Water 100 ml IV Total 1439.63849 ml 1172.96 ml Other 50 ml Output Urine Total 830 ml 240 ml # Bowel Movements 1 Laboratory Tests 03/21/19 09:39: Urine Color Yellow, Urine Appearance Clear, Urine pH 7, Urine Specific [place] 1.010, Urine Protein 3+H, Urine Glucose (UA) 3+H, Urine Ketones 2+H, Urine Blood 5+H, Urine Nitrite Negative, Urine Bilirubin Negative, Urine Urobilinogen 4H, Urine Leukocyte Esterase 1+H, Urine RBC 2-4H, Urine WBC 2-4, Urine Squamous Epithelial Cells Few, Urine Bacteria Few, Urine Mucus FewH 03/21/19 09:40: White Blood Count 12.5H, Red Blood Count 2.76L, Hemoglobin 10.7L, Hematocrit 30.2L, Mean Corpuscular Volume 109H, Mean Corpuscular Hemoglobin 38.7H, Mean Corpuscular Hemoglobin Concent 35.4, Red Cell Distribution Width 13.9, Platelet Count 47L, Mean Platelet Volume 13.6H, Neutrophils (%) (Auto) , Lymphocytes (%) (Auto) , Monocytes (%) (Auto) , Eosinophils (%) (Auto) , Basophils (%) (Auto) , Differential Total Cells Counted 100, Neutrophils % (Manual) 90H, Lymphocytes % (Manual) 5L, Monocytes % (Manual) 1, Eosinophils % (Manual) 1, Basophils % ( Manual) 0, Band Neutrophils 3, Platelet Estimate DecreasedL, Platelet Morphology Normal, Hypochromasia 1+, Macrocytosis 1+, Sodium Level 138, Potassium Level 2.6*L, Chloride Level 101, Carbon Dioxide Level 28, Anion Gap 9 , Blood Urea Nitrogen 1L, Creatinine 0.7, Estimat Glomerular Filtration Rate > 60, Glucose Level 159#H, Calcium Level 8.1L, Phosphorus Level 1.8L, Magnesium Level 1.9, Total Bilirubin 3.2H, Direct Bilirubin 2.1H, Aspartate Amino Transf ( AST/SGOT) 269H, Alanine Aminotransferase (ALT/SGPT) 47, Alkaline Phosphatase 133H, Troponin I 0.372H, C-Reactive Protein, Quantitative < 0.4, Total Protein 5.1L, Albumin 2.4L, Globulin 2.7, Albumin/Globulin Ratio 0.9L, Lipase 329, Alpha Fetoprotein 5.1, Hepatitis A IgM Antibody Negative, Hepatitis B Surface Antigen Negative, Hepatitis B Core IgM Antibody Negative, Hepatitis C Antibody < 0.1, HIV (1&2) Antibody Rapid Negative 03/21/19 11:35: Troponin I 0.304H 03/21/19 18:55: Troponin I 0.154H 03/22/19 03:00: White Blood Count 11.8H, Red Blood Count 2.71L, Hemoglobin 10.4L, Hematocrit 30.3L, Mean Corpuscular Volume 112H, Mean Corpuscular Hemoglobin 38.4H, Mean Corpuscular Hemoglobin Concent 34.3, Red Cell Distribution Width 14.1, Platelet Count 62L, Mean Platelet Volume 11.5H, Neutrophils (%) (Auto) , Lymphocytes (%) (Auto) , Monocytes (%) (Auto) , Eosinophils (%) (Auto) , Basophils (%) (Auto) , Neutrophils % (Manual) [Pending], Lymphocytes % (Manual) [Pending], Platelet Estimate [Pending], Platelet Morphology [Pending], Prothrombin Time 11.9H, Prothromb Time International Ratio 1.1, Sodium Level 147H, Potassium Level 3.7, Chloride Level 111H, Carbon Dioxide Level 22, Anion Gap 14, Blood Urea Nitrogen 4L, Creatinine 0.5L, Estimat Glomerular Filtration Rate > 60, Glucose Level 103 , Calcium Level 8.1L, Phosphorus Level 4.0, Magnesium Level 1.7L, Total Bilirubin 2.2H, Direct Bilirubin 1.5H, Gamma Glutamyl Transpeptidase 1543H, Aspartate Amino Transf (AST/SGOT) 117H, Alanine Aminotransferase (ALT/SGPT) 41, Alkaline Phosphatase 119H, Troponin I 0.116H, Total Protein 5.2L, Albumin 2.5L, Globulin 2.7, Albumin/Globulin Ratio 0.9L, Triglycerides Level 97, Cholesterol Level 181, LDL Cholesterol 55, HDL Cholesterol 75H, Cholesterol/HDL Ratio 2.4L, Amylase Level 21L, Lipase 86, Thyroid Stimulating Hormone (TSH) 4.528H, Free Thyroxine 1.40 Height (Feet): 5 Height (Inches): 2.00 Weight (Pounds): 84 General Appearance: no apparent distress EENT: other - vented Cardiovascular: tachycardia Respiratory/Chest: decreased breath sounds Abdomen: distended Mehdi Beckman MD Mar 22, 2019 08:03
[2019-03-22] MEDS: Docusate 100mg tablet ORAL SCH ×3 (08:13→18:16)
[2019-03-22] MEDS: fentaNYL Citrate 2,500 MCG in NS 200 ML IV SCH (08:30)
--- NOTE | 2019-03-22 08:43 | NUR ---
CASE MANAGEMENT:REVIEW 03/22/19 SI: PANCREATITIS S/P CODE BLUE...INTUBATED 98.3 119 15 127/86 97% ON VENT SUPPORT @ 30% FIO2 WBC+11.8 PLT-62 TROPONIN(+) 0.116 IS: IV MAG SULFATE Q1HRS X4 IV PEPCID Q12 IV ZOSYN Q8HRS IV THIAMINE Q24 IVF@75/HR FENTANYL GTT PROPOFOL GTT : ICU STATUS
--- NOTE | 2019-03-22 08:52 | NUR ---
NURSE NOTES: patient has been weaning to CPAP, pressure support 8, PEEP 5. ABG result are read to dr. montesinos, patient is awake and following command, she is able to make eye contact and use hand to make needs known, remains on wrist restraints for reaching towards et-tube and og-tube, Dr. Montesnios ordered to have patient extubated to cool air aerosol, Hr is 103-109 in sinus tachycardia with BP at 121/77, and is currently saturating at 96-97% on FIo2 of 30%.
--- NOTE | 2019-03-22 09:10 | NUR ---
RESPIRATORY NOTE: Extubated per MD's order. No stridor heard upon extubation. Steve clear breath sounds. Placed pt on cool aerosol 8L 30%FiO2, saturates at 93%. Pt is tolerating well, no SOB or resp distress noted. RN Leandro made aware. Will continue to monitor pt.
--- NOTE | 2019-03-22 09:13 | NUR ---
NURSE NOTES: Patient extubated to cool aerosol mist a 30% on 8L/min, Patient is calm and resting in bed, she is saturating at 93% with HR at 107 in sinus tachycardia, he BP is 126/75, she is taking full deep breaths with no distress.
--- NOTE | 2019-03-22 09:49 | General Progress Note ---
Assessment/Plan Problem List: (1) Pancreatitis ICD Codes: K85.90 - Acute pancreatitis without necrosis or infection, unspecified SNOMED: 62213908 Qualifiers: (2) Hypokalemia ICD Codes: E87.6 - Hypokalemia SNOMED: 29614756 (3) Respiratory failure requiring intubation ICD Codes: J96.90 - Respiratory failure, unspecified, unspecified whether with hypoxia or hypercapnia SNOMED: 444101421 (4) Ventricular fibrillation ICD Codes: I49.01 - Ventricular fibrillation SNOMED: 04411052 (5) Cardiac arrest ICD Codes: I46.9 - Cardiac arrest, cause unspecified SNOMED: 150419883 (6) Anemia ICD Codes: D64.9 - Anemia, unspecified SNOMED: 437892576 Status: deteriorating Assessment/Plan: extubated pending swallow eval fu cardiology recs fu labs supportive care Subjective ROS Limited/Unobtainable: Yes Allergies: Coded Allergies: No Known Allergies (Unverified , 03/19/19) Objective Last 24 Hour Vital Signs Date Time Temp Pulse Resp B/P (MAP) Pulse Ox O2 Delivery O2 Flow Rate FiO2 03/22/19 09:10 Venturi Mask 8.0 30 03/22/19 09:10 107 14 03/22/19 08:00 30 03/22/19 08:00 Mechanical Ventilator 03/22/19 07:20 119 15 30 30 03/22/19 07:20 96 03/22/19 07:15 118 14 127/86 (100) 97 03/22/19 07:00 110 15 110/87 (95) 95 03/22/19 07:00 15 Mechanical Ventilator 30 03/22/19 06:45 108 16 105/70 (82) 97 03/22/19 06:30 109 15 116/67 (83) 96 03/22/19 06:15 118 17 133/81 (98) 96 03/22/19 06:00 116 17 127/80 (96) 95 03/22/19 06:00 15 Mechanical Ventilator 35 03/22/19 05:30 110 15 126/83 (97) 96 03/22/19 05:00 15 Mechanical Ventilator 35 03/22/19 05:00 106 15 108/73 (85) 97 03/22/19 04:46 105 15 35 03/22/19 04:30 110 17 115/78 (90) 97 03/22/19 04:00 108 03/22/19 04:00 Mechanical Ventilator 03/22/19 04:00 98.3 108 17 110/72 (85) 96 03/22/19 04:00 35 03/22/19 04:00 15 Mechanical Ventilator 35 03/22/19 03:30 104 15 103/65 (78) 98 03/22/19 03:00 113 17 115/65 (82) 98 03/22/19 03:00 15 Mechanical Ventilator 35 03/22/19 02:41 102 15 35 03/22/19 02:30 104 15 97/62 (74) 98 03/22/19 02:00 104 15 93/63 (73) 97 03/22/19 02:00 15 Mechanical Ventilator 35 03/22/19 01:30 104 16 101/55 (70) 98 03/22/19 01:10 104 15 35 03/22/19 01:00 105 15 100/63 (75) 97 03/22/19 01:00 15 Mechanical Ventilator 35 03/22/19 00:30 104 15 105/47 (66) 98 03/22/19 00:00 98.0 105 15 108/64 (79) 98 03/22/19 00:00 Mechanical Ventilator 03/22/19 00:00 15 Mechanical Ventilator 35 03/22/19 00:00 35 03/22/19 00:00 106 03/21/19 23:30 112 17 112/69 (83) 98 03/21/19 23:00 107 18 116/72 (87) 96 03/21/19 23:00 15 Mechanical Ventilator 35 03/21/19 22:33 112 18 35 03/21/19 22:30 102 15 93/73 (80) 96 03/21/19 22:00 15 Mechanical Ventilator 35 03/21/19 22:00 106 15 116/104 (108) 97 03/21/19 21:45 106 15 101/63 (76) 97 03/21/19 21:30 106 15 100/63 (75) 96 03/21/19 21:15 106 16 107/91 (96) 96 03/21/19 21:00 114 18 103/68 (80) 97 03/21/19 21:00 15 Mechanical Ventilator 35 03/21/19 20:45 109 17 94/47 (63) 96 03/21/19 20:35 108 15 35 03/21/19 20:30 106 16 109/73 (85) 95 03/21/19 20:15 109 16 105/68 (80) 96 03/21/19 20:00 115 18 92/74 (80) 98 03/21/19 20:00 15 Mechanical Ventilator 35 03/21/19 20:00 102 03/21/19 20:00 35 03/21/19 20:00 Mechanical Ventilator 03/21/19 19:45 105 15 87/63 (71) 96 03/21/19 19:30 105 17 100/60 (73) 97 03/21/19 19:15 105 16 99/70 (80) 96 03/21/19 19:00 97.9 105 15 103/63 (76) 96 03/21/19 19:00 109 105/68 03/21/19 19:00 15 Mechanical Ventilator 35 03/21/19 18:46 105 17 35 03/21/19 18:45 105 16 109/40 (63) 96 03/21/19 18:30 104 15 102/64 (77) 97 03/21/19 18:15 104 15 114/65 (81) 96 03/21/19 18:00 119 23 110/70 (83) 96 03/21/19 18:00 23 Mechanical Ventilator 35 03/21/19 17:45 106 15 93/58 (70) 95 03/21/19 17:30 105 15 105/53 (70) 95 03/21/19 17:15 106 16 100/60 (73) 97 03/21/19 17:00 109 16 111/68 (82) 96 03/21/19 17:00 15 Mechanical Ventilator 35 03/21/19 16:45 106 16 117/62 (80) 97 03/21/19 16:44 107 15 35 03/21/19 16:30 109 16 98/59 (72) 97 03/21/19 16:15 113 16 89/71 (77) 97 03/21/19 16:00 112 03/21/19 16:00 16 Mechanical Ventilator 40 03/21/19 16:00 40 03/21/19 16:00 98.3 109 16 105/55 (72) 96 03/21/19 16:00 Mechanical Ventilator 03/21/19 15:45 107 16 93/63 (73) 97 03/21/19 15:30 108 15 87/59 (68) 97 03/21/19 15:20 112 18 40 03/21/19 15:15 108 15 87/55 (66) 97 03/21/19 15:00 16 Mechanical Ventilator 40 03/21/19 15:00 111 15 115/64 (81) 96 03/21/19 14:45 111 17 100/67 (78) 96 03/21/19 14:30 116 18 98/67 (77) 97 03/21/19 14:15 115 19 105/61 (76) 97 03/21/19 14:00 121 17 105/76 (86) 97 03/21/19 13:59 16 Mechanical Ventilator 40 03/21/19 13:54 16 Mechanical Ventilator 40 03/21/19 13:49 17 Mechanical Ventilator 40 03/21/19 13:45 130 22 121/72 (88) 99 03/21/19 13:44 17 Mechanical Ventilator 40 03/21/19 13:39 18 Mechanical Ventilator 40 03/21/19 13:34 20 Mechanical Ventilator 40 03/21/19 13:30 134 21 106/61 (76) 98 03/21/19 13:29 22 Mechanical Ventilator 40 03/21/19 13:24 22 Mechanical Ventilator 40 03/21/19 13:19 24 Mechanical Ventilator 40 03/21/19 13:15 126 22 109/71 (84) 98 03/21/19 13:14 21 Mechanical Ventilator 40 03/21/19 13:00 133 22 98/53 (68) 98 03/21/19 12:55 130 26 40 03/21/19 12:45 130 21 121/75 (90) 100 03/21/19 12:30 141 35 141/106 (118) 100 03/21/19 12:30 137 22 142/87 (105) 100 03/21/19 12:00 98.1 115 18 77/45 (56) 100 03/21/19 12:00 115 03/21/19 12:00 Mechanical Ventilator 03/21/19 11:45 118 24 81/44 (56) 100 03/21/19 11:30 121 24 86/66 (73) 100 03/21/19 11:15 119 22 93/59 (70) 100 03/21/19 11:05 123 26 50 9/5/19 11:00 124 22 100/58 (72) 100 03/21/19 11:00 50 03/21/19 10:45 124 22 96/59 (71) 100 03/21/19 10:30 124 21 86/56 (66) 100 03/21/19 10:15 120 21 82/55 (64) 100 03/21/19 10:00 123 21 83/56 (65) 100 Intake and Output 03/21/19 03/22/19 19:00 07:00 Intake Total 1589.23583 ml 1172.96 ml Output Total 830 ml 270 ml Balance 759.24045 ml 902.96 ml Intake Free Water 100 ml IV Total 1439.79588 ml 1172.96 ml Other 50 ml Output Urine Total 830 ml 270 ml # Bowel Movements 1 Laboratory Tests 03/21/19 11:35: Troponin I 0.304H 03/21/19 18:55: Troponin I 0.154H 03/22/19 03:00: Troponin I 0.116H, White Blood Count 11.8H, Red Blood Count 2.71L, Hemoglobin 10.4L, Hematocrit 30.3L, Mean Corpuscular Volume 112H, Mean Corpuscular Hemoglobin 38.4H, Mean Corpuscular Hemoglobin Concent 34.3, Red Cell Distribution Width 14.1, Platelet Count 62L, Mean Platelet Volume 11.5H, Neutrophils (%) (Auto) , Lymphocytes (%) (Auto) , Monocytes (%) (Auto) , Eosinophils (%) (Auto) , Basophils (%) (Auto) , Differential Total Cells Counted 100, Neutrophils % (Manual) 87H, Lymphocytes % (Manual) 8L, Monocytes % (Manual) 4, Eosinophils % (Manual) 1, Basophils % (Manual) 0, Band Neutrophils 0 , Platelet Estimate DecreasedL, Platelet Morphology Normal, Anisocytosis 1+, Macrocytosis 1+, Prothrombin Time 11.9H, Prothromb Time International Ratio 1.1 , Sodium Level 147H, Potassium Level 3.7, Chloride Level 111H, Carbon Dioxide Level 22, Anion Gap 14, Blood Urea Nitrogen 4L, Creatinine 0.5L, Estimat Glomerular Filtration Rate > 60, Glucose Level 103, Calcium Level 8.1L, Phosphorus Level 4.0, Magnesium Level 1.7L, Total Bilirubin 2.2H, Direct Bilirubin 1.5H, Gamma Glutamyl Transpeptidase 1543H, Aspartate Amino Transf (AST /SGOT) 117H, Alanine Aminotransferase (ALT/SGPT) 41, Alkaline Phosphatase 119H, Total Protein 5.2L, Albumin 2.5L, Globulin 2.7, Albumin/Globulin Ratio 0.9L, Triglycerides Level 97, Cholesterol Level 181, LDL Cholesterol 55, HDL Cholesterol 75H, Cholesterol/HDL Ratio 2.4L, Amylase Level 21L, Lipase 86, Thyroid Stimulating Hormone (TSH) 4.528H, Free Thyroxine 1.40 03/22/19 08:18: Arterial Blood pH 7.364, Arterial Blood Partial Pressure CO2 41.7, Arterial Blood Partial Pressure O2 78.3, Arterial Blood HCO3 23.2, Arterial Blood Oxygen Saturation 93.7L, Arterial Blood Base Excess -2.0, Reagan Test Positive Height (Feet): 5 Height (Inches): 2.00 Weight (Pounds): 84 General Appearance: alert EENT: normal ENT inspection Neck: supple Cardiovascular: normal rate Respiratory/Chest: decreased breath sounds Abdomen: normal bowel sounds, non tender, soft Extremities: non-tender Neel Khan MD Mar 22, 2019 09:49
--- NOTE | 2019-03-22 10:02 | Hematology/Onc Progress Note ---
Assessment/Plan Assessment/Plan Assessment and Recs: # Pancytopenia - potential causes multifactorial, evaluate liver and viral etiologies to begin, in this case very likely due to myelosuppresion from chronic alcohol abuse (hepatocellular disease) and ETOH --> Hep panel and HIV NEG --> US abd to evaluate for cirrhosis and hsm ordered and shows hepatocellular disease, likely fatty changes --> Peripheral smear ordered to evaluate for blasts /schistocytes doesn't show any --> abx and other meds have been reviewed --> ok for ppx if plt >50k w/ either heparin or lovenox --> Transfuse if Plt < 20k and fever, or if Plt < 10k without fever --> Anemia workup is c/w acd --> No evidence of hemolysis is noted, peripheral smear has been reviewed. --> Hgb goal >7. Transfuse prn basis --> Epogen or iron at this time is not particularly indicated --> Medications have been reviewed --> occult + --> per gi --> bone marrow biopsy not needed given etoh culprit # Coagulation defect, multifactorial usually related to poor PO intake versus medications, versus hepatitis v cirrhosis (from chronic etoh use) --> administer Vitamin K if patient is bleeding or FFP if the INR is >10 --> hold off on ffp unless active procedure/bleeding, first begin with vit K 10 # S/p Ventricular fibrillation arrest and subsequest PEA, currently stable on Amiodarone gtt --> per cards recs --> meds reviewed # Aspiration pneumonia --> abx per pulm/id # Respiratory failure requiring intubation --> was on vent --> now extubated # Alcohol abuse, withdrawal --> monitor for withdrawal # Pancreatitis --> per gi recs, adat # Fatty Liver # Previous Seizures # Previous breast abscess requiring drainage # Dvt ppx once plt is >75k The timing of this note does not necessarily reflect the time of the patient was seen. Greatly appreciate consultation. Subjective Allergies: Coded Allergies: No Known Allergies (Unverified , 03/19/19) Subjective 03/21: is responsive in the icu, james rn, labs reviewed, plt remains low, us abd reviewed 03/22: vs stable, no f/c, in icu, labs reviewed, imaging reviewed, extubated Objective Objective Current Medications Medications (Trade) Dose Ordered Sig/Ismael Route PRN Reason Start Time Stop Time Status Last Admin Dose Admin Chlorhexidine Gluconate (Kasia-Hex 2%) 1 applic DAILY@2000 TOPIC 03/21/19 22:00 04/20/19 21:59 03/21/19 21:39 Docusate Sodium (Colace) 100 mg TID ORAL 03/21/19 09:00 04/20/19 08:59 03/22/19 08:13 Famotidine (Pepcid I.v.) 20 mg Q12HR IVP 03/21/19 21:00 04/20/19 20:59 03/22/19 08:14 Fentanyl Citrate 2500 mcg/Sodium Chloride 250 ml @ 0 mls/hr Q24H IV 03/21/19 08:30 03/28/19 08:29 03/21/19 13:14 Lorazepam (Ativan 2mg/ml 1ml) 2 mg Q4H PRN IM For Anxiety 03/21/19 07:45 03/28/19 07:44 03/21/19 12:36 Magnesium Sulfate 100 ml @ 100 mls/hr Q1H IVPB 03/22/19 06:45 03/22/19 10:44 03/22/19 09:34 Ondansetron HCl (Zofran) 4 mg Q6H PRN IVP Nausea & Vomiting 03/21/19 07:05 04/20/19 07:04 Phenylephrine HCl 50 mg/Dextrose 250 ml @ 0 mls/hr Q24H IV 03/21/19 12:15 04/20/19 12:14 Piperacillin Sod/ Tazobactam Sod 3.375 gm/Sodium Chloride 110 ml @ 27.5 mls/hr Q8HR IVPB 03/21/19 14:00 03/28/19 13:59 03/22/19 05:44 Propofol 100 ml @ 0 mls/hr Q24H IV 03/21/19 07:05 03/23/19 07:04 03/21/19 07:38 Sodium Chloride 1,000 ml @ 75 mls/hr [id number] IV 03/21/19 08:45 04/20/19 08:44 03/21/19 21:40 Thiamine HCl 100 mg/Dextrose 56 ml @ 112 mls/hr Q24H IVPB 03/21/19 12:00 04/20/19 11:59 03/21/19 13:15 Last 24 Hour Vital Signs Date Time Temp Pulse Resp B/P (MAP) Pulse Ox O2 Delivery O2 Flow Rate FiO2 03/22/19 09:10 Venturi Mask 8.0 30 03/22/19 09:10 107 14 03/22/19 08:00 30 03/22/19 08:00 Mechanical Ventilator 03/22/19 07:20 119 15 30 30 03/22/19 07:20 96 03/22/19 07:15 118 14 127/86 (100) 97 03/22/19 07:00 110 15 110/87 (95) 95 03/22/19 07:00 15 Mechanical Ventilator 30 03/22/19 06:45 108 16 105/70 (82) 97 03/22/19 06:30 109 15 116/67 (83) 96 03/22/19 06:15 118 17 133/81 (98) 96 03/22/19 06:00 116 17 127/80 (96) 95 03/22/19 06:00 15 Mechanical Ventilator 35 03/22/19 05:30 110 15 126/83 (97) 96 03/22/19 05:00 15 Mechanical Ventilator 35 03/22/19 05:00 106 15 108/73 (85) 97 03/22/19 04:46 105 15 35 03/22/19 04:30 110 17 115/78 (90) 97 03/22/19 04:00 108 03/22/19 04:00 Mechanical Ventilator 03/22/19 04:00 98.3 108 17 110/72 (85) 96 03/22/19 04:00 35 03/22/19 04:00 15 Mechanical Ventilator 35 03/22/19 03:30 104 15 103/65 (78) 98 03/22/19 03:00 113 17 115/65 (82) 98 03/22/19 03:00 15 Mechanical Ventilator 35 03/22/19 02:41 102 15 35 03/22/19 02:30 104 15 97/62 (74) 98 03/22/19 02:00 104 15 93/63 (73) 97 03/22/19 02:00 15 Mechanical Ventilator 35 03/22/19 01:30 104 16 101/55 (70) 98 03/22/19 01:10 104 15 35 03/22/19 01:00 105 15 100/63 (75) 97 03/22/19 01:00 15 Mechanical Ventilator 35 03/22/19 00:30 104 15 105/47 (66) 98 03/22/19 00:00 98.0 105 15 108/64 (79) 98 03/22/19 00:00 Mechanical Ventilator 03/22/19 00:00 15 Mechanical Ventilator 35 03/22/19 00:00 35 03/22/19 00:00 106 03/21/19 23:30 112 17 112/69 (83) 98 03/21/19 23:00 107 18 116/72 (87) 96 03/21/19 23:00 15 Mechanical Ventilator 35 03/21/19 22:33 112 18 35 03/21/19 22:30 102 15 93/73 (80) 96 03/21/19 22:00 15 Mechanical Ventilator 35 03/21/19 22:00 106 15 116/104 (108) 97 03/21/19 21:45 106 15 101/63 (76) 97 03/21/19 21:30 106 15 100/63 (75) 96 03/21/19 21:15 106 16 107/91 (96) 96 03/21/19 21:00 114 18 103/68 (80) 97 03/21/19 21:00 15 Mechanical Ventilator 35 03/21/19 20:45 109 17 94/47 (63) 96 03/21/19 20:35 108 15 35 03/21/19 20:30 106 16 109/73 (85) 95 03/21/19 20:15 109 16 105/68 (80) 96 03/21/19 20:00 115 18 92/74 (80) 98 03/21/19 20:00 15 Mechanical Ventilator 35 03/21/19 20:00 102 03/21/19 20:00 35 03/21/19 20:00 Mechanical Ventilator 03/21/19 19:45 105 15 87/63 (71) 96 03/21/19 19:30 105 17 100/60 (73) 97 03/21/19 19:15 105 16 99/70 (80) 96 03/21/19 19:00 97.9 105 15 103/63 (76) 96 03/21/19 19:00 109 105/68 03/21/19 19:00 15 Mechanical Ventilator 35 03/21/19 18:46 105 17 35 03/21/19 18:45 105 16 109/40 (63) 96 03/21/19 18:30 104 15 102/64 (77) 97 03/21/19 18:15 104 15 114/65 (81) 96 03/21/19 18:00 119 23 110/70 (83) 96 03/21/19 18:00 23 Mechanical Ventilator 35 03/21/19 17:45 106 15 93/58 (70) 95 03/21/19 17:30 105 15 105/53 (70) 95 03/21/19 17:15 106 16 100/60 (73) 97 03/21/19 17:00 109 16 111/68 (82) 96 03/21/19 17:00 15 Mechanical Ventilator 35 03/21/19 16:45 106 16 117/62 (80) 97 03/21/19 16:44 107 15 35 03/21/19 16:30 109 16 98/59 (72) 97 03/21/19 16:15 113 16 89/71 (77) 97 03/21/19 16:00 112 03/21/19 16:00 16 Mechanical Ventilator 40 03/21/19 16:00 40 03/21/19 16:00 98.3 109 16 105/55 (72) 96 03/21/19 16:00 Mechanical Ventilator 03/21/19 15:45 107 16 93/63 (73) 97 03/21/19 15:30 108 15 87/59 (68) 97 03/21/19 15:20 112 18 40 03/21/19 15:15 108 15 87/55 (66) 97 03/21/19 15:00 16 Mechanical Ventilator 40 03/21/19 15:00 111 15 115/64 (81) 96 03/21/19 14:45 111 17 100/67 (78) 96 03/21/19 14:30 116 18 98/67 (77) 97 03/21/19 14:15 115 19 105/61 (76) 97 03/21/19 14:00 121 17 105/76 (86) 97 03/21/19 13:59 16 Mechanical Ventilator 40 03/21/19 13:54 16 Mechanical Ventilator 40 03/21/19 13:49 17 Mechanical Ventilator 40 03/21/19 13:45 130 22 121/72 (88) 99 03/21/19 13:44 17 Mechanical Ventilator 40 03/21/19 13:39 18 Mechanical Ventilator 40 03/21/19 13:34 20 Mechanical Ventilator 40 03/21/19 13:30 134 21 106/61 (76) 98 03/21/19 13:29 22 Mechanical Ventilator 40 03/21/19 13:24 22 Mechanical Ventilator 40 03/21/19 13:19 24 Mechanical Ventilator 40 03/21/19 13:15 126 22 109/71 (84) 98 03/21/19 13:14 21 Mechanical Ventilator 40 03/21/19 13:00 133 22 98/53 (68) 98 03/21/19 12:55 130 26 40 03/21/19 12:45 130 21 121/75 (90) 100 03/21/19 12:30 141 35 141/106 (118) 100 03/21/19 12:30 137 22 142/87 (105) 100 03/21/19 12:00 98.1 115 18 77/45 (56) 100 03/21/19 12:00 115 03/21/19 12:00 Mechanical Ventilator 03/21/19 11:45 118 24 81/44 (56) 100 03/21/19 11:30 121 24 86/66 (73) 100 03/21/19 11:15 119 22 93/59 (70) 100 03/21/19 11:05 123 26 50 03/21/19 11:00 124 22 100/58 (72) 100 03/21/19 11:00 50 03/21/19 10:45 124 22 96/59 (71) 100 03/21/19 10:30 124 21 86/56 (66) 100 03/21/19 10:15 120 21 82/55 (64) 100 03/21/19 10:00 123 21 83/56 (65) 100 03/21/19 09:45 122 23 96/54 (68) 100 03/21/19 09:30 122 23 101/71 (81) 100 03/21/19 09:15 122 23 81/54 (63) 100 03/21/19 09:00 60 03/21/19 09:00 119 20 75/45 (55) 100 03/21/19 08:57 125 22 60 03/21/19 08:45 121 21 82/48 (59) 100 03/21/19 08:30 129 23 87/60 (69) 100 03/21/19 08:00 80 03/21/19 08:00 Mechanical Ventilator 03/21/19 08:00 98.5 143 26 110/78 (89) 100 03/21/19 08:00 128 03/21/19 07:45 128 23 100 03/21/19 07:38 24 85/64 Mechanical Ventilator 80 03/21/19 07:30 133 23 85/64 (71) 100 03/21/19 07:20 131 25 80 03/21/19 07:15 135 24 84/68 (73) 100 03/21/19 07:00 143 28 101/71 (81) 100 03/21/19 07:00 25 101/71 Mechanical Ventilator 100 03/21/19 07:00 25 101/71 Mechanical Ventilator 100 03/21/19 07:00 25 101/71 Mechanical Ventilator 100 03/21/19 06:45 145 29 93/79 (84) 100 03/21/19 06:30 143 31 90/66 (74) 100 03/21/19 06:15 141 20 92/69 (77) 100 03/21/19 06:00 144 26 90/71 (77) 100 03/21/19 06:00 26 92/74 Mechanical Ventilator 100 03/21/19 05:45 146 25 92/74 (80) 100 03/21/19 05:30 129 25 72/52 (59) 100 03/21/19 05:15 144 30 98/73 (81) 100 03/21/19 05:00 32 94/74 Mechanical Ventilator 100 03/21/19 05:00 140 30 94/74 (81) 100 03/21/19 04:47 109 21 100 03/21/19 04:45 130 23 87/68 (74) 100 03/21/19 04:30 145 03/21/19 04:30 118 23 78/56 (63) 100 03/21/19 04:15 130 18 104/82 (89) 100 03/21/19 04:07 134 22 104/81 (89) 100 03/21/19 04:00 Mechanical Ventilator 03/21/19 04:00 20 100/69 Mechanical Ventilator 100 03/21/19 04:00 100 03/21/19 04:00 97.6 132 24 100/69 (79) 100 03/21/19 03:45 131 25 105/85 (92) 100 03/21/19 03:42 24 108/83 Mechanical Ventilator 100 03/21/19 03:30 131 25 108/83 (91) 100 03/21/19 03:15 118 24 100 03/21/19 03:15 139 26 117/95 (102) 100 03/21/19 03:00 144 34 120/99 (106) 100 03/21/19 02:45 149 25 119/103 (108) 100 03/21/19 02:30 143 26 109/88 (95) 100 03/21/19 02:23 142 27 111/81 (91) 100 03/21/19 02:17 108 21 100 03/21/19 02:15 114 17 109/75 (86) 99 03/21/19 02:00 97.2 125 25 115/89 (98) 03/21/19 02:00 Mechanical Ventilator 03/21/19 02:00 100 03/21/19 00:00 101 03/21/19 00:00 98.3 101 18 121/91 (101) 96 03/20/19 21:00 Room Air 03/20/19 20:00 97.3 115 18 108/85 (93) 97 03/20/19 20:00 115 03/20/19 16:00 97 03/20/19 16:00 98.9 71 18 130/79 (96) 100 03/20/19 12:00 99.1 90 20 128/86 (100) 100 03/20/19 12:00 86 Intake and Output 03/21/19 03/22/19 18:59 06:59 Intake Total 1487.88313 ml 1266.62 ml Output Total 810 ml 260 ml Balance 677.02006 ml 1006.62 ml Intake Free Water 100 ml IV Total 1337.06526 ml 1266.62 ml Other 50 ml Output Urine Total 810 ml 260 ml # Bowel Movements 1 Labs Test 03/19/19 15:10 03/20/19 08:15 03/20/19 19:10 03/21/19 02:55 White Blood Count 4.7 K/UL (4.8-10.8) 4.9 K/UL (4.8-10.8) 10.2 K/UL (4.8-10.8) Red Blood Count 3.45 M/UL (4.20-5.40) 2.77 M/UL (4.20-5.40) 3.13 M/UL (4.20-5.40) Hemoglobin 13.4 G/DL (12.0-16.0) 10.6 G/DL (12.0-16.0) 12.1 G/DL (12.0-16.0) Hematocrit 34.3 % (37.0-47.0) 30.0 % (37.0-47.0) 34.9 % (37.0-47.0) Mean Corpuscular Volume 100 FL (80-99) 108 FL (80-99) 112 FL (80-99) Mean Corpuscular Hemoglobin 38.8 PG (27.0-31.0) 38.5 PG (27.0-31.0) 38.5 PG (27.0-31.0) Mean Corpuscular Hemoglobin Concent 38.9 G/DL (32.0-36.0) 35.5 G/DL (32.0-36.0) 34.5 G/DL (32.0-36.0) Red Cell Distribution Width 12.9 % (11.6-14.8) 13.9 % (11.6-14.8) 14.1 % (11.6-14.8) Platelet Count 84 K/UL (150-450) 60 K/UL (150-450) 57 K/UL (150-450) Mean Platelet Volume 7.2 FL (6.5-10.1) 9.0 FL (6.5-10.1) 9.1 FL (6.5-10.1) Neutrophils (%) (Auto) % (45.0-75.0) % (45.0-75.0) % (45.0-75.0) Lymphocytes (%) (Auto) % (20.0-45.0) % (20.0-45.0) % (20.0-45.0) Monocytes (%) (Auto) % (1.0-10.0) % (1.0-10.0) % (1.0-10.0) Eosinophils (%) (Auto) % (0.0-3.0) % (0.0-3.0) % (0.0-3.0) Basophils (%) (Auto) % (0.0-2.0) % (0.0-2.0) % (0.0-2.0) Differential Total Cells Counted 100 100 Neutrophils % (Manual) 52 % (45-75) 75 % (45-75) Lymphocytes % (Manual) 40 % (20-45) 18 % (20-45) Monocytes % (Manual) 7 % (1-10) 5 % (1-10) Eosinophils % (Manual) 0 % (0-3) 1 % (0-3) Basophils % (Manual) 0 % (0-2) 1 % (0-2) Band Neutrophils 1 % (0-8) 0 % (0-8) Nucleated Red Blood Cells 1 /100 WBC Platelet Estimate Decreased Decreased Platelet Morphology Normal Normal Polychromasia 1+ Macrocytosis 2+ 1+ Urine Color Yellow Urine Appearance Very cloudy Urine pH 7 (4.5-8.0) Urine Specific [place] 1.005 (1.005-1.035) Urine Protein 2+ (NEGATIVE) Urine Glucose (UA) Negative (NEGATIVE) Urine Ketones 3+ (NEGATIVE) Urine Blood 2+ (NEGATIVE) Urine Nitrite Negative (NEGATIVE) Urine Bilirubin 2+ (NEGATIVE) Urine Ictotest Positive (NEGATIVE) Urine Urobilinogen 8 MG/DL (0.0-1.0) Urine Leukocyte Esterase 2+ (NEGATIVE) Urine RBC 0-2 /HPF (0 - 2) Urine WBC 5-10 /HPF (0 - 2) Urine Squamous Epithelial Cells Many /LPF (NONE/OCC) Urine Bacteria Moderate /HPF (NONE) Urine HCG, Qualitative Negative (NEGATIVE) Sodium Level 146 MMOL/L (136-145) 144 MMOL/L (136-145) 138 MMOL/L (136-145) Potassium Level 2.4 MMOL/L (3.5-5.1) 2.2 MMOL/L (3.5-5.1) 3.5 MMOL/L (3.5-5.1) Chloride Level 100 MMOL/L (98-107) 102 MMOL/L (98-107) 101 MMOL/L (98-107) Carbon Dioxide Level 27 MMOL/L (21-32) 29 MMOL/L (21-32) 19 MMOL/L (21-32) Anion Gap 20 mmol/L (5-15) 18 mmol/L (5-15) Blood Urea Nitrogen 4 mg/dL (7-18) 3 mg/dL (7-18) 2 mg/dL (7-18) Creatinine 0.6 MG/DL (0.55-1.30) 0.7 MG/DL (0.55-1.30) 0.7 MG/DL (0.55-1.30) Estimat Glomerular Filtration Rate > 60 mL/min (>60) > 60 mL/min (>60) > 60 mL/min (>60) Glucose Level 92 MG/DL (74-106) 70 MG/DL (74-106) 308 MG/DL (74-106) Calcium Level 9.5 MG/DL (8.5-10.1) 8.1 MG/DL (8.5-10.1) 8.7 MG/DL (8.5-10.1) Phosphorus Level 2.2 MG/DL (2.5-4.9) 2.9 MG/DL (2.5-4.9) 3.8 MG/DL (2.5-4.9) Magnesium Level 1.7 MG/DL (1.8-2.4) 2.1 MG/DL (1.8-2.4) 2.4 MG/DL (1.8-2.4) Total Bilirubin 2.0 MG/DL (0.2-1.0) 2.3 MG/DL (0.2-1.0) 3.4 MG/DL (0.2-1.0) Direct Bilirubin 1.0 MG/DL (0.0-0.3) 1.2 MG/DL (0.0-0.3) 1.2 MG/DL (0.0-0.3) Aspartate Amino Transf (AST/SGOT) 332 U/L (15-37) 302 U/L (15-37) 367 U/L (15-37) Alanine Aminotransferase (ALT/SGPT) 54 U/L (12-78) 47 U/L (12-78) 51 U/L (12-78) Alkaline Phosphatase 185 U/L (46-116) 160 U/L (46-116) 163 U/L (46-116) Total Protein 7.5 G/DL (6.4-8.2) 5.8 G/DL (6.4-8.2) 6.1 G/DL (6.4-8.2) Albumin 3.7 G/DL (3.4-5.0) 2.8 G/DL (3.4-5.0) 2.9 G/DL (3.4-5.0) Globulin 3.8 g/dL 3.0 g/dL 3.2 g/dL Albumin/Globulin Ratio 1.0 (1.0-2.7) 0.9 (1.0-2.7) 0.9 (1.0-2.7) Lipase 1468 U/L (73-393) 1244 U/L (73-393) 579 U/L (73-393) Urine Opiates Screen Negative (NEGATIVE) Urine Barbiturates Screen Negative (NEGATIVE) Phencyclidine (PCP) Screen Negative (NEGATIVE) Urine Amphetamines Screen Negative (NEGATIVE) Urine Benzodiazepines Screen Negative (NEGATIVE) Urine Cocaine Screen Negative (NEGATIVE) Urine Marijuana (THC) Screen Negative (NEGATIVE) Hypochromasia 1+ Uric Acid 2.8 MG/DL (2.6-7.2) 2.4 MG/DL (2.6-7.2) C-Reactive Protein, Quantitative < 0.4 mg/dL (0.00-0.90) Triglycerides Level 38 MG/DL (30-150) 99 MG/DL (30-150) Cholesterol Level 229 MG/DL (< 200) LDL Cholesterol 85 mg/dL (<100) HDL Cholesterol 102 MG/DL (40-60) Cholesterol/HDL Ratio 2.2 (3.3-4.4) Stool Occult Blood Positive (NEGATIVE) Reticulocyte Count 1.7 % (0.5-2.0) Prothrombin Time 12.0 SEC (9.30-11.50) Prothromb Time International Ratio 1.1 (0.9-1.1) Activated Partial Thromboplast Time 27 SEC (23-33) Iron Level 122 ug/dL (50-175) Total Iron Binding Capacity 120 ug/dL (250-450) Percent Iron Saturation 102 % (15-50) Unsaturated Iron Binding -2 ug/dL (112-346) Ferritin 1471 NG/ML (8-388) Vitamin B12 Level 548 PG/ML (193-986) Folate 5.9 NG/ML (8.6-58.9) Thyroid Stimulating Hormone (TSH) 3.270 uiU/mL (0.358-3.740) Free Thyroxine 1.33 NG/DL (0.76-1.46) Test 03/21/19 03:16 03/21/19 09:39 03/21/19 09:40 03/21/19 11:35 Arterial Blood pH 7.340 (7.350-7.450) Arterial Blood Partial Pressure CO2 36.1 mmHg (35.0-45.0) Arterial Blood Partial Pressure O2 79.3 mmHg (75.0-100.0) Arterial Blood HCO3 19.0 mmol/L (22.0-26.0) Arterial Blood Oxygen Saturation 93.6 % (95-100) Arterial Blood Base Excess -6.0 (-2-2) Reagan Test Positive Urine Color Yellow Urine Appearance Clear Urine pH 7 (4.5-8.0) Urine Specific [place] 1.010 (1.005-1.035) Urine Protein 3+ (NEGATIVE) Urine Glucose (UA) 3+ (NEGATIVE) Urine Ketones 2+ (NEGATIVE) Urine Blood 5+ (NEGATIVE) Urine Nitrite Negative (NEGATIVE) Urine Bilirubin Negative (NEGATIVE) Urine Urobilinogen 4 MG/DL (0.0-1.0) Urine Leukocyte Esterase 1+ (NEGATIVE) Urine RBC 2-4 /HPF (0 - 2) Urine WBC 2-4 /HPF (0 - 2) Urine Squamous Epithelial Cells Few /LPF (NONE/OCC) Urine Bacteria Few /HPF (NONE) Urine Mucus Few /LPF (NONE/OCC) White Blood Count 12.5 K/UL (4.8-10.8) Red Blood Count 2.76 M/UL (4.20-5.40) Hemoglobin 10.7 G/DL (12.0-16.0) Hematocrit 30.2 % (37.0-47.0) Mean Corpuscular Volume 109 FL (80-99) Mean Corpuscular Hemoglobin 38.7 PG (27.0-31.0) Mean Corpuscular Hemoglobin Concent 35.4 G/DL (32.0-36.0) Red Cell Distribution Width 13.9 % (11.6-14.8) Platelet Count 47 K/UL (150-450) Mean Platelet Volume 13.6 FL (6.5-10.1) Neutrophils (%) (Auto) % (45.0-75.0) Lymphocytes (%) (Auto) % (20.0-45.0) Monocytes (%) (Auto) % (1.0-10.0) Eosinophils (%) (Auto) % (0.0-3.0) Basophils (%) (Auto) % (0.0-2.0) Differential Total Cells Counted 100 Neutrophils % (Manual) 90 % (45-75) Lymphocytes % (Manual) 5 % (20-45) Monocytes % (Manual) 1 % (1-10) Eosinophils % (Manual) 1 % (0-3) Basophils % (Manual) 0 % (0-2) Band Neutrophils 3 % (0-8) Platelet Estimate Decreased Platelet Morphology Normal Hypochromasia 1+ Macrocytosis 1+ Sodium Level 138 MMOL/L (136-145) Potassium Level 2.6 MMOL/L (3.5-5.1) Chloride Level 101 MMOL/L (98-107) Carbon Dioxide Level 28 MMOL/L (21-32) Anion Gap 9 mmol/L (5-15) Blood Urea Nitrogen 1 mg/dL (7-18) Creatinine 0.7 MG/DL (0.55-1.30) Estimat Glomerular Filtration Rate > 60 mL/min (>60) Glucose Level 159 MG/DL (74-106) Calcium Level 8.1 MG/DL (8.5-10.1) Phosphorus Level 1.8 MG/DL (2.5-4.9) Magnesium Level 1.9 MG/DL (1.8-2.4) Total Bilirubin 3.2 MG/DL (0.2-1.0) Direct Bilirubin 2.1 MG/DL (0.0-0.3) Aspartate Amino Transf (AST/SGOT) 269 U/L (15-37) Alanine Aminotransferase (ALT/SGPT) 47 U/L (12-78) Alkaline Phosphatase 133 U/L (46-116) Troponin I 0.372 ng/mL (0.000-0.056) 0.304 ng/mL (0.000-0.056) C-Reactive Protein, Quantitative < 0.4 mg/dL (0.00-0.90) Total Protein 5.1 G/DL (6.4-8.2) Albumin 2.4 G/DL (3.4-5.0) Globulin 2.7 g/dL Albumin/Globulin Ratio 0.9 (1.0-2.7) Lipase 329 U/L (73-393) Alpha Fetoprotein 5.1 ng/mL (0.0-8.3) Hepatitis A IgM Antibody Negative (Negative) Hepatitis B Surface Antigen Negative (Negative) Hepatitis B Core IgM Antibody Negative (Negative) Hepatitis C Antibody <0.1 s/co ratio HIV (1&2) Antibody Rapid Negative (NEGATIVE) Test 03/21/19 18:55 03/22/19 03:00 03/22/19 08:18 Troponin I 0.154 ng/mL (0.000-0.056) 0.116 ng/mL (0.000-0.056) White Blood Count 11.8 K/UL (4.8-10.8) Red Blood Count 2.71 M/UL (4.20-5.40) Hemoglobin 10.4 G/DL (12.0-16.0) Hematocrit 30.3 % (37.0-47.0) Mean Corpuscular Volume 112 FL (80-99) Mean Corpuscular Hemoglobin 38.4 PG (27.0-31.0) Mean Corpuscular Hemoglobin Concent 34.3 G/DL (32.0-36.0) Red Cell Distribution Width 14.1 % (11.6-14.8) Platelet Count 62 K/UL (150-450) Mean Platelet Volume 11.5 FL (6.5-10.1) Neutrophils (%) (Auto) % (45.0-75.0) Lymphocytes (%) (Auto) % (20.0-45.0) Monocytes (%) (Auto) % (1.0-10.0) Eosinophils (%) (Auto) % (0.0-3.0) Basophils (%) (Auto) % (0.0-2.0) Differential Total Cells Counted 100 Neutrophils % (Manual) 87 % (45-75) Lymphocytes % (Manual) 8 % (20-45) Monocytes % (Manual) 4 % (1-10) Eosinophils % (Manual) 1 % (0-3) Basophils % (Manual) 0 % (0-2) Band Neutrophils 0 % (0-8) Platelet Estimate Decreased Platelet Morphology Normal Anisocytosis 1+ Macrocytosis 1+ Prothrombin Time 11.9 SEC (9.30-11.50) Prothromb Time International Ratio 1.1 (0.9-1.1) Sodium Level 147 MMOL/L (136-145) Potassium Level 3.7 MMOL/L (3.5-5.1) Chloride Level 111 MMOL/L (98-107) Carbon Dioxide Level 22 MMOL/L (21-32) Anion Gap 14 mmol/L (5-15) Blood Urea Nitrogen 4 mg/dL (7-18) Creatinine 0.5 MG/DL (0.55-1.30) Estimat Glomerular Filtration Rate > 60 mL/min (>60) Glucose Level 103 MG/DL (74-106) Calcium Level 8.1 MG/DL (8.5-10.1) Phosphorus Level 4.0 MG/DL (2.5-4.9) Magnesium Level 1.7 MG/DL (1.8-2.4) Total Bilirubin 2.2 MG/DL (0.2-1.0) Direct Bilirubin 1.5 MG/DL (0.0-0.3) Gamma Glutamyl Transpeptidase 1543 U/L (5-85) Aspartate Amino Transf (AST/SGOT) 117 U/L (15-37) Alanine Aminotransferase (ALT/SGPT) 41 U/L (12-78) Alkaline Phosphatase 119 U/L (46-116) Total Protein 5.2 G/DL (6.4-8.2) Albumin 2.5 G/DL (3.4-5.0) Globulin 2.7 g/dL Albumin/Globulin Ratio 0.9 (1.0-2.7) Triglycerides Level 97 MG/DL (30-150) Cholesterol Level 181 MG/DL (< 200) LDL Cholesterol 55 mg/dL (<100) HDL Cholesterol 75 MG/DL (40-60) Cholesterol/HDL Ratio 2.4 (3.3-4.4) Amylase Level 21 U/L (25-115) Lipase 86 U/L (73-393) Thyroid Stimulating Hormone (TSH) 4.528 uiU/mL (0.358-3.740) Free Thyroxine 1.40 NG/DL (0.76-1.46) Arterial Blood pH 7.364 (7.350-7.450) Arterial Blood Partial Pressure CO2 41.7 mmHg (35.0-45.0) Arterial Blood Partial Pressure O2 78.3 mmHg (75.0-100.0) Arterial Blood HCO3 23.2 mmol/L (22.0-26.0) Arterial Blood Oxygen Saturation 93.7 % (95-100) Arterial Blood Base Excess -2.0 (-2-2) Reagan Test Positive Height (Feet): 5 Height (Inches): 2.00 Weight (Pounds): 84 Objective Gen: Sedated although interactive, jaundice Head: normocephalic, atraumatic Eyes: bilateral eye PERRL, bilateral eye EOMI Neck: no masses, no LN Respiratory: Bilateral occasional rhonchi NC Cardiovascular: regular rate, rhythm, normal HS1, HS2, no murmur Gastrointestinal: normal bowel sounds, nt, nd Musculoskeletal: no rashes, no edema DRY SANDER: Interactive, no seizures, no focal signs Tanner Mckeon MD Mar 22, 2019 10:02
--- NOTE | 2019-03-22 11:04 | Infectious Diseases Prog Note ---
Assessment/Plan Assessment/Plan IMPRESSION: 1. Pancreatitis, likely alcoholic. 2. UTI with E. coli 3. Alcohol abuse and intoxication. 4. Nicotine dependence. 5. Anemia and thrombocytopenia. 6. Cardiac arrest 7. Ventricular tachycardia 8. Respiratory failure 9. Lungs infiltrates pneumonia or edema 10- Systolic CHF, EF=15% RECOMMENDATIONS: Change ceftriaxone to Levaquin Subjective ROS Limited/Unobtainable: Yes Constitutional: Reports: other - doing better Respiratory: Reports: dry cough, other - extubated Cardiovascular: Reports: no symptoms Gastrointestinal/Abdominal: Reports: no symptoms Allergies: Coded Allergies: No Known Allergies (Unverified , 03/19/19) Objective Vital Signs Last 24 Hour Vital Signs Date Time Temp Pulse Resp B/P (MAP) Pulse Ox O2 Delivery O2 Flow Rate FiO2 03/22/19 09:10 Venturi Mask 8.0 30 03/22/19 09:10 107 14 03/22/19 08:00 30 03/22/19 08:00 Mechanical Ventilator 03/22/19 07:20 119 15 30 30 03/22/19 07:20 96 03/22/19 07:15 118 14 127/86 (100) 97 03/22/19 07:00 110 15 110/87 (95) 95 03/22/19 07:00 15 Mechanical Ventilator 30 03/22/19 06:45 108 16 105/70 (82) 97 03/22/19 06:30 109 15 116/67 (83) 96 03/22/19 06:15 118 17 133/81 (98) 96 03/22/19 06:00 116 17 127/80 (96) 95 03/22/19 06:00 15 Mechanical Ventilator 35 03/22/19 05:30 110 15 126/83 (97) 96 03/22/19 05:00 15 Mechanical Ventilator 35 03/22/19 05:00 106 15 108/73 (85) 97 03/22/19 04:46 105 15 35 03/22/19 04:30 110 17 115/78 (90) 97 03/22/19 04:00 108 03/22/19 04:00 Mechanical Ventilator 03/22/19 04:00 98.3 108 17 110/72 (85) 96 03/22/19 04:00 35 03/22/19 04:00 15 Mechanical Ventilator 35 03/22/19 03:30 104 15 103/65 (78) 98 9/6/19 03:00 113 17 115/65 (82) 98 03/22/19 03:00 15 Mechanical Ventilator 35 03/22/19 02:41 102 15 35 03/22/19 02:30 104 15 97/62 (74) 98 03/22/19 02:00 104 15 93/63 (73) 97 03/22/19 02:00 15 Mechanical Ventilator 35 03/22/19 01:30 104 16 101/55 (70) 98 03/22/19 01:10 104 15 35 03/22/19 01:00 105 15 100/63 (75) 97 03/22/19 01:00 15 Mechanical Ventilator 35 03/22/19 00:30 104 15 105/47 (66) 98 03/22/19 00:00 98.0 105 15 108/64 (79) 98 03/22/19 00:00 Mechanical Ventilator 03/22/19 00:00 15 Mechanical Ventilator 35 03/22/19 00:00 35 03/22/19 00:00 106 03/21/19 23:30 112 17 112/69 (83) 98 03/21/19 23:00 107 18 116/72 (87) 96 03/21/19 23:00 15 Mechanical Ventilator 35 03/21/19 22:33 112 18 35 03/21/19 22:30 102 15 93/73 (80) 96 03/21/19 22:00 15 Mechanical Ventilator 35 03/21/19 22:00 106 15 116/104 (108) 97 03/21/19 21:45 106 15 101/63 (76) 97 03/21/19 21:30 106 15 100/63 (75) 96 03/21/19 21:15 106 16 107/91 (96) 96 03/21/19 21:00 114 18 103/68 (80) 97 03/21/19 21:00 15 Mechanical Ventilator 35 03/21/19 20:45 109 17 94/47 (63) 96 03/21/19 20:35 108 15 35 03/21/19 20:30 106 16 109/73 (85) 95 03/21/19 20:15 109 16 105/68 (80) 96 03/21/19 20:00 115 18 92/74 (80) 98 03/21/19 20:00 15 Mechanical Ventilator 35 03/21/19 20:00 102 03/21/19 20:00 35 03/21/19 20:00 Mechanical Ventilator 03/21/19 19:45 105 15 87/63 (71) 96 03/21/19 19:30 105 17 100/60 (73) 97 03/21/19 19:15 105 16 99/70 (80) 96 03/21/19 19:00 97.9 105 15 103/63 (76) 96 03/21/19 19:00 109 105/68 03/21/19 19:00 15 Mechanical Ventilator 35 03/21/19 18:46 105 17 35 03/21/19 18:45 105 16 109/40 (63) 96 03/21/19 18:30 104 15 102/64 (77) 97 03/21/19 18:15 104 15 114/65 (81) 96 03/21/19 18:00 119 23 110/70 (83) 96 03/21/19 18:00 23 Mechanical Ventilator 35 03/21/19 17:45 106 15 93/58 (70) 95 03/21/19 17:30 105 15 105/53 (70) 95 03/21/19 17:15 106 16 100/60 (73) 97 03/21/19 17:00 109 16 111/68 (82) 96 03/21/19 17:00 15 Mechanical Ventilator 35 03/21/19 16:45 106 16 117/62 (80) 97 03/21/19 16:44 107 15 35 03/21/19 16:30 109 16 98/59 (72) 97 03/21/19 16:15 113 16 89/71 (77) 97 03/21/19 16:00 112 03/21/19 16:00 16 Mechanical Ventilator 40 03/21/19 16:00 40 03/21/19 16:00 98.3 109 16 105/55 (72) 96 03/21/19 16:00 Mechanical Ventilator 03/21/19 15:45 107 16 93/63 (73) 97 03/21/19 15:30 108 15 87/59 (68) 97 03/21/19 15:20 112 18 40 03/21/19 15:15 108 15 87/55 (66) 97 03/21/19 15:00 16 Mechanical Ventilator 40 03/21/19 15:00 111 15 115/64 (81) 96 03/21/19 14:45 111 17 100/67 (78) 96 03/21/19 14:30 116 18 98/67 (77) 97 03/21/19 14:15 115 19 105/61 (76) 97 03/21/19 14:00 121 17 105/76 (86) 97 03/21/19 13:59 16 Mechanical Ventilator 40 03/21/19 13:54 16 Mechanical Ventilator 40 03/21/19 13:49 17 Mechanical Ventilator 40 03/21/19 13:45 130 22 121/72 (88) 99 03/21/19 13:44 17 Mechanical Ventilator 40 03/21/19 13:39 18 Mechanical Ventilator 40 03/21/19 13:34 20 Mechanical Ventilator 40 03/21/19 13:30 134 21 106/61 (76) 98 03/21/19 13:29 22 Mechanical Ventilator 40 03/21/19 13:24 22 Mechanical Ventilator 40 03/21/19 13:19 24 Mechanical Ventilator 40 03/21/19 13:15 126 22 109/71 (84) 98 03/21/19 13:14 21 Mechanical Ventilator 40 03/21/19 13:00 133 22 98/53 (68) 98 03/21/19 12:55 130 26 40 03/21/19 12:45 130 21 121/75 (90) 100 03/21/19 12:30 141 35 141/106 (118) 100 03/21/19 12:30 137 22 142/87 (105) 100 03/21/19 12:00 98.1 115 18 77/45 (56) 100 03/21/19 12:00 115 03/21/19 12:00 Mechanical Ventilator 03/21/19 11:45 118 24 81/44 (56) 100 03/21/19 11:30 121 24 86/66 (73) 100 03/21/19 11:15 119 22 93/59 (70) 100 03/21/19 11:05 123 26 50 03/21/19 11:00 124 22 100/58 (72) 100 03/21/19 11:00 50 Height (Feet): 5 Height (Inches): 2.00 Weight (Pounds): 84 General Appearance: no acute distress HEENT: mucous membranes moist Respiratory/Chest: lungs clear, other - oxygen by mask Cardiovascular: tachycardia Abdomen: soft, non tender Extremities: no edema Neurologic/Psychiatric: alert, responsive Microbiology Date/Time Source Procedure Growth Status 03/19/19 15:10 Urine,Clean Catch Urine Culture - Final Escherichia Coli - Esbl Complete Laboratory Tests Test 03/21/19 11:35 03/21/19 18:55 03/22/19 03:00 03/22/19 08:18 Troponin I 0.304 ng/mL (0.000-0.056) 0.154 ng/mL (0.000-0.056) 0.116 ng/mL (0.000-0.056) White Blood Count 11.8 K/UL (4.8-10.8) H Red Blood Count 2.71 M/UL (4.20-5.40) L Hemoglobin 10.4 G/DL (12.0-16.0) L Hematocrit 30.3 % (37.0-47.0) L Mean Corpuscular Volume 112 FL (80-99) H Mean Corpuscular Hemoglobin 38.4 PG (27.0-31.0) H Mean Corpuscular Hemoglobin Concent 34.3 G/DL (32.0-36.0) Red Cell Distribution Width 14.1 % (11.6-14.8) Platelet Count 62 K/UL (150-450) L Mean Platelet Volume 11.5 FL (6.5-10.1) H Neutrophils (%) (Auto) % (45.0-75.0) Lymphocytes (%) (Auto) % (20.0-45.0) Monocytes (%) (Auto) % (1.0-10.0) Eosinophils (%) (Auto) % (0.0-3.0) Basophils (%) (Auto) % (0.0-2.0) Differential Total Cells Counted 100 Neutrophils % (Manual) 87 % (45-75) H Lymphocytes % (Manual) 8 % (20-45) L Monocytes % (Manual) 4 % (1-10) Eosinophils % (Manual) 1 % (0-3) Basophils % (Manual) 0 % (0-2) Band Neutrophils 0 % (0-8) Platelet Estimate Decreased L Platelet Morphology Normal Anisocytosis 1+ Macrocytosis 1+ Prothrombin Time 11.9 SEC (9.30-11.50) H Prothromb Time International Ratio 1.1 (0.9-1.1) Sodium Level 147 MMOL/L (136-145) H Potassium Level 3.7 MMOL/L (3.5-5.1) Chloride Level 111 MMOL/L (98-107) H Carbon Dioxide Level 22 MMOL/L (21-32) Anion Gap 14 mmol/L (5-15) Blood Urea Nitrogen 4 mg/dL (7-18) L Creatinine 0.5 MG/DL (0.55-1.30) L Estimat Glomerular Filtration Rate > 60 mL/min (>60) Glucose Level 103 MG/DL (74-106) Calcium Level 8.1 MG/DL (8.5-10.1) L Phosphorus Level 4.0 MG/DL (2.5-4.9) Magnesium Level 1.7 MG/DL (1.8-2.4) L Total Bilirubin 2.2 MG/DL (0.2-1.0) H Direct Bilirubin 1.5 MG/DL (0.0-0.3) H Gamma Glutamyl Transpeptidase 1543 U/L (5-85) H Aspartate Amino Transf (AST/SGOT) 117 U/L (15-37) H Alanine Aminotransferase (ALT/SGPT) 41 U/L (12-78) Alkaline Phosphatase 119 U/L (46-116) H Total Protein 5.2 G/DL (6.4-8.2) L Albumin 2.5 G/DL (3.4-5.0) L Globulin 2.7 g/dL Albumin/Globulin Ratio 0.9 (1.0-2.7) L Triglycerides Level 97 MG/DL (30-150) Cholesterol Level 181 MG/DL (< 200) LDL Cholesterol 55 mg/dL (<100) HDL Cholesterol 75 MG/DL (40-60) H Cholesterol/HDL Ratio 2.4 (3.3-4.4) L Amylase Level 21 U/L (25-115) L Lipase 86 U/L (73-393) Thyroid Stimulating Hormone (TSH) 4.528 uiU/mL (0.358-3.740) Free Thyroxine 1.40 NG/DL (0.76-1.46) Arterial Blood pH 7.364 (7.350-7.450) Arterial Blood Partial Pressure CO2 41.7 mmHg (35.0-45.0) Arterial Blood Partial Pressure O2 78.3 mmHg (75.0-100.0) Arterial Blood HCO3 23.2 mmol/L (22.0-26.0) Arterial Blood Oxygen Saturation 93.7 % (95-100) L Arterial Blood Base Excess -2.0 (-2-2) Reagan Test Positive Current Medications Medications (Trade) Dose Ordered Sig/Ismael Route PRN Reason Start Time Stop Time Status Last Admin Dose Admin Chlorhexidine Gluconate (Kasia-Hex 2%) 1 applic DAILY@2000 TOPIC 03/21/19 22:00 04/20/19 21:59 03/21/19 21:39 Docusate Sodium (Colace) 100 mg TID ORAL 03/21/19 09:00 04/20/19 08:59 03/22/19 08:13 Famotidine (Pepcid I.v.) 20 mg Q12HR IVP 03/21/19 21:00 04/20/19 20:59 03/22/19 08:14 Fentanyl Citrate 2500 mcg/Sodium Chloride 250 ml @ 0 mls/hr Q24H IV 03/21/19 08:30 03/28/19 08:29 03/21/19 13:14 Lorazepam (Ativan 2mg/ml 1ml) 2 mg Q4H PRN IM For Anxiety 03/21/19 07:45 03/28/19 07:44 03/21/19 12:36 Ondansetron HCl (Zofran) 4 mg Q6H PRN IVP Nausea & Vomiting 03/21/19 07:05 04/20/19 07:04 Phenylephrine HCl 50 mg/Dextrose 250 ml @ 0 mls/hr Q24H IV 03/21/19 12:15 04/20/19 12:14 Piperacillin Sod/ Tazobactam Sod 3.375 gm/Sodium Chloride 110 ml @ 27.5 mls/hr Q8HR IVPB 03/21/19 14:00 03/28/19 13:59 03/22/19 05:44 Propofol 100 ml @ 0 mls/hr Q24H IV 03/21/19 07:05 03/23/19 07:04 03/21/19 07:38 Sodium Chloride 1,000 ml @ 75 mls/hr [id number] IV 03/21/19 08:45 04/20/19 08:44 03/21/19 21:40 Thiamine HCl 100 mg/Dextrose 56 ml @ 112 mls/hr Q24H IVPB 03/21/19 12:00 04/20/19 11:59 03/21/19 13:15 Caleb Dallas MD Mar 22, 2019 11:04
--- NOTE | 2019-03-22 11:06 | NUR ---
ST NOTES: REFERRED BY DR SKY FOR SWALLOW EVAL, SEE FULL EVALUATION. ACUTE ISSUES: ETOH INTOXICATION AND W/DRAWAL, CODED S/P VENTRICULAR FIB ARREST ON TELEMETRY UNIT, INTUBATED 36 HR EXTUBATED ONE HOUR AGO AND NPO FOR 36 HOURS, AMS, ASPIRATION PNA. H/O PRIOR SZ, SMOKING, AND ETOH ABUSE 10 MINI BOTTLES OF LIQUID EVERYDAY FOR A YEAR, WT LOSS (NORMAL WT NOW PER RD) MORE THAN 10 LBS IN 6 MONTHS. POLST/AD NOT IN CHART BUT HAD OGT REMOVED RECENTLY AND PRIOR TO CODING ON CLEAR TO FULL LIQUID DIET W/O PROBLEMS 100%. PT DENIES SWALLOWING PROBLEMS BEFORE. THROAT A LITTLE SORE JUST POST INTUBATION (VOICE HOARSE AND HAS SPONTANEOUS COUGH INFILTRATES IN LUNGS HEART ISSUE ? ASP) GOOD DENTITION. ON VENTURIMASK 8 LITERS GOOD RR/SAT. GOOD DENTITION. INITIAL IMPRESSIONS: APPEARS TO HAVE A GROSSLY FUNCTIONAL SWALLOW WITH THIN LIQUIDS VIA CUP SEQUENTIAL SIPS (GIPSY 3 OZ SWALLOW WATER PROTOCOL) W/O OVERT ASPIRATION AND STOPPING NOR VITAL SIGN CHANGES. GROSSLY FUNCTIONAL SWALLOW WITH PUREED TSP AND MASTICATED SOLID. ? SILENT ASP RISK (? EMERGENT INTUBATION VOICE AND CODED) RECOMMENDATIONS: FOR QUALITY OF LIFE, PT WANTS TO EAT/DRINK BY MOUTH (DISLIKES NGT), CONSIDER INITIATING SOFT CHEW DIET (RN TO CUT FOR HER) AND THIN LIQUIDS (ONE SIP AT A TIME) WITH POSTED ASP/REFLUX PRECAUTIONS. SKILLED DYSPHAGIA MANAGEMENT AND TX MODIFIED BARIUM SWALLOW STUDY IP OR OP IF DC TO FURTHER ASSES SWALLOW, R/O SILENT ASP RISK, AND ATTEMPT TRIAL TX IF NEEDS VOICE/COG EVAL/TX IF NEEDS RD TO SEE FOR FOOD PREFERENCES AND DIET CHOICES (JUST WANTS CH[employer] AND HAD WT LOSS). EDUCATED/TRAINED RN ETHAN IN POSTED PRECAUTIONS D/W DR SKY WHO AGREES WITH RECOMMENDATIONS
--- NOTE | 2019-03-22 11:45 | NUR ---
NURSE NOTES: Patient placed on Nasal Cannula at 3L/min to wean from cool moist aerosol and attempt to eat. she remains saturating around 93-97% and no sob,
--- NOTE | 2019-03-22 11:57 | Cardiac Electrophysiology PN ---
Assessment/Plan Assessment/Plan 1. 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 The EKG does not show any active ischemic changes. However, her initial EKG on 03/19/[address]-T wave abnormalities. Troponin leak due to VF arrest and shocks. Low level and flat and going down. The VFib arrest could be precipitated by profound hypokalemia with a potassium of only 2.2. DC iv Amiodarone. Needs transfer for Cardiac cath and ICD implantation 2. Profound hypokalemia. Potassium and magnesium were replaced. 3. Pancytopenia. Etiology is not clear. Hep panel and HIV ordered. Abdominal ultrasound for cirrhosis has been ordered. 4. Aspiration pneumonia, on antibiotic. 5. Alcohol abuse and withdrawal. 6. Acute pancreatitis. Further evaluation by GI. Subjective Subjective Extubated today. Alert in NAD. ON Amiodarone drip at 0.5 mg Objective Last 24 Hour Vital Signs Date Time Temp Pulse Resp B/P (MAP) Pulse Ox O2 Delivery O2 Flow Rate FiO2 03/22/19 09:10 Venturi Mask 8.0 30 03/22/19 09:10 107 14 03/22/19 08:00 30 03/22/19 08:00 Mechanical Ventilator 03/22/19 07:20 119 15 30 30 03/22/19 07:20 96 03/22/19 07:15 118 14 127/86 (100) 97 03/22/19 07:00 110 15 110/87 (95) 95 03/22/19 07:00 15 Mechanical Ventilator 30 03/22/19 06:45 108 16 105/70 (82) 97 03/22/19 06:30 109 15 116/67 (83) 96 03/22/19 06:15 118 17 133/81 (98) 96 03/22/19 06:00 116 17 127/80 (96) 95 03/22/19 06:00 15 Mechanical Ventilator 35 03/22/19 05:30 110 15 126/83 (97) 96 03/22/19 05:00 15 Mechanical Ventilator 35 03/22/19 05:00 106 15 108/73 (85) 97 03/22/19 04:46 105 15 35 03/22/19 04:30 110 17 115/78 (90) 97 03/22/19 04:00 108 03/22/19 04:00 Mechanical Ventilator 03/22/19 04:00 98.3 108 17 110/72 (85) 96 03/22/19 04:00 35 03/22/19 04:00 15 Mechanical Ventilator 35 03/22/19 03:30 104 15 103/65 (78) 98 03/22/19 03:00 113 17 115/65 (82) 98 03/22/19 03:00 15 Mechanical Ventilator 35 03/22/19 02:41 102 15 35 03/22/19 02:30 104 15 97/62 (74) 98 03/22/19 02:00 104 15 93/63 (73) 97 03/22/19 02:00 15 Mechanical Ventilator 35 03/22/19 01:30 104 16 101/55 (70) 98 03/22/19 01:10 104 15 35 03/22/19 01:00 105 15 100/63 (75) 97 03/22/19 01:00 15 Mechanical Ventilator 35 03/22/19 00:30 104 15 105/47 (66) 98 03/22/19 00:00 98.0 105 15 108/64 (79) 98 03/22/19 00:00 Mechanical Ventilator 03/22/19 00:00 15 Mechanical Ventilator 35 03/22/19 00:00 35 03/22/19 00:00 106 03/21/19 23:30 112 17 112/69 (83) 98 03/21/19 23:00 107 18 116/72 (87) 96 03/21/19 23:00 15 Mechanical Ventilator 35 03/21/19 22:33 112 18 35 03/21/19 22:30 102 15 93/73 (80) 96 03/21/19 22:00 15 Mechanical Ventilator 35 03/21/19 22:00 106 15 116/104 (108) 97 03/21/19 21:45 106 15 101/63 (76) 97 03/21/19 21:30 106 15 100/63 (75) 96 03/21/19 21:15 106 16 107/91 (96) 96 03/21/19 21:00 114 18 103/68 (80) 97 03/21/19 21:00 15 Mechanical Ventilator 35 03/21/19 20:45 109 17 94/47 (63) 96 03/21/19 20:35 108 15 35 9/5/19 20:30 106 16 109/73 (85) 95 03/21/19 20:15 109 16 105/68 (80) 96 03/21/19 20:00 115 18 92/74 (80) 98 03/21/19 20:00 15 Mechanical Ventilator 35 03/21/19 20:00 102 03/21/19 20:00 35 03/21/19 20:00 Mechanical Ventilator 03/21/19 19:45 105 15 87/63 (71) 96 03/21/19 19:30 105 17 100/60 (73) 97 03/21/19 19:15 105 16 99/70 (80) 96 03/21/19 19:00 97.9 105 15 103/63 (76) 96 03/21/19 19:00 109 105/68 03/21/19 19:00 15 Mechanical Ventilator 35 03/21/19 18:46 105 17 35 03/21/19 18:45 105 16 109/40 (63) 96 03/21/19 18:30 104 15 102/64 (77) 97 03/21/19 18:15 104 15 114/65 (81) 96 03/21/19 18:00 119 23 110/70 (83) 96 03/21/19 18:00 23 Mechanical Ventilator 35 03/21/19 17:45 106 15 93/58 (70) 95 03/21/19 17:30 105 15 105/53 (70) 95 03/21/19 17:15 106 16 100/60 (73) 97 03/21/19 17:00 109 16 111/68 (82) 96 03/21/19 17:00 15 Mechanical Ventilator 35 03/21/19 16:45 106 16 117/62 (80) 97 03/21/19 16:44 107 15 35 03/21/19 16:30 109 16 98/59 (72) 97 03/21/19 16:15 113 16 89/71 (77) 97 03/21/19 16:00 112 03/21/19 16:00 16 Mechanical Ventilator 40 03/21/19 16:00 40 03/21/19 16:00 98.3 109 16 105/55 (72) 96 03/21/19 16:00 Mechanical Ventilator 03/21/19 15:45 107 16 93/63 (73) 97 03/21/19 15:30 108 15 87/59 (68) 97 9/5/19 15:20 112 18 40 03/21/19 15:15 108 15 87/55 (66) 97 03/21/19 15:00 16 Mechanical Ventilator 40 03/21/19 15:00 111 15 115/64 (81) 96 03/21/19 14:45 111 17 100/67 (78) 96 03/21/19 14:30 116 18 98/67 (77) 97 03/21/19 14:15 115 19 105/61 (76) 97 03/21/19 14:00 121 17 105/76 (86) 97 03/21/19 13:59 16 Mechanical Ventilator 40 03/21/19 13:54 16 Mechanical Ventilator 40 03/21/19 13:49 17 Mechanical Ventilator 40 03/21/19 13:45 130 22 121/72 (88) 99 03/21/19 13:44 17 Mechanical Ventilator 40 03/21/19 13:39 18 Mechanical Ventilator 40 03/21/19 13:34 20 Mechanical Ventilator 40 03/21/19 13:30 134 21 106/61 (76) 98 03/21/19 13:29 22 Mechanical Ventilator 40 03/21/19 13:24 22 Mechanical Ventilator 40 03/21/19 13:19 24 Mechanical Ventilator 40 03/21/19 13:15 126 22 109/71 (84) 98 03/21/19 13:14 21 Mechanical Ventilator 40 03/21/19 13:00 133 22 98/53 (68) 98 03/21/19 12:55 130 26 40 03/21/19 12:45 130 21 121/75 (90) 100 03/21/19 12:30 141 35 141/106 (118) 100 03/21/19 12:30 137 22 142/87 (105) 100 03/21/19 12:00 98.1 115 18 77/45 (56) 100 03/21/19 12:00 115 03/21/19 12:00 Mechanical Ventilator Intake and Output 03/21/19 03/22/19 18:59 06:59 Intake Total 1487.12212 ml 1266.62 ml Output Total 810 ml 260 ml Balance 677.05282 ml 1006.62 ml Intake Free Water 100 ml IV Total 1337.74417 ml 1266.62 ml Other 50 ml Output Urine Total 810 ml 260 ml # Bowel Movements 1 Laboratory Tests Test 03/21/19 18:55 03/22/19 03:00 03/22/19 08:18 Troponin I 0.154 ng/mL (0.000-0.056) 0.116 ng/mL (0.000-0.056) White Blood Count 11.8 K/UL (4.8-10.8) H Red Blood Count 2.71 M/UL (4.20-5.40) L Hemoglobin 10.4 G/DL (12.0-16.0) L Hematocrit 30.3 % (37.0-47.0) L Mean Corpuscular Volume 112 FL (80-99) H Mean Corpuscular Hemoglobin 38.4 PG (27.0-31.0) H Mean Corpuscular Hemoglobin Concent 34.3 G/DL (32.0-36.0) Red Cell Distribution Width 14.1 % (11.6-14.8) Platelet Count 62 K/UL (150-450) L Mean Platelet Volume 11.5 FL (6.5-10.1) H Neutrophils (%) (Auto) % (45.0-75.0) Lymphocytes (%) (Auto) % (20.0-45.0) Monocytes (%) (Auto) % (1.0-10.0) Eosinophils (%) (Auto) % (0.0-3.0) Basophils (%) (Auto) % (0.0-2.0) Differential Total Cells Counted 100 Neutrophils % (Manual) 87 % (45-75) H Lymphocytes % (Manual) 8 % (20-45) L Monocytes % (Manual) 4 % (1-10) Eosinophils % (Manual) 1 % (0-3) Basophils % (Manual) 0 % (0-2) Band Neutrophils 0 % (0-8) Platelet Estimate Decreased L Platelet Morphology Normal Anisocytosis 1+ Macrocytosis 1+ Prothrombin Time 11.9 SEC (9.30-11.50) H Prothromb Time International Ratio 1.1 (0.9-1.1) Sodium Level 147 MMOL/L (136-145) H Potassium Level 3.7 MMOL/L (3.5-5.1) Chloride Level 111 MMOL/L (98-107) H Carbon Dioxide Level 22 MMOL/L (21-32) Anion Gap 14 mmol/L (5-15) Blood Urea Nitrogen 4 mg/dL (7-18) L Creatinine 0.5 MG/DL (0.55-1.30) L Estimat Glomerular Filtration Rate > 60 mL/min (>60) Glucose Level 103 MG/DL (74-106) Calcium Level 8.1 MG/DL (8.5-10.1) L Phosphorus Level 4.0 MG/DL (2.5-4.9) Magnesium Level 1.7 MG/DL (1.8-2.4) L Total Bilirubin 2.2 MG/DL (0.2-1.0) H Direct Bilirubin 1.5 MG/DL (0.0-0.3) H Gamma Glutamyl Transpeptidase 1543 U/L (5-85) H Aspartate Amino Transf (AST/SGOT) 117 U/L (15-37) H Alanine Aminotransferase (ALT/SGPT) 41 U/L (12-78) Alkaline Phosphatase 119 U/L (46-116) H Total Protein 5.2 G/DL (6.4-8.2) L Albumin 2.5 G/DL (3.4-5.0) L Globulin 2.7 g/dL Albumin/Globulin Ratio 0.9 (1.0-2.7) L Triglycerides Level 97 MG/DL (30-150) Cholesterol Level 181 MG/DL (< 200) LDL Cholesterol 55 mg/dL (<100) HDL Cholesterol 75 MG/DL (40-60) H Cholesterol/HDL Ratio 2.4 (3.3-4.4) L Amylase Level 21 U/L (25-115) L Lipase 86 U/L (73-393) Thyroid Stimulating Hormone (TSH) 4.528 uiU/mL (0.358-3.740) Free Thyroxine 1.40 NG/DL (0.76-1.46) Arterial Blood pH 7.364 (7.350-7.450) Arterial Blood Partial Pressure CO2 41.7 mmHg (35.0-45.0) Arterial Blood Partial Pressure O2 78.3 mmHg (75.0-100.0) Arterial Blood HCO3 23.2 mmol/L (22.0-26.0) Arterial Blood Oxygen Saturation 93.7 % (95-100) L Arterial Blood Base Excess -2.0 (-2-2) Reagan Test Positive Microbiology Date/Time Source Procedure Growth Status 03/19/19 15:10 Urine,Clean Catch Urine Culture - Final Escherichia Coli - Esbl Complete Objective HEAD AND NECK: No JVD. LUNGS: Clear. CARDIOVASCULAR: Regular S1 and S2 with no gallop or murmur. ABDOMEN: Soft. EXTREMITIES: No pitting edema. Efrem Harrison MD Mar 22, 2019 11:57
[2019-03-22] MEDS: Phenylephrine 50 MG in D5W 245 ML IV SCH (12:15)
--- NOTE | 2019-03-22 12:15 | NUR ---
NURSE NOTES: Order for higher level of care and transfer for a heart cath and a AICD placement by Cathy Whitmore case management informed of order placed, will begin to work to transfer patient for recommended procedure, Dr. meadows informed patient of rsults from 2D-echo and recommended plan, patients questions answered by hide paster at the bedside and agrees with recommendation,
--- NOTE | 2019-03-22 13:15 | NUR ---
NURSE NOTES: Dr. Montesinos made aware of patient being extubated and remains on nasal cannula at 3L/min with no distress noted, Dr. Montesinos cleared patient to be transferred to another floor.
--- NOTE | 2019-03-22 13:16 | Cardiology Report ---
APPROVED REPORT EXAM: Two-dimensional and M-mode echocardiogram with Doppler and color Doppler. INDICATION Congestive Heart Failure M-Mode DIMENSIONS IVSd1.0 (0.7-1.1cm)Left Atrium (MM)3.0 (1.6-4.0cm) LVDd5.1 (3.5-5.6cm)Aortic Root2.8 (2.0-3.7cm) PWd0.9 (0.7-1.1cm)Aortic Cusp Exc.1.9 (1.5-2.0cm) LVDs4.2 (2.5-4.0cm) PWs1.0 cm Normal left ventricular chamber size. Global left ventricular akinesis, except basal segments. Left ventricular ejection fraction estimated to be 15 %. No evidence of left ventricular hypertrophy. No evidence of pericardial effusion. All other cardiac chamber sizes are within normal limits. Focal aortic valve sclerosis with adequate cusp excursion. Thickened mitral valve leaflets with normal excursion. Mitral annulus and aortic root calcification. Pulmonic valve not well visualized. Normal tricuspid valve structure. IVC dilated at 2.5 cm without physiologic collapse suggestive of increased RA pressure. A color flow and spectral Doppler study was performed and revealed: No aortic regurgitation. Mild mitral regurgitation. Mitral inflow velocities indicates possible pseudo normalization pattern implying moderately elevated left atrial pressure (Grade II). Mild tricuspid regurgitation. Tricuspid systolic velocities suggests peak right ventricular systolic pressure of 30 mmHg. No pulmonic regurgitation present.
[2019-03-22] MEDS: Thiamine HCl 100 MG in D5W 55 ML IVPB SCH (13:52)
[2019-03-22] MEDS: Amiodarone 200mg tab ORAL SCH ×2 (13:52→21:44)
--- NOTE | 2019-03-22 14:56 | Pulmonolgy Critical Care Note ---
Critical Care - Asmt/Plan Assessment/Plan: Pulmonary Critical Care Progress Note HPI Patient is a 38-year-old woman initially admitted to the hospital for Hypokalemia and Alcohol abuse/withdrawal, Pancreatitis. S/p VT VF arrest earlier this morning, succesfully shocked and given CPR for subsequest PEA, currently intubated and sedated on the Ventilator, on Amiodarone gtt. Patient is awake and interactive post code, although sedated. Received IV Magnesium during the CPR. Prior to the code was walking around. Noted to have evidence of pneumonia with bilateral infiltrates, L>R, post intubation, possibly from aspiration. On Antibiotics/Amiodarone, off sedation, s/p extubation Allergies: No Known Allergies Past Medical History: Alcohol abuse, fatty liver, previous seizure, previous drainage of breast abscess. All Other Systems: limited - secondary to condition Physical Exam Vital Signs Noted, not currently on pressors General Appearance: Alert interactive, jaundice Head: normocephalic, atraumatic Eyes: bilateral eye PERRL, bilateral eye EOMI ENT: moist mm, ETT Neck: no masses, no LN Respiratory: CTAB Cardiovascular: regular rate, rhythm, normal HS1, HS2, no murmur Gastrointestinal: normal bowel sounds, non tender, no mass, no organomegaly, no bruit, non-distended Musculoskeletal: no rashes, no edema SPIN TANK TENDER: Interactive, no seizures, no focal signs Impression: S/p Ventricular fibrillation arrest and subsequest PEA, currently stable on Amiodarone Aspiration pneumonia Respiratory failure s/p extubation Alcohol abuse, withdrawal Pancreatitis Fatty Liver Previous Seizures Previous breast abscess requirng drainage Plan Wean FIO2 - sats 90-96% NGT/KUB IVF PRN Ativan Monitor labs PPX IV Antibiotics Thiamine Chest X-Ray: no effusion, no pneumothorax. Endotracheal tube 5cm. No pneumothorax, BRANDYN infiltrate Labs/ABG noted Critical Care - Objective Last 24 Hour Vital Signs Date Time Temp Pulse Resp B/P (MAP) Pulse Ox O2 Delivery O2 Flow Rate FiO2 03/22/19 13:30 109 14 110/76 (87) 99 03/22/19 13:00 109 17 116/68 (84) 99 03/22/19 12:49 100 Nasal Cannula 2.0 28 03/22/19 12:15 105 105/64 03/22/19 12:00 3.0 03/22/19 12:00 102 03/22/19 12:00 Simple Mask 8.0 03/22/19 12:00 98.1 103 16 124/73 (90) 94 03/22/19 11:00 106 16 120/87 (98) 93 03/22/19 10:30 103 15 123/84 (97) 96 03/22/19 10:00 109 16 113/62 (79) 91 03/22/19 09:30 105 15 113/76 (88) 91 03/22/19 09:10 Venturi Mask 8.0 30 03/22/19 09:10 107 14 03/22/19 09:10 8.0 30 03/22/19 09:00 106 14 126/75 (92) 92 03/22/19 08:30 105 16 116/80 (92) 95 03/22/19 08:00 30 03/22/19 08:00 Mechanical Ventilator 03/22/19 08:00 98.6 105 14 133/80 (97) 96 03/22/19 08:00 104 03/22/19 07:30 118 16 126/81 (96) 96 03/22/19 07:20 119 15 30 30 03/22/19 07:20 96 03/22/19 07:15 118 14 127/86 (100) 97 03/22/19 07:00 110 15 110/87 (95) 95 03/22/19 07:00 15 Mechanical Ventilator 30 03/22/19 06:45 108 16 105/70 (82) 97 03/22/19 06:30 109 15 116/67 (83) 96 03/22/19 06:15 118 17 133/81 (98) 96 03/22/19 06:00 116 17 127/80 (96) 95 03/22/19 06:00 15 Mechanical Ventilator 35 03/22/19 05:30 110 15 126/83 (97) 96 03/22/19 05:00 15 Mechanical Ventilator 35 03/22/19 05:00 106 15 108/73 (85) 97 03/22/19 04:46 105 15 35 03/22/19 04:30 110 17 115/78 (90) 97 03/22/19 04:00 108 03/22/19 04:00 Mechanical Ventilator 03/22/19 04:00 98.3 108 17 110/72 (85) 96 03/22/19 04:00 35 03/22/19 04:00 15 Mechanical Ventilator 35 03/22/19 03:30 104 15 103/65 (78) 98 03/22/19 03:00 113 17 115/65 (82) 98 03/22/19 03:00 15 Mechanical Ventilator 35 03/22/19 02:41 102 15 35 03/22/19 02:30 104 15 97/62 (74) 98 03/22/19 02:00 104 15 93/63 (73) 97 03/22/19 02:00 15 Mechanical Ventilator 35 03/22/19 01:30 104 16 101/55 (70) 98 03/22/19 01:10 104 15 35 03/22/19 01:00 105 15 100/63 (75) 97 03/22/19 01:00 15 Mechanical Ventilator 35 03/22/19 00:30 104 15 105/47 (66) 98 03/22/19 00:00 98.0 105 15 108/64 (79) 98 03/22/19 00:00 Mechanical Ventilator 03/22/19 00:00 15 Mechanical Ventilator 35 03/22/19 00:00 35 03/22/19 00:00 106 03/21/19 23:30 112 17 112/69 (83) 98 03/21/19 23:00 107 18 116/72 (87) 96 03/21/19 23:00 15 Mechanical Ventilator 35 03/21/19 22:33 112 18 35 03/21/19 22:30 102 15 93/73 (80) 96 03/21/19 22:00 15 Mechanical Ventilator 35 03/21/19 22:00 106 15 116/104 (108) 97 03/21/19 21:45 106 15 101/63 (76) 97 03/21/19 21:30 106 15 100/63 (75) 96 03/21/19 21:15 106 16 107/91 (96) 96 03/21/19 21:00 114 18 103/68 (80) 97 03/21/19 21:00 15 Mechanical Ventilator 35 03/21/19 20:45 109 17 94/47 (63) 96 03/21/19 20:35 108 15 35 03/21/19 20:30 106 16 109/73 (85) 95 03/21/19 20:15 109 16 105/68 (80) 96 9/5/19 20:00 115 18 92/74 (80) 98 03/21/19 20:00 15 Mechanical Ventilator 35 03/21/19 20:00 102 03/21/19 20:00 35 03/21/19 20:00 Mechanical Ventilator 03/21/19 19:45 105 15 87/63 (71) 96 03/21/19 19:30 105 17 100/60 (73) 97 03/21/19 19:15 105 16 99/70 (80) 96 03/21/19 19:00 97.9 105 15 103/63 (76) 96 03/21/19 19:00 109 105/68 03/21/19 19:00 15 Mechanical Ventilator 35 03/21/19 18:46 105 17 35 03/21/19 18:45 105 16 109/40 (63) 96 03/21/19 18:30 104 15 102/64 (77) 97 03/21/19 18:15 104 15 114/65 (81) 96 03/21/19 18:00 119 23 110/70 (83) 96 03/21/19 18:00 23 Mechanical Ventilator 35 03/21/19 17:45 106 15 93/58 (70) 95 03/21/19 17:30 105 15 105/53 (70) 95 03/21/19 17:15 106 16 100/60 (73) 97 03/21/19 17:00 109 16 111/68 (82) 96 03/21/19 17:00 15 Mechanical Ventilator 35 03/21/19 16:45 106 16 117/62 (80) 97 03/21/19 16:44 107 15 35 03/21/19 16:30 109 16 98/59 (72) 97 03/21/19 16:15 113 16 89/71 (77) 97 03/21/19 16:00 112 03/21/19 16:00 16 Mechanical Ventilator 40 03/21/19 16:00 40 03/21/19 16:00 98.3 109 16 105/55 (72) 96 03/21/19 16:00 Mechanical Ventilator 03/21/19 15:45 107 16 93/63 (73) 97 03/21/19 15:30 108 15 87/59 (68) 97 03/21/19 15:20 112 18 40 03/21/19 15:15 108 15 87/55 (66) 97 03/21/19 15:00 16 Mechanical Ventilator 40 03/21/19 15:00 111 15 115/64 (81) 96 Micro: Microbiology Date/Time Source Procedure Growth Status 03/21/19 11:15 Sputum Induced Gram Stain - Final Resulted 03/21/19 11:15 Sputum Induced Sputum Culture Pending Resulted 03/19/19 15:10 Urine,Clean Catch Urine Culture - Final Escherichia Coli - Esbl Complete Critical Care - Subjective ROS Limited/Unobtainable: No FI02: 28 Vent Support Breath Rate: 15 Vent Support Mode: CPAP Vent Tidal Volume: 500 Sputum Amount: Small PEEP: 5.0 PIP: 14 I&O: Intake and Output 03/21/19 03/22/19 18:59 06:59 Intake Total 1487.50779 ml 1266.62 ml Output Total 810 ml 260 ml Balance 677.46191 ml 1006.62 ml Free Water 100 ml IV Total 1337.92778 ml 1266.62 ml Other 50 ml Output Urine Total 810 ml 260 ml # Bowel Movements 1 ET-Tube: 7.0 ET Position: 23 Leandro Montesinos MD Mar 22, 2019 14:56
--- NOTE | 2019-03-22 16:39 | NUR ---
TRANSFER UPDATE PATIENT WAS [facility]. THEY DO NOT HAVE ANY AVAILABLE BEDS
--- NOTE | 2019-03-22 16:53 | NUR ---
NURSE NOTES: fentanyl drip waste verified with mary santoro to have 25-30mls left in 250ml bag, will be taken to pharmacy for disposal.
--- NOTE | 2019-03-22 17:20 | NUR ---
NURSE NOTES: Dr. Beckman informed of patient urine output decreasing to 20-25-20 to 10ml the las 4 hrs, BUN is 4 and creatinine of 0.5bp remains at 115/95 with hr at 116 in sinus tachycardia, patient remains on nasal cannula at 3L/min, she denies any pain over chest, ordered to continue to monitor.
[2019-03-22] MEDS: LORazepam Inj 2mg/ml 1ml IM PRN (18:16)
--- NOTE | 2019-03-22 18:35 | NUR ---
NURSE NOTES: Dr. Montesinos informed on patient developing a wet cough with decreased urine out and remaining on ns at 75 ml/hr. ordered to have ns discontinued, place a chest x-ray for tomorrow morning and start her on Atrovent HHN q4hrs scheduled.
--- NOTE | 2019-03-22 19:21 | NUR ---
HAND-OFF: Report given to KD Jung. Dr. Montesinos also ordered to have cbc, bmp, mag and phos to be done daily.
[2019-03-22] MEDS: Dyna-Hex 2% Top Sol 2oz TOPIC SCH (19:33)
--- NOTE | 2019-03-22 19:40 | NUR ---
NURSE NOTES: PATIENT ALERT, ORIENTED X3, CONFUSED TO TIME AT THIS TIME, RESPIRATION REGULAR, [place] ON O2 3LPM VIA NC, O2 SATURATION OVER 92% NOTED, ABDOMEN SOFT, NO BOWEL MOVEMENT STATUS, F/C INTACT AND PATENT, OLIGURIA, DARK HAN COLOR URINE OUTED, PERIPHERAL LINE TO RIGHT UPPER ARM AND LEFT AC 20G, INTACT AND PATENT, TLC TO LEFT FEMORAL INTACT AND PATENT STATUS, IS AT BED SIDE AND ENCOURAGED, MADE LOWER BED POSITION, ON SCD'S TO BOTH LOWER LEGS AND BED ALARM, KEPT SZ PRECAUTION, PROVIDED CALL LIGHT WITHIN REACH, WILL CONTINUE TO MONITOR.
--- NOTE | 2019-03-22 22:10 | NUR ---
NURSE NOTES: PATIENT DENIED PAIN OR SOB AT THIS TIME, WILL CONTINUE TO MONITOR.
--- NOTE | 2019-03-22 22:38 | General Progress Note ---
Assessment/Plan Problem List: (1) Cardiac arrest ICD Codes: I46.9 - Cardiac arrest, cause unspecified SNOMED: 625164374 (2) Ventricular fibrillation ICD Codes: I49.01 - Ventricular fibrillation SNOMED: 74725947 (3) Aspiration pneumonia ICD Codes: J69.0 - Pneumonitis due to inhalation of food and vomit SNOMED: 462248039 Qualifiers: Qualified Codes: J69.0 - Pneumonitis due to inhalation of food and vomit (4) Respiratory failure requiring intubation ICD Codes: J96.90 - Respiratory failure, unspecified, unspecified whether with hypoxia or hypercapnia SNOMED: 214496924 (5) Hypokalemia ICD Codes: E87.6 - Hypokalemia SNOMED: 39190421 (6) Pancreatitis ICD Codes: K85.90 - Acute pancreatitis without necrosis or infection, unspecified SNOMED: 09012244 Qualifiers: (7) Acute alcoholic intoxication ICD Codes: F10.929 - Alcohol use, unspecified with intoxication, unspecified SNOMED: 24084676, 6614964 Qualifiers: Qualified Codes: F10.929 - Alcohol use, unspecified with intoxication, unspecified (8) UTI (urinary tract infection) ICD Codes: N39.0 - Urinary tract infection, site not specified SNOMED: 99341787 Qualifiers: (9) Acute alcoholic pancreatitis ICD Codes: K85.20 - Alcohol induced acute pancreatitis without necrosis or infection SNOMED: 931699926 (10) Anemia ICD Codes: D64.9 - Anemia, unspecified SNOMED: 774188568 Status: progressing, deteriorating Assessment/Plan: s/p cardiopulmonary arrest intubated svt etoh abuse pancreatits improving per dr meadows needs to be transfered for cardiac cath and ICD AFEBRILE Subjective ROS Limited/Unobtainable: Yes Allergies: Coded Allergies: No Known Allergies (Unverified , 03/19/19) Objective Last 24 Hour Vital Signs Date Time Temp Pulse Resp B/P (MAP) Pulse Ox O2 Delivery O2 Flow Rate FiO2 03/22/19 21:00 116 21 116/72 (87) 94 03/22/19 20:23 100 Nasal Cannula 2.0 28 03/22/19 20:00 Nasal Cannula 3.0 03/22/19 20:00 98.1 111 23 111/74 (86) 93 03/22/19 20:00 3.0 03/22/19 19:26 117 03/22/19 19:00 112 28 108/59 (75) 90 03/22/19 18:30 112 24 107/67 (80) 92 03/22/19 18:00 114 24 117/67 (84) 88 03/22/19 17:30 119 23 122/90 (101) 90 03/22/19 17:00 110 19 118/77 (91) 92 03/22/19 16:00 107 03/22/19 16:00 3.0 03/22/19 16:00 98.3 114 20 114/73 (87) 92 03/22/19 16:00 Nasal Cannula 3.0 03/22/19 15:00 108 19 115/72 (86) 94 03/22/19 14:00 108 18 97/74 (82) 97 03/22/19 13:30 109 14 110/76 (87) 99 03/22/19 13:00 109 17 116/68 (84) 99 03/22/19 12:49 100 Nasal Cannula 2.0 28 03/22/19 12:15 105 105/64 03/22/19 12:00 3.0 03/22/19 12:00 102 03/22/19 12:00 Simple Mask 8.0 03/22/19 12:00 98.1 103 16 124/73 (90) 94 03/22/19 11:00 106 16 120/87 (98) 93 03/22/19 10:30 103 15 123/84 (97) 96 03/22/19 10:00 109 16 113/62 (79) 91 03/22/19 09:30 105 15 113/76 (88) 91 03/22/19 09:10 Venturi Mask 8.0 30 03/22/19 09:10 107 14 03/22/19 09:10 8.0 30 03/22/19 09:00 106 14 126/75 (92) 92 03/22/19 08:30 105 16 116/80 (92) 95 03/22/19 08:00 30 03/22/19 08:00 Mechanical Ventilator 03/22/19 08:00 17 Mechanical Ventilator 30 03/22/19 08:00 98.6 105 14 133/80 (97) 96 03/22/19 08:00 104 03/22/19 07:30 118 16 126/81 (96) 96 03/22/19 07:20 119 15 30 30 03/22/19 07:20 96 03/22/19 07:15 118 14 127/86 (100) 97 03/22/19 07:00 110 15 110/87 (95) 95 03/22/19 07:00 15 Mechanical Ventilator 30 03/22/19 06:45 108 16 105/70 (82) 97 03/22/19 06:30 109 15 116/67 (83) 96 03/22/19 06:15 118 17 133/81 (98) 96 03/22/19 06:00 116 17 127/80 (96) 95 03/22/19 06:00 15 Mechanical Ventilator 35 03/22/19 05:30 110 15 126/83 (97) 96 03/22/19 05:00 15 Mechanical Ventilator 35 03/22/19 05:00 106 15 108/73 (85) 97 03/22/19 04:46 105 15 35 03/22/19 04:30 110 17 115/78 (90) 97 03/22/19 04:00 108 03/22/19 04:00 Mechanical Ventilator 03/22/19 04:00 98.3 108 17 110/72 (85) 96 03/22/19 04:00 35 03/22/19 04:00 15 Mechanical Ventilator 35 03/22/19 03:30 104 15 103/65 (78) 98 03/22/19 03:00 113 17 115/65 (82) 98 03/22/19 03:00 15 Mechanical Ventilator 35 03/22/19 02:41 102 15 35 03/22/19 02:30 104 15 97/62 (74) 98 03/22/19 02:00 104 15 93/63 (73) 97 03/22/19 02:00 15 Mechanical Ventilator 35 03/22/19 01:30 104 16 101/55 (70) 98 03/22/19 01:10 104 15 35 03/22/19 01:00 105 15 100/63 (75) 97 03/22/19 01:00 15 Mechanical Ventilator 35 03/22/19 00:30 104 15 105/47 (66) 98 03/22/19 00:00 98.0 105 15 108/64 (79) 98 03/22/19 00:00 Mechanical Ventilator 03/22/19 00:00 15 Mechanical Ventilator 35 03/22/19 00:00 35 03/22/19 00:00 106 03/21/19 23:30 112 17 112/69 (83) 98 03/21/19 23:00 107 18 116/72 (87) 96 03/21/19 23:00 15 Mechanical Ventilator 35 Intake and Output 03/21/19 03/22/19 19:00 07:00 Intake Total 1589.63465 ml 1172.96 ml Output Total 830 ml 270 ml Balance 759.23331 ml 902.96 ml Free Water 100 ml IV Total 1439.28954 ml 1172.96 ml Other 50 ml Output Urine Total 830 ml 270 ml # Bowel Movements 1 Laboratory Tests 03/22/19 03:00: White Blood Count 11.8H, Red Blood Count 2.71L, Hemoglobin 10.4L, Hematocrit 30.3L, Mean Corpuscular Volume 112H, Mean Corpuscular Hemoglobin 38.4H, Mean Corpuscular Hemoglobin Concent 34.3, Red Cell Distribution Width 14.1, Platelet Count 62L, Mean Platelet Volume 11.5H, Neutrophils (%) (Auto) , Lymphocytes (%) (Auto) , Monocytes (%) (Auto) , Eosinophils (%) (Auto) , Basophils (%) (Auto) , Differential Total Cells Counted 100, Neutrophils % (Manual) 87H, Lymphocytes % (Manual) 8L, Monocytes % (Manual) 4, Eosinophils % (Manual) 1, Basophils % ( Manual) 0, Band Neutrophils 0, Platelet Estimate DecreasedL, Platelet Morphology Normal, Anisocytosis 1+, Macrocytosis 1+, Prothrombin Time 11.9H, Prothromb Time International Ratio 1.1, Sodium Level 147H, Potassium Level 3.7, Chloride Level 111H, Carbon Dioxide Level 22, Anion Gap 14, Blood Urea Nitrogen 4L, Creatinine 0.5L, Estimat Glomerular Filtration Rate > 60, Glucose Level 103 , Calcium Level 8.1L, Phosphorus Level 4.0, Magnesium Level 1.7L, Total Bilirubin 2.2H, Direct Bilirubin 1.5H, Gamma Glutamyl Transpeptidase 1543H, Aspartate Amino Transf (AST/SGOT) 117H, Alanine Aminotransferase (ALT/SGPT) 41, Alkaline Phosphatase 119H, Troponin I 0.116H, Total Protein 5.2L, Albumin 2.5L, Globulin 2.7, Albumin/Globulin Ratio 0.9L, Triglycerides Level 97, Cholesterol Level 181, LDL Cholesterol 55, HDL Cholesterol 75H, Cholesterol/HDL Ratio 2.4L, Amylase Level 21L, Lipase 86, Thyroid Stimulating Hormone (TSH) 4.528H, Free Thyroxine 1.40 03/22/19 08:18: Arterial Blood pH 7.364, Arterial Blood Partial Pressure CO2 41.7, Arterial Blood Partial Pressure O2 78.3, Arterial Blood HCO3 23.2, Arterial Blood Oxygen Saturation 93.7L, Arterial Blood Base Excess -2.0, Reagan Test Positive Height (Feet): 5 Height (Inches): 2.00 Weight (Pounds): 84 Cardiovascular: normal rate Respiratory/Chest: lungs clear Abdomen: soft Ti Gill MD Mar 22, 2019 22:38
[2019-03-23] VITALS (25 sets, daily range): BP systolic 98–141; BP diastolic 64–127
--- NOTE | 2019-03-23 00:10 | NUR ---
NURSE NOTES: PATIENT ASLEEP STATUS, NO ACUTE DISTRESS NOTED AT THIS TIME.
--- NOTE | 2019-03-23 01:50 | NUR ---
NURSE NOTES: CALLED RT REGARDING DESATURATION 88% NOTED THAT LAURA WAS AWARE.
[2019-03-23] MEDS: Ipratropium 0.02% Inh Soln 2.5ml UD HHN PRN (01:59)
--- NOTE | 2019-03-23 03:40 | NUR ---
NURSE NOTES: DESATURATION 83-85% NOTED AFTER MORNING CARE, ENCOURAGED IS AND CALLED RT.
--- NOTE | 2019-03-23 04:00 | NUR ---
NURSE NOTES: O2 SATURATION 92% NOTED ON O2 5LPM WITH HUMID, WILL CONTINUE TO MONITOR.
[2019-03-23 05:00] LABS: HEMATOCRIT 27.6 % (37.0-47.0); HEMOGLOBIN 9.4 G/DL (12.0-16.0); MEAN CORPUSCULAR VOLUME 113 FL (80-99); PLATELET COUNT 87 K/UL (150-450); RED BLOOD COUNT 2.45 M/UL (4.20-5.40); WHITE BLOOD COUNT 8.2 K/UL (4.8-10.8)
--- NOTE | 2019-03-23 05:30 | NUR ---
NURSE NOTES: DESATURATION 75-88% NOTED SINCE 0520AM. PATIENT AWOKE, DENIED PAIN OR SOB STATUS, NO COUGH SIGN. RT CHANGED TO 55% VENTURI MASK AND THAN INCREASED O2 SATURATION TO OVER 92% AT THIS TIME, WILL CONTINUE TO MONITOR.
[2019-03-23 05:36] LABS: ANION GAP 11 mmol/L (5-15); BLOOD UREA NITROGEN 3 mg/dL (7-18); CALCIUM 8.1 MG/DL (8.5-10.1); CARBON DIOXIDE 25 MMOL/L (21-32); CHLORIDE 108 MMOL/L (98-107); CREATININE 0.5 MG/DL (0.55-1.30); PHOSPHORUS 2.9 MG/DL (2.5-4.9); POTASSIUM 2.8 MMOL/L (3.5-5.1); SODIUM 144 MMOL/L (136-145)
[2019-03-23] MEDS: Amiodarone 200mg tab ORAL SCH ×3 (05:49→21:06)
[2019-03-23] MEDS: Piperacillin/Tazobactam 3.375 GM in NS 110 ML IVPB SCH ×3 (05:49→21:59)
--- NOTE | 2019-03-23 06:04 | NUR ---
NURSE NOTES: CALLED DR. SKY REGARDING CHEMISTRY RESULT THAT MD WAS AWARE, RECEIVED NEW ORDER AND CARRIED OUT.
--- NOTE | 2019-03-23 07:13 | NUR ---
HAND-OFF: Report given to PHILLIP BUTT RN.
--- NOTE | 2019-03-23 07:14 | NUR ---
NURSE NOTES: Report received from Erich Davis RN. Pt is awake, alert x3-4, and resting in bed. Flushed face noted. Sinus tachy on cardiac nurse specialist. On Ventri mask 55%. O2 sat 93%. No respiratory distress noted. Fields in place draining light tonny urine to gravity. IV to right UA G20 and left AC G20 patent and asymptomatic. Bed in lowest position. Side rails up x3. Bed exit alarm on. Will resume plan of care.
--- NOTE | 2019-03-23 08:44 | NUR ---
RD ASSESSMENT & RECOMMENDATIONS SEE CARE ACTIVITY FOR COMPLETE ASSESSMENT DAILY ESTIMATED NEEDS: Needs based on Critical Care, Liver dysfunction, Pancreatitis/ 50.7kg 22-28 kcals/kg 6172-1600 total kcals 1.2-2 g protein/kg 60-101 g total protein 25-30 mL/kg 7196-7165 total fluid mLs NUTRITION DIAGNOSIS: * Altered GI function R/T h/o ETOH abuse, dx of alcoholic pancreatitis as evidenced by pt admitted w/ c/o N/V, abdominal pain, s/p code blue, now extubated, soft diet initiated. * Altered nutrition related lab values R/T liver dysfunction, clinical condition, h/o ETOH abuse as evidenced by critically low K (2.6* -> 2.8), low phos (1.8-> wnl), low mag (1.7), low folate (5.9), elev AST (367->117), elev T bili (2.2), elev BGs (159 308-> now improved), elev lipase upon adm (1468-> now wnl). CURRENT DIET:SOFT PO DIET RECOMMENDATIONS: Low Na, Low Fat/ texture per RECOVERY RN ADDITIONAL RECOMMENDATIONS: * Calibrated bedscale wt for accurate CBW -> pt reports recent wt loss, rec weekly wt monitoring * Add folic acid supplement: ETOH abuse, folate low (5.9) * Add MVI x 1 * Monitor lytes, replete as needed (low K+mag) * Monitor PO intake and tolerance
[2019-03-23] MEDS: Docusate 100mg tablet ORAL SCH ×3 (09:00→17:28)
--- NOTE | 2019-03-23 09:25 | Hematology/Onc Progress Note ---
Assessment/Plan Assessment/Plan Assessment and Recs: # Pancytopenia - potential causes multifactorial, evaluate liver and viral etiologies to begin, in this case very likely due to myelosuppresion from chronic alcohol abuse (hepatocellular disease) and ETOH --> Hep panel and HIV NEG --> US abd to evaluate for cirrhosis and hsm ordered and shows hepatocellular disease, likely fatty changes --> Peripheral smear ordered to evaluate for blasts /schistocytes doesn't show any --> abx and other meds have been reviewed --> ok for ppx if plt >50k w/ either heparin or lovenox --> Transfuse if Plt < 20k and fever, or if Plt < 10k without fever --> Anemia workup is c/w acd --> No evidence of hemolysis is noted, peripheral smear has been reviewed. --> Hgb goal >7. Transfuse prn basis --> Epogen or iron at this time is not particularly indicated --> Medications have been reviewed --> occult + --> per gi --> bone marrow biopsy not needed given etoh culprit --> hgb trend 11-->10.4-->9.4 # Coagulation defect, multifactorial usually related to poor PO intake versus medications, versus hepatitis v cirrhosis (from chronic etoh use) --> administer Vitamin K if patient is bleeding or FFP if the INR is >10 --> hold off on ffp unless active procedure/bleeding, first begin with vit K 10 # S/p Ventricular fibrillation arrest and subsequest PEA, currently stable on Amiodarone gtt --> per cards recs --> meds reviewed # Aspiration pneumonia --> abx per pulm/id # Respiratory failure requiring intubation --> was on vent --> now extubated # Alcohol abuse, withdrawal --> monitor for withdrawal # Pancreatitis --> per gi recs, adat # Fatty Liver # Previous Seizures # Previous breast abscess requiring drainage # Dvt ppx once plt is >75k and hgb stable The timing of this note does not necessarily reflect the time of the patient was seen. Greatly appreciate consultation. Subjective Constitutional: Denies: no symptoms, chills, fever, malaise, weakness, other HEENT: Denies: no symptoms, eye pain, blurred vision, tearing, double vision, ear pain, ear discharge, nose pain, nose congestion, throat pain, throat swelling, mouth pain, mouth swelling, other Cardiovascular: Denies: no symptoms, chest pain, edema, irregular heart rate, lightheadedness, palpitations, syncope, other Gastrointestinal/Abdominal: Denies: no symptoms, abdomen distended, abdominal pain, black stools, tarry stools, blood in stool, constipated, diarrhea, difficulty swallowing, nausea, poor appetite, poor fluid intake, rectal bleeding , vomiting, other Genitourinary: Denies: no symptoms, burning, discharge, frequency, flank pain, hematuria, incontinence, pain, urgency, other Neurologic/Psychiatric: Denies: no symptoms, anxiety, depressed, emotional problems, headache, numbness, paresthesia, pre-existing deficit, seizure, tingling, tremors, weakness, other Endocrine: Denies: no symptoms, excessive sweating, flushing, intolerance to cold, intolerance to heat, increased hunger, increased thirst, increased urine, unexplained weight gain, unexplained weight loss, other Allergies: Coded Allergies: No Known Allergies (Unverified , 03/19/19) Subjective 03/21: is responsive in the icu, james rn, labs reviewed, plt remains low, us abd reviewed 03/22: vs stable, no f/c, in icu, labs reviewed, imaging reviewed, extubated 03/23: overnight was desatting, is on venturi mask, a+o x3-4, no bleeding noted, hgb lower Objective Objective Current Medications Medications (Trade) Dose Ordered Sig/Ismael Route PRN Reason Start Time Stop Time Status Last Admin Dose Admin Amiodarone HCl (Cordarone) 400 mg EVERY 8 HOURS ORAL 03/22/19 14:00 04/21/19 13:59 03/23/19 05:49 Chlorhexidine Gluconate (Kasia-Hex 2%) 1 applic DAILY@1999 TOPIC 03/21/19 22:00 04/20/19 21:59 03/22/19 19:33 Docusate Sodium (Colace) 100 mg TID ORAL 03/21/19 09:00 04/20/19 08:59 03/22/19 18:16 Famotidine (Pepcid I.v.) 20 mg Q12HR IVP 03/21/19 21:00 04/20/19 20:59 03/23/19 09:20 Ipratropium [place] (Atrovent) 500 mcg Q4H PRN HHN Shortness of Breath 03/22/19 18:45 03/27/19 18:44 03/23/19 01:59 Lorazepam (Ativan 2mg/ml 1ml) 2 mg Q4H PRN IM For Anxiety 03/21/19 07:45 03/28/19 07:44 03/22/19 18:16 Ondansetron HCl (Zofran) 4 mg Q6H PRN IVP Nausea & Vomiting 03/21/19 07:05 04/20/19 07:04 Phenylephrine HCl 50 mg/Dextrose 250 ml @ 0 mls/hr Q24H IV 03/21/19 12:15 04/20/19 12:14 Piperacillin Sod/ Tazobactam Sod 3.375 gm/Sodium Chloride 110 ml @ 27.5 mls/hr Q8HR IVPB 03/21/19 14:00 03/28/19 13:59 03/23/19 05:49 Potassium Chloride 100 ml @ 100 mls/hr Q1H IVPB 03/23/19 06:30 03/23/19 10:29 03/23/19 09:20 Thiamine HCl 100 mg/Dextrose 56 ml @ 112 mls/hr Q24H IVPB 03/21/19 12:00 04/20/19 11:59 03/22/19 13:52 Last 24 Hour Vital Signs Date Time Temp Pulse Resp B/P (MAP) Pulse Ox O2 Delivery O2 Flow Rate FiO2 03/23/19 08:00 Venturi Mask 03/23/19 08:00 55 03/23/19 08:00 97.7 116 28 134/86 (102) 92 03/23/19 07:25 93 Venturi Mask 14.0 55 03/23/19 07:08 117 28 139/86 (103) 91 03/23/19 07:00 116 33 89 03/23/19 06:00 116 29 108/85 (93) 93 03/23/19 05:30 117 24 101/77 (85) 89 03/23/19 05:00 118 32 101/79 (86) 78 03/23/19 04:00 5.0 03/23/19 04:00 Nasal Cannula 5.0 03/23/19 04:00 98.1 112 26 98/84 (89) 91 03/23/19 03:00 113 24 123/79 (94) 90 03/23/19 02:58 114 03/23/19 02:01 113 16 98 Nasal Cannula 4.0 36 111 18 89 03/23/19 02:00 116 20 117/83 (94) 95 03/23/19 01:00 115 28 121/73 (89) 91 03/23/19 00:00 Nasal Cannula 3.0 03/23/19 00:00 3.0 03/23/19 00:00 98.1 112 22 110/64 (79) 90 03/22/19 23:00 114 26 121/70 (87) 93 03/22/19 23:00 114 03/22/19 22:00 119 24 112/75 (87) 91 03/22/19 21:00 116 21 116/72 (87) 94 03/22/19 20:23 100 Nasal Cannula 3.0 32 03/22/19 20:00 Nasal Cannula 3.0 03/22/19 20:00 98.1 111 23 111/74 (86) 93 03/22/19 20:00 3.0 03/22/19 19:26 117 03/22/19 19:00 112 28 108/59 (75) 90 03/22/19 18:30 112 24 107/67 (80) 92 03/22/19 18:00 114 24 117/67 (84) 88 03/22/19 17:30 119 23 122/90 (101) 90 03/22/19 17:00 110 19 118/77 (91) 92 03/22/19 16:00 107 03/22/19 16:00 3.0 03/22/19 16:00 98.3 114 20 114/73 (87) 92 03/22/19 16:00 Nasal Cannula 3.0 03/22/19 15:00 108 19 115/72 (86) 94 03/22/19 14:00 108 18 97/74 (82) 97 03/22/19 13:30 109 14 110/76 (87) 99 03/22/19 13:00 109 17 116/68 (84) 99 03/22/19 12:49 100 Nasal Cannula 2.0 28 03/22/19 12:15 105 105/64 03/22/19 12:00 3.0 03/22/19 12:00 102 03/22/19 12:00 Simple Mask 8.0 03/22/19 12:00 98.1 103 16 124/73 (90) 94 03/22/19 11:00 106 16 120/87 (98) 93 03/22/19 10:30 103 15 123/84 (97) 96 03/22/19 10:00 109 16 113/62 (79) 91 03/22/19 09:30 105 15 113/76 (88) 91 03/22/19 09:10 Venturi Mask 8.0 30 03/22/19 09:10 107 14 03/22/19 09:10 8.0 30 03/22/19 09:00 106 14 126/75 (92) 92 03/22/19 08:30 105 16 116/80 (92) 95 03/22/19 08:00 30 03/22/19 08:00 Mechanical Ventilator 03/22/19 08:00 17 Mechanical Ventilator 30 03/22/19 08:00 98.6 105 14 133/80 (97) 96 03/22/19 08:00 104 03/22/19 07:30 118 16 126/81 (96) 96 03/22/19 07:20 119 15 30 30 03/22/19 07:20 96 03/22/19 07:15 118 14 127/86 (100) 97 03/22/19 07:00 110 15 110/87 (95) 95 03/22/19 07:00 15 Mechanical Ventilator 30 03/22/19 06:45 108 16 105/70 (82) 97 03/22/19 06:30 109 15 116/67 (83) 96 03/22/19 06:15 118 17 133/81 (98) 96 03/22/19 06:00 116 17 127/80 (96) 95 03/22/19 06:00 15 Mechanical Ventilator 35 03/22/19 05:30 110 15 126/83 (97) 96 03/22/19 05:00 15 Mechanical Ventilator 35 03/22/19 05:00 106 15 108/73 (85) 97 03/22/19 04:46 105 15 35 03/22/19 04:30 110 17 115/78 (90) 97 03/22/19 04:00 108 03/22/19 04:00 Mechanical Ventilator 03/22/19 04:00 98.3 108 17 110/72 (85) 96 03/22/19 04:00 35 03/22/19 04:00 15 Mechanical Ventilator 35 03/22/19 03:30 104 15 103/65 (78) 98 03/22/19 03:00 113 17 115/65 (82) 98 03/22/19 03:00 15 Mechanical Ventilator 35 03/22/19 02:41 102 15 35 03/22/19 02:30 104 15 97/62 (74) 98 03/22/19 02:00 104 15 93/63 (73) 97 03/22/19 02:00 15 Mechanical Ventilator 35 03/22/19 01:30 104 16 101/55 (70) 98 03/22/19 01:10 104 15 35 03/22/19 01:00 105 15 100/63 (75) 97 03/22/19 01:00 15 Mechanical Ventilator 35 03/22/19 00:30 104 15 105/47 (66) 98 03/22/19 00:00 98.0 105 15 108/64 (79) 98 03/22/19 00:00 Mechanical Ventilator 03/22/19 00:00 15 Mechanical Ventilator 35 03/22/19 00:00 35 03/22/19 00:00 106 03/21/19 23:30 112 17 112/69 (83) 98 03/21/19 23:00 107 18 116/72 (87) 96 03/21/19 23:00 15 Mechanical Ventilator 35 03/21/19 22:33 112 18 35 03/21/19 22:30 102 15 93/73 (80) 96 03/21/19 22:00 15 Mechanical Ventilator 35 03/21/19 22:00 106 15 116/104 (108) 97 03/21/19 21:45 106 15 101/63 (76) 97 03/21/19 21:30 106 15 100/63 (75) 96 03/21/19 21:15 106 16 107/91 (96) 96 03/21/19 21:00 114 18 103/68 (80) 97 03/21/19 21:00 15 Mechanical Ventilator 35 03/21/19 20:45 109 17 94/47 (63) 96 03/21/19 20:35 108 15 35 03/21/19 20:30 106 16 109/73 (85) 95 03/21/19 20:15 109 16 105/68 (80) 96 03/21/19 20:00 115 18 92/74 (80) 98 03/21/19 20:00 15 Mechanical Ventilator 35 03/21/19 20:00 102 03/21/19 20:00 35 03/21/19 20:00 Mechanical Ventilator 03/21/19 19:45 105 15 87/63 (71) 96 03/21/19 19:30 105 17 100/60 (73) 97 03/21/19 19:15 105 16 99/70 (80) 96 03/21/19 19:00 97.9 105 15 103/63 (76) 96 03/21/19 19:00 109 105/68 03/21/19 19:00 15 Mechanical Ventilator 35 03/21/19 18:46 105 17 35 03/21/19 18:45 105 16 109/40 (63) 96 03/21/19 18:30 104 15 102/64 (77) 97 03/21/19 18:15 104 15 114/65 (81) 96 03/21/19 18:00 119 23 110/70 (83) 96 03/21/19 18:00 23 Mechanical Ventilator 35 03/21/19 17:45 106 15 93/58 (70) 95 03/21/19 17:30 105 15 105/53 (70) 95 03/21/19 17:15 106 16 100/60 (73) 97 03/21/19 17:00 109 16 111/68 (82) 96 03/21/19 17:00 15 Mechanical Ventilator 35 03/21/19 16:45 106 16 117/62 (80) 97 03/21/19 16:44 107 15 35 03/21/19 16:30 109 16 98/59 (72) 97 03/21/19 16:15 113 16 89/71 (77) 97 03/21/19 16:00 112 03/21/19 16:00 16 Mechanical Ventilator 40 03/21/19 16:00 40 03/21/19 16:00 98.3 109 16 105/55 (72) 96 03/21/19 16:00 Mechanical Ventilator 03/21/19 15:45 107 16 93/63 (73) 97 03/21/19 15:30 108 15 87/59 (68) 97 03/21/19 15:20 112 18 40 03/21/19 15:15 108 15 87/55 (66) 97 03/21/19 15:00 16 Mechanical Ventilator 40 03/21/19 15:00 111 15 115/64 (81) 96 03/21/19 14:45 111 17 100/67 (78) 96 03/21/19 14:30 116 18 98/67 (77) 97 03/21/19 14:15 115 19 105/61 (76) 97 03/21/19 14:00 121 17 105/76 (86) 97 03/21/19 13:59 16 Mechanical Ventilator 40 03/21/19 13:54 16 Mechanical Ventilator 40 03/21/19 13:49 17 Mechanical Ventilator 40 03/21/19 13:45 130 22 121/72 (88) 99 03/21/19 13:44 17 Mechanical Ventilator 40 03/21/19 13:39 18 Mechanical Ventilator 40 03/21/19 13:34 20 Mechanical Ventilator 40 03/21/19 13:30 134 21 106/61 (76) 98 03/21/19 13:29 22 Mechanical Ventilator 40 03/21/19 13:24 22 Mechanical Ventilator 40 03/21/19 13:19 24 Mechanical Ventilator 40 03/21/19 13:15 126 22 109/71 (84) 98 03/21/19 13:14 21 Mechanical Ventilator 40 03/21/19 13:00 133 22 98/53 (68) 98 03/21/19 12:55 130 26 40 03/21/19 12:45 130 21 121/75 (90) 100 03/21/19 12:30 141 35 141/106 (118) 100 03/21/19 12:30 137 22 142/87 (105) 100 03/21/19 12:00 98.1 115 18 77/45 (56) 100 03/21/19 12:00 115 03/21/19 12:00 Mechanical Ventilator 03/21/19 11:45 118 24 81/44 (56) 100 03/21/19 11:30 121 24 86/66 (73) 100 03/21/19 11:15 119 22 93/59 (70) 100 03/21/19 11:05 123 26 50 03/21/19 11:00 124 22 100/58 (72) 100 03/21/19 11:00 50 03/21/19 10:45 124 22 96/59 (71) 100 03/21/19 10:30 124 21 86/56 (66) 100 03/21/19 10:15 120 21 82/55 (64) 100 03/21/19 10:00 123 21 83/56 (65) 100 03/21/19 09:45 122 23 96/54 (68) 100 03/21/19 09:30 122 23 101/71 (81) 100 Intake and Output 03/22/19 03/23/19 19:00 07:00 Intake Total 1793.12 ml 242.0 ml Output Total 285 ml 215 ml Balance 1508.12 ml 27.0 ml Intake Oral 660 ml 100 ml IV Total 1133.12 ml 142.0 ml Output Urine Total 285 ml 215 ml # Bowel Movements 3 Labs Test 03/20/19 19:10 03/21/19 02:55 03/21/19 03:16 03/21/19 09:39 Stool Occult Blood Positive (NEGATIVE) White Blood Count 10.2 K/UL (4.8-10.8) Red Blood Count 3.13 M/UL (4.20-5.40) Hemoglobin 12.1 G/DL (12.0-16.0) Hematocrit 34.9 % (37.0-47.0) Mean Corpuscular Volume 112 FL (80-99) Mean Corpuscular Hemoglobin 38.5 PG (27.0-31.0) Mean Corpuscular Hemoglobin Concent 34.5 G/DL (32.0-36.0) Red Cell Distribution Width 14.1 % (11.6-14.8) Platelet Count 57 K/UL (150-450) Mean Platelet Volume 9.1 FL (6.5-10.1) Neutrophils (%) (Auto) % (45.0-75.0) Lymphocytes (%) (Auto) % (20.0-45.0) Monocytes (%) (Auto) % (1.0-10.0) Eosinophils (%) (Auto) % (0.0-3.0) Basophils (%) (Auto) % (0.0-2.0) Reticulocyte Count 1.7 % (0.5-2.0) Prothrombin Time 12.0 SEC (9.30-11.50) Prothromb Time International Ratio 1.1 (0.9-1.1) Activated Partial Thromboplast Time 27 SEC (23-33) Sodium Level 138 MMOL/L (136-145) Potassium Level 3.5 MMOL/L (3.5-5.1) Chloride Level 101 MMOL/L (98-107) Carbon Dioxide Level 19 MMOL/L (21-32) Anion Gap 18 mmol/L (5-15) Blood Urea Nitrogen 2 mg/dL (7-18) Creatinine 0.7 MG/DL (0.55-1.30) Estimat Glomerular Filtration Rate > 60 mL/min (>60) Glucose Level 308 MG/DL (74-106) Uric Acid 2.4 MG/DL (2.6-7.2) Calcium Level 8.7 MG/DL (8.5-10.1) Phosphorus Level 3.8 MG/DL (2.5-4.9) Magnesium Level 2.4 MG/DL (1.8-2.4) Iron Level 122 ug/dL (50-175) Total Iron Binding Capacity 120 ug/dL (250-450) Percent Iron Saturation 102 % (15-50) Unsaturated Iron Binding -2 ug/dL (112-346) Ferritin 1471 NG/ML (8-388) Total Bilirubin 3.4 MG/DL (0.2-1.0) Direct Bilirubin 1.2 MG/DL (0.0-0.3) Aspartate Amino Transf (AST/SGOT) 367 U/L (15-37) Alanine Aminotransferase (ALT/SGPT) 51 U/L (12-78) Alkaline Phosphatase 163 U/L (46-116) Total Protein 6.1 G/DL (6.4-8.2) Albumin 2.9 G/DL (3.4-5.0) Globulin 3.2 g/dL Albumin/Globulin Ratio 0.9 (1.0-2.7) Triglycerides Level 99 MG/DL (30-150) Lipase 579 U/L (73-393) Vitamin B12 Level 548 PG/ML (193-986) Folate 5.9 NG/ML (8.6-58.9) Thyroid Stimulating Hormone (TSH) 3.270 uiU/mL (0.358-3.740) Free Thyroxine 1.33 NG/DL (0.76-1.46) Arterial Blood pH 7.340 (7.350-7.450) Arterial Blood Partial Pressure CO2 36.1 mmHg (35.0-45.0) Arterial Blood Partial Pressure O2 79.3 mmHg (75.0-100.0) Arterial Blood HCO3 19.0 mmol/L (22.0-26.0) Arterial Blood Oxygen Saturation 93.6 % (95-100) Arterial Blood Base Excess -6.0 (-2-2) Reagan Test Positive Urine Color Yellow Urine Appearance Clear Urine pH 7 (4.5-8.0) Urine Specific [place] 1.010 (1.005-1.035) Urine Protein 3+ (NEGATIVE) Urine Glucose (UA) 3+ (NEGATIVE) Urine Ketones 2+ (NEGATIVE) Urine Blood 5+ (NEGATIVE) Urine Nitrite Negative (NEGATIVE) Urine Bilirubin Negative (NEGATIVE) Urine Urobilinogen 4 MG/DL (0.0-1.0) Urine Leukocyte Esterase 1+ (NEGATIVE) Urine RBC 2-4 /HPF (0 - 2) Urine WBC 2-4 /HPF (0 - 2) Urine Squamous Epithelial Cells Few /LPF (NONE/OCC) Urine Bacteria Few /HPF (NONE) Urine Mucus Few /LPF (NONE/OCC) Test 03/21/19 09:40 03/21/19 11:35 03/21/19 18:55 03/22/19 03:00 White Blood Count 12.5 K/UL (4.8-10.8) 11.8 K/UL (4.8-10.8) Red Blood Count 2.76 M/UL (4.20-5.40) 2.71 M/UL (4.20-5.40) Hemoglobin 10.7 G/DL (12.0-16.0) 10.4 G/DL (12.0-16.0) Hematocrit 30.2 % (37.0-47.0) 30.3 % (37.0-47.0) Mean Corpuscular Volume 109 FL (80-99) 112 FL (80-99) Mean Corpuscular Hemoglobin 38.7 PG (27.0-31.0) 38.4 PG (27.0-31.0) Mean Corpuscular Hemoglobin Concent 35.4 G/DL (32.0-36.0) 34.3 G/DL (32.0-36.0) Red Cell Distribution Width 13.9 % (11.6-14.8) 14.1 % (11.6-14.8) Platelet Count 47 K/UL (150-450) 62 K/UL (150-450) Mean Platelet Volume 13.6 FL (6.5-10.1) 11.5 FL (6.5-10.1) Neutrophils (%) (Auto) % (45.0-75.0) % (45.0-75.0) Lymphocytes (%) (Auto) % (20.0-45.0) % (20.0-45.0) Monocytes (%) (Auto) % (1.0-10.0) % (1.0-10.0) Eosinophils (%) (Auto) % (0.0-3.0) % (0.0-3.0) Basophils (%) (Auto) % (0.0-2.0) % (0.0-2.0) Differential Total Cells Counted 100 100 Neutrophils % (Manual) 90 % (45-75) 87 % (45-75) Lymphocytes % (Manual) 5 % (20-45) 8 % (20-45) Monocytes % (Manual) 1 % (1-10) 4 % (1-10) Eosinophils % (Manual) 1 % (0-3) 1 % (0-3) Basophils % (Manual) 0 % (0-2) 0 % (0-2) Band Neutrophils 3 % (0-8) 0 % (0-8) Platelet Estimate Decreased Decreased Platelet Morphology Normal Normal Hypochromasia 1+ Macrocytosis 1+ 1+ Sodium Level 138 MMOL/L (136-145) 147 MMOL/L (136-145) Potassium Level 2.6 MMOL/L (3.5-5.1) 3.7 MMOL/L (3.5-5.1) Chloride Level 101 MMOL/L (98-107) 111 MMOL/L (98-107) Carbon Dioxide Level 28 MMOL/L (21-32) 22 MMOL/L (21-32) Anion Gap 9 mmol/L (5-15) 14 mmol/L (5-15) Blood Urea Nitrogen 1 mg/dL (7-18) 4 mg/dL (7-18) Creatinine 0.7 MG/DL (0.55-1.30) 0.5 MG/DL (0.55-1.30) Estimat Glomerular Filtration Rate > 60 mL/min (>60) > 60 mL/min (>60) Glucose Level 159 MG/DL (74-106) 103 MG/DL (74-106) Calcium Level 8.1 MG/DL (8.5-10.1) 8.1 MG/DL (8.5-10.1) Phosphorus Level 1.8 MG/DL (2.5-4.9) 4.0 MG/DL (2.5-4.9) Magnesium Level 1.9 MG/DL (1.8-2.4) 1.7 MG/DL (1.8-2.4) Total Bilirubin 3.2 MG/DL (0.2-1.0) 2.2 MG/DL (0.2-1.0) Direct Bilirubin 2.1 MG/DL (0.0-0.3) 1.5 MG/DL (0.0-0.3) Aspartate Amino Transf (AST/SGOT) 269 U/L (15-37) 117 U/L (15-37) Alanine Aminotransferase (ALT/SGPT) 47 U/L (12-78) 41 U/L (12-78) Alkaline Phosphatase 133 U/L (46-116) 119 U/L (46-116) Troponin I 0.372 ng/mL (0.000-0.056) 0.304 ng/mL (0.000-0.056) 0.154 ng/mL (0.000-0.056) 0.116 ng/mL (0.000-0.056) C-Reactive Protein, Quantitative < 0.4 mg/dL (0.00-0.90) Total Protein 5.1 G/DL (6.4-8.2) 5.2 G/DL (6.4-8.2) Albumin 2.4 G/DL (3.4-5.0) 2.5 G/DL (3.4-5.0) Globulin 2.7 g/dL 2.7 g/dL Albumin/Globulin Ratio 0.9 (1.0-2.7) 0.9 (1.0-2.7) Lipase 329 U/L (73-393) 86 U/L (73-393) Alpha Fetoprotein 5.1 ng/mL (0.0-8.3) Hepatitis A IgM Antibody Negative (Negative) Hepatitis B Surface Antigen Negative (Negative) Hepatitis B Core IgM Antibody Negative (Negative) Hepatitis C Antibody <0.1 s/co ratio HIV (1&2) Antibody Rapid Negative (NEGATIVE) Anisocytosis 1+ Prothrombin Time 11.9 SEC (9.30-11.50) Prothromb Time International Ratio 1.1 (0.9-1.1) Gamma Glutamyl Transpeptidase 1543 U/L (5-85) Triglycerides Level 97 MG/DL (30-150) Cholesterol Level 181 MG/DL (< 200) LDL Cholesterol 55 mg/dL (<100) HDL Cholesterol 75 MG/DL (40-60) Cholesterol/HDL Ratio 2.4 (3.3-4.4) Amylase Level 21 U/L (25-115) Thyroid Stimulating Hormone (TSH) 4.528 uiU/mL (0.358-3.740) Free Thyroxine 1.40 NG/DL (0.76-1.46) Test 03/22/19 08:18 03/23/19 04:20 Arterial Blood pH 7.364 (7.350-7.450) Arterial Blood Partial Pressure CO2 41.7 mmHg (35.0-45.0) Arterial Blood Partial Pressure O2 78.3 mmHg (75.0-100.0) Arterial Blood HCO3 23.2 mmol/L (22.0-26.0) Arterial Blood Oxygen Saturation 93.7 % (95-100) Arterial Blood Base Excess -2.0 (-2-2) Reagan Test Positive White Blood Count 8.2 K/UL (4.8-10.8) Red Blood Count 2.45 M/UL (4.20-5.40) Hemoglobin 9.4 G/DL (12.0-16.0) Hematocrit 27.6 % (37.0-47.0) Mean Corpuscular Volume 113 FL (80-99) Mean Corpuscular Hemoglobin 38.5 PG (27.0-31.0) Mean Corpuscular Hemoglobin Concent 34.2 G/DL (32.0-36.0) Red Cell Distribution Width 14.0 % (11.6-14.8) Platelet Count 87 K/UL (150-450) Mean Platelet Volume 8.1 FL (6.5-10.1) Neutrophils (%) (Auto) % (45.0-75.0) Lymphocytes (%) (Auto) % (20.0-45.0) Monocytes (%) (Auto) % (1.0-10.0) Eosinophils (%) (Auto) % (0.0-3.0) Basophils (%) (Auto) % (0.0-2.0) Sodium Level 144 MMOL/L (136-145) Potassium Level 2.8 MMOL/L (3.5-5.1) Chloride Level 108 MMOL/L (98-107) Carbon Dioxide Level 25 MMOL/L (21-32) Anion Gap 11 mmol/L (5-15) Blood Urea Nitrogen 3 mg/dL (7-18) Creatinine 0.5 MG/DL (0.55-1.30) Estimat Glomerular Filtration Rate > 60 mL/min (>60) Glucose Level 99 MG/DL (74-106) Calcium Level 8.1 MG/DL (8.5-10.1) Phosphorus Level 2.9 MG/DL (2.5-4.9) Magnesium Level 1.7 MG/DL (1.8-2.4) Height (Feet): 5 Height (Inches): 2.00 Weight (Pounds): 96 Objective Gen: interactive, jaundice Head: normocephalic, atraumatic Eyes: bilateral eye PERRL, bilateral eye EOMI Neck: no masses, no LN Respiratory: Bilateral occasional rhonchi ++ venturi mask Cardiovascular: regular rate, rhythm, normal HS1, HS2, no murmur Gastrointestinal: normal bowel sounds, nt, nd Musculoskeletal: no rashes, no edema [employer] DEAN: Interactive, no seizures, no focal signs Tanner Mckeon MD Mar 23, 2019 09:25
--- NOTE | 2019-03-23 09:34 | NUR ---
NURSE NOTES: Pt was assisted to be on bedpan. Cleaned pt for small loose BM. Held Colace at this time. Pt keeps removing Ventri mask and desaturating. Risks explained to the patient. Ventri mask was put back on.
--- NOTE | 2019-03-23 10:48 | Diagnostic Imaging Report ---
EXAM: XR Chest, 1 View CLINICAL HISTORY: COUGH TECHNIQUE: Frontal view of the chest. COMPARISON: Chest x-ray, 03/21/19 349 FINDINGS: Lungs: Interval new bilateral airspace opacities and worsening interstitial thickening mid to lower lungs. Pleural space: New small bilateral pleural effusions. No pneumothorax. Heart: Unremarkable. No cardiomegaly. Mediastinum: Unremarkable. Bones/joints: Unremarkable. Tubes, lines and devices: Interval removal of endotracheal tube. IMPRESSION: 1. Interval removal of endotracheal tube. 2. New small bilateral pleural effusions. 3. Interval new bilateral airspace opacities and worsening interstitial thickening mid to lower lungs.
--- NOTE | 2019-03-23 10:50 | General Progress Note ---
Assessment/Plan Problem List: (1) Acute alcoholic intoxication ICD Codes: F10.929 - Alcohol use, unspecified with intoxication, unspecified SNOMED: 65164328, 1212111 Qualifiers: Qualified Codes: F10.929 - Alcohol use, unspecified with intoxication, unspecified (2) Acute alcoholic pancreatitis ICD Codes: K85.20 - Alcohol induced acute pancreatitis without necrosis or infection SNOMED: 785766468 (3) Anemia ICD Codes: D64.9 - Anemia, unspecified SNOMED: 008256903 (4) Ventricular fibrillation ICD Codes: I49.01 - Ventricular fibrillation SNOMED: 32694246 (5) Aspiration pneumonia ICD Codes: J69.0 - Pneumonitis due to inhalation of food and vomit SNOMED: 891955783 Qualifiers: Qualified Codes: J69.0 - Pneumonitis due to inhalation of food and vomit (6) Hypokalemia ICD Codes: E87.6 - Hypokalemia SNOMED: 42505981 (7) Pancreatitis ICD Codes: K85.90 - Acute pancreatitis without necrosis or infection, unspecified SNOMED: 16802155 Qualifiers: (8) UTI (urinary tract infection) ICD Codes: N39.0 - Urinary tract infection, site not specified SNOMED: 15859038 Qualifiers: Status: progressing, deteriorating Assessment/Plan: detox pain control o2 pulm tx cbc bmp am Subjective Constitutional: Reports: weakness Allergies: Coded Allergies: No Known Allergies (Unverified , 03/19/19) All Systems: reviewed and negative except above Subjective o2 mask sleepy in icu Objective Last 24 Hour Vital Signs Date Time Temp Pulse Resp B/P (MAP) Pulse Ox O2 Delivery O2 Flow Rate FiO2 03/23/19 10:00 112 26 123/70 (87) 90 03/23/19 09:00 122 27 132/87 (102) 91 03/23/19 08:00 Venturi Mask 03/23/19 08:00 55 03/23/19 08:00 97.7 116 28 134/86 (102) 92 03/23/19 07:42 117 03/23/19 07:25 93 Venturi Mask 14.0 55 03/23/19 07:08 117 28 139/86 (103) 91 03/23/19 07:00 116 33 89 03/23/19 06:00 116 29 108/85 (93) 93 03/23/19 05:30 117 24 101/77 (85) 89 03/23/19 05:00 118 32 101/79 (86) 78 03/23/19 04:00 5.0 03/23/19 04:00 Nasal Cannula 5.0 03/23/19 04:00 98.1 112 26 98/84 (89) 91 03/23/19 03:00 113 24 123/79 (94) 90 03/23/19 02:58 114 03/23/19 02:01 113 16 98 Nasal Cannula 4.0 36 111 18 89 03/23/19 02:00 116 20 117/83 (94) 95 03/23/19 01:00 115 28 121/73 (89) 91 03/23/19 00:00 Nasal Cannula 3.0 03/23/19 00:00 3.0 03/23/19 00:00 98.1 112 22 110/64 (79) 90 03/22/19 23:00 114 26 121/70 (87) 93 03/22/19 23:00 114 03/22/19 22:00 119 24 112/75 (87) 91 03/22/19 21:00 116 21 116/72 (87) 94 03/22/19 20:23 100 Nasal Cannula 3.0 32 03/22/19 20:00 Nasal Cannula 3.0 03/22/19 20:00 98.1 111 23 111/74 (86) 93 03/22/19 20:00 3.0 03/22/19 19:26 117 03/22/19 19:00 112 28 108/59 (75) 90 03/22/19 18:30 112 24 107/67 (80) 92 03/22/19 18:00 114 24 117/67 (84) 88 03/22/19 17:30 119 23 122/90 (101) 90 03/22/19 17:00 110 19 118/77 (91) 92 03/22/19 16:00 107 03/22/19 16:00 3.0 03/22/19 16:00 98.3 114 20 114/73 (87) 92 03/22/19 16:00 Nasal Cannula 3.0 03/22/19 15:00 108 19 115/72 (86) 94 03/22/19 14:00 108 18 97/74 (82) 97 03/22/19 13:30 109 14 110/76 (87) 99 03/22/19 13:00 109 17 116/68 (84) 99 03/22/19 12:49 100 Nasal Cannula 2.0 28 03/22/19 12:15 105 105/64 03/22/19 12:00 3.0 03/22/19 12:00 102 03/22/19 12:00 Simple Mask 8.0 03/22/19 12:00 98.1 103 16 124/73 (90) 94 03/22/19 11:00 106 16 120/87 (98) 93 Intake and Output 03/22/19 03/23/19 19:00 07:00 Intake Total 1793.12 ml 242.0 ml Output Total 285 ml 215 ml Balance 1508.12 ml 27.0 ml Intake Oral 660 ml 100 ml IV Total 1133.12 ml 142.0 ml Output Urine Total 285 ml 215 ml # Bowel Movements 3 Laboratory Tests 03/23/19 04:20: White Blood Count 8.2, Red Blood Count 2.45L, Hemoglobin 9.4L, Hematocrit 27.6L , Mean Corpuscular Volume 113H, Mean Corpuscular Hemoglobin 38.5H, Mean Corpuscular Hemoglobin Concent 34.2, Red Cell Distribution Width 14.0, Platelet Count 87L, Mean Platelet Volume 8.1, Neutrophils (%) (Auto) , Lymphocytes (%) ( Auto) , Monocytes (%) (Auto) , Eosinophils (%) (Auto) , Basophils (%) (Auto) , Differential Total Cells Counted 100, Neutrophils % (Manual) 79H, Lymphocytes % (Manual) 18L, Monocytes % (Manual) 2, Eosinophils % (Manual) 1, Basophils % ( Manual) 0, Band Neutrophils 0, Platelet Estimate DecreasedL, Platelet Morphology Normal, Macrocytosis 2+, Sodium Level 144, Potassium Level 2.8L, Chloride Level 108H, Carbon Dioxide Level 25, Anion Gap 11, Blood Urea Nitrogen 3L, Creatinine 0.5L, Estimat Glomerular Filtration Rate > 60, Glucose Level 99, Calcium Level 8.1L, Phosphorus Level 2.9, Magnesium Level 1.7L Height (Feet): 5 Height (Inches): 2.00 Weight (Pounds): 96 General Appearance: lethargic EENT: normal ENT inspection Neck: normal alignment Cardiovascular: normal peripheral pulses, normal rate, regular rhythm Respiratory/Chest: chest wall non-tender, lungs clear, normal breath sounds Abdomen: normal bowel sounds, non tender, soft Extremities: normal inspection Edema: no edema noted Arm (L), no edema noted Arm (R), no edema noted Leg (L), no edema noted Leg (R), no edema noted Pedal (L), no edema noted Pedal (R), no edema noted Generalized Neurologic: motor weakness Skin: normal pigmentation, warm/dry Tristin Atwood DO Mar 23, 2019 10:50
--- NOTE | 2019-03-23 11:03 | NUR ---
NURSE NOTES: Pt was assisted to be on bedpan. Cleaned pt for the 2nd time small loose BM. O2 sat 90-91% on Ventri mask 55%. Will continue to monitor.
--- NOTE | 2019-03-23 11:24 | NUR ---
NURSE NOTES: Pt refused to wear Ventri mask and desaturated to 85-90%. Risks explained to patient. RT is drawing ABG at bedside. Will wait for the result.
--- NOTE | 2019-03-23 11:33 | Nephrology Progress Note ---
Assessment/Plan Status: progressing, deteriorating Assessment/Plan: A/P 1) Electrolytes ABN- will continue aggressive replacement of K+/Mg and phos - STAT recheck of labs pending 2) Pancreatitis- alcohol induced 3) S/P arrthymia- correct underlying electrolytes aggressively Subjective Date patient seen: Mar 23, 2019 Time patient seen: 11:31 ROS Limited/Unobtainable: No Allergies: Coded Allergies: No Known Allergies (Unverified , 03/19/19) Subjective Patient awake and alert in no overt distress. NRB on Objective Last 24 Hour Vital Signs Date Time Temp Pulse Resp B/P (MAP) Pulse Ox O2 Delivery O2 Flow Rate FiO2 03/23/19 11:00 114 30 138/87 (104) 91 03/23/19 10:00 112 26 123/70 (87) 90 03/23/19 09:00 122 27 132/87 (102) 91 03/23/19 08:00 Venturi Mask 03/23/19 08:00 55 03/23/19 08:00 97.7 116 28 134/86 (102) 92 03/23/19 07:42 117 03/23/19 07:25 93 Venturi Mask 14.0 55 03/23/19 07:08 117 28 139/86 (103) 91 03/23/19 07:00 116 33 89 03/23/19 06:00 116 29 108/85 (93) 93 03/23/19 05:30 117 24 101/77 (85) 89 03/23/19 05:00 118 32 101/79 (86) 78 03/23/19 04:00 5.0 03/23/19 04:00 Nasal Cannula 5.0 03/23/19 04:00 98.1 112 26 98/84 (89) 91 03/23/19 03:00 113 24 123/79 (94) 90 03/23/19 02:58 114 03/23/19 02:01 113 16 98 Nasal Cannula 4.0 36 111 18 89 03/23/19 02:00 116 20 117/83 (94) 95 03/23/19 01:00 115 28 121/73 (89) 91 03/23/19 00:00 Nasal Cannula 3.0 03/23/19 00:00 3.0 03/23/19 00:00 98.1 112 22 110/64 (79) 90 03/22/19 23:00 114 26 121/70 (87) 93 03/22/19 23:00 114 03/22/19 22:00 119 24 112/75 (87) 91 03/22/19 21:00 116 21 116/72 (87) 94 03/22/19 20:23 100 Nasal Cannula 3.0 32 03/22/19 20:00 Nasal Cannula 3.0 03/22/19 20:00 98.1 111 23 111/74 (86) 93 03/22/19 20:00 3.0 03/22/19 19:26 117 03/22/19 19:00 112 28 108/59 (75) 90 03/22/19 18:30 112 24 107/67 (80) 92 03/22/19 18:00 114 24 117/67 (84) 88 03/22/19 17:30 119 23 122/90 (101) 90 03/22/19 17:00 110 19 118/77 (91) 92 03/22/19 16:00 107 03/22/19 16:00 3.0 03/22/19 16:00 98.3 114 20 114/73 (87) 92 03/22/19 16:00 Nasal Cannula 3.0 03/22/19 15:00 108 19 115/72 (86) 94 03/22/19 14:00 108 18 97/74 (82) 97 03/22/19 13:30 109 14 110/76 (87) 99 03/22/19 13:00 109 17 116/68 (84) 99 03/22/19 12:49 100 Nasal Cannula 2.0 28 03/22/19 12:15 105 105/64 03/22/19 12:00 3.0 03/22/19 12:00 102 03/22/19 12:00 Simple Mask 8.0 03/22/19 12:00 98.1 103 16 124/73 (90) 94 Intake and Output 03/22/19 03/23/19 19:00 07:00 Intake Total 1793.12 ml 242.0 ml Output Total 285 ml 215 ml Balance 1508.12 ml 27.0 ml Intake Oral 660 ml 100 ml IV Total 1133.12 ml 142.0 ml Output Urine Total 285 ml 215 ml # Bowel Movements 3 Laboratory Tests 03/23/19 04:20: White Blood Count 8.2, Red Blood Count 2.45L, Hemoglobin 9.4L, Hematocrit 27.6L , Mean Corpuscular Volume 113H, Mean Corpuscular Hemoglobin 38.5H, Mean Corpuscular Hemoglobin Concent 34.2, Red Cell Distribution Width 14.0, Platelet Count 87L, Mean Platelet Volume 8.1, Neutrophils (%) (Auto) , Lymphocytes (%) ( Auto) , Monocytes (%) (Auto) , Eosinophils (%) (Auto) , Basophils (%) (Auto) , Differential Total Cells Counted 100, Neutrophils % (Manual) 79H, Lymphocytes % (Manual) 18L, Monocytes % (Manual) 2, Eosinophils % (Manual) 1, Basophils % ( Manual) 0, Band Neutrophils 0, Platelet Estimate DecreasedL, Platelet Morphology Normal, Macrocytosis 2+, Sodium Level 144, Potassium Level 2.8L, Chloride Level 108H, Carbon Dioxide Level 25, Anion Gap 11, Blood Urea Nitrogen 3L, Creatinine 0.5L, Estimat Glomerular Filtration Rate > 60, Glucose Level 99, Calcium Level 8.1L, Phosphorus Level 2.9, Magnesium Level 1.7L Height (Feet): 5 Height (Inches): 2.00 Weight (Pounds): 96 General Appearance: no apparent distress EENT: normal ENT inspection Neck: normal alignment, supple Cardiovascular: normal rate, regular rhythm Respiratory/Chest: rhonchi - bilaterally Abdomen: non tender, soft Edema: no edema noted Arm (L), no edema noted Arm (R), no edema noted Leg (L), no edema noted Leg (R), no edema noted Pedal (L), no edema noted Pedal (R), no edema noted Generalized Santo Marina MD Mar 23, 2019 11:33
[2019-03-23] MEDS: Phenylephrine 50 MG in D5W 245 ML IV SCH (12:15)
[2019-03-23] MEDS: Thiamine HCl 100 MG in D5W 55 ML IVPB SCH (12:22)
[2019-03-23 12:32] LABS: PHOSPHORUS 2.4 MG/DL (2.5-4.9); POTASSIUM 3.7 MMOL/L (3.5-5.1)
--- NOTE | 2019-03-23 12:50 | NUR ---
NURSE NOTES: Notified Dr Marina regarding STAT Mg, Phos, K results. Order received, noted, and carried out. Boyfriend at bedside.
[2019-03-23] MEDS ORDERED: Potassium Phosphate 15 MM in NS 275 ML IV SCH (14:00)
[2019-03-23] MEDS ORDERED: Tubing IV Secondary IV ONE ×2 (14:34→15:10)
--- NOTE | 2019-03-23 14:36 | NUR ---
NURSE NOTES: Assisted pt to be on bedpan. Pt had 1 small soft BM. Pt drinks juice in bed. Pt is on Ventri mask. O2 sat 92%. Will continue to monitor.
--- NOTE | 2019-03-23 14:42 | Cardiac Electrophysiology PN ---
Assessment/Plan Assessment/Plan 1. 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 The EKG does not show any active ischemic changes. However, her initial EKG on 03/19/[address]-T wave abnormalities. Troponin leak due to VF arrest and shocks. Low level and flat and going down. The V Fib arrest could be precipitated by profound hypokalemia and potassium of only 2.2. Awaiting transfer for Cardiac cath and ICD implantation 2. Profound hypokalemia. Potassium and magnesium were replaced. 3. Pancytopenia. Etiology is not clear. Hep panel and HIV ordered. Abdominal ultrasound for cirrhosis has been ordered. 4. Aspiration pneumonia, on antibiotic. 5. Alcohol abuse and withdrawal. 6. Acute pancreatitis. Further evaluation by GI. PAYAL YI Subjective Subjective Alert in NAD. On po Amiodarone with no further VT. Objective Last 24 Hour Vital Signs Date Time Temp Pulse Resp B/P (MAP) Pulse Ox O2 Delivery O2 Flow Rate FiO2 03/23/19 14:00 116 28 134/96 (109) 93 03/23/19 13:00 123 30 136/89 (105) 85 03/23/19 12:00 126 32 136/89 (105) 85 03/23/19 12:00 55 03/23/19 12:00 Venturi Mask 03/23/19 11:31 132 03/23/19 11:00 114 30 138/87 (104) 91 03/23/19 10:00 112 26 123/70 (87) 90 03/23/19 09:00 122 27 132/87 (102) 91 03/23/19 08:00 Venturi Mask 03/23/19 08:00 55 03/23/19 08:00 97.7 116 28 134/86 (102) 92 03/23/19 07:42 117 03/23/19 07:25 93 Venturi Mask 14.0 55 03/23/19 07:08 117 28 139/86 (103) 91 03/23/19 07:00 116 33 89 03/23/19 06:00 116 29 108/85 (93) 93 03/23/19 05:30 117 24 101/77 (85) 89 03/23/19 05:00 118 32 101/79 (86) 78 03/23/19 04:00 5.0 03/23/19 04:00 Nasal Cannula 5.0 03/23/19 04:00 98.1 112 26 98/84 (89) 91 03/23/19 03:00 113 24 123/79 (94) 90 03/23/19 02:58 114 03/23/19 02:01 113 16 98 Nasal Cannula 4.0 36 111 18 89 03/23/19 02:00 116 20 117/83 (94) 95 03/23/19 01:00 115 28 121/73 (89) 91 03/23/19 00:00 Nasal Cannula 3.0 03/23/19 00:00 3.0 03/23/19 00:00 98.1 112 22 110/64 (79) 90 03/22/19 23:00 114 26 121/70 (87) 93 03/22/19 23:00 114 03/22/19 22:00 119 24 112/75 (87) 91 03/22/19 21:00 116 21 116/72 (87) 94 03/22/19 20:23 100 Nasal Cannula 3.0 32 03/22/19 20:00 Nasal Cannula 3.0 03/22/19 20:00 98.1 111 23 111/74 (86) 93 03/22/19 20:00 3.0 03/22/19 19:26 117 03/22/19 19:00 112 28 108/59 (75) 90 03/22/19 18:30 112 24 107/67 (80) 92 03/22/19 18:00 114 24 117/67 (84) 88 03/22/19 17:30 119 23 122/90 (101) 90 03/22/19 17:00 110 19 118/77 (91) 92 03/22/19 16:00 107 03/22/19 16:00 3.0 03/22/19 16:00 98.3 114 20 114/73 (87) 92 03/22/19 16:00 Nasal Cannula 3.0 03/22/19 15:00 108 19 115/72 (86) 94 Intake and Output 03/22/19 03/23/19 18:59 06:59 Intake Total 1801.12 ml 214.5 ml Output Total 305 ml 210 ml Balance 1496.12 ml 4.5 ml Intake Oral 660 ml 100 ml IV Total 1141.12 ml 114.5 ml Output Urine Total 305 ml 210 ml # Bowel Movements 3 Laboratory Tests Test 03/23/19 04:20 03/23/19 11:23 03/23/19 11:50 White Blood Count 8.2 K/UL (4.8-10.8) Red Blood Count 2.45 M/UL (4.20-5.40) L Hemoglobin 9.4 G/DL (12.0-16.0) L Hematocrit 27.6 % (37.0-47.0) L Mean Corpuscular Volume 113 FL (80-99) H Mean Corpuscular Hemoglobin 38.5 PG (27.0-31.0) H Mean Corpuscular Hemoglobin Concent 34.2 G/DL (32.0-36.0) Red Cell Distribution Width 14.0 % (11.6-14.8) Platelet Count 87 K/UL (150-450) L Mean Platelet Volume 8.1 FL (6.5-10.1) Neutrophils (%) (Auto) % (45.0-75.0) Lymphocytes (%) (Auto) % (20.0-45.0) Monocytes (%) (Auto) % (1.0-10.0) Eosinophils (%) (Auto) % (0.0-3.0) Basophils (%) (Auto) % (0.0-2.0) Differential Total Cells Counted 100 Neutrophils % (Manual) 79 % (45-75) H Lymphocytes % (Manual) 18 % (20-45) L Monocytes % (Manual) 2 % (1-10) Eosinophils % (Manual) 1 % (0-3) Basophils % (Manual) 0 % (0-2) Band Neutrophils 0 % (0-8) Platelet Estimate Decreased L Platelet Morphology Normal Macrocytosis 2+ Sodium Level 144 MMOL/L (136-145) Potassium Level 2.8 MMOL/L (3.5-5.1) L 3.7 MMOL/L (3.5-5.1) Chloride Level 108 MMOL/L (98-107) H Carbon Dioxide Level 25 MMOL/L (21-32) Anion Gap 11 mmol/L (5-15) Blood Urea Nitrogen 3 mg/dL (7-18) L Creatinine 0.5 MG/DL (0.55-1.30) L Estimat Glomerular Filtration Rate > 60 mL/min (>60) Glucose Level 99 MG/DL (74-106) Calcium Level 8.1 MG/DL (8.5-10.1) L Phosphorus Level 2.9 MG/DL (2.5-4.9) 2.4 MG/DL (2.5-4.9) L Magnesium Level 1.7 MG/DL (1.8-2.4) L 2.0 MG/DL (1.8-2.4) Arterial Blood pH 7.491 (7.350-7.450) Arterial Blood Partial Pressure CO2 28.4 mmHg (35.0-45.0) L Arterial Blood Partial Pressure O2 58.2 mmHg (75.0-100.0) L Arterial Blood HCO3 21.2 mmol/L (22.0-26.0) L Arterial Blood Oxygen Saturation 90.3 % (95-100) L Arterial Blood Base Excess -1.2 (-2-2) Reagan Test Positive Troponin I 0.119 ng/mL (0.000-0.056) Microbiology Date/Time Source Procedure Growth Status 03/21/19 11:15 Sputum Induced Gram Stain - Final Complete 03/21/19 11:15 Sputum Induced Sputum Culture - Final NORMAL UPPER RESPIRATORY JAQUAN PRESENT Complete Objective HEAD AND NECK: No JVD. LUNGS: Clear. CARDIOVASCULAR: Regular S1 and S2 with no gallop or murmur. ABDOMEN: Soft. EXTREMITIES: No pitting edema. Efrem Harrison MD Mar 23, 2019 14:42
[2019-03-23] MEDS ORDERED: NS 275ml ONE (15:10)
--- NOTE | 2019-03-23 16:21 | NUR ---
NURSE NOTES: Dr Montesinos here to see the patient. Updated him with pt's current condition, including episodes of desaturation and frequent soft BMs. Order for PRN Bi-pap received, noted, and carried out. Boyfriend at bedside.
--- NOTE | 2019-03-23 16:22 | General Progress Note ---
Assessment/Plan Status: progressing, deteriorating Assessment/Plan: Assessment/Plan Problem List: (1) Pancreatitis ICD Codes: K85.90 - Acute pancreatitis without necrosis or infection, unspecified SNOMED: 64903296 Qualifiers: (2) Hypokalemia ICD Codes: E87.6 - Hypokalemia SNOMED: 87313480 (3) Respiratory failure requiring intubation ICD Codes: J96.90 - Respiratory failure, unspecified, unspecified whether with hypoxia or hypercapnia SNOMED: 823642305 (4) Ventricular fibrillation ICD Codes: I49.01 - Ventricular fibrillation SNOMED: 77867006 (5) Cardiac arrest ICD Codes: I46.9 - Cardiac arrest, cause unspecified SNOMED: 511519529 (6) Anemia ICD Codes: D64.9 - Anemia, unspecified SNOMED: 415267248 Status: deteriorating Assessment/Plan: extubated pending swallow eval fu cardiology recs fu labs supportive care Subjective Allergies: Coded Allergies: No Known Allergies (Unverified , 03/19/19) Subjective feels OK no abd c/o Objective Last 24 Hour Vital Signs Date Time Temp Pulse Resp B/P (MAP) Pulse Ox O2 Delivery O2 Flow Rate FiO2 03/23/19 16:00 119 30 127/97 (107) 93 03/23/19 16:00 55 03/23/19 16:00 Venturi Mask 03/23/19 15:00 132 28 106/83 (91) 81 03/23/19 14:00 116 28 134/96 (109) 93 03/23/19 13:00 123 30 136/89 (105) 85 03/23/19 12:00 126 32 136/89 (105) 85 03/23/19 12:00 55 03/23/19 12:00 Venturi Mask 03/23/19 11:31 132 03/23/19 11:00 114 30 138/87 (104) 91 03/23/19 10:00 112 26 123/70 (87) 90 03/23/19 09:00 122 27 132/87 (102) 91 03/23/19 08:00 Venturi Mask 03/23/19 08:00 55 03/23/19 08:00 97.7 116 28 134/86 (102) 92 03/23/19 07:42 117 03/23/19 07:25 93 Venturi Mask 14.0 55 03/23/19 07:08 117 28 139/86 (103) 91 03/23/19 07:00 116 33 89 03/23/19 06:00 116 29 108/85 (93) 93 03/23/19 05:30 117 24 101/77 (85) 89 03/23/19 05:00 118 32 101/79 (86) 78 03/23/19 04:00 5.0 03/23/19 04:00 Nasal Cannula 5.0 03/23/19 04:00 98.1 112 26 98/84 (89) 91 03/23/19 03:00 113 24 123/79 (94) 90 03/23/19 02:58 114 03/23/19 02:01 113 16 98 Nasal Cannula 4.0 36 111 18 89 03/23/19 02:00 116 20 117/83 (94) 95 03/23/19 01:00 115 28 121/73 (89) 91 03/23/19 00:00 Nasal Cannula 3.0 03/23/19 00:00 3.0 03/23/19 00:00 98.1 112 22 110/64 (79) 90 03/22/19 23:00 114 26 121/70 (87) 93 03/22/19 23:00 114 03/22/19 22:00 119 24 112/75 (87) 91 03/22/19 21:00 116 21 116/72 (87) 94 03/22/19 20:23 100 Nasal Cannula 3.0 32 03/22/19 20:00 Nasal Cannula 3.0 03/22/19 20:00 98.1 111 23 111/74 (86) 93 03/22/19 20:00 3.0 03/22/19 19:26 117 03/22/19 19:00 112 28 108/59 (75) 90 03/22/19 18:30 112 24 107/67 (80) 92 03/22/19 18:00 114 24 117/67 (84) 88 03/22/19 17:30 119 23 122/90 (101) 90 03/22/19 17:00 110 19 118/77 (91) 92 Intake and Output 03/22/19 03/23/19 18:59 06:59 Intake Total 1801.12 ml 214.5 ml Output Total 305 ml 210 ml Balance 1496.12 ml 4.5 ml Intake Oral 660 ml 100 ml IV Total 1141.12 ml 114.5 ml Output Urine Total 305 ml 210 ml # Bowel Movements 3 Laboratory Tests 03/23/19 04:20: White Blood Count 8.2, Red Blood Count 2.45L, Hemoglobin 9.4L, Hematocrit 27.6L , Mean Corpuscular Volume 113H, Mean Corpuscular Hemoglobin 38.5H, Mean Corpuscular Hemoglobin Concent 34.2, Red Cell Distribution Width 14.0, Platelet Count 87L, Mean Platelet Volume 8.1, Neutrophils (%) (Auto) , Lymphocytes (%) ( Auto) , Monocytes (%) (Auto) , Eosinophils (%) (Auto) , Basophils (%) (Auto) , Differential Total Cells Counted 100, Neutrophils % (Manual) 79H, Lymphocytes % (Manual) 18L, Monocytes % (Manual) 2, Eosinophils % (Manual) 1, Basophils % ( Manual) 0, Band Neutrophils 0, Platelet Estimate DecreasedL, Platelet Morphology Normal, Macrocytosis 2+, Sodium Level 144, Potassium Level 2.8L, Chloride Level 108H, Carbon Dioxide Level 25, Anion Gap 11, Blood Urea Nitrogen 3L, Creatinine 0.5L, Estimat Glomerular Filtration Rate > 60, Glucose Level 99, Calcium Level 8.1L, Phosphorus Level 2.9, Magnesium Level 1.7L 03/23/19 11:23: Arterial Blood pH 7.491H, Arterial Blood Partial Pressure CO2 28.4L, Arterial Blood Partial Pressure O2 58.2L, Arterial Blood HCO3 21.2L, Arterial Blood Oxygen Saturation 90.3L, Arterial Blood Base Excess -1.2, Reagan Test Positive 03/23/19 11:50: Potassium Level 3.7, Phosphorus Level 2.4L, Magnesium Level 2.0, Troponin I 0.119H Height (Feet): 5 Height (Inches): 2.00 Weight (Pounds): 96 Objective WDWN NCAT supple CTA RR abd soft no edema Abby Khan MD Mar 23, 2019 16:22
--- NOTE | 2019-03-23 19:23 | NUR ---
HAND-OFF: Report given to KD Roberson.
--- NOTE | 2019-03-23 19:24 | NUR ---
NURSE NOTES: Endorsement received from Zuleika Post RN. Patient awake, oriented x3. On venturi mask 55%. Right upper arm g 20 and left AC g20. KPhos 15mmol bag 1 of 1 currently infusing. Fields catheter connected to urimeter. Sinus tach on the monitor. On seizure precautions. SCDs refused by the patient. Explained risks and benefits, still refused. Head of bed elevated. Bed alarm on. Call light within visible reach. Reminded patient to use call light for assistance and not to get up from the bed unassisted. Verbalized understanding. Will continue to monitor.
--- NOTE | 2019-03-23 19:30 | NUR ---
NURSE NOTES: Right arm noted with +1 edema. Heplock noted with resistance when flushed. No fluid was running on this site. Removed. Affected arm kept elevated.
--- NOTE | 2019-03-23 20:00 | NUR ---
NURSE NOTES: Patient keeps removing her venturi mask. Desats to 87%-89% whenever she removes it. Reminded to keep it over her nose and mouth. Explained risks and benefits. Patient needs to be constantly reminded to put it back on.
--- NOTE | 2019-03-23 21:44 | Pulmonolgy Critical Care Note ---
Critical Care - Asmt/Plan Assessment/Plan: Pulmonary Critical Care Progress Note HPI Patient is a 38-year-old woman initially admitted to the hospital for Hypokalemia and Alcohol abuse/withdrawal, Pancreatitis. S/p VT VF arrest earlier this morning, succesfully shocked and given CPR for subsequest PEA, currently intubated and sedated on the Ventilator, on Amiodarone gtt. Patient is awake and interactive post code, although sedated. Received IV Magnesium during the CPR. Prior to the code was walking around. Noted to have evidence of pneumonia with bilateral infiltrates, L>R, post intubation, possibly from aspiration. On Antibiotics/Amiodarone, off sedation, s/p extubation Increased O2 requirements - on PRN BiPAP, IVF DC Allergies: No Known Allergies Past Medical History: Alcohol abuse, fatty liver, previous seizure, previous drainage of breast abscess. All Other Systems: limited - secondary to condition Physical Exam Vital Signs Noted, not currently on pressors General Appearance: Alert interactive, jaundice Head: normocephalic, atraumatic Eyes: bilateral eye PERRL, bilateral eye EOMI ENT: moist mm, ETT Neck: no masses, no LN Respiratory: CTAB Cardiovascular: regular rate, rhythm, normal HS1, HS2, no murmur Gastrointestinal: normal bowel sounds, non tender, no mass, no organomegaly, no bruit, non-distended Musculoskeletal: no rashes, no edema ELECTROENCEPHALOGRAM TECHNOLOGIST: Interactive, no seizures, no focal signs Impression: S/p Ventricular fibrillation arrest and subsequest PEA, currently stable on Amiodarone Aspiration pneumonia Respiratory failure s/p extubation Alcohol abuse, withdrawal Pancreatitis Fatty Liver Previous Seizures Previous breast abscess requirng drainage Plan Wean FIO2 - sats 90-96% NGT/KUB IVF PRN Ativan Monitor labs PPX IV Antibiotics Thiamine Chest X-Ray: 1. Interval removal of endotracheal tube. 2. New small bilateral pleural effusions. 3. Interval new bilateral airspace opacities and worsening interstitial thickening mid to lower lungs. Labs/ABG noted Critical Care - Objective Last 24 Hour Vital Signs Date Time Temp Pulse Resp B/P (MAP) Pulse Ox O2 Delivery O2 Flow Rate FiO2 03/23/19 20:00 Venturi Mask 03/23/19 19:00 121 34 121/78 (92) 99 03/23/19 18:34 128 26 98 Venturi Mask 14.0 55 03/23/19 18:34 98 Venturi Mask 14.0 55 03/23/19 18:00 128 30 129/85 (100) 99 03/23/19 17:00 98.8 118 27 134/98 (110) 99 03/23/19 16:00 119 30 127/97 (107) 93 03/23/19 16:00 55 03/23/19 16:00 Venturi Mask 03/23/19 15:31 110 03/23/19 15:00 132 28 106/83 (91) 81 03/23/19 14:00 116 28 134/96 (109) 93 03/23/19 13:00 123 30 136/89 (105) 85 03/23/19 12:00 98.0 126 32 136/89 (105) 85 03/23/19 12:00 55 03/23/19 12:00 Venturi Mask 03/23/19 11:31 132 03/23/19 11:00 114 30 138/87 (104) 91 03/23/19 10:00 112 26 123/70 (87) 90 03/23/19 09:00 122 27 132/87 (102) 91 03/23/19 08:00 Venturi Mask 03/23/19 08:00 55 03/23/19 08:00 97.7 116 28 134/86 (102) 92 03/23/19 07:42 117 03/23/19 07:25 93 Venturi Mask 14.0 55 03/23/19 07:08 117 28 139/86 (103) 91 03/23/19 07:00 116 33 89 03/23/19 06:00 116 29 108/85 (93) 93 03/23/19 05:30 117 24 101/77 (85) 89 03/23/19 05:00 118 32 101/79 (86) 78 03/23/19 04:00 5.0 03/23/19 04:00 Nasal Cannula 5.0 03/23/19 04:00 98.1 112 26 98/84 (89) 91 03/23/19 03:00 113 24 123/79 (94) 90 03/23/19 02:58 114 03/23/19 02:01 113 16 98 Nasal Cannula 4.0 36 111 18 89 03/23/19 02:00 116 20 117/83 (94) 95 03/23/19 01:00 115 28 121/73 (89) 91 03/23/19 00:00 Nasal Cannula 3.0 03/23/19 00:00 3.0 03/23/19 00:00 98.1 112 22 110/64 (79) 90 03/22/19 23:00 114 26 121/70 (87) 93 03/22/19 23:00 114 03/22/19 22:00 119 24 112/75 (87) 91 Micro: Microbiology Date/Time Source Procedure Growth Status 03/21/19 11:15 Sputum Induced Gram Stain - Final Complete 03/21/19 11:15 Sputum Induced Sputum Culture - Final NORMAL UPPER RESPIRATORY JAQUAN PRESENT Complete Critical Care - Subjective ROS Limited/Unobtainable: No FI02: 55 Vent Support Breath Rate: 15 Vent Support Mode: CPAP Vent Tidal Volume: 500 Sputum Amount: None PEEP: 5.0 PIP: 14 I&O: Intake and Output 03/22/19 03/23/19 19:00 07:00 Intake Total 1793.12 ml 242.0 ml Output Total 285 ml 215 ml Balance 1508.12 ml 27.0 ml Intake Oral 660 ml 100 ml IV Total 1133.12 ml 142.0 ml Output Urine Total 285 ml 215 ml # Bowel Movements 3 ET-Tube: 7.0 ET Position: 23 Leandro Montesinos MD Mar 23, 2019 21:43
[2019-03-23] MEDS: LORazepam Inj 2mg/ml 1ml IM PRN (23:14)
--- NOTE | 2019-03-23 23:32 | NUR ---
NURSE NOTES: Patient attempting to get up from the bed. Removing her venturi mask, desats to 82%. Tachycardic, at 140s. As per her she "wants to sleep upstairs". Reoriented, unable to redirect. PRN ativan given. Still restless and agitated, trying to get up. Bilateral soft wrist restraints applied for safety. Charge nurse called patient's significant other Trent and updated him of patient's current status. As per him to do what is necessary Addendum: 03/23/19 at 1522 by BEATA HUSSEIN RN Addendum: NURSE NOTES: CIWA score of 9, PRN Ativan given as ordered
[2019-03-24] VITALS (25 sets, daily range): BP systolic 91–140; BP diastolic 22–107
--- NOTE | 2019-03-24 00:30 | NUR ---
NURSE NOTES: Patient still fidgeting around the bed. Attempting to pull out mask and lines, attempting to dangle legs from the bed. Unable to properly assess oxygen saturation as it wont give a good waveform due to patient is moving around the bed. No sign of SOB at this time. Called Dr. Fox on his emergency exchange. Left a message. Awaiting for return call. Nurse remains by the patient's room for patient's safety
--- NOTE | 2019-03-24 02:00 | NUR ---
NURSE NOTES: Patient awake in bed. Appears more calm than earlier. Occasionally talks to herself. Reoriented. 98% saturation on the monitor. Still sinus tachy. Bed locked and in low position. Bed alarm on. Call light within reach
[2019-03-24] MEDS: LORazepam Inj 2mg/ml 1ml IM PRN ×5 (03:20→22:16)
--- NOTE | 2019-03-24 03:20 | NUR ---
NURSE NOTES: Patient awake, confused. Still with attempts to pull out venturi mask, bhardwaj catheter anything she can grasp on. Nurse remained seated by the patient's room, placed tubings out from her reach and place venturi mask back on. Patient repositions self to be able to pull out tubings. Reoriented. PRN Ativan given. Pulse oximeter placed at right upper quadrant, 95%-97% saturation on the monitor
[2019-03-24 04:24] LABS: HEMATOCRIT 31.4 % (37.0-47.0); HEMOGLOBIN 10.8 G/DL (12.0-16.0); MEAN CORPUSCULAR VOLUME 113 FL (80-99); PLATELET COUNT 162 K/UL (150-450); RED BLOOD COUNT 2.79 M/UL (4.20-5.40); RED CELL DISTRIBUTION WIDTH 14.2 % (11.6-14.8); WHITE BLOOD COUNT 9.3 K/UL (4.8-10.8)
[2019-03-24 04:47] LABS: ANION GAP 11 mmol/L (5-15); BLOOD UREA NITROGEN 3 mg/dL (7-18); CALCIUM 8.2 MG/DL (8.5-10.1); CARBON DIOXIDE 24 MMOL/L (21-32); CHLORIDE 105 MMOL/L (98-107); CREATININE 0.6 MG/DL (0.55-1.30); POTASSIUM 2.9 MMOL/L (3.5-5.1); SODIUM 140 MMOL/L (136-145)
[2019-03-24 05:47] LABS: PHOSPHORUS 3.3 MG/DL (2.5-4.9)
[2019-03-24] MEDS: Amiodarone 200mg tab ORAL SCH ×3 (06:00→21:23)
[2019-03-24] MEDS: Piperacillin/Tazobactam 3.375 GM in NS 110 ML IVPB SCH ×3 (06:01→21:23)
--- NOTE | 2019-03-24 06:11 | NUR ---
NURSE NOTES: Patient refused to take PO medication Amiodarone tablets. Explained to the patient the indication and the risk for not taking the medication x3. Patient refused x 3. Patient's rights respected. Addendum: 03/24/19 at 0613 by BEATA HUSSEIN RN NURSE NOTES: medication wasted per policy
--- NOTE | 2019-03-24 07:11 | NUR ---
HAND-OFF: Report given to KD Almanza .
--- NOTE | 2019-03-24 07:22 | NUR ---
NURSE NOTES: Report received from Karol YI. Pt awake, alert and oriented x 1-2, confused, restless and forgetful. Messaged Dr Fox for additional anti-anxiety meds. Pt currently on ativan 2mg IM q [address] 130s on monitoring coordinator. Pt on venturi mask 55%. Fields noted and intact with clear tonny urine to gravity. LAC 20G noted and intact. Safety measures in place with bed locked and in lowest position, side rails x3 up and bed alarm on. Will continue ot monitor and continue plan of care.
[2019-03-24] MEDS: Docusate 100mg tablet ORAL SCH ×3 (08:22→17:11)
--- NOTE | 2019-03-24 09:06 | NUR ---
NURSE NOTES: Pt significant other came to see pt before work. Pt still very confused, restless and agitated, left another message for Dr Fox. Dr Khan here to see pt, no new orders. Pt not interested in breakfast tray. Will continue to monitor.
[2019-03-24] MEDS ORDERED: LORazepam Inj 2mg/ml 1ml IM ONE (09:30)
--- NOTE | 2019-03-24 10:07 | Nephrology Progress Note ---
Assessment/Plan Status: progressing, deteriorating Assessment/Plan: A/P 1) Electrolytes ABN- will continue aggressive replacement of K+/Mg and phos - Will need K+ phos and Mg 2) Pancreatitis- alcohol induced. Confused 3) S/P arrthymia- correct underlying electrolytes aggressively Subjective Date patient seen: Mar 24, 2019 Time patient seen: 10:05 ROS Limited/Unobtainable: No Allergies: Coded Allergies: No Known Allergies (Unverified , 03/19/19) Subjective Patient awake and agitated this am Objective Last 24 Hour Vital Signs Date Time Temp Pulse Resp B/P (MAP) Pulse Ox O2 Delivery O2 Flow Rate FiO2 03/24/19 09:00 122 31 114/83 (93) 91 03/24/19 08:00 97.7 120 37 111/93 (99) 93 03/24/19 08:00 125 03/24/19 08:00 Venturi Mask 03/24/19 08:00 55 03/24/19 07:00 127 36 106/67 (80) 100 03/24/19 06:43 120 30 95 Venturi Mask 14.0 55 03/24/19 06:43 98 Venturi Mask 14.0 55 03/24/19 06:00 140 33 114/66 (82) 95 03/24/19 05:30 126 51 121/103 (109) 85 03/24/19 05:00 133 36 122/107 (112) 93 03/24/19 04:00 135 03/24/19 04:00 Venturi Mask 03/24/19 04:00 98.0 135 34 127/91 (103) 93 03/24/19 04:00 55 03/24/19 03:00 133 42 101/84 (90) 97 03/24/19 02:00 128 42 126/75 (92) 91 03/24/19 01:00 132 32 140/81 (100) 89 03/24/19 00:00 55 03/24/19 00:00 Venturi Mask 03/24/19 00:00 133 03/24/19 00:00 97.7 146 32 137/79 (98) 89 03/23/19 23:00 133 32 104/80 (88) 91 03/23/19 22:00 112 35 104/80 (88) 95 03/23/19 21:00 113 34 99/77 (84) 95 03/23/19 20:00 98.0 113 30 113/74 (87) 99 03/23/19 20:00 55 03/23/19 20:00 121 03/23/19 20:00 Venturi Mask 03/23/19 19:00 121 34 121/78 (92) 99 03/23/19 18:34 128 26 98 Venturi Mask 14.0 55 03/23/19 18:34 98 Venturi Mask 14.0 55 03/23/19 18:00 128 30 129/85 (100) 99 03/23/19 17:00 98.8 118 27 134/98 (110) 99 03/23/19 16:00 119 30 127/97 (107) 93 03/23/19 16:00 55 03/23/19 16:00 Venturi Mask 03/23/19 15:31 110 03/23/19 15:00 132 28 106/83 (91) 81 03/23/19 14:00 116 28 134/96 (109) 93 03/23/19 13:00 123 30 136/89 (105) 85 03/23/19 12:00 98.0 126 32 136/89 (105) 85 03/23/19 12:00 55 03/23/19 12:00 Venturi Mask 03/23/19 11:31 132 03/23/19 11:00 114 30 138/87 (104) 91 Intake and Output 03/23/19 03/24/19 19:00 07:00 Intake Total 1461.835 ml 137.5 ml Output Total 435 ml 255 ml Balance 1026.835 ml -117.5 ml Intake Oral 480 ml IV Total 981.835 ml 137.5 ml Output Urine Total 435 ml 255 ml # Bowel Movements 8 2 Laboratory Tests 03/23/19 11:23: Arterial Blood pH 7.491H, Arterial Blood Partial Pressure CO2 28.4L, Arterial Blood Partial Pressure O2 58.2L, Arterial Blood HCO3 21.2L, Arterial Blood Oxygen Saturation 90.3L, Arterial Blood Base Excess -1.2, Reagan Test Positive 03/23/19 11:50: Potassium Level 3.7, Phosphorus Level 2.4L, Magnesium Level 2.0, Troponin I 0.119H 03/24/19 04:00: Potassium Level 2.9L, Phosphorus Level 3.3, Magnesium Level 1.5L, White Blood Count 9.3, Red Blood Count 2.79L, Hemoglobin 10.8L, Hematocrit 31.4L, Mean Corpuscular Volume 113H, Mean Corpuscular Hemoglobin 38.7H, Mean Corpuscular Hemoglobin Concent 34.4, Red Cell Distribution Width 14.2, Platelet Count 162#, Mean Platelet Volume 7.8, Neutrophils (%) (Auto) , Lymphocytes (%) (Auto) , Monocytes (%) (Auto) , Eosinophils (%) (Auto) , Basophils (%) (Auto) , Sodium Level 140, Chloride Level 105, Carbon Dioxide Level 24, Anion Gap 11, Blood Urea Nitrogen 3L, Creatinine 0.6, Estimat Glomerular Filtration Rate > 60, Glucose Level 104, Calcium Level 8.2L Height (Feet): 5 Height (Inches): 2.00 Weight (Pounds): 88 General Appearance: confused, agitated EENT: normal ENT inspection Neck: normal alignment, supple Cardiovascular: normal rate, regular rhythm Respiratory/Chest: lungs clear, normal breath sounds Abdomen: non tender, soft Edema: no edema noted Arm (L), no edema noted Arm (R), no edema noted Leg (L), no edema noted Leg (R), no edema noted Pedal (L), no edema noted Pedal (R), no edema noted Generalized Santo Marina MD Mar 24, 2019 10:07
[2019-03-24] MEDS ORDERED: Potassium Phosphate 15 MM in NS 275 ML IV ONE ×2 (10:15→15:00)
--- NOTE | 2019-03-24 10:49 | General Progress Note ---
Assessment/Plan Problem List: (1) Acute alcoholic intoxication ICD Codes: F10.929 - Alcohol use, unspecified with intoxication, unspecified SNOMED: 07538229, 7035909 Qualifiers: Qualified Codes: F10.929 - Alcohol use, unspecified with intoxication, unspecified (2) Acute alcoholic pancreatitis ICD Codes: K85.20 - Alcohol induced acute pancreatitis without necrosis or infection SNOMED: 409243634 (3) Anemia ICD Codes: D64.9 - Anemia, unspecified SNOMED: 501996429 (4) Ventricular fibrillation ICD Codes: I49.01 - Ventricular fibrillation SNOMED: 80278634 (5) Aspiration pneumonia ICD Codes: J69.0 - Pneumonitis due to inhalation of food and vomit SNOMED: 454295612 Qualifiers: Qualified Codes: J69.0 - Pneumonitis due to inhalation of food and vomit (6) Hypokalemia ICD Codes: E87.6 - Hypokalemia SNOMED: 21275247 (7) Pancreatitis ICD Codes: K85.90 - Acute pancreatitis without necrosis or infection, unspecified SNOMED: 40078309 Qualifiers: (8) UTI (urinary tract infection) ICD Codes: N39.0 - Urinary tract infection, site not specified SNOMED: 88003349 Qualifiers: Status: progressing, deteriorating Assessment/Plan: detox pain control o2 pulm tx cbc bmp am Subjective Constitutional: Reports: weakness Allergies: Coded Allergies: No Known Allergies (Unverified , 03/19/19) All Systems: reviewed and negative except above Subjective o2 mask sleepy in icu Objective Last 24 Hour Vital Signs Date Time Temp Pulse Resp B/P (MAP) Pulse Ox O2 Delivery O2 Flow Rate FiO2 03/24/19 10:00 121 36 106/82 (90) 91 03/24/19 09:00 122 31 114/83 (93) 91 03/24/19 08:00 97.7 120 37 111/93 (99) 93 03/24/19 08:00 125 03/24/19 08:00 Venturi Mask 03/24/19 08:00 55 03/24/19 07:00 127 36 106/67 (80) 100 03/24/19 06:43 120 30 95 Venturi Mask 14.0 55 03/24/19 06:43 98 Venturi Mask 14.0 55 03/24/19 06:00 140 33 114/66 (82) 95 03/24/19 05:30 126 51 121/103 (109) 85 03/24/19 05:00 133 36 122/107 (112) 93 03/24/19 04:00 135 03/24/19 04:00 Venturi Mask 03/24/19 04:00 98.0 135 34 127/91 (103) 93 03/24/19 04:00 55 03/24/19 03:00 133 42 101/84 (90) 97 03/24/19 02:00 128 42 126/75 (92) 91 03/24/19 01:00 132 32 140/81 (100) 89 03/24/19 00:00 55 03/24/19 00:00 Venturi Mask 03/24/19 00:00 133 03/24/19 00:00 97.7 146 32 137/79 (98) 89 03/23/19 23:00 133 32 104/80 (88) 91 03/23/19 22:00 112 35 104/80 (88) 95 03/23/19 21:00 113 34 99/77 (84) 95 03/23/19 20:00 98.0 113 30 113/74 (87) 99 03/23/19 20:00 55 03/23/19 20:00 121 03/23/19 20:00 Venturi Mask 03/23/19 19:00 121 34 121/78 (92) 99 03/23/19 18:34 128 26 98 Venturi Mask 14.0 55 03/23/19 18:34 98 Venturi Mask 14.0 55 03/23/19 18:00 128 30 129/85 (100) 99 03/23/19 17:00 98.8 118 27 134/98 (110) 99 03/23/19 16:00 119 30 127/97 (107) 93 03/23/19 16:00 55 03/23/19 16:00 Venturi Mask 03/23/19 15:31 110 03/23/19 15:00 132 28 106/83 (91) 81 03/23/19 14:00 116 28 134/96 (109) 93 03/23/19 13:00 123 30 136/89 (105) 85 03/23/19 12:00 98.0 126 32 136/89 (105) 85 03/23/19 12:00 55 03/23/19 12:00 Venturi Mask 03/23/19 11:31 132 03/23/19 11:00 114 30 138/87 (104) 91 Intake and Output 03/23/19 03/24/19 19:00 07:00 Intake Total 1461.835 ml 137.5 ml Output Total 435 ml 255 ml Balance 1026.835 ml -117.5 ml Intake Oral 480 ml IV Total 981.835 ml 137.5 ml Output Urine Total 435 ml 255 ml # Bowel Movements 8 2 Laboratory Tests 03/23/19 11:23: Arterial Blood pH 7.491H, Arterial Blood Partial Pressure CO2 28.4L, Arterial Blood Partial Pressure O2 58.2L, Arterial Blood HCO3 21.2L, Arterial Blood Oxygen Saturation 90.3L, Arterial Blood Base Excess -1.2, Reagan Test Positive 03/23/19 11:50: Potassium Level 3.7, Phosphorus Level 2.4L, Magnesium Level 2.0, Troponin I 0.119H 03/24/19 04:00: Potassium Level 2.9L, Phosphorus Level 3.3, Magnesium Level 1.5L, White Blood Count 9.3, Red Blood Count 2.79L, Hemoglobin 10.8L, Hematocrit 31.4L, Mean Corpuscular Volume 113H, Mean Corpuscular Hemoglobin 38.7H, Mean Corpuscular Hemoglobin Concent 34.4, Red Cell Distribution Width 14.2, Platelet Count 162#, Mean Platelet Volume 7.8, Neutrophils (%) (Auto) , Lymphocytes (%) (Auto) , Monocytes (%) (Auto) , Eosinophils (%) (Auto) , Basophils (%) (Auto) , Sodium Level 140, Chloride Level 105, Carbon Dioxide Level 24, Anion Gap 11, Blood Urea Nitrogen 3L, Creatinine 0.6, Estimat Glomerular Filtration Rate > 60, Glucose Level 104, Calcium Level 8.2L Height (Feet): 5 Height (Inches): 2.00 Weight (Pounds): 88 General Appearance: lethargic EENT: normal ENT inspection Neck: normal alignment Cardiovascular: normal peripheral pulses, normal rate, regular rhythm Respiratory/Chest: chest wall non-tender, lungs clear, normal breath sounds Abdomen: normal bowel sounds, non tender, soft Extremities: normal inspection Edema: no edema noted Arm (L), no edema noted Arm (R), no edema noted Leg (L), no edema noted Leg (R), no edema noted Pedal (L), no edema noted Pedal (R), no edema noted Generalized Neurologic: motor weakness Skin: normal pigmentation, warm/dry Tristin Atwood DO Mar 24, 2019 10:49
[2019-03-24] MEDS ORDERED: Sodium Chloride for KCL Premix X 4hrs IV SCH (11:00)
--- NOTE | 2019-03-24 11:00 | NUR ---
NURSE NOTES: Pt remains confused, restless and agitated. Dr Fox ordered to give an additional dose of ativan IM. Will continue to monitor.
--- NOTE | 2019-03-24 11:37 | Infectious Diseases Prog Note ---
Assessment/Plan Assessment/Plan IMPRESSION: 1. Pancreatitis, likely alcoholic. 2. UTI with E. coli 3. Alcohol abuse and intoxication. 4. Nicotine dependence. 5. Anemia and thrombocytopenia. 6. Cardiac arrest 7. Ventricular tachycardia 8. Respiratory failure 9. Lungs infiltrates pneumonia or edema 10- Systolic CHF, EF=15% RECOMMENDATIONS: Continue Zosyn Plan is transfer to higher level of care for cardiac catheterization & defibrillator placement Subjective ROS Limited/Unobtainable: Yes Neurologic: Reports: confusion, other - on restraint Allergies: Coded Allergies: No Known Allergies (Unverified , 03/19/19) Objective Vital Signs Last 24 Hour Vital Signs Date Time Temp Pulse Resp B/P (MAP) Pulse Ox O2 Delivery O2 Flow Rate FiO2 03/24/19 10:00 121 36 106/82 (90) 91 03/24/19 09:00 122 31 114/83 (93) 91 03/24/19 08:00 97.7 120 37 111/93 (99) 93 03/24/19 08:00 125 03/24/19 08:00 Venturi Mask 03/24/19 08:00 55 03/24/19 07:00 127 36 106/67 (80) 100 03/24/19 06:43 120 30 95 Venturi Mask 14.0 55 03/24/19 06:43 98 Venturi Mask 14.0 55 03/24/19 06:00 140 33 114/66 (82) 95 03/24/19 05:30 126 51 121/103 (109) 85 03/24/19 05:00 133 36 122/107 (112) 93 03/24/19 04:00 135 03/24/19 04:00 Venturi Mask 03/24/19 04:00 98.0 135 34 127/91 (103) 93 03/24/19 04:00 55 03/24/19 03:00 133 42 101/84 (90) 97 03/24/19 02:00 128 42 126/75 (92) 91 03/24/19 01:00 132 32 140/81 (100) 89 03/24/19 00:00 55 03/24/19 00:00 Venturi Mask 03/24/19 00:00 133 03/24/19 00:00 97.7 146 32 137/79 (98) 89 03/23/19 23:00 133 32 104/80 (88) 91 03/23/19 22:00 112 35 104/80 (88) 95 03/23/19 21:00 113 34 99/77 (84) 95 03/23/19 20:00 98.0 113 30 113/74 (87) 99 03/23/19 20:00 55 03/23/19 20:00 121 03/23/19 20:00 Venturi Mask 03/23/19 19:00 121 34 121/78 (92) 99 03/23/19 18:34 128 26 98 Venturi Mask 14.0 55 03/23/19 18:34 98 Venturi Mask 14.0 55 03/23/19 18:00 128 30 129/85 (100) 99 03/23/19 17:00 98.8 118 27 134/98 (110) 99 03/23/19 16:00 119 30 127/97 (107) 93 03/23/19 16:00 55 03/23/19 16:00 Venturi Mask 03/23/19 15:31 110 03/23/19 15:00 132 28 106/83 (91) 81 03/23/19 14:00 116 28 134/96 (109) 93 03/23/19 13:00 123 30 136/89 (105) 85 03/23/19 12:00 98.0 126 32 136/89 (105) 85 03/23/19 12:00 55 03/23/19 12:00 Venturi Mask Height (Feet): 5 Height (Inches): 2.00 Weight (Pounds): 88 HEENT: mucous membranes moist Respiratory/Chest: lungs clear, other - oxygen by mask Cardiovascular: tachycardia Abdomen: soft, non tender Extremities: no edema Neurologic/Psychiatric: disoriented Laboratory Tests Test 03/23/19 11:50 03/24/19 04:00 Potassium Level 3.7 MMOL/L (3.5-5.1) 2.9 MMOL/L (3.5-5.1) L Phosphorus Level 2.4 MG/DL (2.5-4.9) L 3.3 MG/DL (2.5-4.9) Magnesium Level 2.0 MG/DL (1.8-2.4) 1.5 MG/DL (1.8-2.4) L Troponin I 0.119 ng/mL (0.000-0.056) White Blood Count 9.3 K/UL (4.8-10.8) Red Blood Count 2.79 M/UL (4.20-5.40) L Hemoglobin 10.8 G/DL (12.0-16.0) L Hematocrit 31.4 % (37.0-47.0) L Mean Corpuscular Volume 113 FL (80-99) H Mean Corpuscular Hemoglobin 38.7 PG (27.0-31.0) H Mean Corpuscular Hemoglobin Concent 34.4 G/DL (32.0-36.0) Red Cell Distribution Width 14.2 % (11.6-14.8) Platelet Count 162 K/UL (150-450) # Mean Platelet Volume 7.8 FL (6.5-10.1) Neutrophils (%) (Auto) % (45.0-75.0) Lymphocytes (%) (Auto) % (20.0-45.0) Monocytes (%) (Auto) % (1.0-10.0) Eosinophils (%) (Auto) % (0.0-3.0) Basophils (%) (Auto) % (0.0-2.0) Sodium Level 140 MMOL/L (136-145) Chloride Level 105 MMOL/L (98-107) Carbon Dioxide Level 24 MMOL/L (21-32) Anion Gap 11 mmol/L (5-15) Blood Urea Nitrogen 3 mg/dL (7-18) L Creatinine 0.6 MG/DL (0.55-1.30) Estimat Glomerular Filtration Rate > 60 mL/min (>60) Glucose Level 104 MG/DL (74-106) Calcium Level 8.2 MG/DL (8.5-10.1) L Current Medications Medications (Trade) Dose Ordered Sig/Ismael Route PRN Reason Start Time Stop Time Status Last Admin Dose Admin Amiodarone HCl (Cordarone) 400 mg EVERY 8 HOURS ORAL 03/22/19 14:00 04/21/19 13:59 03/23/19 21:06 Docusate Sodium (Colace) 100 mg TID ORAL 03/21/19 09:00 04/20/19 08:59 03/22/19 18:16 Famotidine (Pepcid I.v.) 20 mg Q12HR IVP 03/21/19 21:00 04/20/19 20:59 03/24/19 09:03 Ipratropium [place] (Atrovent) 500 mcg Q4H PRN HHN Shortness of Breath 03/22/19 18:45 03/27/19 18:44 03/23/19 01:59 Lorazepam (Ativan 2mg/ml 1ml) 2 mg Q4H PRN IM For Anxiety 03/21/19 07:45 03/28/19 07:44 03/24/19 07:35 Ondansetron HCl (Zofran) 4 mg Q6H PRN IVP Nausea & Vomiting 03/21/19 07:05 04/20/19 07:04 Phenylephrine HCl 50 mg/Dextrose 250 ml @ 0 mls/hr Q24H IV 03/21/19 12:15 04/20/19 12:14 Piperacillin Sod/ Tazobactam Sod 3.375 gm/Sodium Chloride 110 ml @ 27.5 mls/hr Q8HR IVPB 03/21/19 14:00 03/28/19 13:59 03/24/19 06:01 Potassium Phosphate 15 mm/ Sodium Chloride 280 ml @ 46.667 mls/ hr ONCE ONCE IV 03/24/19 15:00 03/24/19 20:59 Potassium Chloride 100 ml @ 100 mls/hr Q1HR IVPB 03/24/19 11:00 03/24/19 14:59 Sodium Chloride 400 ml @ 100 mls/hr Q4H IV 03/24/19 11:00 03/24/19 14:59 Thiamine HCl 100 mg/Dextrose 56 ml @ 112 mls/hr Q24H IVPB 03/21/19 12:00 04/20/19 11:59 03/23/19 12:22 Caleb Dallas MD Mar 24, 2019 11:37
[2019-03-24] MEDS: Phenylephrine 50 MG in D5W 245 ML IV SCH (12:15)
[2019-03-24] MEDS: Thiamine HCl 100 MG in D5W 55 ML IVPB SCH (12:37)
--- NOTE | 2019-03-24 13:01 | NUR ---
NURSE NOTES: Pt taking off venturi mask, desats to 80s%. Needs constant redirection and given another dose of ativan IM prn. Will continue to monitor.
--- NOTE | 2019-03-24 15:02 | NUR ---
NURSE NOTES: Family at bedside here visiting. Family is concerned because pt has been evicted recently and is currently homeless. Family wants to talk to the telephonic case manager. Informed them they will be here tomorrow. Will continue to monitor.
[2019-03-24] MEDS ORDERED: Tubing IV Secondary IV ONE (16:41)
--- NOTE | 2019-03-24 17:00 | NUR ---
NURSE NOTES: Dr Montesinos here to assess pt. said she must remain in ICU another night for close monitoring of low bp 100s/80s and RR 30-50. Will continue to monitor.
--- NOTE | 2019-03-24 17:56 | NUR ---
NURSE NOTES: Pt agitated and restless. Pt given another dose of ativan IM. Will continue to monitor.
--- NOTE | 2019-03-24 18:56 | General Progress Note ---
Assessment/Plan Status: progressing, deteriorating Assessment/Plan: Assessment/Plan Problem List: (1) Pancreatitis ICD Codes: K85.90 - Acute pancreatitis without necrosis or infection, unspecified SNOMED: 43387714 (2) Hypokalemia ICD Codes: E87.6 - Hypokalemia SNOMED: 14766629 (3) Respiratory failure requiring intubation ICD Codes: J96.90 - Respiratory failure, unspecified, unspecified whether with hypoxia or hypercapnia SNOMED: 788473718 (4) Ventricular fibrillation ICD Codes: I49.01 - Ventricular fibrillation SNOMED: 19047231 (5) Cardiac arrest ICD Codes: I46.9 - Cardiac arrest, cause unspecified SNOMED: 607324489 (6) Anemia ICD Codes: D64.9 - Anemia, unspecified SNOMED: 444198322 (7) Delirium Assessment/Plan: follow mental status sitter fu cardiology recs fu labs supportive care Subjective Allergies: Coded Allergies: No Known Allergies (Unverified , 03/19/19) Subjective more confused today no abdominal pain Objective Last 24 Hour Vital Signs Date Time Temp Pulse Resp B/P (MAP) Pulse Ox O2 Delivery O2 Flow Rate FiO2 03/24/19 18:00 105 26 105/85 (92) 99 03/24/19 17:00 117 40 104/22 (49) 82 03/24/19 16:00 Venturi Mask 03/24/19 16:00 55 03/24/19 16:00 97.9 112 37 95/79 (84) 99 03/24/19 16:00 113 03/24/19 15:00 115 48 106/78 (87) 96 03/24/19 14:00 110 38 104/83 (90) 100 03/24/19 13:00 112 38 91/55 (67) 100 03/24/19 12:15 110 104/81 03/24/19 12:00 98.0 121 27 121/103 (109) 97 03/24/19 12:00 55 03/24/19 12:00 121 03/24/19 12:00 Venturi Mask 03/24/19 11:00 110 39 104/81 (89) 98 03/24/19 10:00 121 36 106/82 (90) 91 03/24/19 09:00 122 31 114/83 (93) 91 03/24/19 08:00 97.7 120 37 111/93 (99) 93 03/24/19 08:00 125 03/24/19 08:00 Venturi Mask 03/24/19 08:00 55 03/24/19 07:00 127 36 106/67 (80) 100 03/24/19 06:43 120 30 95 Venturi Mask 14.0 55 03/24/19 06:43 98 Venturi Mask 14.0 55 03/24/19 06:00 140 33 114/66 (82) 95 03/24/19 05:30 126 51 121/103 (109) 85 03/24/19 05:00 133 36 122/107 (112) 93 03/24/19 04:00 135 03/24/19 04:00 Venturi Mask 03/24/19 04:00 98.0 135 34 127/91 (103) 93 03/24/19 04:00 55 03/24/19 03:00 133 42 101/84 (90) 97 03/24/19 02:00 128 42 126/75 (92) 91 03/24/19 01:00 132 32 140/81 (100) 89 03/24/19 00:00 55 03/24/19 00:00 Venturi Mask 03/24/19 00:00 133 03/24/19 00:00 97.7 146 32 137/79 (98) 89 03/23/19 23:00 133 32 104/80 (88) 91 03/23/19 22:00 112 35 104/80 (88) 95 03/23/19 21:00 113 34 99/77 (84) 95 03/23/19 20:00 98.0 113 30 113/74 (87) 99 03/23/19 20:00 55 03/23/19 20:00 121 03/23/19 20:00 Venturi Mask 03/23/19 19:00 121 34 121/78 (92) 99 Intake and Output 03/23/19 03/24/19 18:59 06:59 Intake Total 1442.668 ml 156.667 ml Output Total 430 ml 245 ml Balance 1012.668 ml -88.333 ml Intake Oral 480 ml IV Total 962.668 ml 156.667 ml Output Urine Total 430 ml 245 ml # Bowel Movements 8 2 Laboratory Tests 9/8/19 04:00: White Blood Count 9.3, Red Blood Count 2.79L, Hemoglobin 10.8L, Hematocrit 31.4L , Mean Corpuscular Volume 113H, Mean Corpuscular Hemoglobin 38.7H, Mean Corpuscular Hemoglobin Concent 34.4, Red Cell Distribution Width 14.2, Platelet Count 162#, Mean Platelet Volume 7.8, Neutrophils (%) (Auto) , Lymphocytes (%) ( Auto) , Monocytes (%) (Auto) , Eosinophils (%) (Auto) , Basophils (%) (Auto) , Sodium Level 140, Potassium Level 2.9L, Chloride Level 105, Carbon Dioxide Level 24, Anion Gap 11, Blood Urea Nitrogen 3L, Creatinine 0.6, Estimat Glomerular Filtration Rate > 60, Glucose Level 104, Calcium Level 8.2L, Phosphorus Level 3.3, Magnesium Level 1.5L Height (Feet): 5 Height (Inches): 2.00 Weight (Pounds): 88 Objective WDWN NCAT supple CTA RR abd soft no edema Abby Khan MD Mar 24, 2019 18:56
--- NOTE | 2019-03-24 19:08 | Pulmonolgy Critical Care Note ---
Critical Care - Asmt/Plan Assessment/Plan: Pulmonary Critical Care Progress Note HPI Patient is a 38-year-old woman initially admitted to the hospital for Hypokalemia and Alcohol abuse/withdrawal, Pancreatitis. S/p VT VF arrest earlier this morning, succesfully shocked and given CPR for subsequest PEA, currently intubated and sedated on the Ventilator, on Amiodarone gtt. Patient is awake and interactive post code, although sedated. Received IV Magnesium during the CPR. Prior to the code was walking around. Noted to have evidence of pneumonia with bilateral infiltrates, L>R, post intubation, possibly from aspiration. On Antibiotics/Amiodarone, off sedation, s/p extubation Increased O2 requirements - on PRN BiPAP, IVF DC, currently on FM O2 Allergies: No Known Allergies Past Medical History: Alcohol abuse, fatty liver, previous seizure, previous drainage of breast abscess. All Other Systems: limited - secondary to condition Physical Exam Vital Signs Noted, not currently on pressors General Appearance: Alert interactive, jaundice Head: normocephalic, atraumatic Eyes: bilateral eye PERRL, bilateral eye EOMI ENT: moist mm, ETT Neck: no masses, no LN Respiratory: CTAB Cardiovascular: regular rate, rhythm, normal HS1, HS2, no murmur Gastrointestinal: normal bowel sounds, non tender, no mass, no organomegaly, no bruit, non-distended Musculoskeletal: no rashes, no edema CLINICAL LAW PROFESSOR: Interactive, no seizures, no focal signs Impression: S/p Ventricular fibrillation arrest and subsequest PEA, currently stable on Amiodarone Aspiration pneumonia Respiratory failure s/p extubation Alcohol abuse, withdrawal Pancreatitis Fatty Liver Previous Seizures Previous breast abscess requirng drainage Plan Wean FIO2 - sats 90-96% NGT/KUB IVF PRN Ativan Monitor labs PPX IV Antibiotics Thiamine Chest X-Ray: 1. Interval removal of endotracheal tube. 2. New small bilateral pleural effusions. 3. Interval new bilateral airspace opacities and worsening interstitial thickening mid to lower lungs. Labs/ABG noted Critical Care - Objective Last 24 Hour Vital Signs Date Time Temp Pulse Resp B/P (MAP) Pulse Ox O2 Delivery O2 Flow Rate FiO2 03/24/19 19:00 114 40 128/88 (101) 99 03/24/19 18:00 105 26 105/85 (92) 99 03/24/19 17:00 117 40 104/22 (49) 82 03/24/19 16:00 Venturi Mask 03/24/19 16:00 55 03/24/19 16:00 97.9 112 37 95/79 (84) 99 03/24/19 16:00 113 03/24/19 15:00 115 48 106/78 (87) 96 03/24/19 14:00 110 38 104/83 (90) 100 03/24/19 13:00 112 38 91/55 (67) 100 03/24/19 12:15 110 104/81 03/24/19 12:00 98.0 121 27 121/103 (109) 97 03/24/19 12:00 55 03/24/19 12:00 121 03/24/19 12:00 Venturi Mask 03/24/19 11:00 110 39 104/81 (89) 98 03/24/19 10:00 121 36 106/82 (90) 91 03/24/19 09:00 122 31 114/83 (93) 91 03/24/19 08:00 97.7 120 37 111/93 (99) 93 03/24/19 08:00 125 03/24/19 08:00 Venturi Mask 03/24/19 08:00 55 03/24/19 07:00 127 36 106/67 (80) 100 03/24/19 06:43 120 30 95 Venturi Mask 14.0 55 03/24/19 06:43 98 Venturi Mask 14.0 55 03/24/19 06:00 140 33 114/66 (82) 95 03/24/19 05:30 126 51 121/103 (109) 85 03/24/19 05:00 133 36 122/107 (112) 93 03/24/19 04:00 135 03/24/19 04:00 Venturi Mask 03/24/19 04:00 98.0 135 34 127/91 (103) 93 03/24/19 04:00 55 03/24/19 03:00 133 42 101/84 (90) 97 03/24/19 02:00 128 42 126/75 (92) 91 03/24/19 01:00 132 32 140/81 (100) 89 03/24/19 00:00 55 03/24/19 00:00 Venturi Mask 03/24/19 00:00 133 03/24/19 00:00 97.7 146 32 137/79 (98) 89 03/23/19 23:00 133 32 104/80 (88) 91 03/23/19 22:00 112 35 104/80 (88) 95 03/23/19 21:00 113 34 99/77 (84) 95 03/23/19 20:00 98.0 113 30 113/74 (87) 99 03/23/19 20:00 55 03/23/19 20:00 121 03/23/19 20:00 Venturi Mask Critical Care - Subjective ROS Limited/Unobtainable: No FI02: 55 Vent Support Breath Rate: 15 Vent Support Mode: CPAP Vent Tidal Volume: 500 Sputum Amount: None PEEP: 5.0 PIP: 14 I&O: Intake and Output 03/23/19 03/24/19 18:59 06:59 Intake Total 1442.668 ml 156.667 ml Output Total 430 ml 245 ml Balance 1012.668 ml -88.333 ml Intake Oral 480 ml IV Total 962.668 ml 156.667 ml Output Urine Total 430 ml 245 ml # Bowel Movements 8 2 ET-Tube: 7.0 ET Position: 23 Leandro Montesinos MD Mar 24, 2019 19:08
--- NOTE | 2019-03-24 19:18 | NUR ---
HAND-OFF: Report given to Anibal YI.
--- NOTE | 2019-03-24 19:25 | NUR ---
NURSE NOTES: Received patient and report from KD Garcia. Patient awake, oriented x1-2. On venturi mask 55%, spO2 99%. Sinus tach on cardiac cath lab technologist. No acute distress at this time. Left AC g20 running Kphos. Fields catheter connected to urimeter draining dark tonny urine. Head of bed elevated. Bed alarm on. Bilateral soft wrists restrains noted, no complication. Call light within visible reach. Reminded patient to use call light for assistance and not to get up from the bed unassisted. Verbalized understanding. Will continue to monitor.
--- NOTE | 2019-03-24 19:30 | Cardiac Electrophysiology PN ---
Assessment/Plan Assessment/Plan 1. 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 The EKG does not show any active ischemic changes. However, her initial EKG on 03/19/[address]-T wave abnormalities. Troponin leak due to VF arrest and shocks. Low level and flat and going down. The V Fib arrest could be precipitated by profound hypokalemia and potassium of only 2.2. Awaiting transfer for Cardiac cath and possible ICD implantation. On Amiodarone 400 tid 2. Profound hypokalemia. Potassium and magnesium were replaced. 3. Pancytopenia. Etiology is not clear. Hep panel and HIV ordered. Abdominal ultrasound for cirrhosis has been ordered. 4. Aspiration pneumonia, on antibiotic. 5. Alcohol abuse and withdrawal. 6. Acute pancreatitis. Further evaluation by GI. PAYAL RN Subjective Subjective Confused in restraints. Transfer to [facility] pending. On po Amiodarone with no further VT. Objective Last 24 Hour Vital Signs Date Time Temp Pulse Resp B/P (MAP) Pulse Ox O2 Delivery O2 Flow Rate FiO2 03/24/19 19:00 114 40 128/88 (101) 99 03/24/19 18:00 105 26 105/85 (92) 99 03/24/19 17:00 117 40 104/22 (49) 82 03/24/19 16:00 Venturi Mask 03/24/19 16:00 55 03/24/19 16:00 97.9 112 37 95/79 (84) 99 03/24/19 16:00 113 03/24/19 15:00 115 48 106/78 (87) 96 03/24/19 14:00 110 38 104/83 (90) 100 03/24/19 13:00 112 38 91/55 (67) 100 03/24/19 12:15 110 104/81 03/24/19 12:00 98.0 121 27 121/103 (109) 97 03/24/19 12:00 55 03/24/19 12:00 121 03/24/19 12:00 Venturi Mask 03/24/19 11:00 110 39 104/81 (89) 98 03/24/19 10:00 121 36 106/82 (90) 91 03/24/19 09:00 122 31 114/83 (93) 91 03/24/19 08:00 97.7 120 37 111/93 (99) 93 03/24/19 08:00 125 03/24/19 08:00 Venturi Mask 03/24/19 08:00 55 03/24/19 07:00 127 36 106/67 (80) 100 03/24/19 06:43 120 30 95 Venturi Mask 14.0 55 03/24/19 06:43 98 Venturi Mask 14.0 55 03/24/19 06:00 140 33 114/66 (82) 95 03/24/19 05:30 126 51 121/103 (109) 85 03/24/19 05:00 133 36 122/107 (112) 93 03/24/19 04:00 135 03/24/19 04:00 Venturi Mask 03/24/19 04:00 98.0 135 34 127/91 (103) 93 03/24/19 04:00 55 03/24/19 03:00 133 42 101/84 (90) 97 03/24/19 02:00 128 42 126/75 (92) 91 03/24/19 01:00 132 32 140/81 (100) 89 03/24/19 00:00 55 03/24/19 00:00 Venturi Mask 03/24/19 00:00 133 03/24/19 00:00 97.7 146 32 137/79 (98) 89 03/23/19 23:00 133 32 104/80 (88) 91 03/23/19 22:00 112 35 104/80 (88) 95 03/23/19 21:00 113 34 99/77 (84) 95 03/23/19 20:00 98.0 113 30 113/74 (87) 99 03/23/19 20:00 55 03/23/19 20:00 121 03/23/19 20:00 Venturi Mask Intake and Output 03/23/19 03/24/19 18:59 06:59 Intake Total 1442.668 ml 156.667 ml Output Total 430 ml 245 ml Balance 1012.668 ml -88.333 ml Intake Oral 480 ml IV Total 962.668 ml 156.667 ml Output Urine Total 430 ml 245 ml # Bowel Movements 8 2 Laboratory Tests Test 03/24/19 04:00 White Blood Count 9.3 K/UL (4.8-10.8) Red Blood Count 2.79 M/UL (4.20-5.40) L Hemoglobin 10.8 G/DL (12.0-16.0) L Hematocrit 31.4 % (37.0-47.0) L Mean Corpuscular Volume 113 FL (80-99) H Mean Corpuscular Hemoglobin 38.7 PG (27.0-31.0) H Mean Corpuscular Hemoglobin Concent 34.4 G/DL (32.0-36.0) Red Cell Distribution Width 14.2 % (11.6-14.8) Platelet Count 162 K/UL (150-450) # Mean Platelet Volume 7.8 FL (6.5-10.1) Neutrophils (%) (Auto) % (45.0-75.0) Lymphocytes (%) (Auto) % (20.0-45.0) Monocytes (%) (Auto) % (1.0-10.0) Eosinophils (%) (Auto) % (0.0-3.0) Basophils (%) (Auto) % (0.0-2.0) Sodium Level 140 MMOL/L (136-145) Potassium Level 2.9 MMOL/L (3.5-5.1) L Chloride Level 105 MMOL/L (98-107) Carbon Dioxide Level 24 MMOL/L (21-32) Anion Gap 11 mmol/L (5-15) Blood Urea Nitrogen 3 mg/dL (7-18) L Creatinine 0.6 MG/DL (0.55-1.30) Estimat Glomerular Filtration Rate > 60 mL/min (>60) Glucose Level 104 MG/DL (74-106) Calcium Level 8.2 MG/DL (8.5-10.1) L Phosphorus Level 3.3 MG/DL (2.5-4.9) Magnesium Level 1.5 MG/DL (1.8-2.4) L Objective HEAD AND NECK: No JVD. LUNGS: Clear. CARDIOVASCULAR: Regular S1 and S2 with no gallop or murmur. ABDOMEN: Soft. EXTREMITIES: No pitting edema. Efrem Harrison MD Mar 24, 2019 19:30
--- NOTE | 2019-03-24 22:00 | NUR ---
NURSE NOTES: Pt's resting in bed, in no acute distress. VS stable. Will continue to monitor.
[2019-03-25] VITALS (25 sets, daily range): BP systolic 85–131; BP diastolic 60–104
--- NOTE | 2019-03-25 | NUR ---
NURSE NOTES: Pt's resting in bed, in no acute distress. VS stable. Will continue to monitor.
--- NOTE | 2019-03-25 02:00 | NUR ---
NURSE NOTES: Pt's resting in bed, in no acute distress. VS stable. Will continue to monitor.
--- NOTE | 2019-03-25 04:00 | NUR ---
NURSE NOTES: Pt's resting in bed, asleep, in no acute distress. VS stable. Will continue to monitor.
[2019-03-25 04:49] LABS: HEMATOCRIT 29.4 % (37.0-47.0); HEMOGLOBIN 10.1 G/DL (12.0-16.0); MEAN CORPUSCULAR VOLUME 112 FL (80-99); PLATELET COUNT 247 K/UL (150-450); RED BLOOD COUNT 2.62 M/UL (4.20-5.40); RED CELL DISTRIBUTION WIDTH 14.9 % (11.6-14.8); WHITE BLOOD COUNT 8.9 K/UL (4.8-10.8)
[2019-03-25] MEDS: LORazepam Inj 2mg/ml 1ml IM PRN (04:51)
[2019-03-25 05:28] LABS: ANION GAP 16 mmol/L (5-15); BLOOD UREA NITROGEN 3 mg/dL (7-18); CARBON DIOXIDE 20 MMOL/L (21-32); CHLORIDE 105 MMOL/L (98-107); CREATININE 0.5 MG/DL (0.55-1.30); PHOSPHORUS 4.6 MG/DL (2.5-4.9); POTASSIUM 3.2 MMOL/L (3.5-5.1); SODIUM 140 MMOL/L (136-145)
[2019-03-25] MEDS: Amiodarone 200mg tab ORAL SCH (05:49)
[2019-03-25] MEDS: Piperacillin/Tazobactam 3.375 GM in NS 110 ML IVPB SCH ×3 (05:49→21:47)
--- NOTE | 2019-03-25 06:00 | NUR ---
NURSE NOTES: Noted pt became agitated, trying to get out of bed. Ativan given at PRN. VS stable. Will continue to monitor.
--- NOTE | 2019-03-25 07:10 | NUR ---
HAND-OFF: Report given to TIFFANIE Massey.
--- NOTE | 2019-03-25 07:11 | NUR ---
NURSE NOTES: Received patient from KD Barnett. Patient eyes closed at this time. Patient unable to communicate at this time due to confused state. When she speaks, the words are garbled.Patient has slid down in the bed. Patient repositioned and pulled up at this time. Patient eyes closed at this time and reported to be confused. Patient showing sinus tachycardia on the proof sorter at this time with rate of 109. Patient tachypneic with RR of 34 at this time. Stridor noted upon auscultation of lung sounds. Respiratory therapist called for PRN Atrovent treatment. Patient on venturi mask with FiO2 55% with oxygen saturation 98-99% at this time. Patient on soft diet but reported to be refusing food. Will ask MD for IV fluid to supplement nutrition. Patient has right nares nasogastric tube for medication administration as patient is unable to take PO medications at this time. Patient has a bhardwaj for urine retention that is patent and draining light tonny colored urine. Patient skin intact. Erythema noted on bilateral cheeks. Will apply moisture barrier cream for protection. Patient has right antecubital 20G PIV and right upper arm 20G PIV. Both PIVs patent, asymptomatic, and saline locked at this time. Patient bed in low position with bed alarm on and call light in reach at this time. Patient on bilateral soft wrist restraint for safety and impulsivity. Patient reported to attempt to get up and has almost fallen out of bed when not on restraint. peripheral pulses and skin intact. magnesium serum level 1.7 this morning, serum potassium 3.2, and serum glucose 72. Will follow up with Dr Beckman for replacement orders.
[2019-03-25] MEDS: Ipratropium 0.02% Inh Soln 2.5ml UD HHN PRN (07:23)
--- NOTE | 2019-03-25 08:07 | NUR ---
NURSE NOTES: Noted that Dr Beckman has ordered 60mEq KCl IV and 4g Magnesium IV. Will administer medication as ordered.
--- NOTE | 2019-03-25 08:51 | NUR ---
TRANSFER UPDATE CALLED [facility] T;[phone] AND SPOKE WITH ABIMBOLA WHO STATED CASE IS STILL BEING REVIEWED AND THEY DON NOT HAVE ANY AVAILABLE BEDS [facility] [place] #[id number]
[2019-03-25] MEDS: Docusate 100mg tablet ORAL SCH (09:09)
[2019-03-25 09:15] LABS: ALANINE AMINOTRANSFERASE 35 U/L (12-78); ALBUMIN 2.1 G/DL (3.4-5.0); ALKALINE PHOSPHATASE 115 U/L (46-116); ASPARTATE AMINO TRANSFERASE 59 U/L (15-37); BILIRUBIN,DIRECT 0.8 MG/DL (0.0-0.3); BILIRUBIN,TOTAL 1.5 MG/DL (0.2-1.0)
--- NOTE | 2019-03-25 09:29 | Nephrology Progress Note ---
Assessment/Plan Problem List: (1) Pancreatitis (2) Hypokalemia Assessment: improved (3) Cardiac arrest Assessment: Global left ventricular akinesis, except basal segments. Left ventricular ejection fraction estimated to be 15 %. (4) Anemia (5) Cardiomyopathy (6) Respiratory failure requiring intubation Assessment had malignant arrythmia early am- now in ICU Severe HypoKalemia on admit Pancreatitis , high Lipase Acute alcoholic intoxication Anemia Plan stat Labs- discussed with KD Reeves Pulm support / Cardiac support K and Mag V as needed Monitor electrolytes anemia valenzuela Thiamin Gastric support per orders Subjective ROS Limited/Unobtainable: No Constitutional: Reports: malaise, weakness Objective Objective Last 24 Hour Vital Signs Date Time Temp Pulse Resp B/P (MAP) Pulse Ox O2 Delivery O2 Flow Rate FiO2 03/25/19 07:25 96 Venturi Mask 14.0 55 03/25/19 07:24 115 30 96 Venturi Mask 14.0 55 03/25/19 07:23 119 36 96 Venturi Mask 14.0 55 121 40 96 03/25/19 07:00 114 42 111/90 (97) 98 03/25/19 06:00 116 42 110/82 (91) 97 03/25/19 05:00 127 42 104/86 (92) 97 03/25/19 04:00 116 40 117/97 (104) 97 03/25/19 04:00 Venturi Mask 03/25/19 04:00 55 03/25/19 04:00 117 03/25/19 03:00 122 42 118/104 (109) 97 03/25/19 02:00 121 44 131/73 (92) 99 03/25/19 01:00 121 50 114/82 (93) 96 03/25/19 00:30 120 41 101/78 (86) 95 03/25/19 00:00 99.0 122 41 109/85 (93) 95 03/25/19 00:00 Venturi Mask 03/25/19 00:00 55 03/25/19 00:00 118 03/24/19 23:00 127 34 103/77 (86) 89 03/24/19 22:00 127 31 109/86 (94) 91 03/24/19 21:00 116 24 104/82 (89) 97 03/24/19 20:00 120 03/24/19 20:00 55 03/24/19 20:00 98.4 122 33 122/78 (93) 96 03/24/19 20:00 Venturi Mask 03/24/19 19:38 124 28 95 Venturi Mask 14.0 55 03/24/19 19:38 95 Venturi Mask 14.0 55 03/24/19 19:00 114 40 128/88 (101) 99 03/24/19 18:00 105 26 105/85 (92) 99 03/24/19 17:00 117 40 104/22 (49) 82 03/24/19 16:00 Venturi Mask 03/24/19 16:00 55 03/24/19 16:00 97.9 112 37 95/79 (84) 99 03/24/19 16:00 113 03/24/19 15:00 115 48 106/78 (87) 96 03/24/19 14:00 110 38 104/83 (90) 100 03/24/19 13:00 112 38 91/55 (67) 100 03/24/19 12:15 110 104/81 03/24/19 12:00 98.0 121 27 121/103 (109) 97 03/24/19 12:00 55 03/24/19 12:00 121 03/24/19 12:00 Venturi Mask 03/24/19 11:00 110 39 104/81 (89) 98 03/24/19 10:00 121 36 106/82 (90) 91 Intake and Output 03/24/19 03/25/19 19:00 07:00 Intake Total 558.667 ml 140.0 ml Output Total 270 ml 360 ml Balance 288.667 ml -220.0 ml IV Total 558.667 ml 140.0 ml Output Urine Total 270 ml 360 ml # Bowel Movements 3 1 Laboratory Tests 03/25/19 04:00: White Blood Count 8.9, Red Blood Count 2.62L, Hemoglobin 10.1L, Hematocrit 29.4L , Mean Corpuscular Volume 112H, Mean Corpuscular Hemoglobin 38.7H, Mean Corpuscular Hemoglobin Concent 34.5, Red Cell Distribution Width 14.9H, Platelet Count 247#, Mean Platelet Volume 7.2, Neutrophils (%) (Auto) , Lymphocytes (%) (Auto) , Monocytes (%) (Auto) , Eosinophils (%) (Auto) , Basophils (%) (Auto) , Sodium Level 140, Potassium Level 3.2L, Chloride Level 105, Carbon Dioxide Level 20L, Anion Gap 16H, Blood Urea Nitrogen 3L, Creatinine 0.5L, Estimat Glomerular Filtration Rate > 60, Glucose Level 72L, Calcium Level 8.0L, Phosphorus Level 4.6, Magnesium Level 1.7L, Total Bilirubin 1.5H, Direct Bilirubin 0.8H, Aspartate Amino Transf (AST/SGOT) 59H, Alanine Aminotransferase (ALT/SGPT) 35, Alkaline Phosphatase 115, Total Protein 5.2L, Albumin 2.1L Height (Feet): 5 Height (Inches): 2.00 Weight (Pounds): 88 General Appearance: mild distress Cardiovascular: tachycardia Respiratory/Chest: decreased breath sounds Abdomen: distended Mehdi Beckman MD Mar 25, 2019 09:29
--- NOTE | 2019-03-25 12:00 | NUR ---
NURSE NOTES: Patient continues to be lethargic and is unable to communicate due to lethargy at this time. Patient remains short of breath and remains on venturi mask with 50% FiO2 with saturation of 99% and RR 29-35. Patient repositioned and pulled up at this time. Patient showing sinus rhythm on the group director at this time with rate of 96. Patient tachypneic with RR of 25 at this time. MD noted the lung sounds and reported that it is not stridor. Patient refused breakfast and lunch. Serum glucose [address] Beckman and received order for tube feeding of [facility] with a goal of 50mL/hr. Will input order and initiate feeding. Right nares nasogastric tube remains patent, asymptomatic, and verified with aspiration and auscultation. Fields remains intact and patent and draining at this time. Patient skin remains intact. Erythema noted on bilateral cheeks. Moisture barrier cream applied for protection. Right antecubital 20G PIV infiltrated and removed at this time. Right upper arm 20G PIV remains patent, asymptomatic. Patient bed in low position with bed alarm on and call light in reach at this time. Patient remains on bilateral soft wrist restraint for safety and impulsivity. Patient receiving 60mEq KCl IV replacement and 4g Magnesium IV replacement. Will continue to monitor HR and respiratory effort.
--- NOTE | 2019-03-25 12:09 | Cardiac Electrophysiology PN ---
Assessment/Plan Assessment/Plan 1. 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 The EKG does not show any active ischemic changes. However, her initial EKG on 03/19/[address]-T wave abnormalities. Troponin leak due to VF arrest and shocks. Low level and flat and going down. The V Fib arrest could be precipitated by profound hypokalemia and potassium of only 2.2. Awaiting transfer for Cardiac cath and possible ICD implantation. On Amiodarone 400 tid 2. Profound hypokalemia. Potassium and magnesium were replaced. 3. Pancytopenia. Etiology is not clear. Hep panel and HIV ordered. Abdominal ultrasound for cirrhosis has been ordered. 4. Aspiration pneumonia, on antibiotic. 5. Alcohol abuse and withdrawal. 6. Acute pancreatitis. Further evaluation by GI. PAYAL YI Awaiting transfer to [facility] Subjective Subjective Confused in restraints in ICU. Transfer to [facility] still pending. On po Amiodarone with no further VT. Objective Last 24 Hour Vital Signs Date Time Temp Pulse Resp B/P (MAP) Pulse Ox O2 Delivery O2 Flow Rate FiO2 03/25/19 07:25 96 Venturi Mask 14.0 55 03/25/19 07:24 115 30 96 Venturi Mask 14.0 55 03/25/19 07:23 119 36 96 Venturi Mask 14.0 55 121 40 96 03/25/19 07:14 112 03/25/19 07:00 114 42 111/90 (97) 98 03/25/19 06:00 116 42 110/82 (91) 97 03/25/19 05:00 127 42 104/86 (92) 97 03/25/19 04:00 116 40 117/97 (104) 97 03/25/19 04:00 Venturi Mask 03/25/19 04:00 55 03/25/19 04:00 117 03/25/19 03:00 122 42 118/104 (109) 97 03/25/19 02:00 121 44 131/73 (92) 99 03/25/19 01:00 121 50 114/82 (93) 96 03/25/19 00:30 120 41 101/78 (86) 95 03/25/19 00:00 99.0 122 41 109/85 (93) 95 03/25/19 00:00 Venturi Mask 03/25/19 00:00 55 03/25/19 00:00 118 03/24/19 23:00 127 34 103/77 (86) 89 03/24/19 22:00 127 31 109/86 (94) 91 03/24/19 21:00 116 24 104/82 (89) 97 03/24/19 20:00 120 03/24/19 20:00 55 03/24/19 20:00 98.4 122 33 122/78 (93) 96 03/24/19 20:00 Venturi Mask 03/24/19 19:38 124 28 95 Venturi Mask 14.0 55 03/24/19 19:38 95 Venturi Mask 14.0 55 03/24/19 19:00 114 40 128/88 (101) 99 03/24/19 18:00 105 26 105/85 (92) 99 03/24/19 17:00 117 40 104/22 (49) 82 03/24/19 16:00 Venturi Mask 03/24/19 16:00 55 03/24/19 16:00 97.9 112 37 95/79 (84) 99 03/24/19 16:00 113 03/24/19 15:00 115 48 106/78 (87) 96 03/24/19 14:00 110 38 104/83 (90) 100 03/24/19 13:00 112 38 91/55 (67) 100 03/24/19 12:15 110 104/81 Intake and Output 03/24/19 03/25/19 19:00 07:00 Intake Total 558.667 ml 140.0 ml Output Total 270 ml 360 ml Balance 288.667 ml -220.0 ml IV Total 558.667 ml 140.0 ml Output Urine Total 270 ml 360 ml # Bowel Movements 3 1 Laboratory Tests Test 03/25/19 04:00 White Blood Count 8.9 K/UL (4.8-10.8) Red Blood Count 2.62 M/UL (4.20-5.40) L Hemoglobin 10.1 G/DL (12.0-16.0) L Hematocrit 29.4 % (37.0-47.0) L Mean Corpuscular Volume 112 FL (80-99) H Mean Corpuscular Hemoglobin 38.7 PG (27.0-31.0) H Mean Corpuscular Hemoglobin Concent 34.5 G/DL (32.0-36.0) Red Cell Distribution Width 14.9 % (11.6-14.8) H Platelet Count 247 K/UL (150-450) # Mean Platelet Volume 7.2 FL (6.5-10.1) Neutrophils (%) (Auto) % (45.0-75.0) Lymphocytes (%) (Auto) % (20.0-45.0) Monocytes (%) (Auto) % (1.0-10.0) Eosinophils (%) (Auto) % (0.0-3.0) Basophils (%) (Auto) % (0.0-2.0) Sodium Level 140 MMOL/L (136-145) Potassium Level 3.2 MMOL/L (3.5-5.1) L Chloride Level 105 MMOL/L (98-107) Carbon Dioxide Level 20 MMOL/L (21-32) L Anion Gap 16 mmol/L (5-15) H Blood Urea Nitrogen 3 mg/dL (7-18) L Creatinine 0.5 MG/DL (0.55-1.30) L Estimat Glomerular Filtration Rate > 60 mL/min (>60) Glucose Level 72 MG/DL (74-106) L Calcium Level 8.0 MG/DL (8.5-10.1) L Phosphorus Level 4.6 MG/DL (2.5-4.9) Magnesium Level 1.7 MG/DL (1.8-2.4) L Total Bilirubin 1.5 MG/DL (0.2-1.0) H Direct Bilirubin 0.8 MG/DL (0.0-0.3) H Aspartate Amino Transf (AST/SGOT) 59 U/L (15-37) H Alanine Aminotransferase (ALT/SGPT) 35 U/L (12-78) Alkaline Phosphatase 115 U/L (46-116) Total Protein 5.2 G/DL (6.4-8.2) L Albumin 2.1 G/DL (3.4-5.0) L Objective HEAD AND NECK: No JVD. LUNGS: Clear. CARDIOVASCULAR: Regular S1 and S2 with no gallop or murmur. ABDOMEN: Soft. EXTREMITIES: No pitting edema. Efrem Harrison MD Mar 25, 2019 12:09
[2019-03-25] MEDS: Phenylephrine 50 MG in D5W 245 ML IV SCH (12:13)
--- NOTE | 2019-03-25 12:27 | Infectious Diseases Prog Note ---
Assessment/Plan Assessment/Plan IMPRESSION: 1. Pancreatitis, likely alcoholic. 2. UTI with E. coli 3. Alcohol abuse and intoxication. 4. Nicotine dependence. 5. Anemia and thrombocytopenia. 6. Cardiac arrest 7. Ventricular tachycardia 8. Respiratory failure 9. Lungs infiltrates pneumonia or edema 10- Systolic CHF, EF=15% RECOMMENDATIONS: Continue Zosyn Plan is transfer to higher level of care for cardiac catheterization & defibrillator placement Subjective ROS Limited/Unobtainable: Yes Constitutional: Denies: fever Neurologic: Reports: other - lethargic on restraint Allergies: Coded Allergies: No Known Allergies (Unverified , 03/19/19) Objective Vital Signs Last 24 Hour Vital Signs Date Time Temp Pulse Resp B/P (MAP) Pulse Ox O2 Delivery O2 Flow Rate FiO2 03/25/19 12:13 94 99/75 03/25/19 07:25 96 Venturi Mask 14.0 55 03/25/19 07:24 115 30 96 Venturi Mask 14.0 55 03/25/19 07:23 119 36 96 Venturi Mask 14.0 55 121 40 96 03/25/19 07:14 112 03/25/19 07:00 114 42 111/90 (97) 98 03/25/19 06:00 116 42 110/82 (91) 97 03/25/19 05:00 127 42 104/86 (92) 97 03/25/19 04:00 116 40 117/97 (104) 97 03/25/19 04:00 Venturi Mask 03/25/19 04:00 55 03/25/19 04:00 117 03/25/19 03:00 122 42 118/104 (109) 97 03/25/19 02:00 121 44 131/73 (92) 99 03/25/19 01:00 121 50 114/82 (93) 96 03/25/19 00:30 120 41 101/78 (86) 95 03/25/19 00:00 99.0 122 41 109/85 (93) 95 03/25/19 00:00 Venturi Mask 03/25/19 00:00 55 03/25/19 00:00 118 03/24/19 23:00 127 34 103/77 (86) 89 03/24/19 22:00 127 31 109/86 (94) 91 03/24/19 21:00 116 24 104/82 (89) 97 03/24/19 20:00 120 03/24/19 20:00 55 03/24/19 20:00 98.4 122 33 122/78 (93) 96 03/24/19 20:00 Venturi Mask 03/24/19 19:38 124 28 95 Venturi Mask 14.0 55 03/24/19 19:38 95 Venturi Mask 14.0 55 03/24/19 19:00 114 40 128/88 (101) 99 03/24/19 18:00 105 26 105/85 (92) 99 03/24/19 17:00 117 40 104/22 (49) 82 03/24/19 16:00 Venturi Mask 03/24/19 16:00 55 03/24/19 16:00 97.9 112 37 95/79 (84) 99 03/24/19 16:00 113 03/24/19 15:00 115 48 106/78 (87) 96 03/24/19 14:00 110 38 104/83 (90) 100 03/24/19 13:00 112 38 91/55 (67) 100 Height (Feet): 5 Height (Inches): 2.00 Weight (Pounds): 88 HEENT: mucous membranes moist Respiratory/Chest: rhonchi - bilaterally, other - oxygen by mask Cardiovascular: normal rate Abdomen: soft, non tender, other - NG tube Extremities: no edema Neurologic/Psychiatric: unresponsiveness, other - lethargic Laboratory Tests Test 03/25/19 04:00 White Blood Count 8.9 K/UL (4.8-10.8) Red Blood Count 2.62 M/UL (4.20-5.40) L Hemoglobin 10.1 G/DL (12.0-16.0) L Hematocrit 29.4 % (37.0-47.0) L Mean Corpuscular Volume 112 FL (80-99) H Mean Corpuscular Hemoglobin 38.7 PG (27.0-31.0) H Mean Corpuscular Hemoglobin Concent 34.5 G/DL (32.0-36.0) Red Cell Distribution Width 14.9 % (11.6-14.8) H Platelet Count 247 K/UL (150-450) # Mean Platelet Volume 7.2 FL (6.5-10.1) Neutrophils (%) (Auto) % (45.0-75.0) Lymphocytes (%) (Auto) % (20.0-45.0) Monocytes (%) (Auto) % (1.0-10.0) Eosinophils (%) (Auto) % (0.0-3.0) Basophils (%) (Auto) % (0.0-2.0) Sodium Level 140 MMOL/L (136-145) Potassium Level 3.2 MMOL/L (3.5-5.1) L Chloride Level 105 MMOL/L (98-107) Carbon Dioxide Level 20 MMOL/L (21-32) L Anion Gap 16 mmol/L (5-15) H Blood Urea Nitrogen 3 mg/dL (7-18) L Creatinine 0.5 MG/DL (0.55-1.30) L Estimat Glomerular Filtration Rate > 60 mL/min (>60) Glucose Level 72 MG/DL (74-106) L Calcium Level 8.0 MG/DL (8.5-10.1) L Phosphorus Level 4.6 MG/DL (2.5-4.9) Magnesium Level 1.7 MG/DL (1.8-2.4) L Total Bilirubin 1.5 MG/DL (0.2-1.0) H Direct Bilirubin 0.8 MG/DL (0.0-0.3) H Aspartate Amino Transf (AST/SGOT) 59 U/L (15-37) H Alanine Aminotransferase (ALT/SGPT) 35 U/L (12-78) Alkaline Phosphatase 115 U/L (46-116) Total Protein 5.2 G/DL (6.4-8.2) L Albumin 2.1 G/DL (3.4-5.0) L Current Medications Medications (Trade) Dose Ordered Sig/Ismael Route PRN Reason Start Time Stop Time Status Last Admin Dose Admin Amiodarone HCl (Cordarone) 400 mg EVERY 8 HOURS NG 03/25/19 14:00 04/21/19 13:59 Docusate Sodium (Colace) 100 mg TID NG 03/25/19 13:00 04/20/19 08:59 Ipratropium Onyx (Atrovent) 500 mcg Q4H PRN HHN Shortness of Breath 03/22/19 18:45 03/27/19 18:44 03/25/19 07:23 Lansoprazole (Prevacid) 30 mg Q12HR NG 03/25/19 21:00 04/24/19 20:59 Lorazepam (Ativan 2mg/ml 1ml) 2 mg Q4H PRN IM For Anxiety 03/21/19 07:45 03/28/19 07:44 03/25/19 04:51 Ondansetron HCl (Zofran) 4 mg Q6H PRN IVP Nausea & Vomiting 03/21/19 07:05 04/20/19 07:04 Phenylephrine HCl 50 mg/Dextrose 250 ml @ 0 mls/hr Q24H IV 03/21/19 12:15 04/20/19 12:14 Piperacillin Sod/ Tazobactam Sod 3.375 gm/Sodium Chloride 110 ml @ 27.5 mls/hr Q8HR IVPB 03/21/19 14:00 03/28/19 13:59 03/25/19 05:49 Potassium Chloride 100 ml @ 100 mls/hr Q1HR IVPB 03/25/19 09:00 03/25/19 14:59 03/25/19 11:56 Thiamine HCl 100 mg/Dextrose 56 ml @ 112 mls/hr Q24H IVPB 03/21/19 12:00 04/20/19 11:59 03/24/19 12:37 Caleb Dallas MD Mar 25, 2019 12:27
--- NOTE | 2019-03-25 12:32 | Cardiac Electrophysiology PN ---
Assessment/Plan Assessment/Plan 1. 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 The EKG does not show any active ischemic changes. However, her initial EKG on 03/19/[address]-T wave abnormalities. Troponin leak due to VF arrest and shocks. Low level and flat and going down. The V Fib arrest could be precipitated by profound hypokalemia and potassium of only 2.2. Awaiting transfer for Cardiac cath and possible ICD implantation. On Amiodarone 400 tid. Add Coreg, Lisinopril and Aldactone if BP allows. DW Transfer CTR and case worker at [facility] who accepted pt for transfer pending bed availability 2. Profound hypokalemia. Potassium and magnesium were replaced. 3. Pancytopenia. Etiology is not clear. Hep panel and HIV ordered. 4. Aspiration pneumonia, on antibiotic. 5. Alcohol abuse and withdrawal. 6. Acute pancreatitis. Further evaluation by GI. PAYAL RN, Awaiting transfer to [facility] Transfer CTR and case worker at [facility] Subjective Subjective Confused in restraints in ICU. Transfer to [facility] still pending. On po Amiodarone with no further VT. Objective Last 24 Hour Vital Signs Date Time Temp Pulse Resp B/P (MAP) Pulse Ox O2 Delivery O2 Flow Rate FiO2 03/25/19 12:13 94 99/75 03/25/19 07:25 96 Venturi Mask 14.0 55 03/25/19 07:24 115 30 96 Venturi Mask 14.0 55 03/25/19 07:23 119 36 96 Venturi Mask 14.0 55 121 40 96 03/25/19 07:14 112 03/25/19 07:00 114 42 111/90 (97) 98 03/25/19 06:00 116 42 110/82 (91) 97 03/25/19 05:00 127 42 104/86 (92) 97 03/25/19 04:00 116 40 117/97 (104) 97 03/25/19 04:00 Venturi Mask 03/25/19 04:00 55 03/25/19 04:00 117 03/25/19 03:00 122 42 118/104 (109) 97 03/25/19 02:00 121 44 131/73 (92) 99 03/25/19 01:00 121 50 114/82 (93) 96 03/25/19 00:30 120 41 101/78 (86) 95 03/25/19 00:00 99.0 122 41 109/85 (93) 95 03/25/19 00:00 Venturi Mask 03/25/19 00:00 55 03/25/19 00:00 118 03/24/19 23:00 127 34 103/77 (86) 89 03/24/19 22:00 127 31 109/86 (94) 91 03/24/19 21:00 116 24 104/82 (89) 97 03/24/19 20:00 120 03/24/19 20:00 55 03/24/19 20:00 98.4 122 33 122/78 (93) 96 03/24/19 20:00 Venturi Mask 03/24/19 19:38 124 28 95 Venturi Mask 14.0 55 03/24/19 19:38 95 Venturi Mask 14.0 55 03/24/19 19:00 114 40 128/88 (101) 99 03/24/19 18:00 105 26 105/85 (92) 99 03/24/19 17:00 117 40 104/22 (49) 82 03/24/19 16:00 Venturi Mask 03/24/19 16:00 55 03/24/19 16:00 97.9 112 37 95/79 (84) 99 03/24/19 16:00 113 03/24/19 15:00 115 48 106/78 (87) 96 03/24/19 14:00 110 38 104/83 (90) 100 03/24/19 13:00 112 38 91/55 (67) 100 Intake and Output 03/24/19 03/25/19 19:00 07:00 Intake Total 558.667 ml 140.0 ml Output Total 270 ml 360 ml Balance 288.667 ml -220.0 ml IV Total 558.667 ml 140.0 ml Output Urine Total 270 ml 360 ml # Bowel Movements 3 1 Laboratory Tests Test 03/25/19 04:00 White Blood Count 8.9 K/UL (4.8-10.8) Red Blood Count 2.62 M/UL (4.20-5.40) L Hemoglobin 10.1 G/DL (12.0-16.0) L Hematocrit 29.4 % (37.0-47.0) L Mean Corpuscular Volume 112 FL (80-99) H Mean Corpuscular Hemoglobin 38.7 PG (27.0-31.0) H Mean Corpuscular Hemoglobin Concent 34.5 G/DL (32.0-36.0) Red Cell Distribution Width 14.9 % (11.6-14.8) H Platelet Count 247 K/UL (150-450) # Mean Platelet Volume 7.2 FL (6.5-10.1) Neutrophils (%) (Auto) % (45.0-75.0) Lymphocytes (%) (Auto) % (20.0-45.0) Monocytes (%) (Auto) % (1.0-10.0) Eosinophils (%) (Auto) % (0.0-3.0) Basophils (%) (Auto) % (0.0-2.0) Sodium Level 140 MMOL/L (136-145) Potassium Level 3.2 MMOL/L (3.5-5.1) L Chloride Level 105 MMOL/L (98-107) Carbon Dioxide Level 20 MMOL/L (21-32) L Anion Gap 16 mmol/L (5-15) H Blood Urea Nitrogen 3 mg/dL (7-18) L Creatinine 0.5 MG/DL (0.55-1.30) L Estimat Glomerular Filtration Rate > 60 mL/min (>60) Glucose Level 72 MG/DL (74-106) L Calcium Level 8.0 MG/DL (8.5-10.1) L Phosphorus Level 4.6 MG/DL (2.5-4.9) Magnesium Level 1.7 MG/DL (1.8-2.4) L Total Bilirubin 1.5 MG/DL (0.2-1.0) H Direct Bilirubin 0.8 MG/DL (0.0-0.3) H Aspartate Amino Transf (AST/SGOT) 59 U/L (15-37) H Alanine Aminotransferase (ALT/SGPT) 35 U/L (12-78) Alkaline Phosphatase 115 U/L (46-116) Total Protein 5.2 G/DL (6.4-8.2) L Albumin 2.1 G/DL (3.4-5.0) L Objective HEAD AND NECK: No JVD. LUNGS: Clear. CARDIOVASCULAR: Regular S1 and S2 with no gallop or murmur. ABDOMEN: Soft. EXTREMITIES: No pitting edema. Efrem Harrison MD Mar 25, 2019 12:32
[2019-03-25] MEDS: Docusate 100mg tablet NG SCH ×2 (12:43→18:00)
[2019-03-25] MEDS: Thiamine HCl 100 MG in D5W 55 ML IVPB SCH (12:43)
--- NOTE | 2019-03-25 14:00 | NUR ---
NURSE NOTES: Patient remains lethargic and confused. Patient refused lunch. Patient started on tube feeding of Jevity at 15mL/hr. Will monitor residual and signs of abdominal pain or discomfort. Patient blood pressure low at 109/83, HR 104 with sinus tachycardia on the property assessment monitor, FiO2 100% on 50% venturi mask, and RR remains elevated at 33 breaths per minute. Patient bed in low position with bed alarm on and call light in reach.
[2019-03-25] MEDS: Amiodarone 200mg tab NG SCH ×2 (14:04→21:48)
--- NOTE | 2019-03-25 16:00 | NUR ---
NURSE NOTES: Patient alert and oriented at this time. Patient alert to name, place, month, year, and the president. Restraints removed at this time as they are no longer indicated. Patient able to carry a conversation although she remains short of breath. Patient remains on venturi mask with 50% FiO2 with saturation of 99% and RR 29-35. Patient repositioned and pulled up and cleaned at this time. Patient showing sinus tachy on the marketing analytics specialist at this time with rate of 105. Patient tachypneic with RR of 33 at this time. Jevity running at 15mL/hr with no residual noted. Right nares nasogastric tube remains patent, asymptomatic, and verified with aspiration and auscultation. Fields remains intact and patent and draining at this time. Patient skin remains intact. Erythema remains on bilateral cheeks. Moisture barrier cream applied for protection. Right upper arm 20G PIV remains patent, asymptomatic. Patient bed in low position with bed alarm on and call light in reach at this time. Will continue to monitor HR and respiratory effort.
--- NOTE | 2019-03-25 16:09 | Hematology/Onc Progress Note ---
Assessment/Plan Assessment/Plan Assessment and Recs: # Pancytopenia - potential causes multifactorial, evaluate liver and viral etiologies to begin, in this case very likely due to myelosuppresion from chronic alcohol abuse (hepatocellular disease) and ETOH --> Hep panel and HIV NEG --> US abd to evaluate for cirrhosis and hsm ordered and shows hepatocellular disease, likely fatty changes --> Peripheral smear ordered to evaluate for blasts /schistocytes doesn't show any --> abx and other meds have been reviewed --> ok for ppx if plt >50k w/ either heparin or lovenox --> Transfuse if Plt < 20k and fever, or if Plt < 10k without fever --> Anemia workup is c/w acd --> No evidence of hemolysis is noted, peripheral smear has been reviewed. --> Hgb goal >7. Transfuse prn basis --> Epogen or iron at this time is not particularly indicated --> Medications have been reviewed --> occult + --> per gi --> bone marrow biopsy not needed given etoh culprit --> hgb trend 11-->10.4-->9.4-->10.1 # Coagulation defect, multifactorial usually related to poor PO intake versus medications, versus hepatitis v cirrhosis (from chronic etoh use) --> administer Vitamin K if patient is bleeding or FFP if the INR is >10 --> hold off on ffp unless active procedure/bleeding, first begin with vit K 10 # Leukocytosis r/u infection with asp pna --> zosyn as per id # S/p Ventricular fibrillation arrest and subsequest PEA, currently stable on Amiodarone gtt --> per cards recs --> meds reviewed # Aspiration pneumonia --> abx per pulm/id # Respiratory failure requiring intubation --> was on vent --> now extubated # Alcohol abuse, withdrawal --> monitor for withdrawal # Pancreatitis --> per gi recs, adat # Fatty Liver # Previous Seizures # Previous breast abscess requiring drainage # Dvt ppx once plt is >75k and hgb stable The timing of this note does not necessarily reflect the time of the patient was seen. Greatly appreciate consultation. Subjective Constitutional: Denies: no symptoms, chills, fever, malaise, weakness, other HEENT: Denies: no symptoms, eye pain, blurred vision, tearing, double vision, ear pain, ear discharge, nose pain, nose congestion, throat pain, throat swelling, mouth pain, mouth swelling, other Cardiovascular: Denies: no symptoms, chest pain, edema, irregular heart rate, lightheadedness, palpitations, syncope, other Respiratory: Denies: no symptoms, cough, shortness of breath, SOB with excertion, SOB at rest, sputum, wheezing, other Gastrointestinal/Abdominal: Denies: no symptoms, abdomen distended, abdominal pain, black stools, tarry stools, blood in stool, constipated, diarrhea, difficulty swallowing, nausea, poor appetite, poor fluid intake, rectal bleeding , vomiting, other Genitourinary: Denies: no symptoms, burning, discharge, frequency, flank pain, hematuria, incontinence, pain, urgency, other Neurologic/Psychiatric: Denies: no symptoms, anxiety, depressed, emotional problems, headache, numbness, paresthesia, pre-existing deficit, seizure, tingling, tremors, weakness, other Endocrine: Denies: no symptoms, excessive sweating, flushing, intolerance to cold, intolerance to heat, increased hunger, increased thirst, increased urine, unexplained weight gain, unexplained weight loss, other Allergies: Coded Allergies: No Known Allergies (Unverified , 03/19/19) Subjective 03/21: is responsive in the icu, james rn, labs reviewed, plt remains low, us abd reviewed 03/22: vs stable, no f/c, in icu, labs reviewed, imaging reviewed, extubated 03/23: overnight was desatting, is on venturi mask, a+o x3-4, no bleeding noted, hgb lower 03/25: pending transfer to [facility], for cardiac cath and defib placement, on zosyn Objective Objective Current Medications Medications (Trade) Dose Ordered Sig/Ismael Route PRN Reason Start Time Stop Time Status Last Admin Dose Admin Amiodarone HCl (Cordarone) 400 mg EVERY 8 HOURS NG 03/25/19 14:00 04/21/19 13:59 03/25/19 14:04 Carvedilol (Coreg) 3.125 mg EVERY 12 HOURS ORAL 03/25/19 21:00 04/24/19 20:59 Docusate Sodium (Colace) 100 mg TID NG 03/25/19 13:00 04/20/19 08:59 03/25/19 12:43 Ipratropium [place] (Atrovent) 500 mcg Q4H PRN HHN Shortness of Breath 03/22/19 18:45 03/27/19 18:44 03/25/19 07:23 Lansoprazole (Prevacid) 30 mg Q12HR NG 03/25/19 21:00 04/24/19 20:59 Lisinopril (Zestril) 2.5 mg DAILY ORAL 03/26/19 09:00 04/25/19 08:59 Lorazepam (Ativan 2mg/ml 1ml) 2 mg Q4H PRN IM For Anxiety 03/21/19 07:45 03/28/19 07:44 03/25/19 04:51 Ondansetron HCl (Zofran) 4 mg Q6H PRN IVP Nausea & Vomiting 03/21/19 07:05 04/20/19 07:04 Phenylephrine HCl 50 mg/Dextrose 250 ml @ 0 mls/hr Q24H IV 03/21/19 12:15 04/20/19 12:14 Piperacillin Sod/ Tazobactam Sod 3.375 gm/Sodium Chloride 110 ml @ 27.5 mls/hr Q8HR IVPB 03/21/19 14:00 03/28/19 13:59 03/25/19 14:04 Spironolactone (Aldactone) 25 mg DAILY ORAL 03/26/19 09:00 04/25/19 08:59 Thiamine HCl 100 mg/Dextrose 56 ml @ 112 mls/hr Q24H IVPB 03/21/19 12:00 04/20/19 11:59 03/25/19 12:43 Last 24 Hour Vital Signs Date Time Temp Pulse Resp B/P (MAP) Pulse Ox O2 Delivery O2 Flow Rate FiO2 03/25/19 15:00 101 37 99/78 (85) 99 03/25/19 14:00 90/72 (78) 03/25/19 13:00 90/72 (78) 03/25/19 12:13 94 99/75 03/25/19 12:00 Venturi Mask 03/25/19 12:00 55 03/25/19 12:00 97.7 94 20 99/75 (83) 97 03/25/19 11:00 99 26 96/73 (81) 98 03/25/19 10:00 100 28 98/75 (83) 97 03/25/19 09:00 106 28 110/90 (97) 95 03/25/19 08:00 98.4 109 29 106/78 (87) 97 03/25/19 08:00 55 03/25/19 08:00 Venturi Mask 03/25/19 07:25 96 Venturi Mask 14.0 55 03/25/19 07:24 115 30 96 Venturi Mask 14.0 55 03/25/19 07:23 119 36 96 Venturi Mask 14.0 55 121 40 96 03/25/19 07:14 112 03/25/19 07:00 114 42 111/90 (97) 98 03/25/19 06:00 116 42 110/82 (91) 97 03/25/19 05:00 127 42 104/86 (92) 97 03/25/19 04:00 116 40 117/97 (104) 97 03/25/19 04:00 Venturi Mask 03/25/19 04:00 55 03/25/19 04:00 117 03/25/19 03:00 122 42 118/104 (109) 97 03/25/19 02:00 121 44 131/73 (92) 99 03/25/19 01:00 121 50 114/82 (93) 96 03/25/19 00:30 120 41 101/78 (86) 95 03/25/19 00:00 99.0 122 41 109/85 (93) 95 03/25/19 00:00 Venturi Mask 03/25/19 00:00 55 03/25/19 00:00 118 03/24/19 23:00 127 34 103/77 (86) 89 03/24/19 22:00 127 31 109/86 (94) 91 03/24/19 21:00 116 24 104/82 (89) 97 03/24/19 20:00 120 03/24/19 20:00 55 03/24/19 20:00 98.4 122 33 122/78 (93) 96 03/24/19 20:00 Venturi Mask 03/24/19 19:38 124 28 95 Venturi Mask 14.0 55 03/24/19 19:38 95 Venturi Mask 14.0 55 03/24/19 19:00 114 40 128/88 (101) 99 03/24/19 18:00 105 26 105/85 (92) 99 03/24/19 17:00 117 40 104/22 (49) 82 03/24/19 16:00 Venturi Mask 03/24/19 16:00 55 03/24/19 16:00 97.9 112 37 95/79 (84) 99 03/24/19 16:00 113 03/24/19 15:00 115 48 106/78 (87) 96 03/24/19 14:00 110 38 104/83 (90) 100 03/24/19 13:00 112 38 91/55 (67) 100 03/24/19 12:15 110 104/81 03/24/19 12:00 98.0 121 27 121/103 (109) 97 03/24/19 12:00 55 03/24/19 12:00 121 03/24/19 12:00 Venturi Mask 03/24/19 11:00 110 39 104/81 (89) 98 03/24/19 10:00 121 36 106/82 (90) 91 03/24/19 09:00 122 31 114/83 (93) 91 03/24/19 08:00 97.7 120 37 111/93 (99) 93 03/24/19 08:00 125 03/24/19 08:00 Venturi Mask 03/24/19 08:00 55 03/24/19 07:00 127 36 106/67 (80) 100 03/24/19 06:43 120 30 95 Venturi Mask 14.0 55 03/24/19 06:43 98 Venturi Mask 14.0 55 03/24/19 06:00 140 33 114/66 (82) 95 03/24/19 05:30 126 51 121/103 (109) 85 03/24/19 05:00 133 36 122/107 (112) 93 03/24/19 04:00 135 03/24/19 04:00 Venturi Mask 03/24/19 04:00 98.0 135 34 127/91 (103) 93 03/24/19 04:00 55 03/24/19 03:00 133 42 101/84 (90) 97 03/24/19 02:00 128 42 126/75 (92) 91 03/24/19 01:00 132 32 140/81 (100) 89 03/24/19 00:00 55 03/24/19 00:00 Venturi Mask 03/24/19 00:00 133 03/24/19 00:00 97.7 146 32 137/79 (98) 89 03/23/19 23:00 133 32 104/80 (88) 91 03/23/19 22:00 112 35 104/80 (88) 95 03/23/19 21:00 113 34 99/77 (84) 95 03/23/19 20:00 98.0 113 30 113/74 (87) 99 03/23/19 20:00 55 03/23/19 20:00 121 03/23/19 20:00 Venturi Mask 03/23/19 19:00 121 34 121/78 (92) 99 03/23/19 18:34 128 26 98 Venturi Mask 14.0 55 03/23/19 18:34 98 Venturi Mask 14.0 55 03/23/19 18:00 128 30 129/85 (100) 99 03/23/19 17:00 98.8 118 27 134/98 (110) 99 Intake and Output 03/24/19 03/25/19 19:00 07:00 Intake Total 558.667 ml 140.0 ml Output Total 270 ml 360 ml Balance 288.667 ml -220.0 ml IV Total 558.667 ml 140.0 ml Output Urine Total 270 ml 360 ml # Bowel Movements 3 1 Labs Test 03/23/19 04:20 03/23/19 11:23 03/23/19 11:50 03/24/19 04:00 White Blood Count 8.2 K/UL (4.8-10.8) 9.3 K/UL (4.8-10.8) Red Blood Count 2.45 M/UL (4.20-5.40) 2.79 M/UL (4.20-5.40) Hemoglobin 9.4 G/DL (12.0-16.0) 10.8 G/DL (12.0-16.0) Hematocrit 27.6 % (37.0-47.0) 31.4 % (37.0-47.0) Mean Corpuscular Volume 113 FL (80-99) 113 FL (80-99) Mean Corpuscular Hemoglobin 38.5 PG (27.0-31.0) 38.7 PG (27.0-31.0) Mean Corpuscular Hemoglobin Concent 34.2 G/DL (32.0-36.0) 34.4 G/DL (32.0-36.0) Red Cell Distribution Width 14.0 % (11.6-14.8) 14.2 % (11.6-14.8) Platelet Count 87 K/UL (150-450) 162 K/UL (150-450) Mean Platelet Volume 8.1 FL (6.5-10.1) 7.8 FL (6.5-10.1) Neutrophils (%) (Auto) % (45.0-75.0) % (45.0-75.0) Lymphocytes (%) (Auto) % (20.0-45.0) % (20.0-45.0) Monocytes (%) (Auto) % (1.0-10.0) % (1.0-10.0) Eosinophils (%) (Auto) % (0.0-3.0) % (0.0-3.0) Basophils (%) (Auto) % (0.0-2.0) % (0.0-2.0) Differential Total Cells Counted 100 Neutrophils % (Manual) 79 % (45-75) Lymphocytes % (Manual) 18 % (20-45) Monocytes % (Manual) 2 % (1-10) Eosinophils % (Manual) 1 % (0-3) Basophils % (Manual) 0 % (0-2) Band Neutrophils 0 % (0-8) Platelet Estimate Decreased Platelet Morphology Normal Macrocytosis 2+ Sodium Level 144 MMOL/L (136-145) 140 MMOL/L (136-145) Potassium Level 2.8 MMOL/L (3.5-5.1) 3.7 MMOL/L (3.5-5.1) 2.9 MMOL/L (3.5-5.1) Chloride Level 108 MMOL/L (98-107) 105 MMOL/L (98-107) Carbon Dioxide Level 25 MMOL/L (21-32) 24 MMOL/L (21-32) Anion Gap 11 mmol/L (5-15) 11 mmol/L (5-15) Blood Urea Nitrogen 3 mg/dL (7-18) 3 mg/dL (7-18) Creatinine 0.5 MG/DL (0.55-1.30) 0.6 MG/DL (0.55-1.30) Estimat Glomerular Filtration Rate > 60 mL/min (>60) > 60 mL/min (>60) Glucose Level 99 MG/DL (74-106) 104 MG/DL (74-106) Calcium Level 8.1 MG/DL (8.5-10.1) 8.2 MG/DL (8.5-10.1) Phosphorus Level 2.9 MG/DL (2.5-4.9) 2.4 MG/DL (2.5-4.9) 3.3 MG/DL (2.5-4.9) Magnesium Level 1.7 MG/DL (1.8-2.4) 2.0 MG/DL (1.8-2.4) 1.5 MG/DL (1.8-2.4) Arterial Blood pH 7.491 (7.350-7.450) Arterial Blood Partial Pressure CO2 28.4 mmHg (35.0-45.0) Arterial Blood Partial Pressure O2 58.2 mmHg (75.0-100.0) Arterial Blood HCO3 21.2 mmol/L (22.0-26.0) Arterial Blood Oxygen Saturation 90.3 % (95-100) Arterial Blood Base Excess -1.2 (-2-2) Reagan Test Positive Troponin I 0.119 ng/mL (0.000-0.056) Test 03/25/19 04:00 White Blood Count 8.9 K/UL (4.8-10.8) Red Blood Count 2.62 M/UL (4.20-5.40) Hemoglobin 10.1 G/DL (12.0-16.0) Hematocrit 29.4 % (37.0-47.0) Mean Corpuscular Volume 112 FL (80-99) Mean Corpuscular Hemoglobin 38.7 PG (27.0-31.0) Mean Corpuscular Hemoglobin Concent 34.5 G/DL (32.0-36.0) Red Cell Distribution Width 14.9 % (11.6-14.8) Platelet Count 247 K/UL (150-450) Mean Platelet Volume 7.2 FL (6.5-10.1) Neutrophils (%) (Auto) % (45.0-75.0) Lymphocytes (%) (Auto) % (20.0-45.0) Monocytes (%) (Auto) % (1.0-10.0) Eosinophils (%) (Auto) % (0.0-3.0) Basophils (%) (Auto) % (0.0-2.0) Sodium Level 140 MMOL/L (136-145) Potassium Level 3.2 MMOL/L (3.5-5.1) Chloride Level 105 MMOL/L (98-107) Carbon Dioxide Level 20 MMOL/L (21-32) Anion Gap 16 mmol/L (5-15) Blood Urea Nitrogen 3 mg/dL (7-18) Creatinine 0.5 MG/DL (0.55-1.30) Estimat Glomerular Filtration Rate > 60 mL/min (>60) Glucose Level 72 MG/DL (74-106) Calcium Level 8.0 MG/DL (8.5-10.1) Phosphorus Level 4.6 MG/DL (2.5-4.9) Magnesium Level 1.7 MG/DL (1.8-2.4) Total Bilirubin 1.5 MG/DL (0.2-1.0) Direct Bilirubin 0.8 MG/DL (0.0-0.3) Aspartate Amino Transf (AST/SGOT) 59 U/L (15-37) Alanine Aminotransferase (ALT/SGPT) 35 U/L (12-78) Alkaline Phosphatase 115 U/L (46-116) Total Protein 5.2 G/DL (6.4-8.2) Albumin 2.1 G/DL (3.4-5.0) Height (Feet): 5 Height (Inches): 2.00 Weight (Pounds): 88 Objective Gen: interactive, jaundice Head: normocephalic, atraumatic Eyes: bilateral eye PERRL, bilateral eye EOMI Neck: no masses, no LN Respiratory: Bilateral occasional rhonchi ++ venturi mask Cardiovascular: regular rate, rhythm, normal HS1, HS2, no murmur Gastrointestinal: normal bowel sounds, nt, nd Musculoskeletal: no rashes, no edema PATHOLOGY TEACHER: Interactive, no seizures, no focal signs Tanner Mckeon MD Mar 25, 2019 16:09
--- NOTE | 2019-03-25 17:44 | NUR ---
CONTAINER FINISHING INSPECTORPRIVACY ANALYST SI: RESP FAILURE S/P EXTUBATION T. 98.4 HR 107 RR 37 B/P 90/72 VM 55% K. 3.2 MG 1.7 AST 59 IS: ZOSYN IV THIAMINE IV TRANSFER TO HIGHER LEVEL OF CARE ICU STATUS
--- NOTE | 2019-03-25 18:00 | NUR ---
NURSE NOTES: Patient remains alert and oriented. patient HR 90/67, HR 102, FiO2 94% on 4L nasal cannula. Patient eating dinner at this time. Patient tube feeding stopped while she is eating dinner. Patient following commands and cooperating without incident. Patient remains weak but is able to turn on her own. Will continue to monitor. Bed in low position with bed alarm on and call light in reach at this time.
--- NOTE | 2019-03-25 19:07 | Pulmonolgy Critical Care Note ---
Critical Care - Asmt/Plan Assessment/Plan: Pulmonary Critical Care Progress Note HPI Patient is a 38-year-old woman initially admitted to the hospital for Hypokalemia and Alcohol abuse/withdrawal, Pancreatitis. S/p VT VF arrest and subsequent CPR for subsequent PEA, subsequently intubated and sedated on the Ventilator, on Amiodarone gtt. Patient is awake and interactive post code, now extubated. Status post 2 ventricular fibrillation arrests in the setting of severe CMP and EF 15%, the EKG does not show any active ischemic changes. Awating TF to [facility] for ICD Noted to have evidence of pneumonia with bilateral infiltrates, L>R, post intubation, possibly from aspiration. On Antibiotics/Amiodarone, off sedation, s/p extubation Stable O2 requirements - on PRN BiPAP, IVF DC, currently on FM O2 - 50% Allergies: No Known Allergies Past Medical History: Alcohol abuse, fatty liver, previous seizure, previous drainage of breast abscess. All Other Systems: limited - secondary to condition Physical Exam Vital Signs Noted, not currently on pressors General Appearance: Alert interactive, Head: normocephalic, atraumatic Eyes: bilateral eye PERRL, bilateral eye EOMI ENT: moist mm Neck: no masses, no LN Respiratory: CTAB Cardiovascular: regular rate, rhythm, normal HS1, HS2, no murmur Gastrointestinal: normal bowel sounds, non tender, no mass, no organomegaly, no bruit, non-distended Musculoskeletal: no rashes, no edema TITLE I DIRECTOR: Interactive, no seizures, no focal signs Impression: S/p Ventricular fibrillation arrest and subsequest PEA, currently stable on Amiodarone Cardiomyopathy with EF 15% Aspiration pneumonia Respiratory failure s/p extubation Alcohol abuse, withdrawal Pancreatitis Fatty Liver Previous Seizures Previous breast abscess requirng drainage Plan Wean FIO2 - sats 90-96% NGT for feeding IVF PRN Ativan Monitor labs PPX IV Antibiotics PRN Thiamine Chest X-Ray: 1. Interval removal of endotracheal tube. 2. New small bilateral pleural effusions. 3. Interval new bilateral airspace opacities and worsening interstitial thickening mid to lower lungs. Labs/ABG noted Critical Care - Objective Last 24 Hour Vital Signs Date Time Temp Pulse Resp B/P (MAP) Pulse Ox O2 Delivery O2 Flow Rate FiO2 03/25/19 18:00 107 31 91/76 (81) 99 03/25/19 17:00 99 28 92/77 (82) 99 03/25/19 16:00 55 03/25/19 16:00 98.4 107 33 98/74 (82) 98 03/25/19 16:00 Venturi Mask 03/25/19 16:00 105 03/25/19 15:00 101 37 99/78 (85) 99 03/25/19 14:00 90/72 (78) 03/25/19 13:00 90/72 (78) 03/25/19 12:13 94 99/75 03/25/19 12:00 Venturi Mask 03/25/19 12:00 55 03/25/19 12:00 96 03/25/19 12:00 97.7 94 20 99/75 (83) 97 03/25/19 11:00 99 26 96/73 (81) 98 03/25/19 10:00 100 28 98/75 (83) 97 03/25/19 09:00 106 28 110/90 (97) 95 03/25/19 08:00 98.4 109 29 106/78 (87) 97 03/25/19 08:00 55 03/25/19 08:00 Venturi Mask 03/25/19 07:25 96 Venturi Mask 14.0 55 03/25/19 07:24 115 30 96 Venturi Mask 14.0 55 03/25/19 07:23 119 36 96 Venturi Mask 14.0 55 121 40 96 03/25/19 07:14 112 03/25/19 07:00 114 42 111/90 (97) 98 03/25/19 06:00 116 42 110/82 (91) 97 03/25/19 05:00 127 42 104/86 (92) 97 03/25/19 04:00 116 40 117/97 (104) 97 03/25/19 04:00 Venturi Mask 03/25/19 04:00 55 03/25/19 04:00 117 03/25/19 03:00 122 42 118/104 (109) 97 03/25/19 02:00 121 44 131/73 (92) 99 03/25/19 01:00 121 50 114/82 (93) 96 03/25/19 00:30 120 41 101/78 (86) 95 03/25/19 00:00 99.0 122 41 109/85 (93) 95 03/25/19 00:00 Venturi Mask 03/25/19 00:00 55 03/25/19 00:00 118 03/24/19 23:00 127 34 103/77 (86) 89 03/24/19 22:00 127 31 109/86 (94) 91 03/24/19 21:00 116 24 104/82 (89) 97 03/24/19 20:00 120 03/24/19 20:00 55 03/24/19 20:00 98.4 122 33 122/78 (93) 96 03/24/19 20:00 Venturi Mask 03/24/19 19:38 124 28 95 Venturi Mask 14.0 55 03/24/19 19:38 95 Venturi Mask 14.0 55 Critical Care - Subjective ROS Limited/Unobtainable: No FI02: 55 Vent Support Breath Rate: 15 Vent Support Mode: CPAP Vent Tidal Volume: 500 Sputum Amount: None PEEP: 5.0 PIP: 14 Tube Feeding Amount: 15 I&O: Intake and Output 03/24/19 03/25/19 19:00 07:00 Intake Total 558.667 ml 140.0 ml Output Total 270 ml 360 ml Balance 288.667 ml -220.0 ml IV Total 558.667 ml 140.0 ml Output Urine Total 270 ml 360 ml # Bowel Movements 3 1 ET-Tube: 7.0 ET Position: 23 Leandro Montesinos MD Mar 25, 2019 19:07
--- NOTE | 2019-03-25 19:20 | NUR ---
HAND-OFF: Report given to KD Wisdom. Patient HR 102, SpO2 95% on 4L NC. patient eating at this time. Endorsed to follow up.
--- NOTE | 2019-03-25 19:30 | NUR ---
NURSE NOTES: Received pt awake and alert,oriented x4,Sommers x4, SR-ST on the monitor, bp labile, afebrile, on 02 at 4L/NC at this time, 02 sat >94%. HOB kept elevated watch for any,resp. distress.Pt tolerated 30% dinner ,at this time. GALINA IV access patent to IVPB, as well as left arm iV access. Pt was incontinent of stool, cleaned up pt. Will continue to monitor.
--- NOTE | 2019-03-25 21:09 | General Progress Note ---
Assessment/Plan Problem List: (1) Cardiac arrest ICD Codes: I46.9 - Cardiac arrest, cause unspecified SNOMED: 770519041 (2) Ventricular fibrillation ICD Codes: I49.01 - Ventricular fibrillation SNOMED: 31152233 (3) Aspiration pneumonia ICD Codes: J69.0 - Pneumonitis due to inhalation of food and vomit SNOMED: 411794567 Qualifiers: Qualified Codes: J69.0 - Pneumonitis due to inhalation of food and vomit (4) Respiratory failure requiring intubation ICD Codes: J96.90 - Respiratory failure, unspecified, unspecified whether with hypoxia or hypercapnia SNOMED: 709970518 (5) Hypokalemia ICD Codes: E87.6 - Hypokalemia SNOMED: 01302970 (6) Pancreatitis ICD Codes: K85.90 - Acute pancreatitis without necrosis or infection, unspecified SNOMED: 08945995 Qualifiers: (7) Acute alcoholic intoxication ICD Codes: F10.929 - Alcohol use, unspecified with intoxication, unspecified SNOMED: 56922949, 7155148 Qualifiers: Qualified Codes: F10.929 - Alcohol use, unspecified with intoxication, unspecified (8) UTI (urinary tract infection) ICD Codes: N39.0 - Urinary tract infection, site not specified SNOMED: 79420546 Qualifiers: (9) Acute alcoholic pancreatitis ICD Codes: K85.20 - Alcohol induced acute pancreatitis without necrosis or infection SNOMED: 191097150 (10) Anemia ICD Codes: D64.9 - Anemia, unspecified SNOMED: 982157773 Status: progressing, deteriorating Assessment/Plan: s/p cardiopulmonary arrest svt etoh abuse pancreatits improving per dr meadows needs to be transfered for cardiac cath and ICD uti sepsis abx per id repeat trop in am anemia labs normal Subjective ROS Limited/Unobtainable: Yes Allergies: Coded Allergies: No Known Allergies (Unverified , 03/19/19) Objective Last 24 Hour Vital Signs Date Time Temp Pulse Resp B/P (MAP) Pulse Ox O2 Delivery O2 Flow Rate FiO2 03/25/19 19:00 100 25 93/60 (71) 95 03/25/19 19:00 94 Nasal Cannula 3.0 32 03/25/19 19:00 102 25 94 Nasal Cannula 3.0 32 03/25/19 18:00 107 31 91/76 (81) 99 03/25/19 17:00 99 28 92/77 (82) 99 03/25/19 16:00 55 03/25/19 16:00 98.4 107 33 98/74 (82) 98 03/25/19 16:00 Venturi Mask 03/25/19 16:00 105 03/25/19 15:00 101 37 99/78 (85) 99 03/25/19 14:00 90/72 (78) 03/25/19 13:00 90/72 (78) 03/25/19 12:13 94 99/75 03/25/19 12:00 Venturi Mask 03/25/19 12:00 55 03/25/19 12:00 96 03/25/19 12:00 97.7 94 20 99/75 (83) 97 03/25/19 11:00 99 26 96/73 (81) 98 03/25/19 10:00 100 28 98/75 (83) 97 03/25/19 09:00 106 28 110/90 (97) 95 03/25/19 08:00 98.4 109 29 106/78 (87) 97 03/25/19 08:00 55 03/25/19 08:00 Venturi Mask 03/25/19 07:25 96 Venturi Mask 14.0 55 03/25/19 07:24 115 30 96 Venturi Mask 14.0 55 03/25/19 07:23 119 36 96 Venturi Mask 14.0 55 121 40 96 03/25/19 07:14 112 03/25/19 07:00 114 42 111/90 (97) 98 03/25/19 06:00 116 42 110/82 (91) 97 03/25/19 05:00 127 42 104/86 (92) 97 03/25/19 04:00 116 40 117/97 (104) 97 03/25/19 04:00 Venturi Mask 03/25/19 04:00 55 03/25/19 04:00 117 03/25/19 03:00 122 42 118/104 (109) 97 03/25/19 02:00 121 44 131/73 (92) 99 03/25/19 01:00 121 50 114/82 (93) 96 03/25/19 00:30 120 41 101/78 (86) 95 03/25/19 00:00 99.0 122 41 109/85 (93) 95 03/25/19 00:00 Venturi Mask 03/25/19 00:00 55 03/25/19 00:00 118 03/24/19 23:00 127 34 103/77 (86) 89 03/24/19 22:00 127 31 109/86 (94) 91 Intake and Output 03/24/19 03/25/19 18:59 06:59 Intake Total 586.167 ml 110.0 ml Output Total 270 ml 360 ml Balance 316.167 ml -250.0 ml IV Total 586.167 ml 110.0 ml Output Urine Total 270 ml 360 ml # Bowel Movements 3 1 Laboratory Tests 03/25/19 04:00: White Blood Count 8.9, Red Blood Count 2.62L, Hemoglobin 10.1L, Hematocrit 29.4L , Mean Corpuscular Volume 112H, Mean Corpuscular Hemoglobin 38.7H, Mean Corpuscular Hemoglobin Concent 34.5, Red Cell Distribution Width 14.9H, Platelet Count 247#, Mean Platelet Volume 7.2, Neutrophils (%) (Auto) , Lymphocytes (%) (Auto) , Monocytes (%) (Auto) , Eosinophils (%) (Auto) , Basophils (%) (Auto) , Sodium Level 140, Potassium Level 3.2L, Chloride Level 105, Carbon Dioxide Level 20L, Anion Gap 16H, Blood Urea Nitrogen 3L, Creatinine 0.5L, Estimat Glomerular Filtration Rate > 60, Glucose Level 72L, Calcium Level 8.0L, Phosphorus Level 4.6, Magnesium Level 1.7L, Total Bilirubin 1.5H, Direct Bilirubin 0.8H, Aspartate Amino Transf (AST/SGOT) 59H, Alanine Aminotransferase (ALT/SGPT) 35, Alkaline Phosphatase 115, Total Protein 5.2L, Albumin 2.1L Height (Feet): 5 Height (Inches): 2.00 Weight (Pounds): 88 General Appearance: confused Respiratory/Chest: lungs clear Abdomen: soft Ti Gill MD Mar 25, 2019 21:09
--- NOTE | 2019-03-25 21:48 | NUR ---
NURSE NOTES: Amiodarone on hold due to bp 88/69
--- NOTE | 2019-03-25 22:52 | NUR ---
NURSE NOTES: Notify Dr Berry that pts BP on the 80s. Awaiting for md to call back.
[2019-03-26] VITALS (11 sets, daily range): BP systolic 88–100; BP diastolic 61–85
--- NOTE | 2019-03-26 | NUR ---
NURSE NOTES: Bp 84/55, NSR 92., 02 sat 95%. Had x1 diarrhea, brownish in color at this time. partial bath was given.
--- NOTE | 2019-03-26 02:40 | NUR ---
NURSE NOTES: Placed pt on 02 at 2L/NC at this time per pts request. 02 sat 97%.
--- NOTE | 2019-03-26 04:40 | NUR ---
NURSE NOTES: Dozing on and off , bp was improving.
[2019-03-26 04:48] LABS: HEMATOCRIT 30.2 % (37.0-47.0); HEMOGLOBIN 10.5 G/DL (12.0-16.0); MEAN CORPUSCULAR VOLUME 114 FL (80-99); PLATELET COUNT 315 K/UL (150-450); RED BLOOD COUNT 2.65 M/UL (4.20-5.40); RED CELL DISTRIBUTION WIDTH 14.6 % (11.6-14.8); WHITE BLOOD COUNT 7.9 K/UL (4.8-10.8)
--- NOTE | 2019-03-26 05:00 | NUR ---
NURSE NOTES: Placed pt back to bIPAP / with fio2 40%
[2019-03-26 05:11] LABS: ALANINE AMINOTRANSFERASE 26 U/L (12-78); ALBUMIN 1.9 G/DL (3.4-5.0); ALBUMIN/GLOBULIN RATIO 0.6 (1.0-2.7); ALKALINE PHOSPHATASE 123 U/L (46-116); ANION GAP 9 mmol/L (5-15); ASPARTATE AMINO TRANSFERASE 39 U/L (15-37); BILIRUBIN,TOTAL 1.1 MG/DL (0.2-1.0); BLOOD UREA NITROGEN 2 mg/dL (7-18); CALCIUM 8.2 MG/DL (8.5-10.1); CARBON DIOXIDE 23 MMOL/L (21-32); CHLORIDE 109 MMOL/L (98-107); CREATININE 0.6 MG/DL (0.55-1.30); PHOSPHORUS 4.1 MG/DL (2.5-4.9); POTASSIUM 3.7 MMOL/L (3.5-5.1); SODIUM 141 MMOL/L (136-145)
[2019-03-26 05:14] LABS: BILIRUBIN,DIRECT 0.5 MG/DL (0.0-0.3)
[2019-03-26] MEDS: Amiodarone 200mg tab NG SCH (06:00)
[2019-03-26] MEDS: Piperacillin/Tazobactam 3.375 GM in NS 110 ML IVPB SCH (06:17)
--- NOTE | 2019-03-26 06:35 | NUR ---
NURSE NOTES: Called [facility], ICU, Full report was given to RN, JEAN CARLOS RAMIRES using SBAR. Accepting MD DR DANIELLE.
--- NOTE | 2019-03-26 07:19 | NUR ---
HAND-OFF: Report given to Shilpa Caballero RN.
--- NOTE | 2019-03-26 07:20 | NUR ---
NURSE NOTES: Received patient from [facility]. Patient denies pain or discomfort at this time. Patient alert and oriented at this time. Patient blood pressure 97/75, HR 95, SpO2 98% on BiPAP 06/20. Patient asking to be taken off of BiPAP at this time. Patient placed on Venturi mask 55%. Saturation remains 97-98% and RR 20-30. Patient denies shortness of breath. Patient wishes to eat at this time. Will bring her breakfast tray when it arrives. Patient had multiple bowel movements over night. Will hold her colace this morning. Patient has bhardwaj for urine retention and is putting out about 30mL/hr of urine. Patient skin intact besides bilateral upper extremity bruises. Patient has right upper arm PIV that is patent, 20 gauge, asymptomatic, and running Zosyn at this time. Patient denies pain at IV insertion site. Patient has generalized weakness presumably due to prolonger bed rest and post code status. Patient electrolytes within normal limits this morning. Patient is to be transferred to [facility]. Ambulance to arrive at 0730. Will follow up with [facility]. Bed in low position with bed alarm on and call light in reach at this time.
--- NOTE | 2019-03-26 07:30 | NUR ---
NURSE NOTES: [facility] called to say they are running late and the new estimated rock picker time is 0800.
[2019-03-26] MEDS ORDERED: Spironolactone 25mg tab ORAL SCH (09:00)
[2019-03-26] MEDS: Docusate 100mg tablet NG SCH (09:00)
[2019-03-26] MEDS ORDERED: Lisinopril 2.5mg tab ORAL SCH (09:00)
[2019-03-26] MEDS ORDERED: Enoxaparin 40mg Inj SUBQ SCH (09:00)
--- NOTE | 2019-03-26 09:00 | NUR ---
NURSE NOTES: Patient has several medications ordered to be given this morning that may affect the blood pressure. Left message on Dr Harrison's emergency line at 0830 asking if the medications should be given as the patient's blood pressure is 94/77 and her HR is 94. Received a call back at this time. Order received to hold Carvedilol 3.125mg, Lisinopril 2.5mg, and Spironolactone 25mg. Medications held at this time. Lovenox also held as the patient may have procedure when she is transferred to [facility].
[2019-03-26] MEDS ORDERED: Amiodarone 150mg/3ml Amp ONE (09:59)
--- NOTE | 2019-03-26 10:01 | NUR ---
NURSE NOTES: [facility] picked up the patient to transfer to [facility] room [id number]. Report given to ambulance personnel. Patient stable at this time with HR 93 in sinus rhythm. Blood pressure 97/72, temp 97.5, RR 25 and SpO2 98% on venturi mask 55%. Patient denies pain or acute distress. Patient's next of kin (boyfriend) notified that the patient is on her way to [facility] and room number was given. Belongings verified and remain with the patient.
[2019-03-26] MEDS ORDERED: NS 275ml ONE ×3 (10:35→10:54)
[2019-03-26] MEDS ORDERED: Tubing IV Secondary IV ONE ×3 (10:35→10:54)
--- NOTE | 2019-03-26 10:50 | Nephrology Progress Note ---
Assessment/Plan Problem List: (1) Pancreatitis (2) Hypokalemia Assessment: improved (3) Cardiac arrest Assessment: Global left ventricular akinesis, except basal segments. Left ventricular ejection fraction estimated to be 15 %. (4) Anemia (5) Cardiomyopathy (6) Respiratory failure requiring intubation Assessment had malignant arrythmia early am- now in ICU Severe HypoKalemia on admit Pancreatitis , high Lipase Acute alcoholic intoxication Anemia Plan on her way to [facility] for Defibrilator Pulm support / Cardiac support K and Mag V as needed Monitor electrolytes anemia valenzuela Thiamin Gastric support per orders Subjective ROS Limited/Unobtainable: No Interval Events/Complaints seen at 9.30 am Constitutional: Reports: malaise Objective Objective Last 24 Hour Vital Signs Date Time Temp Pulse Resp B/P (MAP) Pulse Ox O2 Delivery O2 Flow Rate FiO2 03/26/19 09:00 93/69 03/26/19 09:00 93 93/69 03/26/19 08:00 97.5 94 26 97/75 (82) 96 03/26/19 08:00 93 03/26/19 08:00 Nasal Cannula 2.0 03/26/19 07:03 98 Venturi Mask 14.0 55 03/26/19 07:03 91 30 99 Venturi Mask 14.0 55 03/26/19 07:00 91 28 97/85 (89) 96 03/26/19 06:15 96 30 96 Facial 40 03/26/19 06:00 81 30 93/69 (77) 94 03/26/19 05:00 91 30 88/62 (71) 94 03/26/19 04:00 Nasal Cannula 2.0 03/26/19 04:00 98.4 95 28 89/61 (70) 98 03/26/19 04:00 95 03/26/19 03:00 91 25 89/69 (76) 98 03/26/19 02:00 89 28 100/64 (76) 98 03/26/19 01:00 89 27 90/65 (73) 98 03/26/19 00:59 93 32 98 Facial 35 03/26/19 00:00 98.6 93 28 91/65 (74) 97 03/26/19 00:00 94 03/26/19 00:00 Nasal Cannula 2.0 03/25/19 23:00 99 28 95/70 (78) 94 03/25/19 22:00 98 32 85/60 (68) 94 03/25/19 21:12 101 104/69 03/25/19 21:00 104 28 104/69 (81) 95 03/25/19 20:00 102 03/25/19 20:00 98.2 101 26 104/63 (77) 95 03/25/19 20:00 Nasal Cannula 2.0 03/25/19 19:00 100 25 93/60 (71) 95 03/25/19 19:00 94 Nasal Cannula 3.0 32 03/25/19 19:00 102 25 94 Nasal Cannula 3.0 32 03/25/19 18:00 107 31 91/76 (81) 99 03/25/19 17:00 99 28 92/77 (82) 99 03/25/19 16:00 55 03/25/19 16:00 98.4 107 33 98/74 (82) 98 03/25/19 16:00 Venturi Mask 03/25/19 16:00 105 03/25/19 15:00 101 37 99/78 (85) 99 03/25/19 14:00 90/72 (78) 03/25/19 13:00 90/72 (78) 03/25/19 12:13 94 99/75 03/25/19 12:00 Venturi Mask 03/25/19 12:00 55 03/25/19 12:00 96 03/25/19 12:00 97.7 94 20 99/75 (83) 97 03/25/19 11:00 99 26 96/73 (81) 98 Intake and Output 03/25/19 03/26/19 19:00 07:00 Intake Total 1171.0 ml 450.0 ml Output Total 795 ml 540 ml Balance 376.0 ml -90.0 ml Free Water 30 ml 30 ml IV Total 1066.0 ml 110.0 ml Tube Feeding 75 ml 310 ml Output Urine Total 795 ml 540 ml # Bowel Movements 7 Current Medications Medications (Trade) Dose Ordered Sig/Ismael Route PRN Reason Start Time Stop Time Status Last Admin Dose Admin Amiodarone HCl (Cordarone) 400 mg EVERY 8 HOURS NG 03/25/19 14:00 04/21/19 13:59 03/25/19 14:04 Carvedilol (Coreg) 3.125 mg EVERY 12 HOURS ORAL 03/25/19 21:00 04/24/19 20:59 03/25/19 21:12 Docusate Sodium (Colace) 100 mg TID NG 03/25/19 13:00 04/20/19 08:59 03/25/19 12:43 Enoxaparin Sodium (Lovenox) 40 mg DAILY SUBQ 03/26/19 09:00 04/25/19 08:59 Ipratropium [place] (Atrovent) 500 mcg Q4H PRN HHN Shortness of Breath 03/22/19 18:45 03/27/19 18:44 03/25/19 07:23 Lansoprazole (Prevacid) 30 mg Q12HR NG 03/25/19 21:00 04/24/19 20:59 03/26/19 09:06 Lisinopril (Zestril) 2.5 mg DAILY ORAL 03/26/19 09:00 04/25/19 08:59 Lorazepam (Ativan 2mg/ml 1ml) 2 mg Q4H PRN IM For Anxiety 03/21/19 07:45 03/28/19 07:44 03/25/19 04:51 Ondansetron HCl (Zofran) 4 mg Q6H PRN IVP Nausea & Vomiting 03/21/19 07:05 04/20/19 07:04 Phenylephrine HCl 50 mg/Dextrose 250 ml @ 0 mls/hr Q24H IV 03/21/19 12:15 04/20/19 12:14 Piperacillin Sod/ Tazobactam Sod 3.375 gm/Sodium Chloride 110 ml @ 27.5 mls/hr Q8HR IVPB 03/21/19 14:00 03/28/19 13:59 03/26/19 06:17 Spironolactone (Aldactone) 25 mg DAILY ORAL 03/26/19 09:00 04/25/19 08:59 Thiamine HCl 100 mg/Dextrose 56 ml @ 112 mls/hr Q24H IVPB 03/21/19 12:00 04/20/19 11:59 03/25/19 12:43 Laboratory Tests 03/26/19 03:20: White Blood Count 7.9, Red Blood Count 2.65L, Hemoglobin 10.5L, Hematocrit 30.2L , Mean Corpuscular Volume 114H, Mean Corpuscular Hemoglobin 39.5H, Mean Corpuscular Hemoglobin Concent 34.7, Red Cell Distribution Width 14.6, Platelet Count 315, Mean Platelet Volume 7.4, Neutrophils (%) (Auto) , Lymphocytes (%) ( Auto) , Monocytes (%) (Auto) , Eosinophils (%) (Auto) , Basophils (%) (Auto) , Sodium Level 141, Potassium Level 3.7, Chloride Level 109H, Carbon Dioxide Level 23, Anion Gap 9, Blood Urea Nitrogen 2L, Creatinine 0.6, Estimat Glomerular Filtration Rate > 60, Glucose Level 115H, Uric Acid 0.8L, Calcium Level 8.2L, Phosphorus Level 4.1, Magnesium Level 2.1, Total Bilirubin 1.1H, Direct Bilirubin 0.5H, Aspartate Amino Transf (AST/SGOT) 39H, Alanine Aminotransferase (ALT/SGPT) 26, Alkaline Phosphatase 123H, Troponin I 0.040, C- Reactive Protein, Quantitative 7.3H, Pro-B-Type Natriuretic Peptide 5810H, Total Protein 4.9L, Albumin 1.9L, Globulin 3.0, Albumin/Globulin Ratio 0.6L Height (Feet): 5 Height (Inches): 2.00 Weight (Pounds): 90 General Appearance: lethargic, mild distress Cardiovascular: bradycardia Respiratory/Chest: decreased breath sounds Abdomen: distended Mehdi Beckman MD Mar 26, 2019 10:49
[2019-03-26] MEDS ORDERED: 1/2 NS 1000ml IV ONE (10:54)
--- NOTE | 2019-03-26 11:42 | Hematology/Onc Progress Note ---
Assessment/Plan Assessment/Plan Assessment and Recs: # Pancytopenia - potential causes multifactorial, evaluate liver and viral etiologies to begin, in this case very likely due to myelosuppresion from chronic alcohol abuse (hepatocellular disease) and ETOH --> Hep panel and HIV NEG --> US abd to evaluate for cirrhosis and hsm ordered and shows hepatocellular disease, likely fatty changes --> Peripheral smear ordered to evaluate for blasts /schistocytes doesn't show any --> abx and other meds have been reviewed --> ok for ppx if plt >50k w/ either heparin or lovenox --> Transfuse if Plt < 20k and fever, or if Plt < 10k without fever --> Anemia workup is c/w acd --> No evidence of hemolysis is noted, peripheral smear has been reviewed. --> Hgb goal >7. Transfuse prn basis --> Epogen or iron at this time is not particularly indicated --> Medications have been reviewed --> occult + --> per gi --> bone marrow biopsy not needed given etoh culprit --> hgb trend 11-->10.4-->9.4-->10.1-->10.5 # Coagulation defect, multifactorial usually related to poor PO intake versus medications, versus hepatitis v cirrhosis (from chronic etoh use) --> administer Vitamin K if patient is bleeding or FFP if the INR is >10 --> hold off on ffp unless active procedure/bleeding, first begin with vit K 10 # Leukocytosis r/u infection with asp pna --> zosyn as per id # S/p Ventricular fibrillation arrest and subsequest PEA, currently stable on Amiodarone gtt --> per cards recs --> meds reviewed # Aspiration pneumonia --> abx per pulm/id # Respiratory failure requiring intubation --> was on vent --> now extubated # Alcohol abuse, withdrawal --> monitor for withdrawal # Pancreatitis --> per gi recs, adat # Fatty Liver # Previous Seizures # Previous breast abscess requiring drainage # Dvt ppx once plt is >75k and hgb stable The timing of this note does not necessarily reflect the time of the patient was seen. Greatly appreciate consultation. Subjective Allergies: Coded Allergies: No Known Allergies (Unverified , 03/19/19) Subjective 03/21: is responsive in the icu, dw rn, labs reviewed, plt remains low, us abd reviewed 03/22: vs stable, no f/c, in icu, labs reviewed, imaging reviewed, extubated 03/23: overnight was desatting, is on venturi mask, a+o x3-4, no bleeding noted, hgb lower 03/25: pending transfer to [facility], for cardiac cath and defib placement, on zosyn 03/26: no f/c, denies pain or discomfort, [place] [facility] [place] Objective Last 24 Hour Vital Signs Date Time Temp Pulse Resp B/P (MAP) Pulse Ox O2 Delivery O2 Flow Rate FiO2 03/26/19 10:00 93 28 94/77 (83) 98 03/26/19 09:00 90 28 94/77 (83) 97 03/26/19 09:00 93/69 03/26/19 09:00 93 93/69 03/26/19 08:00 97.5 94 26 97/75 (82) 96 03/26/19 08:00 93 03/26/19 08:00 Nasal Cannula 2.0 03/26/19 07:03 98 Venturi Mask 14.0 55 03/26/19 07:03 91 30 99 Venturi Mask 14.0 55 03/26/19 07:00 91 28 97/85 (89) 96 03/26/19 06:15 96 30 96 Facial 40 03/26/19 06:00 81 30 93/69 (77) 94 03/26/19 05:00 91 30 88/62 (71) 94 03/26/19 04:00 Nasal Cannula 2.0 03/26/19 04:00 98.4 95 28 89/61 (70) 98 03/26/19 04:00 95 03/26/19 03:00 91 25 89/69 (76) 98 03/26/19 02:00 89 28 100/64 (76) 98 03/26/19 01:00 89 27 90/65 (73) 98 03/26/19 00:59 93 32 98 Facial 35 03/26/19 00:00 98.6 93 28 91/65 (74) 97 03/26/19 00:00 94 03/26/19 00:00 Nasal Cannula 2.0 03/25/19 23:00 99 28 95/70 (78) 94 03/25/19 22:00 98 32 85/60 (68) 94 03/25/19 21:12 101 104/69 03/25/19 21:00 104 28 104/69 (81) 95 03/25/19 20:00 102 03/25/19 20:00 98.2 101 26 104/63 (77) 95 03/25/19 20:00 Nasal Cannula 2.0 03/25/19 19:00 100 25 93/60 (71) 95 03/25/19 19:00 94 Nasal Cannula 3.0 32 03/25/19 19:00 102 25 94 Nasal Cannula 3.0 32 03/25/19 18:00 107 31 91/76 (81) 99 03/25/19 17:00 99 28 92/77 (82) 99 03/25/19 16:00 55 03/25/19 16:00 98.4 107 33 98/74 (82) 98 03/25/19 16:00 Venturi Mask 03/25/19 16:00 105 03/25/19 15:00 101 37 99/78 (85) 99 03/25/19 14:00 90/72 (78) 03/25/19 13:00 90/72 (78) 03/25/19 12:13 94 99/75 03/25/19 12:00 Venturi Mask 03/25/19 12:00 55 03/25/19 12:00 96 03/25/19 12:00 97.7 94 20 99/75 (83) 97 03/25/19 11:00 99 26 96/73 (81) 98 03/25/19 10:00 100 28 98/75 (83) 97 03/25/19 09:00 106 28 110/90 (97) 95 03/25/19 08:00 98.4 109 29 106/78 (87) 97 03/25/19 08:00 55 03/25/19 08:00 Venturi Mask 03/25/19 07:25 96 Venturi Mask 14.0 55 03/25/19 07:24 115 30 96 Venturi Mask 14.0 55 03/25/19 07:23 119 36 96 Venturi Mask 14.0 55 121 40 96 03/25/19 07:14 112 03/25/19 07:00 114 42 111/90 (97) 98 03/25/19 06:00 116 42 110/82 (91) 97 03/25/19 05:00 127 42 104/86 (92) 97 03/25/19 04:00 116 40 117/97 (104) 97 03/25/19 04:00 Venturi Mask 03/25/19 04:00 55 03/25/19 04:00 117 03/25/19 03:00 122 42 118/104 (109) 97 03/25/19 02:00 121 44 131/73 (92) 99 03/25/19 01:00 121 50 114/82 (93) 96 03/25/19 00:30 120 41 101/78 (86) 95 03/25/19 00:00 99.0 122 41 109/85 (93) 95 03/25/19 00:00 Venturi Mask 03/25/19 00:00 55 03/25/19 00:00 118 03/24/19 23:00 127 34 103/77 (86) 89 03/24/19 22:00 127 31 109/86 (94) 91 03/24/19 21:00 116 24 104/82 (89) 97 03/24/19 20:00 120 03/24/19 20:00 55 03/24/19 20:00 98.4 122 33 122/78 (93) 96 03/24/19 20:00 Venturi Mask 03/24/19 19:38 124 28 95 Venturi Mask 14.0 55 03/24/19 19:38 95 Venturi Mask 14.0 55 03/24/19 19:00 114 40 128/88 (101) 99 03/24/19 18:00 105 26 105/85 (92) 99 03/24/19 17:00 117 40 104/22 (49) 82 03/24/19 16:00 Venturi Mask 03/24/19 16:00 55 03/24/19 16:00 97.9 112 37 95/79 (84) 99 03/24/19 16:00 113 03/24/19 15:00 115 48 106/78 (87) 96 03/24/19 14:00 110 38 104/83 (90) 100 03/24/19 13:00 112 38 91/55 (67) 100 03/24/19 12:15 110 104/81 03/24/19 12:00 98.0 121 27 121/103 (109) 97 03/24/19 12:00 55 03/24/19 12:00 121 03/24/19 12:00 Venturi Mask Intake and Output 03/25/19 03/26/19 19:00 07:00 Intake Total 1171.0 ml 477.5 ml Output Total 795 ml 540 ml Balance 376.0 ml -62.5 ml Free Water 30 ml 30 ml IV Total 1066.0 ml 137.5 ml Tube Feeding 75 ml 310 ml Output Urine Total 795 ml 540 ml # Bowel Movements 7 Labs Test 03/23/19 11:50 03/24/19 04:00 03/25/19 04:00 03/26/19 03:20 Potassium Level 3.7 MMOL/L (3.5-5.1) 2.9 MMOL/L (3.5-5.1) 3.2 MMOL/L (3.5-5.1) 3.7 MMOL/L (3.5-5.1) Phosphorus Level 2.4 MG/DL (2.5-4.9) 3.3 MG/DL (2.5-4.9) 4.6 MG/DL (2.5-4.9) 4.1 MG/DL (2.5-4.9) Magnesium Level 2.0 MG/DL (1.8-2.4) 1.5 MG/DL (1.8-2.4) 1.7 MG/DL (1.8-2.4) 2.1 MG/DL (1.8-2.4) Troponin I 0.119 ng/mL (0.000-0.056) 0.040 ng/mL (0.000-0.056) White Blood Count 9.3 K/UL (4.8-10.8) 8.9 K/UL (4.8-10.8) 7.9 K/UL (4.8-10.8) Red Blood Count 2.79 M/UL (4.20-5.40) 2.62 M/UL (4.20-5.40) 2.65 M/UL (4.20-5.40) Hemoglobin 10.8 G/DL (12.0-16.0) 10.1 G/DL (12.0-16.0) 10.5 G/DL (12.0-16.0) Hematocrit 31.4 % (37.0-47.0) 29.4 % (37.0-47.0) 30.2 % (37.0-47.0) Mean Corpuscular Volume 113 FL (80-99) 112 FL (80-99) 114 FL (80-99) Mean Corpuscular Hemoglobin 38.7 PG (27.0-31.0) 38.7 PG (27.0-31.0) 39.5 PG (27.0-31.0) Mean Corpuscular Hemoglobin Concent 34.4 G/DL (32.0-36.0) 34.5 G/DL (32.0-36.0) 34.7 G/DL (32.0-36.0) Red Cell Distribution Width 14.2 % (11.6-14.8) 14.9 % (11.6-14.8) 14.6 % (11.6-14.8) Platelet Count 162 K/UL (150-450) 247 K/UL (150-450) 315 K/UL (150-450) Mean Platelet Volume 7.8 FL (6.5-10.1) 7.2 FL (6.5-10.1) 7.4 FL (6.5-10.1) Neutrophils (%) (Auto) % (45.0-75.0) % (45.0-75.0) % (45.0-75.0) Lymphocytes (%) (Auto) % (20.0-45.0) % (20.0-45.0) % (20.0-45.0) Monocytes (%) (Auto) % (1.0-10.0) % (1.0-10.0) % (1.0-10.0) Eosinophils (%) (Auto) % (0.0-3.0) % (0.0-3.0) % (0.0-3.0) Basophils (%) (Auto) % (0.0-2.0) % (0.0-2.0) % (0.0-2.0) Sodium Level 140 MMOL/L (136-145) 140 MMOL/L (136-145) 141 MMOL/L (136-145) Chloride Level 105 MMOL/L (98-107) 105 MMOL/L (98-107) 109 MMOL/L (98-107) Carbon Dioxide Level 24 MMOL/L (21-32) 20 MMOL/L (21-32) 23 MMOL/L (21-32) Anion Gap 11 mmol/L (5-15) 16 mmol/L (5-15) 9 mmol/L (5-15) Blood Urea Nitrogen 3 mg/dL (7-18) 3 mg/dL (7-18) 2 mg/dL (7-18) Creatinine 0.6 MG/DL (0.55-1.30) 0.5 MG/DL (0.55-1.30) 0.6 MG/DL (0.55-1.30) Estimat Glomerular Filtration Rate > 60 mL/min (>60) > 60 mL/min (>60) > 60 mL/min (>60) Glucose Level 104 MG/DL (74-106) 72 MG/DL (74-106) 115 MG/DL (74-106) Calcium Level 8.2 MG/DL (8.5-10.1) 8.0 MG/DL (8.5-10.1) 8.2 MG/DL (8.5-10.1) Total Bilirubin 1.5 MG/DL (0.2-1.0) 1.1 MG/DL (0.2-1.0) Direct Bilirubin 0.8 MG/DL (0.0-0.3) 0.5 MG/DL (0.0-0.3) Aspartate Amino Transf (AST/SGOT) 59 U/L (15-37) 39 U/L (15-37) Alanine Aminotransferase (ALT/SGPT) 35 U/L (12-78) 26 U/L (12-78) Alkaline Phosphatase 115 U/L (46-116) 123 U/L (46-116) Total Protein 5.2 G/DL (6.4-8.2) 4.9 G/DL (6.4-8.2) Albumin 2.1 G/DL (3.4-5.0) 1.9 G/DL (3.4-5.0) Uric Acid 0.8 MG/DL (2.6-7.2) C-Reactive Protein, Quantitative 7.3 mg/dL (0.00-0.90) Pro-B-Type Natriuretic Peptide 5810 pg/mL (0-125) Globulin 3.0 g/dL Albumin/Globulin Ratio 0.6 (1.0-2.7) Height (Feet): 5 Height (Inches): 2.00 Weight (Pounds): 90 Objective Gen: interactive, jaundice Head: normocephalic, atraumatic Eyes: bilateral eye PERRL, bilateral eye EOMI Neck: no masses, no LN Respiratory: Bilateral occasional rhonchi ++ venturi mask Cardiovascular: regular rate, rhythm, normal HS1, HS2, no murmur Gastrointestinal: normal bowel sounds, nt, nd Musculoskeletal: no rashes, no edema [employer]SEM[employer] DECK [employer] HULL: Interactive, no seizures, no focal signs Tanner Mckeon MD Mar 26, 2019 11:42
--- NOTE | 2019-03-26 13:37 | Pulmonolgy Critical Care Note ---
Critical Care - Asmt/Plan Assessment/Plan: Pulmonary Critical Care Progress Note HPI Patient is a 38-year-old woman initially admitted to the hospital for Hypokalemia and Alcohol abuse/withdrawal, Pancreatitis. S/p VT VF arrest and subsequent CPR for subsequent PEA, subsequently intubated and sedated on the Ventilator, on Amiodarone gtt. Patient is awake and interactive post code, now extubated. Status post 2 ventricular fibrillation arrests in the setting of severe CMP and EF 15%, the EKG does not show any active ischemic changes. Aw[place] to [facility] [place] Noted to have evidence of pneumonia with bilateral infiltrates, L>R, post intubation, possibly from aspiration. On Antibiotics/Amiodarone, off sedation, s/p extubation Stable O2 requirements - on PRN BiPAP, IVF DC, currently on FM O2 - 50% Allergies: No Known Allergies Past Medical History: Alcohol abuse, fatty liver, previous seizure, previous drainage of breast abscess. All Other Systems: limited - secondary to condition Physical Exam Vital Signs Noted, not currently on pressors General Appearance: Alert interactive, Head: normocephalic, atraumatic Eyes: bilateral eye PERRL, bilateral eye EOMI ENT: moist mm Neck: no masses, no LN Respiratory: CTAB Cardiovascular: regular rate, rhythm, normal HS1, HS2, no murmur Gastrointestinal: normal bowel sounds, non tender, no mass, no organomegaly, no bruit, non-distended Musculoskeletal: no rashes, no edema [employer] SERVER: Interactive, no seizures, no focal signs Impression: S/p Ventricular fibrillation arrest and subsequest PEA, currently stable on Amiodarone Cardiomyopathy with EF 15% Aspiration pneumonia Respiratory failure s/p extubation Alcohol abuse, withdrawal Pancreatitis Fatty Liver Previous Seizures Previous breast abscess requirng drainage Plan Wean FIO2 - sats 90-96% NGT for feeding IVF PRN Ativan Monitor labs PPX IV Antibiotics PRN Thiamine Chest X-Ray: 1. Interval removal of endotracheal tube. 2. New small bilateral pleural effusions. 3. Interval new bilateral airspace opacities and worsening interstitial thickening mid to lower lungs. Labs/ABG noted Seen earlier Critical Care - Objective Last 24 Hour Vital Signs Date Time Temp Pulse Resp B/P (MAP) Pulse Ox O2 Delivery O2 Flow Rate FiO2 03/26/19 10:00 93 28 94/77 (83) 98 03/26/19 09:00 90 28 94/77 (83) 97 03/26/19 09:00 93/69 03/26/19 09:00 93 93/69 03/26/19 08:00 97.5 94 26 97/75 (82) 96 03/26/19 08:00 93 03/26/19 08:00 Nasal Cannula 2.0 03/26/19 07:03 98 Venturi Mask 14.0 55 03/26/19 07:03 91 30 99 Venturi Mask 14.0 55 03/26/19 07:00 91 28 97/85 (89) 96 03/26/19 06:15 96 30 96 Facial 40 03/26/19 06:00 81 30 93/69 (77) 94 03/26/19 05:00 91 30 88/62 (71) 94 03/26/19 04:00 Nasal Cannula 2.0 03/26/19 04:00 98.4 95 28 89/61 (70) 98 03/26/19 04:00 95 03/26/19 03:00 91 25 89/69 (76) 98 03/26/19 02:00 89 28 100/64 (76) 98 03/26/19 01:00 89 27 90/65 (73) 98 03/26/19 00:59 93 32 98 Facial 35 03/26/19 00:00 98.6 93 28 91/65 (74) 97 03/26/19 00:00 94 03/26/19 00:00 Nasal Cannula 2.0 03/25/19 23:00 99 28 95/70 (78) 94 03/25/19 22:00 98 32 85/60 (68) 94 03/25/19 21:12 101 104/69 03/25/19 21:00 104 28 104/69 (81) 95 03/25/19 20:00 102 03/25/19 20:00 98.2 101 26 104/63 (77) 95 03/25/19 20:00 Nasal Cannula 2.0 03/25/19 19:00 100 25 93/60 (71) 95 03/25/19 19:00 94 Nasal Cannula 3.0 32 03/25/19 19:00 102 25 94 Nasal Cannula 3.0 32 03/25/19 18:00 107 31 91/76 (81) 99 03/25/19 17:00 99 28 92/77 (82) 99 03/25/19 16:00 55 03/25/19 16:00 98.4 107 33 98/74 (82) 98 03/25/19 16:00 Venturi Mask 03/25/19 16:00 105 03/25/19 15:00 101 37 99/78 (85) 99 03/25/19 14:00 90/72 (78) Critical Care - Subjective ROS Limited/Unobtainable: No FI02: 55 Vent Support Breath Rate: 15 Vent Support Mode: CPAP Vent Tidal Volume: 500 Sputum Amount: None PEEP: 5.0 PIP: 14 Tube Feeding Amount: 40 I&O: Intake and Output 03/25/19 03/26/19 19:00 07:00 Intake Total 1171.0 ml 477.5 ml Output Total 795 ml 540 ml Balance 376.0 ml -62.5 ml Free Water 30 ml 30 ml IV Total 1066.0 ml 137.5 ml Tube Feeding 75 ml 310 ml Output Urine Total 795 ml 540 ml # Bowel Movements 7 ET-Tube: 7.0 ET Position: 23 Leandro Montesinos MD Mar 26, 2019 13:37
--- NOTE | 2019-03-27 11:09 | Discharge Summary ---
Discharge Summary Discharge Summary _ DATE OF ADMISSION: 03/19/2019 DATE OF DISCHARGE: 03/26/2019 DISCHARGED BY: Dr. Gill REASON FOR ADMISSION: 38 years old female with history of alcohol abuse and withdrawal seizure, presented requesting detox services and complaining of abdominal pain. Patient completed outpatient detox program in the past , however started to drink again after 1 month of sobriety. Patient reported left intermittent upper quadrant and lower pelvic pain. She denied dysuria, hematuria, flank pain, vaginal discharge, vaginal bleeding. She denied vomiting , but reported nausea. She denied chest pain and shortness of breath. Patient reported history of alcohol withdrawal seizure in the past. Patient was not on any antiseizure medication. She denied any recent fever or chills. No sore throat or nasal congestion. Patient reported smoking cigarettes. No illicit drug use. Upon evaluation laboratory work-up revealed no leukocytosis , hemoglobin 13.4 , hematocrit 34.3. Platelet count 84. Urinalysis revealed evidence of urinary tract infection. Urine test was negative. Potassium 2.4, sodium 146. Magnesium 1.7. Anion gap 20. BUN 4, creatinine 0.6. Glucose 92. Albumin 3.7. Lipase 1468. Urine toxicology screen was negative. EKG revealed sinus rhythm. In emergency department patient started on the IV fluids, GI cocktail provided. Antiemetic administered. Patient started on empiric antibiotic and admitted for further management. CONSULTANTS: proposition player Dr. Parikh pulmonary Dr Montesinos ID specialist Dr. Winters supply chain buyer Dr. Beckman psychiatrist [facility] Patient admitted. Patient initially was kept n.p.o. and started on the IV fluids with vitamins/ minerals/banana bag and empiric antibiotic. GI specialist closely followed. LFT and lipase were closely monitored. Abdominal ultrasound revealed gallbladder sludge, but was negative for gallstones or dilated bile ducts. Liver demonstrated diffusely increased echogenicity , consistent with diffuse hepatocellular disease , most likely fatty change. Hepatomegaly noted. LFT and bilirubin were trended . Patient sustained two ventricular fibrillation arrest on 03/21. Patient was intubated, started on amiodarone drip and transferred to ICU for further management. Central line was placed . Chest x-ray demonstrated evidence of pneumonia. Ventilator support and pulmonary toilet provided. Patient developed leukocytosis. Infectious disease specialist followed. Sputum culture was negative. Urine culture revealed E. coli ESBL. Patient was followed-up with chest x-ray . Venous duplex bilateral lower extremity revealed no evidence of acute DVT. Echocardiogram demonstrated severely reduced ejection fraction of 15% with global left ventricular akinesis except basal segments. No evidence of left ventricular hypertrophy. No evidence of pericardial effusion. Right ventricular systolic pressure of 30 . [employer] Skin Diver follow. Elevated troponin after cardiac arrest -0.372. Per proposition player, two ventricular fibrillation arrest in setting of severe cardiomyopathy with ejection fraction of 15% will require cardiac catheterization. Minimally elevated troponin was due to troponin leak , secondary to ventricular fibrillation arrest and shock. Troponin levels were low and flat , trended down. Troponin negative. As per proposition player, ventricular fibrillation arrest could have been precipitated by profound hypokalemia with potassium of only 2.2. Patient initially was on amiodarone drip , which changed to oral amiodarone later . Guideline directed medical therapy for systolic BRITTANIE inhibitor and Aldactone. Transfer was arranged to [facility] pending bed availability for cardiac catheterization and possible AICD implantation. TSH slightly elevated , but free T4 within normal limits. Lipid panel stable. Patient was able to be extubated later. Supplemental oxygen provided via nasal cannula to keep pulse oximetry above 92%. No further signs of respiratory distress. Rack Puncher followed. Renal parameters and electrolytes were closely monitored. Potassium and magnesium replaced. Prior to transfer potassium 3.7, magnesium 1.7. HIV test was negative. Hepatitis panel was nonreactive. Hemoglobin and hematocrit were closely monitored with goal to keep hemoglobin above 7. Anemia work-up was consistent with anemia of chronic disease. Epogen and iron were not particularly indicated. Prior to transfer hemoglobin 10.5, hematocrit 30.2. Stool for occult blood was positive. Lipase trended down from initial 1468 down to normal 86. LFT were closely monitored. AST from 332 down to 39 and ALT remained stable. Upon discharge total bilirubin 1.1 with highest being 3.4 during the admission and direct bilirubin down to 0.5 with the highest being 2.1 during the admission. Elevated LFT were likely due to fatty liver disease and history of alcohol abuse . HIV test was negative. Hepatitis panel was negative. Psychiatrist followed. Patient with evidence of alcohol dependence and alcohol withdrawal. Patient was follow-up with [facility] protocol . Ativan was on board as needed. Placement was finally arranged to [facility] for cardiac catheterization and possible AICD implantation. Patient was transferred via [facility] ambulance. FINAL DIAGNOSES: Status post two ventricular fibrillation arrest in setting of the severe cardiomyopathy Acute respiratory failure requiring intubation Severe cardiomyopathy with ejection fraction 15 % Hypokalemia Aspiration pneumonia Alcohol abuse and withdrawal Alcohol dependency Acute alcoholic pancreatitis UTI with E. coli Nicotine dependency Fatty liver History of alcohol withdrawal seizures Anemia of chronic disease DISCHARGE MEDICATIONS: List of medication was sent to accepting facility. DISCHARGE INSTRUCTIONS: Patient was discharged to [facility] for cardiac catheterization and possible AICD implantation. I have been assigned to dictate discharge summary for this account. I was not involved in the patient's management. Rosalie Heaton NP Mar 27, 2019 11:09
--- NOTE | 2019-03-27 15:21 | Diagnostic Imaging Report ---
APPROVED REPORT CPT Code: 52900 Present Symptoms Shortness of breath Comments: Hx of line (LT CFV) BILATERAL: Imaging reveals a patent deep venous system bilaterally. There is no evidence of thrombus within the common femoral, superficial femoral, popliteal or tibial segments. The greater saphenous veins are within normal limits. Doppler indicates normal spontaneous flow within these segments.
== END 2019-03-26 10:00 | DRG 282 ==
LOC: EDBD 14:37 → EMR 15:00 → 2E 16:46 → EDBEDREQ 17:15 → ICU 03-21 02:08
PROC: 0BH17EZ Insertion of Endotracheal Airway into Trachea, Via Natural or Artificial Opening (ICD-10-PCS; principal; 2019-03-19)
PROC: 5A1945Z Respiratory Ventilation, 24-96 Consecutive Hours (ICD-10-PCS; principal; 2019-03-19)
PROC: 06HN33Z Insertion of Infusion Device into Left Femoral Vein, Percutaneous Approach (ICD-10-PCS; principal; 2019-03-19)
PROC: 5A12012 Performance of Cardiac Output, Single, Manual (ICD-10-PCS; principal; 2019-03-19)
DX: K85.20 Alcohol induced acute pancreatitis without necrosis or infection (principal); J69.0 Pneumonitis due to inhalation of food and vomit; F10.229 Alcohol dependence with intoxication, unspecified; N39.0 Urinary tract infection, site not specified; F10.239 Alcohol dependence with withdrawal, unspecified; E87.6 Hypokalemia; D64.9 Anemia, unspecified; D69.6 Thrombocytopenia, unspecified; F17.200 Nicotine dependence, unspecified, uncomplicated; I49.01 Ventricular fibrillation; I47.2 Ventricular tachycardia; I46.9 Cardiac arrest, cause unspecified; D61.818 Other pancytopenia; J96.00 Acute respiratory failure, unspecified whether with hypoxia or hypercapnia; I50.20 Unspecified systolic (congestive) heart failure; B96.20 Unspecified Escherichia coli [E. coli] as the cause of diseases classified elsewhere; K76.0 Fatty (change of) liver, not elsewhere classified; I42.9 Cardiomyopathy, unspecified
CPT/HCPCS: 36415; 36600; 71045; 74018; 76700; 80048; 80053; 80061; 80076; 80307; 81001; 81003; 81025; 82105; 82150; 82248; 82270; 82607; 82728; 82746; 82803; 82977; 83540; 83550; 83690; 83735; 83880; 84100; 84132; 84439; 84443; 84478; 84484; 84550; 85007; 85025; 85044; 85610; 85730; 86140; 86703; 86705; 86709; 86803; 87070; 87086; 87181; 87205; 87340; 93005; 93306; 93970; 94002; 94003; 94640; 94660; 94664; 96365; 96367; 96368; 96375; 99291; J0171; J2250; J2370; J2405; J8499